=== PATIENT | female | born 1960 | race Caucasian/White ===

== ENCOUNTER → 2020-04-23 10:49 | Outpatient (BNV) | payer OTHER, SELFPAY | PROVIDERS: PCP Pediatrics; Visit Provider Internal Medicine | DX: C50.911 Malignant neoplasm of unspecified site of right female breast (principal) | CPT/HCPCS: 99213; 99214 ==

== ENCOUNTER → 2020-05-27 08:13 | Outpatient (BNVA) | payer OTHER, SELFPAY | PROVIDERS: PCP Family Medicine; Referring Provider Family Medicine; Visit Provider Surgery | DX: C50.911 Malignant neoplasm of unspecified site of right female breast (principal); Z79.899 Other long term (current) drug therapy | CPT/HCPCS: 99212 ==

== ENCOUNTER 2020-05-28 14:50 | Outpatient (REF) | payer OTHER, SELFPAY ==
--- NOTE | 2020-05-28 | MM_ITS ---
EXAMINATION: MM DIAGNOSTIC DIGITAL BREAST TOMOSYNTHESIS, BILATERAL CLINICAL INFORMATION: Right lumpectomy for breast cancer 2018. Due for yearly exam. COMPARISON: Mammography: 04/26/2019, 04/24/2018, 08/09/2017, 07/05/2017, 06/20/2017, 12/16/2016 TECHNIQUE: Digital breast tomosynthesis is performed in both the craniocaudal and mediolateral oblique views along with computer-aided detection (CAD). Synthesized 2D images are generated from the tomosynthesis. Additional magnification right CC and magnification right LM views are obtained. FINDINGS: There are scattered areas of fibroglandular density (ACR BI-RADS breast composition Category b). The right breast shows post therapy changes with minor scarring upper inner quadrant similar to prior study. Neither breast shows significant mass or interval architectural abnormality or abnormal calcifications. There are no significant changes. Results are provided to the patient at time of visit by the technologist. MM/MM tomosynthesis diagnostic BI IMPRESSION: 1. No significant changes from prior exam. 2. Post therapy changes right breast. ASSESSMENT: BI-RADS 2: Benign RECOMMENDATION: Annual bilateral mammography. This patient's information was entered into a reminder system with a target due date for their next mammogram.
== END 2020-05-28 14:51 | disposition home or self-care (01) ==
LOC: HO.MAMMO 14:50
PROVIDERS: PCP Family Medicine; Visit Provider Surgery
DX: C50.911 Malignant neoplasm of unspecified site of right female breast (principal)
CPT/HCPCS: 77062; 77066

== ENCOUNTER → 2020-08-20 08:14 | Outpatient (BNVA) | payer OTHER, SELFPAY | PROVIDERS: Visit Provider Physician Assistant | DX: Z13.89 Encounter for screening for other disorder (principal) | CPT/HCPCS: Q3014 ==

== ENCOUNTER 2020-08-22 11:50 | Outpatient (REF) | payer OTHER, SELFPAY ==
--- NOTE | ~2020-08-22 | CT_ITS ---
EXAMINATION: CT ABDOMEN WITH CONTRAST CLINICAL INFORMATION: Severe gastric ulcer COMPARISON: Abdominal ultrasound of July 06, [address] of the abdomen and pelvis of December 11, 2011 TECHNIQUE: Contiguous axial thin section helical images of the abdomen were performed following the administration of oral contrast and 85 mL of Omnipaque 350 intravenous contrast. The data set was reformatted in the coronal and sagittal planes and reviewed on an independent workstation. This CT examination was performed using dose optimization techniques as appropriate, variously including the following: *Automated exposure control *Adjustment of mA and/or kV according to patient size (this includes techniques or standardized protocols for targeted exams where dose is matched to indication/reason for exam; i.e. extremities or head) *Use of iterative reconstruction technique DLP: 350 mGy-cm FINDINGS: LUNG BASES: Lung bases appear unremarkable without evidence of acute parenchymal disease. No pleural effusion. No pericardial effusion. LIVER, GALLBLADDER, AND BILIARY TREE: Liver appears unremarkable without focal mass or intrahepatic bile duct dilatation. Patient status post cholecystectomy. PANCREAS: No pancreatic masses appreciated. Parenchymal contour is unremarkable without peripancreatic inflammatory change or fluid. SPLEEN: Unremarkable ADRENAL GLANDS AND KIDNEYS: Adrenal glands appear unremarkable. There are bilateral renal low-density lesions consistent with cysts. No suspicious solid masses seen. No hydronephrosis. Visualized portions of the ureters appear unremarkable. BOWEL LOOPS: No dilated loops of large or small bowel identified. No free air is seen. No significant free fluid. LYMPH NODES: There is hazy density seen within the mesentery with some prominent lymph nodes largest of which measures 1 cm in diameter. The lucho mesentery as a fat halo sign around the mesenteric vessels. These findings are consistent with mesenteric panniculitis. VASCULAR: The splenic vein, inferior mesenteric vein, and superior mesenteric vein appear to be patent. Portal vein is patent. No abdominal aortic aneurysm. There is some nonocclusive calcified plaque seen within the aortoiliac vessels. BONES: No destructive bony lesion appreciated. CT/CT abdomen w con IMPRESSION: No evidence of ileus or obstruction. No evidence of obstructive uropathy. Lucho mesentery with fat halos around the mesenteric vessels consistent with mesenteric panniculitis.
[2020-08-22 14:34] LABS: Blood Urea Nitrogen 17 mg/dL (9-16); Estimated Glomerular Filt Rate > 60
[2020-08-22] MEDS: Barium Sulfate Oral (Mocha) 450 ML ORAL.SUSP 900 ML PO (15:36)
== END 2020-08-22 11:51 | disposition home or self-care (01) ==
LOC: HO.CT 11:50
PROVIDERS: Visit Provider Emergency Medicine
DX: R10.9 Unspecified abdominal pain (principal); I10 Essential (primary) hypertension
CPT/HCPCS: 36415; 74160; 82565; 84520; Q9967

== ENCOUNTER 2020-09-10 14:26 | Emergency (ER) | payer OTHER, SELFPAY ==
[2020-09-10 15:21] VITALS: BP 200/90; PULSE 76; RESP 18; TEMP 36.8; O2SAT 95; BMI 31.3
--- NOTE | 2020-09-10 15:29 | PC.NURSE ---
Ignacio Charge nurse aware of clients current blood pressure and headache complaint.
== END 2020-09-10 22:05 | disposition left against medical advice (07) ==
PROVIDERS: Emergency Provider Emergency Medicine; PCP Pediatrics
DX: R10.9 Unspecified abdominal pain (principal)
CPT/HCPCS: 99282

== ENCOUNTER 2020-10-08 12:22 | Outpatient (REF) | payer OTHER, SELFPAY ==
[2020-10-08 14:12] LABS: MANUAL DIFF FLAG NO
[2020-10-08 14:21] LABS: Basophils Percent Auto 0.4 % (0-2); Eosinophils Absolute Auto 0.2 X10*3/uL (0.0-0.4); Eosinophils Percent Auto 2.9 % (0-4); Hematocrit 37.8 % (37-47); Hemoglobin 11.9 g/dl (12.0-16.0); Imm Gran Abs Auto 0.02 X10*3/uL (0.00-0.03); Imm Gran Pct Auto 0.3 % (0.0-0.4); Lymphocytes Absolute Auto 1.8 X10*3/uL (1.2-4.9); Lymphocytes Percent Auto 24.9 % (20-40); Mean Corpuscular HGB Conc 31.5 g/dl (31.0-35.0); Mean Corpuscular Hemoglobin 29.7 pg (27.0-33.0); Mean Corpuscular Volume 94.3 fL (80-98); Mean Platelet Volume 11.8 fL (9.4-12.3); Monocytes Absolute Auto 0.4 X10*3/uL (0.1-1.2); Monocytes Percent Auto 5.1 % (2-11); Neutrophils Absolute Auto 4.8 X10*3/uL (2.0-8.3); Neutrophils Percent Auto 66.4 % (45-73); Platelet Count 265 X10*3/uL (160-400); Red Blood Count 4.01 X10*6/uL (4.20-5.50); Red Cell Distribution Width 12.8 % (11.0-16.0); White Blood Count 7.3 X10*3/uL (4.8-10.8)
[2020-10-08 14:41] LABS: Alanine Aminotransferase 17 U/L (0-31); Albumin Level 4.1 g/dL (3.5-5.0); Alkaline Phosphatase 100 U/L (39-117); Anion Gap 14 (12-20); Aspartate Amino Transferase 17 U/L (5-31); Bilirubin Total 0.3 mg/dL (0.0-1.0); Blood Urea Nitrogen 16 mg/dL (9-16); C Reactive Protein 0.55 mg/dL (< or = 0.50); Calcium 9.8 mg/dL (8.4-10.2); Carbon Dioxide 28 mmol/L (22-29); Chloride 105 mmol/L (96-108); Estimated Glomerular Filt Rate > 60; Glucose Random 104 mg/dL (60-115); Potassium 4.4 mmol/L (3.3-5.1); Sodium 143 mmol/L (135-145); Total Protein 7.1 g/dL (6.5-8.0)
[2020-10-08 15:48] LABS: Erythrocyte Sedimentation Rate 38 MM/HR (0-20)
== END 2020-10-08 12:23 | disposition home or self-care (01) ==
LOC: HO.LAB 12:22
PROVIDERS: PCP Pediatrics; Visit Provider Physician Assistant
DX: R10.11 Right upper quadrant pain (principal); R74.01 Elevation of levels of liver transaminase levels; K52.9 Noninfective gastroenteritis and colitis, unspecified
CPT/HCPCS: 36415; 80053; 85025; 85652; 86140; 99212

== ENCOUNTER → 2020-10-10 09:36 | Outpatient (BNVA) | payer OTHER, SELFPAY | PROVIDERS: PCP Pediatrics; Visit Provider Internal Medicine Gastroenterology | CPT/HCPCS: Q3014 ==

== ENCOUNTER → 2020-11-11 09:55 | Outpatient (BNVA) | payer OTHER, SELFPAY | PROVIDERS: PCP Pediatrics; Visit Provider Surgery | DX: Z13.89 Encounter for screening for other disorder (principal) | CPT/HCPCS: 99202 ==

== ENCOUNTER 2021-01-02 15:50 | Outpatient (REF) | payer OTHER, SELFPAY ==
--- NOTE | ~2021-01-02 | US_ITS ---
EXAMINATION: US VENOUS ULTRASOUND WITH DOPPLER LOWER EXTREMITY, BILATERAL CLINICAL INFORMATION: Swelling COMPARISON: None TECHNIQUE: Ultrasound of the deep veins is performed from the hip to the calf with compression sonography and color and pulse Doppler assessment. Spectral analysis with color-flow imaging is performed. FINDINGS: RIGHT: There is normal venous compression and respiratory variation and augmented flow. The visualized common femoral vein, superficial femoral vein, profunda femoral vein, popliteal vein, and the trifurcation region shows no evidence of deep venous thrombosis. There is no significant popliteal fossa cyst. LEFT: There is normal venous compression and respiratory variation and augmented flow. The visualized common femoral vein, superficial femoral vein, profunda femoral vein, popliteal vein, and the trifurcation region shows no evidence of deep venous thrombosis. There is no significant popliteal fossa cyst. US/US venous duplex LE BI IMPRESSION: No DVT demonstrated in the bilateral lower extremity.
== END 2021-01-02 15:51 | disposition home or self-care (01) ==
LOC: HO.US 15:50
PROVIDERS: PCP Pediatrics; Visit Provider Nurse Practitioner Family
DX: R60.9 Edema, unspecified (principal)
CPT/HCPCS: 93970

== ENCOUNTER 2021-01-12 06:06 | Day surgery (SDC) | payer OTHER, SELFPAY ==
[2021-01-05 11:34] VITALS: BMI 33.2
[2021-01-12] VITALS (8 sets, daily range): BP systolic 125–166; BP diastolic 67–82; PULSE 55–80; RESP 16; TEMP 36.4–36.8; O2SAT 93–100
[2021-01-12] MEDS: Lactated Ringers 1,000 ML 100 ML IVCONT (06:47)
--- NOTE | 2021-01-12 07:19 | MHC.SHP ---
Pre-Procedural Eval Section A Date of Service: 01/12/21 The patient is an INPATIENT: No Changes since office visit: Yes Patient answered all questions; No Cold of Flu in the past 2 weeks, No New Medical Problems and No Changes in Medication The History & Physical has been completed within 30 days and I have reviewed it.: No Section B Chief Complaint: Mesenteric Panniculitis Relevant Family History (Specify if Yes): No Relevant Social History: None Present Medications: see Short Stay Collaborative assessment Medical History: Significant History (breast ca, IBS) History of Previous Operations: No relevant previous surgery Allergies: Allergies Allergy/AdvReac Type Severity Reaction Status Date / Time No Known Allergies Allergy Verified 01/12/21 06:25 Review of Systems Sugical H&P ROS: Negative: Constitution, Cardiovascular, Respiratory, Neurological, Psychiatric, Hem-Onc, Allergic/Immunologic, Genitourinary, Musculoskeletal, Integumentary, Endocrine and Eyes/Ears/Nose/Throat and Yes, Specify: Gastrointestinal (abdominal pain) Exam Surgical H&P Exam: Normal: HEENT, Normal: Heart, Normal: Lungs, Normal: Extremities, Normal: Abdomen, Normal: Skin and Normal: Neurological Plan Diagnosis/Plan: Unchanged I have reviewed the history and physical and performed a pertinent physical examination on my patient. No changes have occurred unless specified.
--- NOTE | 2021-01-12 07:19 | HO.ANESPROP2 ---
HPI - Anesthesia Eval Consult details Narrative: 60yo female patient for Laparoscopic excision of mesenteric lymph node PMFSH Active Problems Active Problems: All Active Problems (Updated 01/05/21 @ 11:39 by Komal Serrano) Invasive ductal carcinoma of right breast in female (Chronic) Abdominal pain (Acute) Nausea & vomiting (Acute) Mesenteric panniculitis (Acute) Chronic diarrhea (Acute) Past Medical History Medical History Asthma Cervical disc disease Chronic diarrhea COVID-19 vaccine series completed Fatty liver GERD (gastroesophageal reflux disease) HTN (hypertension) Hypercholesteremia Hypothyroid IBS (irritable bowel syndrome) Kidney stone Migraine Vertigo Family History Family History Father Prostate cancer Paternal Aunt Diabetes Stroke Father Heart attack Paternal Uncle Stroke Family history of problems with anesthesia: No Surgical History Surgical History H/O lumpectomy Hx of cholecystectomy History of Problems with Anesthesia: No Social History Social History Household Members: Spouse Unable to assess alcohol history related to: Unknown Alcohol intake: never Patient Tobacco Use Status: Never used Tobacco Are you DNR?: No Advance Directives: No Advance Directives Information Provided: No Advance Directives on File: No Meds Allergies Allergy/AdvReac Type Severity Reaction Status Date / Time No Known Allergies Allergy Verified 01/12/21 06:25 Active Medications: Current Medications Generic Name Dose Route Start Last Admin Trade Name Freq PRN Reason Stop Dose Admin Lactated Ringer's 1,000 mls @ 100 mls/hr 01/12/21 06:15 01/12/21 06:47 Lr IVCONT 100 mls/hr .Q10H LINDSEY Administration Home Medications Medication Instructions Recorded Confirmed Last Taken Type albuterol sulfate 90 mcg/actuation 1 puff INHALATION Q4H PRN 04/23/20 01/05/21 Unknown History aerosol inhaler allopurinol 300 mg tablet 1 tab PO DAILY 04/23/20 01/05/21 Unknown History atorvastatin 20 mg tablet 1 tab PO DAILY 04/23/20 01/05/21 Unknown History cholecalciferol (vitamin D3) 50 1 tab PO BID 04/23/20 01/05/21 Unknown History mcg (2,000 unit) tablet cyanocobalamin (vitamin B-12) 1 ml IM QMONTH 04/23/20 01/05/21 Unknown History 1,000 mcg/mL injection solution diclofenac sodium 1 % topical gel 2 g TOPICAL BID PRN 04/23/20 01/05/21 Unknown History dicyclomine 20 mg tablet 1 tab PO BID PRN 04/23/20 01/05/21 Unknown History enalapril maleate 20 mg tablet 1 tab PO BID 04/23/20 01/05/21 Unknown History letrozole 2.5 mg tablet 1 tab PO DAILY 04/23/20 01/05/21 Unknown History levothyroxine 75 mcg tablet 1 tab PO DAILY 04/23/20 01/05/21 01/12/21 05:30 History loratadine 10 mg tablet 1 tab PO DAILY 04/23/20 01/05/21 Unknown History meclizine 25 mg tablet 1 tab PO TID PRN 04/23/20 01/05/21 Unknown History pantoprazole 40 mg tablet,delayed 1 tab PO BID 04/23/20 01/05/21 Unknown History release sumatriptan succinate 25 mg tablet 1 tab PO DAILY 04/23/20 01/05/21 Unknown History venlafaxine 75 mg capsule,extended 1 cap PO DAILY 04/23/20 01/05/21 Unknown History release 24 hr amlodipine 5 mg tablet 1 tab PO DAILY 01/05/21 01/05/21 01/12/21 05:30 History metoprolol succinate 25 mg 1 tab PO DAILY 01/05/21 01/05/21 01/12/21 05:30 History tablet,extended release 24 hr Exam Exam Date and Time: January 12, 2021718 Height,Weight and Vital Signs: Height 5 ft 7 in Weight 96.162 kg Last Vital Signs Temp 98.3 F 01/12/21 06:26 Pulse 72 01/12/21 06:26 Resp 16 01/12/21 06:26 BP 157/82 H 01/12/21 06:26 Pulse Ox 98 01/12/21 06:26 Airway TM Dist: >3cm Neck ROM: Full (Some pain due to cervical disc problems) Heart: RRR Lungs: CTAB Assessment and Plan Assessment Anesthesia Assessment: Anesthesia Plan Discussed and Chart Reviewed Final Anesthetic Review Family History of Problems with Anesthesia: No History of Problems with Anesthesia: No NPO: Yes ASA Class: II Final Preanesthetic Review: No Changes in Pt Med Stat, Meds/Allgs Chart Reviewed, Consent Obtained/Reviewed and Anes Risks/Benef Reviewed Patient Risk: Low Procedure Risk: Intermediate Assessment/Block/Sedation in SS: Assess/Block/Sedation-SS Anesthetic Plan Anesthetic Plan: GA Disposition: Standard PACU
--- NOTE | 2021-01-12 08:20 | W.PM.OPN ---
Operative Note Operative Note Date of Service: 01/12/21 Narrative: Preoperative diagnosis: Mesenteric panniculitis Postoperative diagnosis: Same Procedure: Exploratory laparoscopy, biopsy of mesenteric panniculitis Surgeon: Porfirio Antunez MD Assistant Real Estate Manager: Angelita Blake PA-C Anesthesia: General endotracheal Indications for procedure: 60-year-old female with history of abdominal pain, nausea, vomiting found on CT to have an area of mesenteric panniculitis involving the small bowel mesentery with some moderately enlarged lymph nodes within the mesentery. This was felt to possibly be an autoimmune etiology, therefore biopsy was recommended by her sharepoint application architect Operative findings: Patient was found to have an area of panniculitis involving the proximal ileum mesentery just below the transverse mesentery. A segment of the mesentery was excised using LigaSure. Specimen: Mesenteric fat pad Estimated blood loss: 2 cc Complications: None Procedure details: Patient was brought to the OR and placed in a supine position. After administering general anesthesia patient's abdomen was prepped with ChloraPrep and draped in a sterile fashion. A surgical time-out was called the consent confirmed. Patient received preoperative antibiotics and Venodyne boots were in place. Local anesthesia consisting of Sensorcaine 0.25% with epinephrine was then infiltrated in periumbilical region. A 5 mm incision was then made with a scalpel. The Veress needle was then inserted while elevating abdominal cavity with towel clips. After a positive drop test the abdomen was insufflated to a pressure of 15 mm of mercury. A 5 mm trocar was then inserted under direct vision. A 30 degree scope was then used to examine the abdomen. A 2nd 5 mm trocar was placed in the right upper quadrant at the site of a previous trocar insertion site. A 3rd trocar was placed in the 3 o'clock position and 4th placed in the 6 o'clock position. The patient was placed in a Trendelenburg position. Omentum was then mobilized and placed in the left upper quadrant. Transverse mesentery is noted to be normal. The proximal small bowel mesentery was identified and noted to be inflamed with a whitish discoloration. A small segment of small bowel at the proximal jejunum was noted to have whitish streaks as well. The wall was not thickened however. No other mesenteric changes were identified. No obvious in lymphadenopathy could be identified.. Using the LigaSure the mesenteric fat at the area of panniculitis was incised and a segment measuring approximately 1 cm in diameter excised. The pest controller assistant was used for elevation of the specimen during mobilization and for operating the laparoscopic camera. The specimen was sent to pathology for further examination. Wounds were checked for hemostasis. No other abnormal findings could be identified. Pelvic organs appeared normal without peritoneal disease. A small piece of Surgicel was placed on the raw surface following the biopsy to assure hemostasis. The omentum was then brought down over the mesenteric defect and return to its normal position. CO2 was then evacuated and all trocars removed. No bleeding was noted from the trocar sites. All sites were closed using a subcuticular 4-0 Polysorb suture. Steri-Strips 2 x 2 gauze and Tegaderm were then applied. The patient tolerated the procedure well. Sponge, instrument, and needle counts reported as correct. The patient was transferred to PACU in stable condition.
[2021-01-12] MEDS: Ketorolac Tromethamine 15 MG/ML VIAL IVPUSH (09:05)
== END 2021-01-12 10:10 | disposition home or self-care (01) ==
PROVIDERS: PCP Pediatrics; Visit Provider Surgery
PROC: (CPT 49321; principal; 2021-01-12 07:30)
DX: K65.4 Sclerosing mesenteritis (principal); R59.0 Localized enlarged lymph nodes; K52.9 Noninfective gastroenteritis and colitis, unspecified; K21.9 Gastro-esophageal reflux disease without esophagitis; C50.911 Malignant neoplasm of unspecified site of right female breast; Z79.811 Long term (current) use of aromatase inhibitors; Z90.49 Acquired absence of other specified parts of digestive tract; I10 Essential (primary) hypertension; J45.909 Unspecified asthma, uncomplicated; Z79.899 Other long term (current) drug therapy; Z87.442 Personal history of urinary calculi
CPT/HCPCS: 49321; 88304; J1885; J2250; J2405; J3010

== ENCOUNTER → 2021-01-21 09:14 | Outpatient (BNVA) | payer OTHER, SELFPAY | PROVIDERS: PCP Pediatrics; Visit Provider Surgery | DX: Z48.02 Encounter for removal of sutures (principal); Z87.2 Personal history of diseases of the skin and subcutaneous tissue | CPT/HCPCS: 99211 ==

== ENCOUNTER → 2021-02-10 08:57 | Outpatient (BNVA) | payer OTHER, SELFPAY | PROVIDERS: PCP Pediatrics; Visit Provider Internal Medicine Gastroenterology | CPT/HCPCS: Q3014 ==

== ENCOUNTER → 2021-02-23 12:26 | Outpatient (BNVA) | payer OTHER, SELFPAY | PROVIDERS: PCP Pediatrics; Visit Provider Nurse Practitioner Family | DX: M17.0 Bilateral primary osteoarthritis of knee (principal); Z86.69 Personal history of other diseases of the nervous system and sense organs | CPT/HCPCS: 99212 ==

== ENCOUNTER 2021-03-10 07:27 | Outpatient (REF) | payer OTHER, SELFPAY | END 2021-03-10 07:28 | disposition home or self-care (01) | LOC: HO.HOSX 07:27 | PROVIDERS: Visit Provider Physician Assistant | DX: Z13.89 Encounter for screening for other disorder (principal) ==

== ENCOUNTER 2021-05-22 07:06 | Outpatient (REF) | payer OTHER, SELFPAY ==
--- NOTE | ~2021-05-22 | XR_ITS ---
EXAMINATION: XR knee LT 2V, XR knee RT 2V, XR knee standing BI CLINICAL INFORMATION: Reason for Exam M25.569 - Pain in unspecified knee COMPARISON: None available at the time of this dictation. TECHNIQUE: frontal, lateral, tunnel and patella sunrise views FINDINGS: BONES: No fracture or dislocation is present. JOINTS: Mild narrowing of joint spaces suggest degenerative osteoarthritis. SOFT TISSUE: Normal XR/XR knee standing BI IMPRESSION: Mild tricompartment degenerative osteoarthritis. No knee joint effusion. Articular surfaces remain smooth.
--- NOTE | ~2021-05-22 | XR_ITS ---
EXAMINATION: XR knee LT 2V, XR knee RT 2V, XR knee standing BI CLINICAL INFORMATION: Reason for Exam M25.569 - Pain in unspecified knee COMPARISON: None available at the time of this dictation. TECHNIQUE: frontal, lateral, tunnel and patella sunrise views FINDINGS: BONES: No fracture or dislocation is present. JOINTS: Mild narrowing of joint spaces suggest degenerative osteoarthritis. SOFT TISSUE: Normal XR/XR knee LT 2V IMPRESSION: Mild tricompartment degenerative osteoarthritis. No knee joint effusion. Articular surfaces remain smooth.
--- NOTE | ~2021-05-22 | XR_ITS ---
EXAMINATION: XR knee LT 2V, XR knee RT 2V, XR knee standing BI CLINICAL INFORMATION: Reason for Exam M25.569 - Pain in unspecified knee COMPARISON: None available at the time of this dictation. TECHNIQUE: frontal, lateral, tunnel and patella sunrise views FINDINGS: BONES: No fracture or dislocation is present. JOINTS: Mild narrowing of joint spaces suggest degenerative osteoarthritis. SOFT TISSUE: Normal XR/XR knee RT 2V IMPRESSION: Mild tricompartment degenerative osteoarthritis. No knee joint effusion. Articular surfaces remain smooth.
== END 2021-05-22 07:07 | disposition home or self-care (01) ==
LOC: HO.HOSX 07:06
PROVIDERS: Visit Provider Physician Assistant
DX: M17.0 Bilateral primary osteoarthritis of knee (principal)
CPT/HCPCS: 20610; 73560; 73565; 99202; J1040

== ENCOUNTER 2021-05-29 12:41 | Outpatient (REF) | payer OTHER, SELFPAY ==
--- NOTE | ~2021-05-29 | MM_ITS ---
EXAMINATION: MM SCREENING DIGITAL BREAST TOMOSYNTHESIS, BILATERAL CLINICAL INFORMATION: History right lumpectomy for breast cancer, 2018. Due for yearly. COMPARISON: Mammography: 05/28/2020, 04/26/2019, 04/24/2018, 08/09/2017, 07/05/2017, 06/20/2017, 12/16/2016; bilateral breast MRI 12/26/2018. TECHNIQUE: Digital breast tomosynthesis is performed in both the craniocaudal and mediolateral oblique views along with computer-aided detection (CAD). Synthesized 2D images are generated from the tomosynthesis. FINDINGS: There are scattered areas of fibroglandular density (ACR BI-RADS breast composition Category b). Parenchymal pattern is similar to prior studies. There are postsurgical changes right breast central 1:00 position with scarring and mild dystrophic calcification. Neither breast shows interval mass or architectural abnormality or abnormal calcifications. No significant changes. MM/MM tomosynthesis screening BI IMPRESSION: No mammographic evidence of malignancy. Post therapy changes right breast. ASSESSMENT: BI-RADS 2: Benign RECOMMENDATION: Routine annual mammography screening. This patient's information was entered into a reminder system with a target due date for their next mammogram.
== END 2021-05-29 12:42 | disposition home or self-care (01) ==
LOC: HO.MAMMO 12:41
PROVIDERS: PCP Pediatrics; Visit Provider Family Medicine
DX: Z12.31 Encounter for screening mammogram for malignant neoplasm of breast (principal); Z85.3 Personal history of malignant neoplasm of breast
CPT/HCPCS: 77063; 77067

== ENCOUNTER → 2021-06-02 10:25 | Outpatient (BNVA) | payer OTHER, SELFPAY | PROVIDERS: Referring Provider Pediatrics; Visit Provider Surgery | DX: C50.911 Malignant neoplasm of unspecified site of right female breast (principal) | CPT/HCPCS: 99212 ==

== ENCOUNTER → 2021-09-07 14:13 | Outpatient (BNVA) | payer OTHER, SELFPAY | PROVIDERS: Visit Provider Internal Medicine Gastroenterology | DX: R11.2 Nausea with vomiting, unspecified (principal); R10.9 Unspecified abdominal pain; C50.911 Malignant neoplasm of unspecified site of right female breast | CPT/HCPCS: 99212 ==

== ENCOUNTER 2021-09-29 15:10 | Emergency (ER) | payer OTHER, SELFPAY ==
--- NOTE | ~2021-09-29 | CT_ITS ---
EXAMINATION: CT CERVICAL SPINE WITHOUT CONTRAST CLINICAL INFORMATION: Fall, trauma, pain COMPARISON: CT had 09/29/2021. TECHNIQUE: Multidetector volumetric CT imaging of the cervical spine is performed without contrast in the axial plane. Additional 2D reformatted coronal and sagittal images are generated on the CT workstation and uploaded to PACS. This CT examination was performed using dose optimization techniques as appropriate, variously including the following: *Automated exposure control *Adjustment of mA and/or kV according to patient size (this includes techniques or standardized protocols for targeted exams where dose is matched to indication/reason for exam; i.e. extremities or head) *Use of iterative reconstruction technique DLP: 493 mGy-cm FINDINGS: There is no vertebral compression fracture, fracture line, spondylolisthesis, or prevertebral soft tissue swelling. The craniocervical junction appears normal. The odontoid appears intact. There is straightening of the cervical lordosis with borderline reversal. Mild leftward tilting cervical spine is present on coronal images. There are degenerative changes between anterior arch C1 and the dens. No perched facet. There are degenerative disc changes at C5-C6 and C6-C7 with disc narrowing and endplate sclerosis and vertebral spurring. There is no apical pneumothorax. CT/CT cervical spine wo con IMPRESSION: 1. No acute bony abnormality or prevertebral soft tissue swelling. 2. Straightening and mild reversal cervical lordosis likely related to muscle spasm. 3. Degenerative disc changes C5-C6 and C6-C7.
--- NOTE | ~2021-09-29 | CT_ITS ---
EXAMINATION: CT HEAD WITHOUT CONTRAST CLINICAL INFORMATION: Fall, trauma, pain COMPARISON: Noncontrast CT head 03/29/2014 TECHNIQUE: Contiguous axial imaging was performed from the skull base to vertex without intravenous administration of contrast. Additional 2-D coronal and sagittal reformatted images are generated on the CT workstation and uploaded to PACS. This CT examination was performed using dose optimization techniques as appropriate, variously including the following: *Automated exposure control *Adjustment of mA and/or kV according to patient size (this includes techniques or standardized protocols for targeted exams where dose is matched to indication/reason for exam; i.e. extremities or head) *Use of iterative reconstruction technique DLP: 661 mGy-cm FINDINGS: There is no intracranial hemorrhage, hematoma, or extra-axial fluid collection. The ventricles are normal in size. There is no hydrocephalus, edema, or mass effect. The masters-white matter differentiation appears well preserved . There is no visible acute territorial infarct or mass lesion. The calvarium appears intact. There is no pneumocephalus or orbital emphysema. There are no air-fluid levels in the visualized sinuses or middle ears or mastoids. Mucosal thickening is seen scattered in the ethmoid, sphenoid, and right maxillary sinus. CT/CT head/brain wo con IMPRESSION: No acute intracranial abnormality.
--- NOTE | ~2021-09-29 | XR_ITS ---
EXAMINATION: XR CHEST CLINICAL INFORMATION: Syncope, fevers. COMPARISON: None TECHNIQUE: Frontal view of the chest was obtained. FINDINGS: No significant abnormality is noted involving the heart, lungs, mediastinum, bony thorax or soft tissues. XR/XR chest 1V IMPRESSION: No acute cardiopulmonary process.
--- NOTE | 2021-09-29 15:16 | ED.SYNCOPE ---
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 Had negative COVID test at [facility] yesterday. She has not had sick contacts. Vaccinated for COVID and flu. MD complaint: loss of consciousness, felt faint and collapsed Onset (ago): minute(s) (just prior to arrival ) -: second(s) Prodromal symptoms: lightheaded and other (was having diarrhea in the bathroom) Witnessed: No Context: recent illness (not feeling well since tuesday having diarrhea in bathroom ) Injuries sustained associated with event: neck Current symptoms: headache and nausea Treatments prior to arrival: IV fluids Related Data Home Medications Medication Instructions Recorded Confirmed albuterol sulfate 90 mcg/actuation 1 puff INHALATION Q4H PRN 04/23/20 06/02/21 aerosol inhaler allopurinol 300 mg tablet 1 tab PO DAILY 04/23/20 06/02/21 atorvastatin 20 mg tablet 1 tab PO DAILY 04/23/20 06/02/21 diclofenac sodium 1 % topical gel 2 g TOPICAL BID PRN 04/23/20 06/02/21 dicyclomine 20 mg tablet 1 tab PO BID PRN 04/23/20 06/02/21 enalapril maleate 20 mg tablet 1 tab PO BID 04/23/20 06/02/21 levothyroxine 75 mcg tablet 1 tab PO DAILY 04/23/20 06/02/21 loratadine 10 mg tablet 1 tab PO DAILY 04/23/20 06/02/21 meclizine 25 mg tablet 1 tab PO TID PRN 04/23/20 06/02/21 sumatriptan succinate 25 mg tablet 1 tab PO DAILY 04/23/20 06/02/21 venlafaxine 75 mg capsule,extended 1 cap PO DAILY 04/23/20 06/02/21 release 24 hr amlodipine 5 mg tablet 1 tab PO DAILY 01/05/21 06/02/21 metoprolol succinate 25 mg 1 tab PO DAILY 01/05/21 06/02/21 tablet,extended release 24 hr cholecalciferol (vitamin D3) 50 0 mcg PO 09/07/21 mcg (2,000 unit) capsule cyanocobalamin (vitamin B-12) 0 mcg PO 09/07/21 1,000 mcg tablet hydrochlorothiazide 25 mg tablet 25 mg PO QAM 09/07/21 metoprolol succinate 100 mg 100 mg PO DAILY 09/07/21 tablet,extended release 24 hr Previous Rx's Medication Instructions Recorded ondansetron 4 mg disintegrating 4 mg PO BID #20 tab 10/08/20 tablet methylcellulose (laxative) 500 mg 1,000 mg PO DAILY #60 tab 11/19/20 tablet (Fiber Laxative (methylcellulose)) letrozole 2.5 mg tablet 1 tab PO DAILY #60 tab 04/28/21 famotidine 40 mg tablet 40 mg PO BEDTIME #90 tab 09/07/21 lansoprazole 30 mg capsule,delayed 30 mg PO DAILY #90 cap 09/07/21 release pentoxifylline 400 mg 400 mg PO TID #90 tab 09/07/21 tablet,extended release ondansetron 4 mg disintegrating 4 mg PO Q8H PRN #20 tab 09/29/21 tablet Allergies Allergy/AdvReac Type Severity Reaction Status Date / Time No Known Allergies Allergy Verified 09/07/21 14:31 Review of Systems Review of Systems: Constitutional : pos Fever, pos Chills, pos Fatigue, pos Malaise ENT/Mouth : No sore throat, No Rhinorrhea Eyes: No Eye Pain, No Swelling, No Redness Cardiovascular : No Chest Pain, No SOB, No Dyspnea on Exertion, No Orthopnea, No Edema, No Palpitations Respiratory : pos Cough, No Sputum, No Wheezing Gastrointestinal : pos Nausea, No Vomiting, pos Diarrhea, No Constipation, pos abdominal Pain, No Hematochezia, No Melena Genitourinary : No Dysuria, No Urinary Frequency, No Hematuria, Musculoskeletal : No joint pain, No Myalgias, No Joint Swelling Skin : No Skin Lesions, No rash Neuro : No Weakness, No Numbness, No Dizziness, pos Headache, pos syncope Psych : No Anxiety/Panic, No Depression Heme/Lymph: No Bruising, No Bleeding,No Lymphadenopathy Endocrine : No Polyuria, No Polydipsia All other systems reviewed and are negative PMFSH Past Medical History Attestation statement: The following information was validated with the patient. Medical History Asthma Cervical disc disease Chronic diarrhea COVID-19 vaccine series completed Fatty liver GERD (gastroesophageal reflux disease) HTN (hypertension) Hypercholesteremia Hypothyroid IBS (irritable bowel syndrome) Kidney stone Migraine Vertigo Surgical History H/O lumpectomy History of esophagogastroduodenoscopy (EGD) Hx of cholecystectomy Hx of colonoscopy Family History Family History Father Prostate cancer Paternal Aunt Diabetes Stroke Father Heart attack Paternal Uncle Stroke Social History Social History Household Members: Spouse Unable to assess alcohol history related to: Unknown Alcohol intake: never Patient Tobacco Use Status: Never used Tobacco Advance Directives: No Advance Directives Information Provided: Yes Current occupation: rt handed Physical Exam Vital Signs: Vital Signs: Last Vital Signs Temp 98.6 F 09/29/21 15:38 Pulse 60 09/29/21 18:00 Resp 12 09/29/21 18:00 BP 122/57 L 09/29/21 18:00 Pulse Ox 98 09/29/21 18:00 BMI result Body Mass Index 31.3 Appearance: Alert. Oriented X3. No acute distress. Eyes: Pupils equal, round and reactive to light. ENT: Pharynx normal. Neck: Normal inspection. Neck supple. Collar in place CVS: Normal heart rate and rhythm. Pulses normal. Respiratory: No respiratory distress. Breath sounds normal. Abdomen: Soft and mild epigastric ttp no rebound or guarding Skin: Skin warm and dry. Normal skin color. Normal skin turgor. Extremities: No lower extremity edema. Neuro: Oriented X 3. No motor deficit. No sensory deficit. 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 She was at her doctor's office having abdominal cramps and diarrhea when she had syncopal episode - no tachycardia hypoxia CP/SOB to suggest PE - will obtain labs, hydrate, IV supportive medications. FLU/COVID/RSV swabs. Dispo per results and findings. Suspect illness wih vasovagal syncope. CT head/neck for trauma after fall. Lab Data Result diagrams: 09/29/21 16:50 09/29/21 16:50 Labs: Lab Results 09/29/21 09/29/21 09/29/21 Range/Units 16:50 16:50 16:50 WBC 8.7 (4.8-10.8) X10*3/uL RBC 4.12 L (4.20-5.50) X10*6/uL Hgb 12.5 (12.0-16.0) g/dl Hct 39.2 (37.0-47.0) % MCV 95.1 (80.0-98.0) fL MCH 30.3 (27.0-33.0) pg MCHC 31.9 (31.0-35.0) g/dl RDW 12.5 (11.0-16.0) % Plt Count 188 (160-400) X10*3/uL MPV 11.9 (9.4-12.3) fL Immature Gran % (Auto) 0.2 (0.0-0.4) % Neut % (Auto) 77.5 H (45-73) % Lymph % (Auto) 15.5 L (20-40) % [place] % (Auto) 4.5 (2-11) % Eos % (Auto) 2.1 (0-4) % Baso % (Auto) 0.2 (0-2) % Lymph # (Auto) 1.4 (1.2-4.9) X10*3/uL [place] # (Auto) 0.4 (0.1-1.2) X10*3/uL Eos # (Auto) 0.2 (0.0-0.4) X10*3/uL Baso # (Auto) 0.0 (0.0-0.2) X10*3/uL Abs Immat Gran (auto) 0.02 (0.00-0.03) X10*3/uL Absolute Neuts (auto) 6.8 (2.0-8.3) x10*3/uL Absolute Nucleated RBC 0.000 (0.0-0.012) X10*3/uL Nucleated RBC % (auto) 0.0 (0.0-0.2) /100WBC PT 12.5 (9.9-13.0) SEC INR 1.1 (0.9-1.1) Sodium 142 (135-145) mmol/L Potassium 4.6 (3.3-5.1) mmol/L Chloride 105 (96-108) mmol/L Carbon Dioxide 30 H (22-29) mmol/L Anion Gap 12 (12-20) BUN 12 (9-16) mg/dL Creatinine 0.91 (0.5-1.4) mg/dL Estim Creat Clear Calc 73.1 Estimated GFR > 60 Random Glucose 116 H (60-115) mg/dL Calcium 9.3 (8.4-10.2) mg/dL Magnesium 2.0 (1.6-2.6) mg/dL Total Bilirubin 0.6 (0.0-1.0) mg/dL Direct Bilirubin 0.2 (0.0-0.5) mg/dL AST 24 D (5-31) U/L ALT 25 (0-31) U/L Alkaline Phosphatase 81 (39-117) U/L Troponin I High Sens (<3.5-17.0) ng/L Total Protein 6.8 (6.5-8.0) g/dL Albumin 3.9 (3.5-5.0) g/dL Lipase 42 (8-78) U/L Influenza Type A (PCR) (Negative) Influenza Type B (PCR) (Negative) RSV RNA Qual (PCR) (Negative) SARS-CoV-2 RNA (RT-PCR) (Negative) 09/29/21 09/29/21 Range/Units 16:50 16:50 WBC (4.8-10.8) X10*3/uL RBC (4.20-5.50) X10*6/uL Hgb (12.0-16.0) g/dl Hct (37.0-47.0) % MCV (80.0-98.0) fL MCH (27.0-33.0) pg MCHC (31.0-35.0) g/dl RDW (11.0-16.0) % Plt Count (160-400) X10*3/uL MPV (9.4-12.3) fL Immature Gran % (Auto) (0.0-0.4) % Neut % (Auto) (45-73) % Lymph % (Auto) (20-40) % [place] % (Auto) (2-11) % Eos % (Auto) (0-4) % Baso % (Auto) (0-2) % Lymph # (Auto) (1.2-4.9) X10*3/uL [place] # (Auto) (0.1-1.2) X10*3/uL Eos # (Auto) (0.0-0.4) X10*3/uL Baso # (Auto) (0.0-0.2) X10*3/uL Abs Immat Gran (auto) (0.00-0.03) X10*3/uL Absolute Neuts (auto) (2.0-8.3) x10*3/uL Absolute Nucleated RBC (0.0-0.012) X10*3/uL Nucleated RBC % (auto) (0.0-0.2) /100WBC PT (9.9-13.0) SEC INR (0.9-1.1) Sodium (135-145) mmol/L Potassium (3.3-5.1) mmol/L Chloride (96-108) mmol/L Carbon Dioxide (22-29) mmol/L Anion Gap (12-20) BUN (9-16) mg/dL Creatinine (0.5-1.4) mg/dL Estim Creat Clear Calc Estimated GFR Random Glucose (60-115) mg/dL Calcium (8.4-10.2) mg/dL Magnesium (1.6-2.6) mg/dL Total Bilirubin (0.0-1.0) mg/dL Direct Bilirubin (0.0-0.5) mg/dL AST (5-31) U/L ALT (0-31) U/L Alkaline Phosphatase (39-117) U/L Troponin I High Sens < 3.5 (<3.5-17.0) ng/L Total Protein (6.5-8.0) g/dL Albumin (3.5-5.0) g/dL Lipase (8-78) U/L Influenza Type A (PCR) POSITIVE A (Negative) Influenza Type B (PCR) NEGATIVE (Negative) RSV RNA Qual (PCR) NEGATIVE (Negative) SARS-CoV-2 RNA (RT-PCR) NEGATIVE (Negative) ECG Data Attestation: I personally reviewed and interpreted this ECG as follows: ECG interpretation date: 09/29/21 ECG interpretation time: 15:39 Interpretation: Rate: 57 Rhythm: sinus bradycardia Grant: normal Normal P waves. Normal SANGEETA. Normal QRS complex. ST T wave : no JAIMIE, nonspecific anterior leads qTC: normal prior studies: no priors The study has been interpreted contemporaneously by me. Discharge Plan Discharge Clinical Impression: Influenza A Syncope Qualifiers: Syncope type: unspecified Qualified Code(s): R55 - Syncope and collapse Patient Disposition: Home, Self-Care Instructions: Syncope (ED), Influenza (ED) Additional Instructions: return to ED for any worsening symptoms or concerns Prescriptions: New ondansetron 4 mg tablet,disintegrating 4 mg PO Q8H PRN (Reason: nausea and vomiting) Qty: 20 0RF No Action methylcellulose (laxative) [Fiber Laxative (methylcellulo)] 500 mg tablet 1,000 mg PO DAILY Qty: 60 4RF venlafaxine 75 mg capsule,extended release 24hr 1 cap PO DAILY 0RF atorvastatin 20 mg tablet 1 tab PO DAILY 0RF enalapril maleate 20 mg tablet 1 tab PO BID 0RF sumatriptan succinate 25 mg tablet 1 tab PO DAILY 0RF levothyroxine 75 mcg tablet 1 tab PO DAILY 0RF dicyclomine 20 mg tablet 1 tab PO BID PRN (Reason: Stomach Upset) 0RF meclizine 25 mg tablet 1 tab PO TID PRN (Reason: dizziness) 0RF allopurinol 300 mg tablet 1 tab PO DAILY 0RF albuterol sulfate 90 mcg/actuation HFA aerosol inhaler 1 puff inhalation Q4H PRN (Reason: Wheezing) 0RF loratadine 10 mg tablet 1 tab PO DAILY 0RF diclofenac sodium 1 % gel 2 g topical BID PRN (Reason: Pain) 0RF letrozole 2.5 mg tablet 1 tab PO DAILY Qty: 60 3RF amlodipine 5 mg tablet 1 tab PO DAILY 0RF metoprolol succinate 25 mg tablet extended release 24 hr 1 tab PO DAILY 0RF hydrochlorothiazide 25 mg tablet 25 mg PO QAM 0RF cyanocobalamin (vitamin B-12) 1,000 mcg tablet 0 mcg PO 0RF cholecalciferol (vitamin D3) 50 mcg (2,000 unit) capsule 0 mcg PO 0RF metoprolol succinate 100 mg tablet extended release 24 hr 100 mg PO DAILY 0RF pentoxifylline 400 mg tablet extended release 400 mg PO TID Qty: 90 1RF Rx Instructions: must administer with a meal/food lansoprazole 30 mg capsule,delayed release(DR/EC) 30 mg PO DAILY Qty: 90 1RF famotidine 40 mg tablet 40 mg PO BEDTIME Qty: 90 2RF ondansetron 4 mg tablet,disintegrating 4 mg PO BID Qty: 20 0RF Stand Alone Forms: Work/School Release Print Language: Tamazight
[2021-09-29 15:23] VITALS: BP 100/50; BP 145/62; PULSE 55; PULSE 59; RESP 18; TEMP 36.9; O2SAT 100; O2SAT 98; BMI 31.3
--- NOTE | 2021-09-29 15:23 | ECG_ITS ---
Test Reason : syncope Blood Pressure : / mmHG Vent. Rate : 057 BPM Atrial Rate : 057 BPM P-R Int : 144 ms QRS Dur : 086 ms QT Int : 476 ms P-R-T Axes : 029 068 080 degrees QTc Int : 463 ms Sinus bradycardia Otherwise normal ECG No previous ECGs available Referred By: Mercy Bernstein Electronically Signed By:MINDY MARTINEZ MD
[2021-09-29 15:24] VITALS: O2SAT 98
[2021-09-29 15:38] VITALS: BP 138/54; PULSE 59; RESP 16; TEMP 37; O2SAT 98
[2021-09-29] MEDS: 0.9 % Sodium Chloride 1,000 ML 999 ML IVCONT (16:53)
[2021-09-29] MEDS: Morphine Sulfate 4 MG/ML CARTRIDGE IVPUSH (16:54)
[2021-09-29] MEDS: ondansetron HCL 4 MG/2 ML VIAL IVPUSH (16:54)
[2021-09-29 16:57] LABS: MANUAL DIFF FLAG NO
[2021-09-29 16:59] LABS: Basophils Percent Auto 0.2 % (0-2); Eosinophils Absolute Auto 0.2 X10*3/uL (0.0-0.4); Eosinophils Percent Auto 2.1 % (0-4); Hematocrit 39.2 % (37.0-47.0); Hemoglobin 12.5 g/dl (12.0-16.0); Imm Gran Abs Auto 0.02 X10*3/uL (0.00-0.03); Imm Gran Pct Auto 0.2 % (0.0-0.4); Lymphocytes Absolute Auto 1.4 X10*3/uL (1.2-4.9); Lymphocytes Percent Auto 15.5 % (20-40); Mean Corpuscular HGB Conc 31.9 g/dl (31.0-35.0); Mean Corpuscular Hemoglobin 30.3 pg (27.0-33.0); Mean Corpuscular Volume 95.1 fL (80.0-98.0); Mean Platelet Volume 11.9 fL (9.4-12.3); Monocytes Absolute Auto 0.4 X10*3/uL (0.1-1.2); Monocytes Percent Auto 4.5 % (2-11); Neutrophils Absolute Auto 6.8 x10*3/uL (2.0-8.3); Neutrophils Percent Auto 77.5 % (45-73); Platelet Count 188 X10*3/uL (160-400); Red Blood Count 4.12 X10*6/uL (4.20-5.50); Red Cell Distribution Width 12.5 % (11.0-16.0); White Blood Count 8.7 X10*3/uL (4.8-10.8)
[2021-09-29 17:15] LABS: Alanine Aminotransferase 25 U/L (0-31); Albumin Level 3.9 g/dL (3.5-5.0); Alkaline Phosphatase 81 U/L (39-117); Anion Gap 12 (12-20); Aspartate Amino Transferase 24 U/L (5-31); Bilirubin Direct 0.2 mg/dL (0.0-0.5); Bilirubin Total 0.6 mg/dL (0.0-1.0); Blood Urea Nitrogen 12 mg/dL (9-16); Calcium 9.3 mg/dL (8.4-10.2); Carbon Dioxide 30 mmol/L (22-29); Chloride 105 mmol/L (96-108); Creatinine Clr Calc Pharmacy 73.1; Estimated Glomerular Filt Rate > 60; Glucose Random 116 mg/dL (60-115); Lipase 42 U/L (8-78); Potassium 4.6 mmol/L (3.3-5.1); Sodium 142 mmol/L (135-145); Total Protein 6.8 g/dL (6.5-8.0)
[2021-09-29 17:21] LABS: Troponin-I High Sensitivity < 3.5 ng/L (<3.5-17.0)
[2021-09-29 17:28] LABS: INTERNATIONAL NORM RATIO 1.1 (0.9-1.1); Prothrombin Time 12.5 SEC (9.9-13.0)
[2021-09-29 17:34] LABS: Influenza A PCR POSITIVE (Negative); Influenza B PCR NEGATIVE (Negative); Resp Syncy Virus RNA Qual PCR NEGATIVE (Negative); SARS COV2 PCR INHOUSE NEGATIVE (Negative)
[2021-09-29 18:00] VITALS: BP 122/57; PULSE 60; RESP 12; O2SAT 98
--- NOTE | 2021-09-29 18:13 | PC.NURSE ---
Pt comes in from urgent care via EMS s/p syncopal episode in the BR. Went to urgent care for abd pain x 3 days with N/V/D and weakness as well as fevers. Pt is A&Ox4, LCA, abd soft TTP BS+ x 4. IV established by EMS. Medicated as per [facility] orders. call altamirano within reach. Will contineu to monitor.
== END 2021-09-29 18:33 | disposition home or self-care (01) ==
PROVIDERS: Emergency Provider Emergency Medicine; PCP Pediatrics
DX: J10.1 Influenza due to other identified influenza virus with other respiratory manifestations (principal); R55 Syncope and collapse; M54.2 Cervicalgia; M79.10 Myalgia, unspecified site; R51.9 Headache, unspecified; Z20.822 Contact with and (suspected) exposure to COVID-19; Z79.899 Other long term (current) drug therapy
CPT/HCPCS: 0241U; 36415; 70450; 71045; 72125; 80048; 80076; 83690; 83735; 84484; 85025; 85610; 93005; 96361; 96374; 96375; 99284; 99285; J2270; J2405

== ENCOUNTER 2021-12-15 09:51 | Outpatient (REF) | payer OTHER, SELFPAY ==
--- NOTE | ~2021-12-15 | MM_ITS ---
EXAMINATION: BONE DENSITOMETRY CLINICAL INDICATION: Menopausal. COMPARISON: Previous BD dated 10/04/2017 and baseline BD dated 10/30/2013. TECHNIQUE: Using a [employer] DXA System (software version: 13.1) manufactured by [employer], dual-energy x-ray absorptiometry was performed of the lumbar spine and left hip. The images are of good technical quality. Summary results are attached. FINDINGS: AP SPINE L1-L4: Current: BMD 1.194 g/cm2, Z-score 0.6, T-score 0.1, normal, 1.1% decrease from previous, 4.6% decrease from baseline (<5% change is not significant). Prior: BMD 1.207 g/cm2. Baseline: BMD 1.251 g/cm2. LEFT FEMUR, NECK: Current: BMD 0.788 g/cm2, Z-score -1.1, T-score -1.8, osteopenia. Prior: BMD 0.849 g/cm2. Baseline: BMD 0.869 g/cm2. LEFT FEMUR, TOTAL: Current: BMD 0.803 g/cm2, Z-score -1.2, T-score -1.6, osteopenia, 8.2% decrease from previous, 11.3% decrease from baseline (<5% change is not significant). Prior: BMD 0.875 g/cm2. Baseline: BMD 0.905 g/cm2. IDENTIFIED RISK FACTORS: Height loss, menopause. HISTORY OF FRACTURE: None listed. MEDICATIONS: None listed. MM/XR DEXA axial skeleton IMPRESSION: 1. DIAGNOSIS: Osteopenia based on the lowest T-score value of -1.8 in the femoral neck applying World Health Organization criteria. 2. 10-YEAR FRACTURE RISK PREDICTION, FRAX: Major osteoporotic fracture (clinical spine, forearm, hip or shoulder) 4.9%. Hip fracture 0.6%. 3. Treatment Recommendations: NOF guidelines recommend consideration for treatment in postmenopausal women and men age 50 and older presenting with the following: -A hip or vertebral (clinical or morphometric) fracture. -T-score less than or equal to -2.5 at the femoral neck or spine after appropriate evaluation to exclude secondary causes. -Low bone mass at the hip or spine and a 10-year fracture probability by FRAX of greater than or equal to 3% for hip fracture or greater than or equal to 20% for major osteoporotic fracture based on the [place] adapted WHO algorithm. 4. Other Recommendations: All treatment decisions require clinical judgment and consideration of individual patient factors, including patient preferences, comorbidities, previous drug use, risk factors not captured in the FRAX model (e.g. frailty, falls, vitamin D deficiency, increased bone turnover, interval significant decline in bone density) and possible under or overestimation of fracture risk by FRAX. Additional medical evaluation for secondary cause of low bone mineral density may be appropriate. FUTURE SCAN RECOMMENDATION: People with diagnosed cases of osteoporosis or at high risk for fracture should have regular bone mineral density tests. For patients eligible for Medicare, routine testing is allowed once every 2 years. The testing frequency can be increased to one year for patients who have rapidly progressing disease, those who are receiving or discontinuing medical therapy to restore bone mass, or have additional risk factors.
== END 2021-12-15 09:52 | disposition home or self-care (01) ==
LOC: HO.MAMMO 09:51
PROVIDERS: Visit Provider Advanced Practice Midwife
DX: Z13.820 Encounter for screening for osteoporosis (principal); Z78.0 Asymptomatic menopausal state
CPT/HCPCS: 77080

== ENCOUNTER → 2022-02-23 08:20 | Outpatient (BNVA) | payer OTHER, SELFPAY | PROVIDERS: PCP Pediatrics; Visit Provider Student in an Organized Health Care Education/Training Program | DX: M17.0 Bilateral primary osteoarthritis of knee (principal) | CPT/HCPCS: 20610; 99212 ==

== ENCOUNTER → 2022-06-08 09:24 | Outpatient (BNVA) | payer OTHER, SELFPAY | PROVIDERS: PCP Pediatrics; Referring Provider Pediatrics; Visit Provider Surgery | DX: C50.911 Malignant neoplasm of unspecified site of right female breast (principal); Z79.811 Long term (current) use of aromatase inhibitors; Z17.0 Estrogen receptor positive status [ER+] | CPT/HCPCS: 99212 ==

== ENCOUNTER 2022-06-22 13:31 | Outpatient (REF) | payer OTHER, SELFPAY ==
--- NOTE | ~2022-06-22 | MM_ITS ---
EXAMINATION: MM SCREENING DIGITAL BREAST TOMOSYNTHESIS, BILATERAL CLINICAL INFORMATION: Screening. Asymptomatic. Right ID CAD status post lumpectomy 2018. Due for yearly. COMPARISON: Mammography: 05/29/2021, 05/28/2020, 04/26/2019, 04/24/2018 TECHNIQUE: Digital breast tomosynthesis is performed in both the craniocaudal and mediolateral oblique views along with computer-aided detection (CAD). Synthesized 2D images are generated from the tomosynthesis. FINDINGS: There are scattered areas of fibroglandular density (ACR BI-RADS breast composition Category b). There are post therapy changes right breast with minor scarring and interval benign dystrophic calcification within the center of the scar. Digital breast shows interval mass or significant mass or interval architectural abnormality or developing density or abnormal calcifications. The axilla are unremarkable. There are no significant changes. MM/MM tomosynthesis screening BI IMPRESSION: -No mammographic evidence of malignancy. -Post therapy changes right breast. ASSESSMENT: BI-RADS 2: Benign RECOMMENDATION: Routine annual mammography screening. This patient's information was entered into a reminder system with a target due date for their next mammogram.
== END 2022-06-22 13:32 | disposition home or self-care (01) ==
LOC: HO.MAMMO 13:31
PROVIDERS: PCP Pediatrics; Visit Provider Pediatrics
DX: Z12.31 Encounter for screening mammogram for malignant neoplasm of breast (principal)
CPT/HCPCS: 77063; 77067

== ENCOUNTER 2022-12-28 16:00 | Outpatient (REF) | payer OTHER, SELFPAY ==
--- NOTE | ~2022-12-28 | XR_ITS ---
EXAMINATION: XR CHEST CLINICAL INFORMATION: Cough. Nasal congestion. COMPARISON: 09/29/2021 TECHNIQUE: 2 views of the chest were obtained. FINDINGS: The lungs are well expanded. There is no focal consolidation, edema, or effusion. No pneumothorax. The cardiomediastinal silhouette is within normal limits. No acute osseous abnormality. Mild degenerative changes in the spine. XR/XR chest 2V IMPRESSION: Clear lungs.
[2022-12-28 19:47] LABS: Influenza A PCR NEGATIVE (Negative); Influenza B PCR NEGATIVE (Negative); Resp Syncy Virus RNA Qual PCR NEGATIVE (Negative); SARS COV2 PCR INHOUSE NEGATIVE (Negative)
== END 2022-12-28 16:01 | disposition home or self-care (01) ==
LOC: HO.HHCX 16:00
PROVIDERS: Visit Provider Registered Nurse
DX: R05.9 Cough, unspecified (principal); R09.89 Other specified symptoms and signs involving the circulatory and respiratory systems; Z20.822 Contact with and (suspected) exposure to COVID-19
CPT/HCPCS: 0241U; 71046; 87070; 87147

== ENCOUNTER 2023-06-14 10:37 | Outpatient (AMB) | payer OTHER, SELFPAY ==
--- NOTE | 2023-06-14 10:39 | MHC.OFFVIS ---
Intake Vital Signs 06/14/23 10:47 Height 5 ft 7 in Weight 198 lb BMI 31.0 BP 127/65 Blood Pressure Location Lt brachial Position Sitting Pulse 61 Intake Visit Reasons: 1 year breat exam follow up Intake Note: Patient is seen in office for yearly breast exam. 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 [employer] Present Accompanied by: Spouse Allergies No Known Allergies Allergy (Verified 06/14/23 10:40) Medication List - Last Reconciled 06/14/23 by Profirio Antunez MD albuterol sulfate 90 mcg/actuation 1 puff inhalation Q4H PRN amlodipine 5 mg PO DAILY atorvastatin 1 tab PO DAILY calcium carbonate 600 mg PO BID cholecalciferol (vitamin D3) 50 mcg PO DAILY cyanocobalamin (vitamin B-12) 1,000 mcg PO DAILY dicyclomine 1 tab PO BID PRN enalapril maleate 1 tab PO BID famotidine 40 mg PO BEDTIME hydrochlorothiazide 25 mg PO QAM lansoprazole 30 mg PO DAILY levothyroxine 1 tab PO DAILY loratadine 1 tab PO DAILY meclizine 1 tab PO TID PRN metoprolol succinate ER 100 mg PO DAILY ondansetron 4 mg PO Q8H PRN sumatriptan succinate 1 tab PO DAILY venlafaxine ER 1 cap PO DAILY HPI HPI Comments History of Present Illness Details 62-year-old female, former patient of Dr. Kraus, with a previous history of right breast carcinoma diagnosed in June 2017. She underwent a right breast lumpectomy with needle localization and right axillary sentinel node biopsy on 07/20/2017. Pathology revealed a 0.7 cm, grade 2, infiltrating ductal carcinoma with clear margins and 4 benign right axillary sentinel nodes. ER/ME receptors positive, HER2 Cortez negative. She underwent radiation therapy from 08/31/2017 to 09/21/2017. She is on letrozole since October 2017 and reports hot flashes and night sweats. Does have some numbness in the entire right breast including the area of the incision in the upper inner quadrant. She denies any new palpable mass on either side. Her most recent mammogram dated 05/29/2021 revealed no mammographic evidence of malignancy and post therapy changes of the right breast (BI-RADS 2: Benign). Her most recent mammogram dated 06/22/2022 revealed no mammographic evidence of malignancy (BI-RADS 2). She is scheduled for a follow-up mammogram on 06/23/2023. She continues to report pain in the right breast involving the entire breast. She denies any symptoms in the left breast. [facility] Medical History COVID-19 vaccine series completed Vertigo Chronic diarrhea Hypothyroid Fatty liver Kidney stone Asthma Cervical disc disease IBS (irritable bowel syndrome) GERD (gastroesophageal reflux disease) Migraine Hypercholesteremia HTN (hypertension) Surgical History History of esophagogastroduodenoscopy (EGD) Hx of colonoscopy H/O lumpectomy Hx of cholecystectomy Family History Father Prostate cancer Paternal Aunt Diabetes Stroke Father Heart attack Paternal Uncle Stroke Social History Household Members: Spouse Housing: Apartment Alcohol intake: current Alcohol intake frequency: does not drink Patient Tobacco Use Status: Never used Tobacco Current occupational status: disabled Current occupation: rt handed Review of Systems Const All systems reviewed & are unremarkable except as noted in HPI and below Card Denies chest pain, Denies rapid heart rate and Denies irregular heart rhythm Resp Reports no additional complaints GI Reports as per HPI Denies nipple discharge Skin/Breast Reports system reviewed and no additional complaints, except as documented, Reports breast pain, Denies breast mass, Denies change in pigmentation and Denies nipple discharge Omar/Lymph Denies lymphadenopathy Physical Exam Const General: cooperative, comfortable, no acute distress, alert and awake HEENT Head: Yes normocephalic and Yes atraumatic Ears: hearing grossly normal bilaterally Chest Other: Right breast: Tender throughout the right breast, well-healed incision in the upper inner quadrant with no palpable mass, nipple discharge, or enlarged lymph node. Left breast: No skin change, no nipple discharge, no enlarged lymph nodes, no palpable mass. No left breast tenderness. Chest/axillae images: 1. Right breast incision in the upper inner quadrant 2. Right axillary incision Resp Effort & Inspection: normal respiratory effort, no stridor and not tachypneic Auscultation: no wheezes GI Inspection: Yes normal to inspection Palpation (GI): Soft to palpation and nontender Skin General skin exam: no rashes or lesions noted Extrem General: Yes normal to inspection and Yes no clubbing, cyanosis or edema Assessment & Plan Assessment & Plan (1) Invasive ductal carcinoma of right breast in female: Code(s): C50.911 - Malignant neoplasm of unspecified site of right female breast Plan 62-year-old female patient with a prior history of right breast infiltrating ductal carcinoma status post right breast lumpectomy with needle localization, sentinel node biopsy and 07/20/2017. She subsequently underwent radiation therapy is currently on letrozole which she is tolerating, only complaining of hot flashes. She does have chronic right breast pain which has not changed significantly since her last visit. Examination today reveals no evidence of recurrent disease or new suspicious findings. She is scheduled for a follow-up mammogram on 06/23/2023 and will return in 1 year for annual breast examination. She is welcome to call sooner for any new concerns. Coding Level of Care Code Est Pt Level 3 (53306) Diagnoses Invasive ductal carcinoma of right breast in female C50.911
[2023-06-14 10:47] VITALS: BP 127/65; PULSE 61; BMI 31.0
== END 2023-06-14 11:00 | disposition home or self-care (01) ==
PROVIDERS: PCP Pediatrics; Visit Provider Surgery
DX: C50.911 Malignant neoplasm of unspecified site of right female breast (principal)
CPT/HCPCS: 99213

== ENCOUNTER → 2023-06-14 10:37 | Outpatient (BNVA) | payer OTHER, SELFPAY | PROVIDERS: Visit Provider Surgery | DX: C50.911 Malignant neoplasm of unspecified site of right female breast (principal); Z79.811 Long term (current) use of aromatase inhibitors; Z17.0 Estrogen receptor positive status [ER+]; Z92.3 Personal history of irradiation | CPT/HCPCS: 99212 ==

== ENCOUNTER 2023-06-23 13:58 | Outpatient (REF) | payer OTHER, SELFPAY ==
--- NOTE | ~2023-06-23 | MM_ITS ---
EXAMINATION: MM SCREENING DIGITAL BREAST TOMOSYNTHESIS, BILATERAL CLINICAL INFORMATION: Screening. Asymptomatic. The patient has a history of prior right breast cancer treated in 2018. COMPARISON: Mammography: This study is compared with prior exams dating back to 2018. TECHNIQUE: Digital breast tomosynthesis is performed in both the craniocaudal and mediolateral oblique views along with computer-aided detection (CAD). Synthesized 2D images are generated from the tomosynthesis. FINDINGS: There are scattered areas of fibroglandular density (ACR BI-RADS breast composition Category b). There are no significant masses, abnormal calcifications, or other abnormalities. There are postsurgical changes in the upper inner quadrant of the right breast with benign dystrophic calcification in the surgical bed of the previous breast cancer. MM/MM tomosynthesis screening BI IMPRESSION: No mammographic evidence of malignancy. ASSESSMENT: BI-RADS BI-RADS 2 - Benign Findings RECOMMENDATION: Routine annual mammography screening. 1 year F/U This examination should not preclude the clinical evaluation of a suspicious palpable abnormality. This patient's information was entered into a reminder system with a target due date for their next mammogram.
== END 2023-06-23 13:59 | disposition home or self-care (01) ==
LOC: HO.MAMMO 13:58
PROVIDERS: PCP Pediatrics; Visit Provider Pediatrics
DX: Z12.31 Encounter for screening mammogram for malignant neoplasm of breast (principal)
CPT/HCPCS: 77063; 77067

== ENCOUNTER → 2023-06-23 14:15 | Outpatient (BNV) | payer OTHER, SELFPAY | PROVIDERS: PCP Pediatrics; Visit Provider Radiology Diagnostic Radiology | DX: Z12.31 Encounter for screening mammogram for malignant neoplasm of breast (principal) | CPT/HCPCS: 77063; 77067 ==

== ENCOUNTER 2023-09-14 11:42 | Outpatient (REF) | payer OTHER, SELFPAY ==
[2023-09-14 14:15] LABS: MANUAL DIFF FLAG NO
[2023-09-14 14:18] LABS: Basophils Percent Auto 0.6 % (0-2); Eosinophils Absolute Auto 0.2 X10*3/uL (0.0-0.4); Eosinophils Percent Auto 2.9 % (0-4); Hematocrit 40.8 % (37.0-47.0); Hemoglobin 13.1 g/dl (12.0-16.0); Imm Gran Abs Auto 0.03 X10*3/uL (0.00-0.03); Imm Gran Pct Auto 0.4 % (0.0-0.4); Lymphocytes Percent Auto 27.5 % (20-40); Mean Corpuscular HGB Conc 32.1 g/dl (31.0-35.0); Mean Corpuscular Hemoglobin 29.7 pg (27.0-33.0); Mean Corpuscular Volume 92.5 fL (80.0-98.0); Mean Platelet Volume 12.7 fL (9.4-12.3); Monocytes Absolute Auto 0.4 X10*3/uL (0.1-1.2); Monocytes Percent Auto 5.5 % (2-11); Neutrophils Absolute Auto 4.5 x10*3/uL (2.0-8.3); Neutrophils Percent Auto 63.1 % (45-73); Platelet Count 262 X10*3/uL (160-400); Red Blood Count 4.41 X10*6/uL (4.20-5.50); Red Cell Distribution Width 13.2 % (11.0-16.0); White Blood Count 7.1 X10*3/uL (4.8-10.8)
[2023-09-14 14:54] LABS: Alanine Aminotransferase 12 U/L (0-31); Albumin Level 4.3 g/dL (3.5-5.0); Alkaline Phosphatase 79 U/L (39-117); Anion Gap 10 (12-20); Aspartate Amino Transferase 18 U/L (5-31); Bilirubin Direct 0.2 mg/dL (0.0-0.5); Bilirubin Total 0.5 mg/dL (0.0-1.0); Blood Urea Nitrogen 21 mg/dL (9-16); Carbon Dioxide 31 mmol/L (22-29); Chloride 104 mmol/L (96-108); Cholesterol 161 mg/dL (<200); Estimated Glomerular Filt Rate 51; Glucose Random 107 mg/dL (60-115); HDL Cholesterol 55 mg/dL (>40); LDL Cholesterol Calculated 91 mg/dL (<100); Potassium 4.4 mmol/L (3.3-5.1); Sodium 141 mmol/L (135-145); Total Protein 7.7 g/dL (6.5-8.0); Triglycerides 76 mg/dL (<150)
[2023-09-14 14:59] LABS: Estimated Average Glucose 120 mg/dL; Hemoglobin A1c % 5.8 % (<6.0)
[2023-09-14 15:12] LABS: TSH reflex Free T4 2.86 uIU/mL (0.32-4.0); Vitamin D 25-OH Total 31.3 ng/mL (>30)
== END 2023-09-14 11:43 | disposition home or self-care (01) ==
LOC: HO.CHCLDS 11:42
PROVIDERS: Visit Provider Pediatrics
DX: K21.9 Gastro-esophageal reflux disease without esophagitis (principal); R13.12 Dysphagia, oropharyngeal phase
CPT/HCPCS: 36415; 80053; 80061; 82248; 82306; 83036; 84443; 85025

== ENCOUNTER 2023-10-21 08:58 | Outpatient (AMB) | payer OTHER, SELFPAY ==
--- NOTE | 2023-10-21 09:00 | A.OFFVIS_ITS ---
Vital Signs 10/21/23 09:03 Height 5 ft 7 in Weight 196 lb 3.382 oz BMI 30.7 BP 167/81 H Blood Pressure Location Rt brachial Position Sitting Pulse 72 Intake Visit Reasons: Gastroesophageal reflux disease (GERD) Intake Note: Bree presents in the office as a follow up for GERD. CC: is here in the office due to her acid reflux. Is on pantoprazole and states that it has gotten a little better. Farm Mechanic Apprentice Required: Yes Farm Mechanic Apprentice Name: Aicha Chairez331 Allergies No Known Allergies Allergy (Verified 10/21/23 09:03) HPI HPI Gastroesophageal reflux disease (GERD): Details: 63 yr old f with hx of right breast invasive ductal carcinoma diagnosed in June 2017 s/p lumpectomy (ER/MO positive, HER-2 negative--on letrozole 2.5 mg) being seen for f/u hourly sign language interpreter used Had CT scan 08/2020 for abdominal pain and diarrhea--concern for mesenteric panniculitis I personally reviewed this and previous Ct scans 2011 which had similar appearance she was referred for mesnteric bx with mehdi appearance of small bowel mesentry inflammation bx with Mature adipose tissue with focal fat necrosis and patchy minimal acute and chronic inflammation; INTERIM: She still has elliot umbilical and epigastric pain, it is worse with food, better without it no blood in stool she has chills, no fevers she has nausea with attacks she has attacks of diarrhea at times she still takes ppi for heartburn which helps trial of trental previously did not seem to help her she has good sleep at night , manages 8 hrs she has noted trouble swallowing solids, 1 year EXAM: GENERAL: The patient is well developed and nontoxic. VITAL SIGNS:see workflow HEENT: Nonicteric sclerae, PERRLA, EOMI. Oropharynx clear. Moist mucous membranes. Conjunctivae appear well perfused. No thyroid mass. CHEST: Chest wall is nontender. HEART: Regular rate and rhythm without murmurs. LUNGS: Clear to auscultation bilaterally. ABDOMEN: Soft, positive bowel sounds, tender mid abdomen and epigastrium, no organomegaly.no flank tenderness SKIN: No rash, no excessive bruising, petechiae, or purpura. NEUROLOGIC: Cranial nerves II-XII intact without motor/sensory deficit. A/P: 1/ Persistent epigastric pain, CT with mesenteric inflammation in the past 2/ dysphagia now as well 3/ both above maybe related, ?CTD, vasculitis, paraneoplastic syndrome PLAN: 1/ cont PPI for the meantime 2/ urgent EGD and colonoscopy with bx and flow cytometry --balloon dilation 3/ might need repeat CT PFSH Medical History COVID-19 vaccine series completed Vertigo Chronic diarrhea Hypothyroid Fatty liver Kidney stone Asthma Cervical disc disease IBS (irritable bowel syndrome) GERD (gastroesophageal reflux disease) Migraine Hypercholesteremia HTN (hypertension) Surgical History History of esophagogastroduodenoscopy (EGD) Hx of colonoscopy H/O lumpectomy Hx of cholecystectomy Family History Father Prostate cancer Paternal Aunt Diabetes Stroke Father Heart attack Paternal Uncle Stroke Social History Household Members: Spouse Housing: Apartment Alcohol intake: current Alcohol intake frequency: does not drink Patient Tobacco Use Status: Never used Tobacco Current occupational status: disabled Current occupation: rt handed Physical Exam Vital Signs: BMI result Body Mass Index 30.7 Assessment & Plan Assessment & Plan (1) Abdominal pain: Code(s): R10.9 - Unspecified abdominal pain Category: Medical Plan: see above (2) Mesenteric panniculitis: Code(s): K65.4 - Sclerosing mesenteritis Category: Medical Plan: se above Medications: New sodium,potassium,mag sulfates 17.5-3.13-1.6 gram DILUTE; drink 1/2 at 6-8 pm and half at 11 PM- 1AM 354 mL 0RF Coding Level of Care Code Est Pt Level 4 (73590) Diagnoses Abdominal pain R10.9 Mesenteric panniculitis K65.4
[2023-10-21 09:03] VITALS: BP 167/81; PULSE 72; BMI 30.7
== END 2023-10-21 09:36 | disposition home or self-care (01) ==
PROVIDERS: PCP Pediatrics; Visit Provider Internal Medicine Gastroenterology
DX: R10.9 Unspecified abdominal pain (principal); K65.4 Sclerosing mesenteritis
CPT/HCPCS: 99214

== ENCOUNTER → 2023-10-21 08:58 | Outpatient (BNVA) | payer OTHER, SELFPAY | PROVIDERS: PCP Pediatrics; Visit Provider Internal Medicine Gastroenterology | DX: R10.9 Unspecified abdominal pain (principal); K65.4 Sclerosing mesenteritis; K21.9 Gastro-esophageal reflux disease without esophagitis; Z79.899 Other long term (current) drug therapy | CPT/HCPCS: 99212 ==

== ENCOUNTER 2023-11-11 08:54 | Outpatient (REF) | payer OTHER, SELFPAY ==
--- NOTE | ~2023-11-11 | FL_ITS ---
EXAMINATION: XR FLUOROSCOPY UPPER GI WITH AIR CLINICAL INFORMATION: Dysphagia with solids COMPARISON: None TECHNIQUE: Fluoroscopic air contrast upper GI examination was performed utilizing standard techniques with thin and thick barium and effervescent granules. Numerous spot images were obtained. FINDINGS: Lateral cine images of the oropharynx and hypopharynx demonstrate normal swallow mechanism with normal epiglottic inversion and soft palate elevation. No tracheal penetration, glottic or subglottic aspiration identified. No nasopharyngeal reflux present. Hypopharyngeal structures appear normal without evidence of mass or diverticulum. There is moderate to severe cricopharyngeal achalasia present. Dual and single contrast images of the esophagus demonstrate normal caliber, contour, and mucosal pattern. No evidence of stricture, mass, or ulcerations identified. Esophageal peristalsis was normal. A small type I hiatal hernia is present. No significant gastroesophageal reflux was seen during the course of the examination and on reflux views. Dual contrast and single contrast images of the stomach demonstrated a normal contour. The gastric rugal folds have a mildly thickened appearance. Gastric mucosal pattern is otherwise normal without evidence of mass, large ulceration, or other abnormality. Contrast freely passed into the gastric antrum and duodenal bulb without delay. Single and air-contrast images of the duodenal bulb demonstrate no abnormality. The duodenal sweep has a normal appearance, course, and mucosal fold appearance. No malrotation. The imaged proximal jejunum has a normal fold pattern and caliber. Incidentally noted moderate degenerative disc disease present C5-C6 and C6-C7 with a 2 mm degenerative anterolisthesis of C4 on C5. FLUOROSCOPY TIME: 3 minutes 39 seconds Number of Spot Images: 7 Number of Cine: 14 DOSE AREA PRODUCT: 2276 uGy-m2 (microgray-meter squared) FL/FL barium swallow with air IMPRESSION: 1. Moderate severe cricopharyngeal achalasia. Recommend GI consultation for endoscopic evaluation. 2. Small type I hiatal hernia 3. Mildly thickened gastric rugal folds that suggests gastritis. This procedure was performed by Rosales Perales PA-C, and supervised by Dr. Reyes
== END 2023-11-11 08:55 | disposition home or self-care (01) ==
LOC: HO.XRAY 08:54
PROVIDERS: PCP Pediatrics; Visit Provider Pediatrics
DX: R13.12 Dysphagia, oropharyngeal phase (principal)
CPT/HCPCS: 74221

== ENCOUNTER → 2023-11-11 08:56 | Outpatient (BNV) | payer OTHER, SELFPAY | PROVIDERS: PCP Pediatrics; Visit Provider Physician Assistant Surgical | DX: R13.10 Dysphagia, unspecified (principal) | CPT/HCPCS: 74246 ==

== ENCOUNTER 2023-12-05 19:13 | Outpatient (REF) | payer OTHER, SELFPAY ==
[2023-12-09 03:02] LABS: HPV mRNA E6/E7 Not Detected (Not Detected)
== END 2023-12-05 19:14 | disposition home or self-care (01) ==
LOC: HO.HHCLNP 19:13
PROVIDERS: Visit Provider Advanced Practice Midwife
DX: Z12.4 Encounter for screening for malignant neoplasm of cervix (principal)
CPT/HCPCS: 36415; 87624; 88175

== ENCOUNTER 2024-03-07 10:11 | Day surgery (SDC) | payer OTHER, SELFPAY ==
--- NOTE | 2024-03-06 12:09 | P.CONAN_ITS ---
Documented by User: Oriana Guerra NP 03/06/24 12:09 HPI - Anesthesia Eval Consult details Narrative: 63yo F for Upper Endoscopy and Colonoscopy PMFSH Active Problems Active Problems: All Active Problems Osteoarthritis of knees, bilateral (Acute) History of carpal tunnel syndrome (Acute) Bilateral primary osteoarthritis of knee (Acute) Invasive ductal carcinoma of right breast in female (Chronic) Abdominal pain (Acute) Nausea & vomiting (Acute) Mesenteric panniculitis (Acute) Chronic diarrhea (Acute) Past Medical History Medical History COVID-19 vaccine series completed Vertigo Chronic diarrhea Hypothyroid Fatty liver Kidney stone Asthma Cervical disc disease IBS (irritable bowel syndrome) GERD (gastroesophageal reflux disease) Migraine Hypercholesteremia HTN (hypertension) Family History Family History Father Prostate cancer Paternal Aunt Diabetes Stroke Father Heart attack Paternal Uncle Stroke Family history of problems with anesthesia: No Surgical History Surgical History History of esophagogastroduodenoscopy (EGD) Hx of colonoscopy H/O lumpectomy Hx of cholecystectomy History of Problems with Anesthesia: No Social History Social History Household Members: Spouse Housing: Apartment Are you a primary post acute care nurse practitioner to a significant other at home: No Do you presently have visiting nurse or other home services: No Alcohol intake: current Alcohol intake frequency: does not drink Patient Tobacco Use Status: Never used Tobacco Use of substances other than those prescribed or required for medical reasons: No Have you been hit, kicked, punched, or otherwise hurt by someone within the past year? If so, by whom?: No Are you DNR?: No Advance Directives: No Advance Directives Information Provided: Yes Recently lost weight without trying: No Nutrition Risks: No Nutritional Risk Current occupational status: disabled Current occupation: rt handed Meds Allergies Allergy/AdvReac Type Severity Reaction Status Date / Time No Known Allergies Allergy Verified 11/08/23 10:22 Home Medications ?Medication ?Instructions ?Recorded ?Confirmed ?Last Taken ?Type albuterol sulfate 90 mcg/actuation 1 puff inhalation Q4H PRN Wheezing 04/23/20 11/08/23 Unknown History aerosol inhaler atorvastatin 20 mg tablet 1 tab PO DAILY 04/23/20 11/08/23 Unknown History dicyclomine 20 mg tablet 1 tab PO BID PRN Stomach Upset 04/23/20 11/08/23 Unknown History enalapril maleate 20 mg tablet 1 tab PO BID 04/23/20 11/08/23 03/07/24 08:00 History loratadine 10 mg tablet 1 tab PO DAILY 04/23/20 11/08/23 Unknown History meclizine 25 mg tablet 1 tab PO TID PRN dizziness 04/23/20 11/08/23 Unknown History sumatriptan succinate 25 mg tablet 1 tab PO DAILY migraine 04/23/20 11/08/23 Unknown History venlafaxine 75 mg capsule,extended 1 cap PO DAILY 04/23/20 11/08/23 Unknown History release 24 hr cholecalciferol (vitamin D3) 50 50 mcg PO DAILY 09/07/21 11/08/23 Unknown History mcg (2,000 unit) capsule cyanocobalamin (vitamin B-12) 1,000 mcg PO DAILY 09/07/21 11/08/23 Unknown History 1,000 mcg tablet hydrochlorothiazide 25 mg tablet 25 mg PO QAM 09/07/21 11/08/23 Unknown History metoprolol succinate 100 mg 100 mg PO DAILY 09/07/21 11/08/23 03/07/24 08:00 History tablet,extended release 24 hr amlodipine 5 mg tablet 5 mg PO DAILY 02/23/22 11/08/23 Unknown History calcium carbonate 600 mg PO BID 02/23/22 11/08/23 Unknown History gabapentin 100 mg capsule 100 mg PO DAILY 10/21/23 11/08/23 Unknown History levothyroxine 100 mcg tablet 100 mcg PO DAILY 10/21/23 11/08/23 Unknown History meloxicam 7.5 mg tablet 7.5 mg PO BID 10/21/23 11/08/23 02/29/24 History pantoprazole 40 mg tablet,delayed 40 mg PO DAILY 10/21/23 11/08/23 Unknown History release triamcinolone acetonide 0.1 % 1 appl topical BID-TID 10/21/23 11/08/23 Unknown History topical cream Assessment and Plan Assessment Anesthesia Assessment: Chart Reviewed Final Anesthetic Review Family History of Problems with Anesthesia: No History of Problems with Anesthesia: No Documented by User: Fanny Bridges MD 03/07/24 12:11 PMFSH Past Medical History Medical History COVID-19 vaccine series completed Vertigo Chronic diarrhea Hypothyroid Fatty liver Kidney stone Asthma Cervical disc disease IBS (irritable bowel syndrome) GERD (gastroesophageal reflux disease) Migraine Hypercholesteremia HTN (hypertension) Family History Family History Father Prostate cancer Paternal Aunt Diabetes Stroke Father Heart attack Paternal Uncle Stroke Surgical History Surgical History History of esophagogastroduodenoscopy (EGD) Hx of colonoscopy H/O lumpectomy Hx of cholecystectomy Social History Social History Household Members: Spouse Housing: Apartment Are you a primary post acute care nurse practitioner to a significant other at home: No Do you presently have visiting nurse or other home services: No Alcohol intake: current Alcohol intake frequency: does not drink Patient Tobacco Use Status: Never used Tobacco Use of substances other than those prescribed or required for medical reasons: No Have you been hit, kicked, punched, or otherwise hurt by someone within the past year? If so, by whom?: No Are you DNR?: No Advance Directives: No Advance Directives Information Provided: Yes Recently lost weight without trying: No Nutrition Risks: No Nutritional Risk Current occupational status: disabled Current occupation: rt handed Meds Allergies Allergy/AdvReac Type Severity Reaction Status Date / Time No Known Allergies Allergy Verified 11/08/23 10:22 Home Medications ?Medication ?Instructions ?Recorded ?Confirmed ?Last Taken ?Type albuterol sulfate 90 mcg/actuation 1 puff inhalation Q4H PRN Wheezing 04/23/20 11/08/23 Unknown History aerosol inhaler atorvastatin 20 mg tablet 1 tab PO DAILY 04/23/20 11/08/23 Unknown History dicyclomine 20 mg tablet 1 tab PO BID PRN Stomach Upset 04/23/20 11/08/23 Unknown History enalapril maleate 20 mg tablet 1 tab PO BID 04/23/20 11/08/23 03/07/24 08:00 History loratadine 10 mg tablet 1 tab PO DAILY 04/23/20 11/08/23 Unknown History meclizine 25 mg tablet 1 tab PO TID PRN dizziness 04/23/20 11/08/23 Unknown History sumatriptan succinate 25 mg tablet 1 tab PO DAILY migraine 04/23/20 11/08/23 Unknown History venlafaxine 75 mg capsule,extended 1 cap PO DAILY 04/23/20 11/08/23 Unknown History release 24 hr cholecalciferol (vitamin D3) 50 50 mcg PO DAILY 09/07/21 11/08/23 Unknown History mcg (2,000 unit) capsule cyanocobalamin (vitamin B-12) 1,000 mcg PO DAILY 09/07/21 11/08/23 Unknown History 1,000 mcg tablet hydrochlorothiazide 25 mg tablet 25 mg PO QAM 09/07/21 11/08/23 Unknown History metoprolol succinate 100 mg 100 mg PO DAILY 09/07/21 11/08/23 03/07/24 08:00 History tablet,extended release 24 hr amlodipine 5 mg tablet 5 mg PO DAILY 02/23/22 11/08/23 Unknown History calcium carbonate 600 mg PO BID 02/23/22 11/08/23 Unknown History gabapentin 100 mg capsule 100 mg PO DAILY 10/21/23 11/08/23 Unknown History levothyroxine 100 mcg tablet 100 mcg PO DAILY 10/21/23 11/08/23 Unknown History meloxicam 7.5 mg tablet 7.5 mg PO BID 10/21/23 11/08/23 02/29/24 History pantoprazole 40 mg tablet,delayed 40 mg PO DAILY 10/21/23 11/08/23 Unknown History release triamcinolone acetonide 0.1 % 1 appl topical BID-TID 10/21/23 11/08/23 Unknown History topical cream Exam Airway Mallampati Class: II TM Dist: >3cm Neck ROM: Full Loose/Missing/Broken Teeth: No Heart: RRR Lungs: CTA Assessment and Plan Assessment Anesthesia Assessment: Anesthesia Plan Discussed Final Anesthetic Review NPO: Yes ASA Class: II Final Preanesthetic Review: Meds/Allgs Chart Reviewed, Consent Obtained/Reviewed and Anes Risks/Benef Reviewed Patient Risk: Low Procedure Risk: Intermediate Anesthetic Plan Anesthetic Plan: MAC: Disposition: Standard PACU
[2024-03-07 11:17] VITALS: BP 146/78; PULSE 58; RESP 18; TEMP 36.6; O2SAT 98; BMI 29.3
--- NOTE | 2024-03-07 11:30 | P.HPSUR_ITS ---
Pre-Procedural Eval Section A - 24 Hr Update-Section A only Date of Service: 03/07/24 Section B - Complete if H&P > 30 days Chief Complaint: Sclerosing mesenteritis,Unspecified abdominal pain Relevant Family History (Specify if Yes): No Relevant Social History: None Present Medications: see Short Stay Collaborative assessment Medical History: Significant History ( Vertigo Chronic diarrhea Hypothyroid F atty liver Kidney stone Asthma Cervical disc disease IBS (irritable bowel syndrome) GERD (gastroesophageal reflux disease) Migraine Hypercholesteremia HTN (hypertension)) History of Previous Operations: Relevant previous surgery/procedure and date(s) (History of esophagogastroduodenoscopy (EGD) Hx of colonoscopy H/O lumpectomy Hx of cholecystectomy) Allergies: Allergies Allergy/AdvReac Type Severity Reaction Status Date / Time No Known Allergies Allergy Verified 11/08/23 10:22 Review of Systems Sugical H&P ROS: Negative: Constitution, Cardiovascular, Respiratory, Neurological, Psychiatric, Hem-Onc, Allergic/Immunologic, Gastrointestinal, Genitourinary, Musculoskeletal, Integumentary, Endocrine and Eyes/Ears/Nose/Throat Exam Surgical H&P Exam: Normal: HEENT, Normal: Heart, Normal: Lungs, Normal: Extremities, Normal: Abdomen, Normal: Skin and Normal: Neurological Plan Diagnosis/Plan: Unchanged I have reviewed the history and physical and performed a pertinent physical examination on my patient. No changes have occurred unless specified. Time Spent With Patient Time: Total time managing care of this patient today ____ minutes.
[2024-03-07] MEDS: Lactated Ringers 1,000 ML 100 ML IVCONT (11:33)
--- NOTE | 2024-03-07 13:03 | P.OPN-COLO_ITS ---
Colonoscopy Operative Note Operative Note Date of Service: 03/07/24 Narrative: Operative Information Procedure Description: EGD, Colonoscopy Indication: Abdominal pain Anesthesia: MAC FLEXIBLE TRANSORAL UPPER GASTROINTESTINAL ENDOSCOPY AND COLONOSCOPY PROCEDURE NOTE UPPER ENDOSCOPY Consent: Indications for the procedure and potential complications of bleeding, perforation, reaction to medications and missed diagnosis were discussed with the patient and informed consent was obtained. Instrument: Olympus GIF H 190 J mid size upper endoscope Monitoring: Vital signs and clinical assessment, continuous EKG monitoring, Pulse oximetry, Carbon Dioxide monitoring and blood pressure monitoring were done throughout the procedure. Procedure: The patient was placed in the left lateral decubitis position and pre-procedure medications were administered and a bite block was placed. The endoscope was inserted into the mouth and advanced under direct vision to the third part of duodenum. A careful inspection was made as the upper endoscope was withdrawn including a retroflexed examination of the proximal stomach; Findings and interventions are described below. Findings: Larynx:normal Esophagus: GE junction at 40 cm, diaphragm hiatus at 40 cm, normal mucosa- bx taken from distal and proximal esophagus, balloon dilation done to 18 mm at UES and 20 mm at LES, no tears seen Stomach: Mild erythema . Biopsies were obtained. Grade 2 flap valve on retroflexed examination of the cardia. Duodenum: Normal bulb and descending duodenum, bx taken Intervention: Biopsies as noted above, ballon dilation COLONOSCOPY Instrument: Olympus variable stiffness pediatric scope 190L Colonoscopy Monitoring: Vital signs and clinical assessment, continuous EKG monitoring, Pulse oximetry, Carbon Dioxide monitoring and blood pressure monitoring were done throughout the procedure. Colon withdrawal time was 8 minutes. Procedure: The patient was placed in the left lateral decubitis position and pre-procedure medications were administered. After a digital rectal examination of the ano-rectum, the video colonoscope was inserted into the rectum and advanced through the colon to the cecum/TI. The colonoscope was slowly withdrawn in a retrograde panoramic fashion and the colon mucosa was carefully examined including a retroflexed view of the rectum. Findings and interventions are described below. Procedure Difficulty:moderate Findings: Terminal Ileum-normal, bx taken random colon bx taken Cecum:normal Ascending Colon: normal Transverse Colon -normal Descending Colon:normal Sigmoid Colon: normal Rectum: Retroflexion with small internal hemorrhoids, grade I Anorectum - normal Colon preparation: [place] Bowel Preparation Scale Right colon; 3 Transverse colon: 3 Left colon; 3 (0 = Unprepared colon segment with mucosa not seen due to solid stool that cannot be cleared. 1 = Portion of mucosa of the colon segment seen, but other areas of the colon segment not well seen due to staining, residual stool and/or opaque liquid. 2 = Minor amount of residual staining, small fragments of stool and/or opaque liquid, but mucosa of colon segment seen well. 3 = Entire mucosa of colon segment seen well with no residual staining, small fragments of stool or opaque liquid) Impression and Post Procedure Diagnosis: Endoscopy Findings: mild gastritis Colonoscopy Findings: internal hemorrhoids Plan: Await Pathology results Repeat Colonoscopy in 10 years or earlier if clinically indicated High fiber diet leaflet avoid straining at stool, epsom salts and sitz bath, anusol supps or cream Above findings were reviewed with the patient and relevant handouts were provided if indicated.
[2024-03-07 13:10] VITALS: BP 90/50; PULSE 62; RESP 16; TEMP 36.1; O2SAT 96
[2024-03-07 13:25] VITALS: BP 110/62; PULSE 69; RESP 16; O2SAT 97
[2024-03-07 13:40] VITALS: BP 107/61; PULSE 68; RESP 16; O2SAT 97
[2024-03-07 13:56] VITALS: BP 125/73; PULSE 61; RESP 16; TEMP 36.1; O2SAT 97
== END 2024-03-07 14:14 | disposition home or self-care (01) ==
PROVIDERS: PCP Pediatrics; Visit Provider Internal Medicine Gastroenterology
PROC: (CPT 45380; principal; 2024-03-07 12:30)
DX: R10.9 Unspecified abdominal pain (principal); K65.4 Sclerosing mesenteritis; K64.0 First degree hemorrhoids; K52.9 Noninfective gastroenteritis and colitis, unspecified; R13.10 Dysphagia, unspecified; K29.50 Unspecified chronic gastritis without bleeding; K21.9 Gastro-esophageal reflux disease without esophagitis; K44.9 Diaphragmatic hernia without obstruction or gangrene; K76.0 Fatty (change of) liver, not elsewhere classified; J45.909 Unspecified asthma, uncomplicated; I10 Essential (primary) hypertension; E78.00 Pure hypercholesterolemia, unspecified; E03.9 Hypothyroidism, unspecified; Z79.899 Other long term (current) drug therapy; Z85.3 Personal history of malignant neoplasm of breast; Z98.890 Other specified postprocedural states; Z90.49 Acquired absence of other specified parts of digestive tract
CPT/HCPCS: 45380; 43249; 43239; 36415; 88184; 88185; 88300; 88305; 88313; 88341; 88342; C1726; J1596; J2704

== ENCOUNTER → 2024-03-07 10:11 | Outpatient (BNV) | payer OTHER, SELFPAY | PROVIDERS: PCP Pediatrics; Visit Provider Internal Medicine Gastroenterology | DX: K29.70 Gastritis, unspecified, without bleeding (principal); K65.4 Sclerosing mesenteritis; R10.9 Unspecified abdominal pain; K64.0 First degree hemorrhoids | CPT/HCPCS: 43239; 43249; 45380 ==

== ENCOUNTER 2024-04-13 10:40 | Outpatient (AMB) | payer OTHER, SELFPAY ==
--- NOTE | 2024-04-13 10:47 | MHC.OFFVIS ---
Vital Signs 04/13/24 10:56 Height 5 ft 7 in Weight 187 lb 6.287 oz BMI 29.3 BP 151/69 H Blood Pressure Location Lt brachial Position Sitting Pulse 66 Intake Visit Reasons: f/u double Intake Note: Bree presents in the office as a follow up double. CC: She states that she is not having any concerns and just here for the results. 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 Had CT scan 08/2020 for abdominal pain and diarrhea--concern for mesenteric panniculitis I personally reviewed this and previous Ct scans 2011 which had similar appearance she was referred for mesnteric bx with mehdi appearance of small bowel mesentry inflammation bx with Mature adipose tissue with focal fat necrosis and patchy minimal acute and chronic inflammation; Ba swallow: 11/03- cricopharyngeal achalasia gastritis nml looking jejunum egd/colo: 03/07/24 balloon dilation esophagus colonoscopy- internal hemorrhoids path- neg for colon, ileum upper: mild gastric inflammation INTERIM: she has ongoing elliot umbilical and epigastric pain, she still has dysphagia feels the dilation only helped a little she has ongoing attacks of diarrhea maybe 5 d out of 7 EXAM: GENERAL: The patient is well developed and nontoxic. VITAL SIGNS:see workflow HEENT: Nonicteric sclerae, PERRLA, EOMI. Oropharynx clear. Moist mucous membranes. Conjunctivae appear well perfused. No thyroid mass. CHEST: Chest wall is nontender. HEART: Regular rate and rhythm without murmurs. LUNGS: Clear to auscultation bilaterally. ABDOMEN: Soft, positive bowel sounds, tender mid abdomen and epigastrium, no organomegaly.no flank tenderness SKIN: No rash, no excessive bruising, petechiae, or purpura. NEUROLOGIC: Cranial nerves II-XII intact without motor/sensory deficit. A/P: 1/ Persistent epigastric pain, CT with mesenteric inflammation in the past 2/ dysphagia now as well--persistent 3/ both above maybe related, ?CTD, vasculitis, paraneoplastic syndrome PLAN: 1/ change PPI 2/rept EGD with savary dialtion 3/CTe -if ongoing mesenteric inflammation then commence pred, or imuran vs tamoxifen PFSH Medical History COVID-19 vaccine series completed Vertigo Chronic diarrhea Hypothyroid Fatty liver Kidney stone Asthma Cervical disc disease IBS (irritable bowel syndrome) GERD (gastroesophageal reflux disease) Migraine Hypercholesteremia HTN (hypertension) Surgical History History of esophagogastroduodenoscopy (EGD) Hx of colonoscopy H/O lumpectomy Hx of cholecystectomy Family History Father Prostate cancer Paternal Aunt Diabetes Stroke Father Heart attack Paternal Uncle Stroke Social History Household Members: Spouse Housing: Apartment Are you a primary critical care educator to a significant other at home: No Do you presently have visiting nurse or other home services: No Alcohol intake: current Alcohol intake frequency: does not drink Patient Tobacco Use Status: Never used Tobacco Current occupational status: disabled Current occupation: rt handed Physical Exam Vital Signs: Last Vital Signs Pulse 66 04/13/24 10:56 BP 151/69 H 04/13/24 10:56 BMI result Body Mass Index 29.3 Assessment & Plan Assessment & Plan (1) Mesenteric panniculitis: Code(s): K65.4 - Sclerosing mesenteritis Category: Medical Plan: see above Orders: Orders CT enterography Today R10.33 - Periumbilical pain Medications: New esomeprazole magnesium 40 mg PO DAILY 90 caps 1RF Discontinued sodium,potassium,mag sulfates 17.5-3.13-1.6 gram (Suprep Bowel Prep Kit) Discontinued Reason: Patient Completed Course DILUTE; drink 1/2 at 6-8 pm and half at 11 PM- 1AM 354 mL 0RF Coding Level of Care Code Est Pt Level 4 (04217) Diagnoses Mesenteric panniculitis K65.4
[2024-04-13 10:56] VITALS: BP 151/69; PULSE 66; BMI 29.3
== END 2024-04-13 11:39 | disposition home or self-care (01) ==
LOC: HO.HGI 10:40
PROVIDERS: PCP Pediatrics; Visit Provider Internal Medicine Gastroenterology
DX: K65.4 Sclerosing mesenteritis (principal)
CPT/HCPCS: 99214

== ENCOUNTER → 2024-04-13 10:40 | Outpatient (BNVA) | payer OTHER, SELFPAY | PROVIDERS: PCP Pediatrics; Visit Provider Internal Medicine Gastroenterology | DX: K65.4 Sclerosing mesenteritis (principal) | CPT/HCPCS: 99212 ==

== ENCOUNTER 2024-06-19 09:53 | Outpatient (AMB) | payer OTHER, SELFPAY ==
--- NOTE | 2024-06-19 09:58 | MHC.OFFVIS ---
Vital Signs 06/19/24 10:08 Height 5 ft 7 in Weight 196 lb 4 oz BMI 30.7 BP 124/68 Blood Pressure Location Lt brachial Position Sitting Pulse 59 Intake Visit Reasons: 1 year breat exam follow up Intake Note: Patient is seen in office for yearly breast exam. Pt c/o: denies any concerns regarding the breast mm sched: 07/05/24 Photoengraving Supervisor Required: Yes Photoengraving Supervisor Language: Air Carrier Maintenance Inspector Services: Photoengraving Supervisor Present Photoengraving Supervisor Name: Rosario HUYNH Information Interpreted: non-clinical & clinical Drawer In Hand: Drawer In Hand Present Accompanied by: Spouse Allergies No Known Allergies Allergy (Verified 06/19/24 09:58) Medication List - Last Reconciled 06/19/24 by Porfirio Antunez MD albuterol sulfate 90 mcg/actuation 1 puff inhalation Q4H PRN amlodipine 5 mg PO DAILY atorvastatin 1 tab PO DAILY cholecalciferol (vitamin D3) 50 mcg PO DAILY cyanocobalamin (vitamin B-12) 1,000 mcg PO DAILY dicyclomine 1 tab PO BID PRN enalapril maleate 1 tab PO BID esomeprazole magnesium 40 mg PO DAILY famotidine 40 mg PO BEDTIME gabapentin 100 mg PO DAILY hydrochlorothiazide 25 mg PO QAM levothyroxine 100 mcg PO DAILY loratadine 1 tab PO DAILY meclizine 1 tab PO TID PRN meloxicam 7.5 mg PO BID metoprolol succinate ER 100 mg PO DAILY sumatriptan succinate 1 tab PO DAILY triamcinolone acetonide 0.1% 1 appl topical BID-TID venlafaxine ER 1 cap PO DAILY HPI Comments Details: 63-year-old female, former patient of Dr. Kraus, with a previous history of right breast carcinoma diagnosed in June 2017. She underwent a right breast lumpectomy with needle localization and right axillary sentinel node biopsy on 07/20/2017. Pathology revealed a 0.7 cm, grade 2, infiltrating ductal carcinoma with clear margins and 4 benign right axillary sentinel nodes. ER/WI receptors positive, HER2 [place] negative. She underwent radiation therapy from 08/31/2017 to 09/21/2017. She was letrozole since October 2017 which she has now completed. She does report some pain in the right breast especially in the lower quadrants but denies any palpable mass, skin change or nipple discharge. Her most recent mammogram of 06/23/2023 revealed no mammographic evidence of malignancy (BI-RADS 2). She is scheduled for her annual mammogram at the [facility] on 07/05/2024. [facility] Medical History COVID-19 vaccine series completed Vertigo Chronic diarrhea Hypothyroid Fatty liver Kidney stone Asthma Cervical disc disease IBS (irritable bowel syndrome) GERD (gastroesophageal reflux disease) Migraine Hypercholesteremia HTN (hypertension) Surgical History History of esophagogastroduodenoscopy (EGD) Hx of colonoscopy H/O lumpectomy Hx of cholecystectomy Family History Father Prostate cancer Paternal Aunt Diabetes Stroke Father Heart attack Paternal Uncle Stroke Social History Household Members: Spouse Housing: Apartment Are you a primary patient centered care specialist to a significant other at home: No Do you presently have visiting nurse or other home services: No Alcohol intake: current Alcohol intake frequency: does not drink Patient Tobacco Use Status: Never used Tobacco Current occupational status: disabled Current occupation: rt handed Review of Systems Const All systems reviewed & are unremarkable except as noted in HPI and below Card Denies chest pain, Denies rapid heart rate and Denies irregular heart rhythm Resp Reports no additional complaints GI Reports as per HPI Denies nipple discharge Skin/Breast Reports system reviewed and no additional complaints, except as documented, Reports breast pain, Denies breast mass, Denies change in pigmentation and Denies nipple discharge Omar/Lymph Denies lymphadenopathy Physical Exam Vital Signs: Last Vital Signs Pulse 59 06/19/24 10:08 BP 124/68 06/19/24 10:08 BMI result Body Mass Index 30.7 Const General: cooperative, comfortable, no acute distress, alert and awake HEENT Head: Yes normocephalic and Yes atraumatic Ears: hearing grossly normal bilaterally Chest Other: Right breast: Tender throughout the right breast, well-healed incision in the upper inner quadrant with no palpable mass, nipple discharge, or enlarged lymph node. Left breast: No skin change, no nipple discharge, no enlarged lymph nodes, no palpable mass. No left breast tenderness. Resp Effort & Inspection: normal respiratory effort, no stridor and not tachypneic Auscultation: no wheezes GI Inspection: Yes normal to inspection Palpation (GI): Soft to palpation and nontender Skin General skin exam: no rashes or lesions noted Neuro Other: Mobility Assessment: 1. 3 meter assessment time (seconds) 5 2. Gait observations: Normal balance and gait Extrem General: Yes normal to inspection and Yes no clubbing, cyanosis or edema Assessment & Plan Assessment & Plan (1) Invasive ductal carcinoma of right breast in female: Code(s): C50.911 - Malignant neoplasm of unspecified site of right female breast Category: Medical Plan 63-year-old female patient with a prior history of right breast infiltrating ductal carcinoma status post right breast lumpectomy with needle localization, sentinel node biopsy and 07/20/2017. She subsequently underwent radiation therapy is currently on letrozole which she is tolerating, only complaining of hot flashes. She does have chronic right breast pain which has not changed significantly since her last visit. Examination today reveals no evidence of recurrent disease or new suspicious findings. Mammogram of 06/23/2023 revealed no mammographic evidence of malignancy (BI-RADS 2). She is now scheduled for a follow-up mammogram on 07/05/2023. She will return in 1 year for annual breast examination. She is welcome to call sooner for any new concerns. Coding Level of Care Code Est Pt Level 3 (58786) Complex EM visit Add On G2211 Diagnoses Invasive ductal carcinoma of right breast in female C50.911
[2024-06-19 10:08] VITALS: BP 124/68; PULSE 59; BMI 30.7
== END 2024-06-19 10:22 | disposition home or self-care (01) ==
PROVIDERS: PCP Pediatrics; Visit Provider Surgery
DX: C50.911 Malignant neoplasm of unspecified site of right female breast (principal)
CPT/HCPCS: 99213; G2211

== ENCOUNTER → 2024-06-19 09:53 | Outpatient (BNVA) | payer OTHER, SELFPAY | PROVIDERS: PCP Pediatrics; Visit Provider Surgery | DX: C50.911 Malignant neoplasm of unspecified site of right female breast (principal) | CPT/HCPCS: 99212 ==

== ENCOUNTER 2024-07-05 13:51 | Outpatient (REF) | payer OTHER, SELFPAY | END 2024-07-05 13:52 | disposition home or self-care (01) | LOC: HO.MAMMO 13:51 | PROVIDERS: PCP Pediatrics; Visit Provider Pediatrics | DX: Z12.31 Encounter for screening mammogram for malignant neoplasm of breast (principal) | CPT/HCPCS: 77063; 77067 ==

== ENCOUNTER → 2024-07-05 14:00 | Outpatient (BNV) | payer OTHER, SELFPAY | PROVIDERS: PCP Pediatrics; Visit Provider Internal Medicine | DX: Z12.31 Encounter for screening mammogram for malignant neoplasm of breast (principal) | CPT/HCPCS: 77063; 77067 ==

== ENCOUNTER 2024-09-03 10:58 | Outpatient (AMB) | payer OTHER, SELFPAY ==
[2024-09-03 11:19] VITALS: BP 132/72; BMI 30.4
--- NOTE | 2024-09-03 11:19 | A.OFFVIS_ITS ---
Vital Signs 09/03/24 11:19 Height 5 ft 7 in Weight 194 lb 0.108 oz BMI 30.4 BP 132/72 Blood Pressure Location Lt brachial Position Sitting Intake Visit Reasons: 12 week follow up Intake Note: Bree presents in the office as a 12 week follow up. CC: She is here today as a follow up - states that she is having burning in her throat. It has started last night. Kitchen And Counter Worker Required: Yes Kitchen And Counter Worker Name: [id number] Farzana Allergies No Known Allergies Allergy (Verified 09/03/24 11:23) HPI HPI 12 week follow up: Details: [age]yr old f with hx of right breast invasive ductal carcinoma diagnosed in June 2017 s/p lumpectomy (ER/[place] positive, HER-2 negative--on letrozole 2.5 mg) being seen for f/u RECAP: Had CT scan 08/2020 for abdominal pain and diarrhea--concern for mesenteric panniculitis I personally reviewed this and previous Ct scans 2011 which had similar appearance she was referred for mesnteric bx with mehdi appearance of small bowel mesentry inflammation bx with Mature adipose tissue with focal fat necrosis and patchy minimal acute and chronic inflammation; Ba swallow: 11/03- cricopharyngeal achalasia gastritis nml looking jejunum egd/colo: 03/07/24 balloon dilation esophagus colonoscopy- internal hemorrhoids path- neg for colon, ileum upper: mild gastric inflammation INTERIM: she has ongoing elliot umbilical and epigastric pain, not helped by PPI PPI has helped reflux and swallowing she denies fever no n/v no constipation or diarrhea EXAM: GENERAL: The patient is well developed and nontoxic. VITAL SIGNS:see workflow HEENT: Nonicteric sclerae, PERRLA, EOMI. Oropharynx clear. Moist mucous membranes. Conjunctivae appear well perfused. No thyroid mass. CHEST: Chest wall is nontender. HEART: Regular rate and rhythm without murmurs. LUNGS: Clear to auscultation bilaterally. ABDOMEN: Soft, positive bowel sounds, tender mid abdomen and epigastrium, no organomegaly.no flank tenderness SKIN: No rash, no excessive bruising, petechiae, or purpura. NEUROLOGIC: Cranial nerves II-XII intact without motor/sensory deficit. A/P: 1/ Persistent epigastric pain, CT with mesenteric inflammation in the past 2/ dysphagia now as well--persistent 3/ both above maybe related, ?CTD, vasculitis, paraneoplastic syndrome PLAN: 1/ cont with PPI 2/rept EGD with savary dialtion prn 3/CTe -if ongoing mesenteric inflammation then commence pred, or imuran vs tamoxifen --this is pending, will be done in September, may need omental bx PFSH Medical History COVID-19 vaccine series completed Vertigo Chronic diarrhea Hypothyroid Fatty liver Kidney stone Asthma Cervical disc disease IBS (irritable bowel syndrome) GERD (gastroesophageal reflux disease) Migraine Hypercholesteremia HTN (hypertension) Surgical History History of esophagogastroduodenoscopy (EGD) Hx of colonoscopy H/O lumpectomy Hx of cholecystectomy Family History Father Prostate cancer Paternal Aunt Diabetes Stroke Father Heart attack Paternal Uncle Stroke Social History Household Members: Spouse Housing: Apartment Are you a primary healthcare corporate account director to a significant other at home: No Do you presently have visiting nurse or other home services: No Alcohol intake: current Alcohol intake frequency: does not drink Patient Tobacco Use Status: Never used Tobacco Current occupational status: disabled Current occupation: rt handed Physical Exam Vital Signs: Last Vital Signs BP 132/72 09/03/24 11:19 BMI result Body Mass Index 30.4 Assessment & Plan Assessment & Plan (1) Mesenteric panniculitis: Code(s): K65.4 - Sclerosing mesenteritis Category: Medical Plan: as above Plan see above Medications: Refilled esomeprazole magnesium 40 mg PO DAILY 90 caps 2RF Coding Level of Care Code Est Pt Level 3 (43586) Diagnoses Mesenteric panniculitis K65.4
== END 2024-09-03 11:53 | disposition home or self-care (01) ==
LOC: HO.HGI 10:59
PROVIDERS: PCP Pediatrics; Visit Provider Internal Medicine Gastroenterology
DX: K65.4 Sclerosing mesenteritis (principal)
CPT/HCPCS: 99213

== ENCOUNTER → 2024-09-03 10:58 | Outpatient (BNVA) | payer OTHER, SELFPAY | PROVIDERS: PCP Pediatrics; Visit Provider Internal Medicine Gastroenterology | DX: K65.4 Sclerosing mesenteritis (principal) | CPT/HCPCS: 99212 ==

== ENCOUNTER 2024-09-07 09:37 | Outpatient (REF) | payer OTHER, SELFPAY ==
[2024-09-07 14:15] LABS: MANUAL DIFF FLAG NO
[2024-09-07 14:44] LABS: Basophils Percent Auto 0.6 % (0-2); Eosinophils Absolute Auto 0.2 X10*3/uL (0.0-0.4); Eosinophils Percent Auto 3.3 % (0-4); Hematocrit 39.7 % (37.0-47.0); Hemoglobin 12.7 g/dl (12.0-16.0); Imm Gran Abs Auto 0.03 X10*3/uL (0.00-0.03); Imm Gran Pct Auto 0.5 % (0.0-0.4); Lymphocytes Absolute Auto 1.9 X10*3/uL (1.2-4.9); Lymphocytes Percent Auto 29.4 % (20-40); Mean Corpuscular Hemoglobin 29.5 pg (27.0-33.0); Mean Corpuscular Volume 92.3 fL (80.0-98.0); Monocytes Absolute Auto 0.4 X10*3/uL (0.1-1.2); Monocytes Percent Auto 5.7 % (2-11); Neutrophils Absolute Auto 3.8 x10*3/uL (2.0-8.3); Neutrophils Percent Auto 60.5 % (45-73); Platelet Count 224 X10*3/uL (160-400); Red Cell Distribution Width 13.2 % (11.0-16.0); White Blood Count 6.3 X10*3/uL (4.8-10.8)
[2024-09-07 14:54] LABS: Alanine Aminotransferase 12 U/L (0-31); Alkaline Phosphatase 72 U/L (39-117); Anion Gap 8 (12-20); Aspartate Amino Transferase 27 U/L (5-31); Bilirubin Direct 0.2 mg/dL (0.0-0.5); Bilirubin Total 0.5 mg/dL (0.0-1.0); Blood Urea Nitrogen 17 mg/dL (9-16); Calcium 9.3 mg/dL (8.4-10.2); Carbon Dioxide 28 mmol/L (22-29); Chloride 111 mmol/L (96-108); Cholesterol 149 mg/dL (<200); Estimated Glomerular Filt Rate > 60; Glucose Fasting 99 mg/dL (60-99); HDL Cholesterol 43 mg/dL (>40); LDL Cholesterol Calculated 88 mg/dL (<100); Potassium 5.2 mmol/L (3.3-5.1); Sodium 142 mmol/L (135-145); Total Protein 7.3 g/dL (6.5-8.0); Triglycerides 94 mg/dL (<150)
[2024-09-07 14:58] LABS: Creatinine Urine 172.65 mg/dL; Microalbum/Creatinine Ratio Ur 5.7 ug/mg cr (<30)
[2024-09-07 15:11] LABS: TSH reflex Free T4 5.83 uIU/mL (0.32-4.0); Vitamin D 25-OH Total 24.5 ng/mL (>30)
[2024-09-07 15:19] LABS: Folate 12.1 ng/mL (> or = 4.0); Vitamin B12 319 pg/mL (200-900)
[2024-09-07 16:09] LABS: Free T4 (Free Thyroxine) 0.89 ng/dL (0.71-1.85)
== END 2024-09-07 09:38 | disposition home or self-care (01) ==
LOC: HO.CHCLDS 09:37
PROVIDERS: Visit Provider Pediatrics
DX: E78.00 Pure hypercholesterolemia, unspecified (principal); E55.9 Vitamin D deficiency, unspecified; Z71.82 Exercise counseling; Z71.3 Dietary counseling and surveillance; I10 Essential (primary) hypertension
CPT/HCPCS: 36415; 80048; 80061; 80076; 82043; 82306; 82570; 82607; 82746; 84439; 84443; 85025

== ENCOUNTER 2024-09-11 08:12 | Outpatient (REF) | payer OTHER, SELFPAY ==
--- NOTE | ~2024-09-11 | CT_ITS ---
CLINICAL HISTORY: R10.33 - Periumbilical pain CT abdomen and pelvis with contrast Comparison: CT/NC - CT ABDOMEN W CON - 08/22/20 14:51 EST Findings: The lung bases are clear. Gallbladder is surgically absent. Solid organs are within normal limits. No bowel obstruction, pneumoperitoneum, or pneumatosis. There is stable mesenteric ground-glass density and mesenteric lymph node prominence. Pelvic contents unremarkable. Normal appendix. No acute fracture. IMPRESSION: 1. No acute process. 2. Stable mesenteric opacities and lymph node prominence, Suggestive of chronic mesenteritis. This document has been electronically signed by: Mandy Dillon MD on 09/11/2024 15:51:30
--- OUTSIDE RECORDS SUMMARY | 2024-09-11 08:27 | XMS_ITS | Encounter Summary ---
Author Organization [employer] Address [address] [address] Care Team Providers Care Sterilizer Machine Operator Name Role Phone Gia Tenorio MD Primary Care Provider [phone] Encounter Details Date Type Department Care Team (Late st Contact Info) Description 04/21/2023 Abstract [facility] [address] [place] [address] Ana Mahoney Social History Tobacco Use Types Packs/Day Years Used Date Smoking Tobacco: Never Passive Smoke Exposure: Never Smokeless Tobacco: Never Comments Unknown Sex and Gender Information Value Date Recorded Sex Assigned at Female 04/12/2022 10:19 AM EDT Legal Sex Female 10:19 AM EDT Gender Identity Female 04/12/2022 10:19 AM EDT Sexual Orientation Straight 04/12/2022 10 :19 AM EDT documented as of this encounter Plan of Treatment Not on file documented as of this encounter Visit Diagnoses Not on filedocumented in this encounter Care Teams Sterilizer Machine Operator Relationship Specialty Start Date End Date Gia Tenorio MD [address] [place] [address] PCP - General Family Medicine 06/13/18 documented as of this encounter
--- OUTSIDE RECORDS SUMMARY | 2024-09-11 08:27 | XMS_ITS | Encounter Summary ---
Author Organization [employer] Address [address] [place] [address] Care Team Providers Care Osteopathic Resident Name Role Phone Gia Tenorio MD Primary Care Provider [phone] Reason for Visit * Reason Comments Med Refill Encounter Details Date Type Department Care Team ([facility] Contact Info) Description 04/18/2023 Refill [facility] [address] [place] [address] Luigi Solomon MD [address] [place] [address] Acute left-sided low back pain with left-sided sciatica; Neck muscle spasm Social History Tobacco Use Types Packs/Day Years [...] documented as of this encounter Visit Diagnoses Diagnosis Acute left-sided low back pain with left-sided sciatica Neck muscle spasm documented in this encounter Care Teams Osteopathic Resident Relationship Specialty Start Date End Date Gia Tenorio MD [address] [place] [address] PCP - General Family Medicine 06/13/18 documented as of this encounter
--- OUTSIDE RECORDS SUMMARY | 2024-09-11 08:27 | XMS_ITS | Encounter Summary ---
Author Organization [employer] Address [address] [address] Care Team Providers Care Certified Nursing Assistant Name Role Phone Gia Tenorio MD Primary Care Provider [phone] Reason for Visit * Reason Comments Med Refill Encounter Details Date Type Department Care Team ([facility] st Contact Info) Description 04/18/2023 Refill [facility] [address] [place] [address] Mercy Jeffries MD [address] [place], [place] [id number] Acute left-sided low back pain with left-sided [...] spasm documented in this encounter Care Teams Certified Nursing Assistant Relationship Specialty Start Date End Date Gia Tenorio MD [address] [place] [address] PCP - General Family Medicine 06/13/18 documented as of this encounter
--- OUTSIDE RECORDS SUMMARY | 2024-09-11 08:28 | XMS_ITS | Encounter Summary ---
Author Organization [employer] Address [address] [address] Care Team Providers Care District Operations Manager Name Role Phone Gia Tenorio MD Primary Care Provider [phone] Reason for Visit * Reason Comments Med Refill Encounter Details Date Type Department Care Team ([facility] st Contact Info) Description 02/24/2023 Refill [facility] PED[facility] [address] [place] [address] Gia Tenorio MD [address] [place] [address] Benign essential hypertension; Mild persistent asthma without complication Social History Tobacco Use Types Packs/Day Years [...] as of this encounter Visit Diagnoses Diagnosis Benign essential hypertension Essential hypertension, benign Mild persistent asthma without complication documented in this encounter Care Teams District Operations Manager Relationship Specialty Start Date End Date Gia Tenorio MD [address] [place] [address] PCP - General Family Medicine 06/13/18 documented as of this encounter
--- OUTSIDE RECORDS SUMMARY | 2024-09-11 08:28 | XMS_ITS | Encounter Summary ---
Author Organization [employer] Address [address] [place] [address] Care Team Providers Care Ferry Terminal Supervisor Name Role Phone Gia Tenorio MD Primary Care Provider [phone] Reason for Visit * Reason Comments Med Refill Encounter Details Date Type Department Care Team ([facility] st Contact Info) Description 09/04/2024 Refill [facility] PED[facility] [address] [place] [address] JacobsonLuigi Snyder MD [address] [place] [address] Social History Tobacco Use Types Packs/Day Years Used Date Smoking Tobacco: Never Passive Smoke Exposure: Never Smokeless Tobacco: Never Alcohol Use Standard Drinks/Week Comments Never 0 (1 standard drink = 0.6 oz pur e alcohol) Comments No Sex and Gender Information Value Date Recorded Sex Assigned at Female 04/12/2022 10:19 AM EDT Legal Sex Female 10:19 AM EDT Gender Identity Female 04/12/2022 10:19 AM EDT Sexual Orientation Straight 04/12/2022 10 :19 AM EDT documented as of this encounter Plan of Treatment Not on file documented as of this encounter Visit Diagnoses Not on filedocumented in this encounter Care Teams Ferry Terminal Supervisor Relationship Specialty Start Date End Date Gia Tenorio MD [address] [place] [address] PCP - General Family Medicine 06/13/18 documented as of this encounter
--- OUTSIDE RECORDS SUMMARY | 2024-09-11 08:28 | XMS_ITS | Encounter Summary ---
Author Organization [employer] Address [address] [place] [address] Care Team Providers Care Medical Underwriter Name Role Phone Gia Tenorio MD Primary Care Provider [phone] Encounter Details Date Type Department Care Team (Latest Contact Info) Description 01/22/2019 Abstract [facility] CONVERSION[facility] Dental, Provider, DDS Social History Tobacco Use Types Packs/Day Years Used Date Smoking Tobacco: Never Assessed Comments Unknown Sex and Gender Information Value [...] on filedocumented in this encounter Care Teams Medical Underwriter Relationship Specialty Start Date End Date Gia Tenorio MD [address] [place] [address] PCP - General Family Medicine 06/13/18 documented as of this encounter
--- OUTSIDE RECORDS SUMMARY | 2024-09-11 08:28 | XMS_ITS | Encounter Summary ---
Author Organization [employer] Address [address] [place] [address] [place] [address] Care Team Providers Care Ice Cream Server Name Role Phone Gia Tenorio MD Primary Care Provider [phone] Encounter Details Date Type Department Care Team ([facility] st Contact Info) Description 09/07/2024 Orders Only [facility] [address] [place], [place] [phone] Gia Tenorio MD [address] [place] [address] Social History Tobacco Use Types Packs/Day Years [...] AM EDT documented as of this encounter Progress Notes * Kiera Mcclelland RN - 09/07/2024 4:10 PM EDT TC to patient to review lab results. No answer. Detailed message left on voicemail. documented in this encounter Plan of Treatment Not on file documented as of this encounter Procedures Procedure Name Priority Date/Time Associated Diagnosis Comments T4, FREE Routine 09/07/2024 9:39 AM EDT documented in this encounter Results * T4, Free (09/07/2024 9:39 AM EDT) Free T4 (Free Thyroxine) 0.89 0.71 - 1.85 ng/dL [facility] 09/07/2024 9:39 AM EDT 09/07/2024 2:08 PM EDT us Gia Tenorio MD LAB BLOOD ORDERABLES Final Re sult [facility] [address] [place] [address] [phone] documented in this encounter Visit Diagnoses Not on filedocumented in this encounter Care Teams Ice Cream Server Relationship Specialty Start Date End Date Gia Tenorio MD [address] [place] [id number] PCP - General Family Medicine 06/13/18 documented as of this encounter
--- OUTSIDE RECORDS SUMMARY | 2024-09-11 08:28 | XMS_ITS | Encounter Summary ---
Author Organization [employer] Address [address] [place] [address] Care Team Providers Care Art Educator Name Role Phone Gia Tenorio MD Primary Care Provider [phone] Encounter Details Date Type Department Care Team (Late st Contact Info) Description 11/15/2023 Orders Only [facility] [address] [place] [address] Anat Van MD [address] [place] [address] Social History Tobacco Use Types Packs/Day Years [...] on filedocumented in this encounter Care Teams Art Educator Relationship Specialty Start Date End Date Gia Tenorio MD [address] [place] [address] PCP - General Family Medicine 06/13/18 documented as of this encounter
--- OUTSIDE RECORDS SUMMARY | 2024-09-11 08:28 | XMS_ITS | Encounter Summary ---
Author Organization [employer] Address [address] [place] [address] Care Team Providers Care Echo Tech Name Role Phone Gia Tenorio MD Primary Care Provider [phone] Reason for Visit * Reason Comments Med Refill Encounter Details Date Type Department Care Team ([facility] Contact Info) Description 09/10/2024 Refill [facility] & PEDS [address] [place] [address] Gia Tenorio MD [address] [place] [address] Benign essential hypertension; Mild persistent asthma without [...] complication documented in this encounter Care Teams Echo Tech Relationship Specialty Start Date End Date Gia Tenorio MD [address] [place] [address] PCP - General Family Medicine 06/13/18 documented as of this encounter
--- OUTSIDE RECORDS SUMMARY | 2024-09-11 08:28 | XMS_ITS | Encounter Summary ---
Author Organization [employer] Address [address] [place] [address] Care Team Providers Care Corporate Secretary Name Role Phone Gia Tenorio MD Primary Care Provider [phone] Encounter Details Date Type Department Care Team (Latest Contact Info) Description 07/24/2018 Abstract [facility] Dental, Provider, DDS Social History Tobacco [...] on filedocumented in this encounter Care Teams Corporate Secretary Relationship Specialty Start Date End Date Gia Tenorio MD [address] [place] [address] PCP - General Family Medicine 06/13/18 documented as of this encounter
--- OUTSIDE RECORDS SUMMARY | 2024-09-11 08:28 | XMS_ITS | Encounter Summary ---
Author Organization [employer] Address [address] [address] Care Team Providers Care College Hire Name Role Phone Gia Tenorio MD Primary Care Provider [phone] Reason for Visit * Reason Comments Med Refill Encounter Details Date Type Department Care Team ([facility] st Contact Info) Description 02/24/2023 Refill [facility] [address] [place] [address] Mercy Jeffries MD [address] [place], [place] [phone] Acute left-sided low back pain with left-sided [...] spasm documented in this encounter Care Teams College Hire Relationship Specialty Start Date End Date Gia Tenorio MD [address] [place] [address] PCP - General Family Medicine 06/13/18 documented as of this encounter
--- OUTSIDE RECORDS SUMMARY | 2024-09-11 08:28 | XMS_ITS | Encounter Summary ---
Author Organization [employer] Address [address] [place] [address] Care Team Providers Care Pad Extraction Tender Name Role Phone Gia Tenorio MD Primary Care Provider [phone] Reason for Visit * Reason Comments Med Refill Encounter Details Date Type Department Care Team ([facility] st Contact Info) Description 02/24/2023 Refill [facility]ED[facility] [address] [place] [address] Liz Contreras MD [address] [place] [address] Social History Tobacco Use Types Packs/Day Years [...] on filedocumented in this encounter Care Teams Pad Extraction Tender Relationship Specialty Start Date End Date Gia Tenorio MD [address] [place] [address] PCP - General Family Medicine 06/13/18 documented as of this encounter
--- OUTSIDE RECORDS SUMMARY | 2024-09-11 08:28 | XMS_ITS | Encounter Summary ---
Author Organization [employer] Address [address] [place] [address] Care Team Providers Care Video Clerk Name Role Phone Gia Tenorio MD Primary Care Provider [phone] Reason for Visit * Reason Onset Date Comments Med Refill 09/10/2024 Encounter Details Date Type Department Care Team ([facility] st Contact Info) Description 09/10/2024 Refill [facility] PEDS [address] [place] [address] Gia Tenorio MD [address] [place] [address] Social History Tobacco Use Types Packs/Day Years [...] on filedocumented in this encounter Care Teams Video Clerk Relationship Specialty Start Date End Date Gia Tenorio MD [address] [place] [address] PCP - General Family Medicine 06/13/18 documented as of this encounter
--- OUTSIDE RECORDS SUMMARY | 2024-09-11 08:28 | XMS_ITS | Clinical Summary ---
Author Organization [employer] Address [address] [place] [address] 7 [place] [address] Care Team Providers Care Laboratory Courier Name Role Phone Gia Tenorio MD Primary Care Provider [phone] Allergies No known active allergies Medications * This document contains information received from the source organization and may not represent a complete record from that organization. lansoprazole (Prevacid) [address] capsule Take 1 capsule by mouth 1 (one) time each day. 022 Active loratadine (Claritin) 10 MG tablet Take 10 mg by mouth 1 (one) time each day. Active ondansetron (Zofran) 4 MG tablet TAKE ONE TABLET BY MOUTH EVERY 8 HOURS NEEDED FOR NAUSEA AND VOMITING. 022 Active pentoxifylline (Trental) 400 MG ER tablet TAKE ONE TABLET THREE TIMES DAILY WITH FOOD OR WITH MEALS 022 Active pramoxine-calam ine (Calahist) 1-8 % lotion apply topically as needed for mosquito bites 021 Active allopurinol (Zyloprim) 300 MG tablet TAKE ONE TABLET BY MOUTH EVERY DAY 30 tablet 023 Active levothyroxine (Synthroid, Levoxyl) 100 MCG tablet TAKE ONE TABLET DAILY 90 tablet 024 Active pantoprazole (ProtoNix) 40 MG EC tablet TAKE ONE TABLET DAILY 90 tablet 024 Active calcium carbonate 1500 (600 Ca) MG tablet TAKE ONE TABLET BY MOUTH TWICE DAILY 180 tablet 1 06/03/2 024 Active famotidine (Pepcid) 40 MG tablet Take 1 tab orally qhs 30 tablet 5 024 Active cholecalciferol VITAMIN D (Vitamin D-3) 50 MCG (2000 UT) capsule TAKE ONE CAPSULE BY MOUTH TWICE DAILY 60 capsule 024 Active cyanocobalamin (Vitamin B-12) 1000 MCG tablet TAKE THREE TABLETS EVERY DAY 270 tablet 3 024 Active enalapril (Vasotec) 20 MG tablet TAKE ONE TABLET BY MOUTH TWICE DAILY 60 tablet 5 024 Active albuterol (Ventolin HFA) 108 (90 Base) MCG/ACT inhalerIndicati ons:Benign essential hypertension,Mi ld persistent asthma without complication INHALE ONE PUFF BY MOUTH EVERY FOUR HOURS NEEDED 18 g 2 024 Active dicyclomine (Bentyl) 20 MG tablet TAKE ONE TABLET TWICE DAILY NEEDED 90 tablet 3 024 Active venlafaxine XR (Effexor XR) 75 MG 24 hr capsuleIndicati ons:Major depressive disorder in remission, unspecified whether recurrent (CMS/HCC) TAKE ONE CAPSULE DAILY WITH FOOD 30 capsule 5 024 Active albuterol (2.5 MG/3ML) 0.083% nebulizer solutionIndicat ions:Mild persistent asthma without complication Take 3 mL (2.5 mg) by nebulization every 4 (four) hours if needed for wheezing or shortness of breath. 75 mL 3 024 2024 Active gabapentin (Neurontin) 100 MG capsuleIndicati ons:Osteopenia of multiple sites,Vitamin D deficiency,Neur algia TAKE ONE CAPSULE TWICE DAILY 60 capsule 025 Active meloxicam (Mobic) 7.5 MG tabletIndicatio ns:Acute left-sided low back pain with left-sided sciatica,Neck muscle spasm TAKE TWO TABLETS BY MOUTH EVERY MORNING 60 tablet 025 Active Hydrocortisone, Perianal, (Proctocort) 1 % cream Apply bid small amount to affected area of rectum 28.4 g 025 Active amLODIPine (Norvasc) 5 MG tabletIndicatio ns:Benign essential hypertension,Mi ld persistent asthma without complication TAKE ONE TABLET BY MOUTH EVERY DAY 30 tablet 5 025 Active metoprolol succinate XL (Toprol-XL) 100 MG 24 hr tablet TAKE ONE TABLET BY MOUTH ONCE DAILY 30 tablet 5 Active atorvastatin (Lipitor) 20 MG tabletIndicatio ns:Benign essential hypertension,Mi ld persistent asthma without complication TAKE ONE TABLET BY MOUTH EVERY DAY 30 tablet 5 Active SUMAtriptan (Imitrex) 25 MG tablet TAKE 1 TABLET BY MOUTH AT ONSET OF MIGRAINE. MAY REPEAT ONCE AFTER 2 HOURS IF NEEDED DO NOT EXCEED EIGHT TABLETS PER 24 HOURS 10 tablet Active triamcinolone (Kenalog) 0.1 % cream APPLY A THIN LAYER TO THE AFFECTED AREA(s) TWICE DAILY 80 g 11 Active ergocalciferol (Vitamin D2) 1.25 MG (72801 UT) capsule Take 1 capsule (1.25 mg) by mouth 1 (one) time per week for 12 doses. 12 capsule 025 2024 Active meclizine (Antivert) 25 MG tabletIndicatio ns:Benign essential hypertension,Mi ld persistent asthma without complication TAKE ONE TABLET BY MOUTH THREE TIMES DAILY NEEDED FOR dizziness 20 tablet 3 Active letrozole (Femara) 2.5 MG chemo tablet Take 2.5 mg by mouth 1 (one) time each day. 022 2024 Discontinued(T herapy completed) LORazepam (Ativan) 0.5 MG tablet take 1 tablet by oral route every day as needed as needed for panic attack 021 2024 Discontinued(T herapy completed) cyclobenzaprine (Flexeril) 10 MG tabletIndicatio ns:Acute left-sided low back pain with left-sided sciatica,Neck muscle spasm Take 1 tablet (10 mg) by mouth 3 times daily for 10 days. 30 tablet 023 2024 Discontinued(T herapy completed) meclizine (Antivert) 25 MG tabletIndicatio ns:Benign essential hypertension,Mi ld persistent asthma without complication TAKE ONE TABLET BY MOUTH THREE TIMES DAILY NEEDED FOR DIZZINESS 20 tablet 3 023 2024 Discontinued atorvastatin (Lipitor) 20 MG tabletIndicatio ns:Benign essential hypertension,Mi ld persistent asthma without complication TAKE ONE TABLET DAILY 30 tablet 5 024 2024 Discontinued(R eorder (will not trigger notification to Pharmacy)) metoprolol succinate XL (Toprol-XL) 100 MG 24 hr tablet TAKE ONE TABLET BY MOUTH ONCE DAILY 30 tablet 5 024 2024 Discontinued(R eorder (will not trigger notification to Pharmacy)) amLODIPine (Norvasc) 5 MG tabletIndicatio ns:Benign essential hypertension,Mi ld persistent asthma without complication TAKE ONE TABLET DAILY 30 tablet 5 024 2024 Discontinued(R eorder (will not trigger notification to Pharmacy)) triamcinolone (Kenalog) 0.1 % cream APPLY A THIN LAYER TO THE AFFECTED AREA(s) TWICE DAILY 80 g 11 024 2024 Discontinued(R eorder (will not trigger notification to Pharmacy)) hydroCHLOROthia zide (HYDRODiuril) 25 MG tablet TAKE ONE TABLET EVERY MORNING 90 tablet 1 024 2024 Discontinued(T herapy completed) SUMAtriptan (Imitrex) 25 MG tablet TAKE 1 TABLET BY MOUTH AT ONSET OF MIGRAINE. MAY REPEAT ONCE AFTER 2 HOURS IF NEEDED, DO NOT EXCEED EIGHT TABLETS PER 24 HOURS 10 tablet 2024 Discontinued Active Problems Problem Noted Date Diagnosed Date Chronic diarrhea 08/26/2024 Mesenteric panniculitis 08/26/2024 Achalasia of esophagus 12/01/2023 Osteopenia 06/03/2022 Panniculitis 08/28/2020 Benign essential hypertension 09/01/2017 Infiltrating ductal carcinoma of right female br east 07/13/2017 Breast lump 01/12/2017 Anxiety disorder 09/14/2016 Vitamin D deficiency 05/27/2016 Gastroesophageal reflux disease 04/21/2015 Mild persistent asthma 04/21/2015 Cervical disc disorder 10/18/2013 Disorder of neck 04/04/2013 Asthma 01/19/2013 Assessment & Plan (12/29/2022 10:46 AM EDT): ?? Pt with diagnosis of mild persistent asthma, has not yet used albuterol inhaler during course of illness ?? Improved noted s/p in office neb. Pt prefers albuterol machine to pump. ?? Albuterol neb solution sent to the office High blood pressure 01/19/2013 Dizziness and giddiness 09/07/2011 Palpitations 09/07/2011 Pure hypercholesterolemia 09/07/2011 Encounters * This document contains information received from the source organization and may not represent a complete record from that organization. Date Type Department Care Team Description 09/10/2024 Refill [facility] [address] [place] [address] Gia Tenorio MD 09/10/2024 Refill [facility] [address] [place] [address] Gia Tenorio MD Benign essential hypertension; Mild persistent asthma without complication 09/09/2024 Orders Only [facility] [address] [place] [address] Gia Tenorio MD 09/07/2024 Orders Only [facility] [address] [place] [address] Gia Tenorio MD 09/04/2024 Refill [facility] [address] [place] [address] Luigi Solomon MD 09/04/2024 Refill [facility] [address] [place] [address] Gia Tenorio MD Benign essential hypertension; Mild persistent asthma without complication 08/23/2024 3:15 PM EDT Office Visit [facility] [address] [place] [address] Gia Tenorio MD Benign essential hypertension (Primary Dx); Dietary counseling; Exercise counseling; Pure hypercholesterolemia; Vitamin D deficiency; Infiltrating ductal carcinoma of right female breast (CMS/HCC); Mesenteric panniculitis (CMS/HCC) 08/23/2024 Travel 08/16/2024 Travel 07/11/2024 Travel 07/05/2024 Orders Only [facility] [address] [place] [address] Gia Tenorio MD 06/22/2024 Refill [facility] [address] [place] [address] Gia Tenorio MD Osteopenia of multiple sites; Vitamin D deficiency; Neuralgia; Acute left-sided low back pain with left-sided sciatica; Neck muscle spasm from Last 3 Months Immunizations Name Administration Dates Next Due Influenza injectable quadriv alent IIV4 with preservative 05/24/2017,03/15/2016,04/21/2015 Influenza injectable quadriv alent preservative free 03/17/2022,03/25/2021,03/06/2020,2018 Influenza, IIV3, injectable 03/28/2014 Influenza, Split (incl. mariely fied surface antigen) 04/04/2013,03/06/2012 Moderna Covid-19 Vaccine 12+ 10/30/2020,10/03/19 21 Pneumococcal Conjugate PCV 20 09/14/2023 Tdap 05/27/2016 Zoster, Recombinant 10/29/2022,08/20/2022 Family History Medical History Relation Name Comments Hypertension Father Maverick Bryanna??lez Diabetes Father's Sister 1 Patsy Bryanna??lez Diabetes Father's Sister 2 Cora Bryanna??lez Hypertension Father's Sister 2 Cora Bryanna??lez Diabetes Father's Sister 3 Shefali Bryanna??lez Hypertension Father's Sister 3 Shefali Bryanna??lez Arthritis Mother Marlyn Bryanna??lez Hypertension Mother Marlyn Bryanna??lez Relation Name Status Comments Father Maverick Bryanna??lez Father's Sister 1 Patsy Bryanna??lez Father's Sister 2 Cora Bryanna??lez Father's Sister 3 Shefali Bryanna??lez Mother Marlyn Bryanna??lez Social History Tobacco Use Types Packs/Day Years Used Date Smoking Tobacco: Never Passive Smoke Exposure: Never Smokeless Tobacco: Never Tobacco Cessation:Counseling Given: Not Answered Alcohol Use Standard Drinks/Week Comments Never 0 (1 standard drink = 0.6 oz pur e alcohol) Comments No Sex and Gender Information Value Date Recorded Sex Assigned at Female 04/12/2022 10:19 AM EDT Legal Sex Female 10:19 AM EDT Gender Identity Female 04/12/2022 10:19 AM EDT Sexual Orientation Straight 04/12/2022 10 :19 AM EDT Last Filed Vital Signs Vital Sign Reading Time Taken Comments Blood Pressure 125/73 08/23/2024 3:11 PM EDT Pulse 88 08/23/2024 3:11 PM EDT Temperature 36.2 ??C (97.2 ??F) 08/23/2024 3:11 PM ED T Respiratory Rate 20 08/23/2024 3:11 PM EDT Oxygen Saturation 97% 12/01/2023 10:04 AM EDT Inhaled Oxygen Concentration - - Weight 88.1 kg (194 lb 3.2 oz) 08/23/2024 3:11 P M EDT Height 170.2 cm (5' 7 ) 08/23/2024 3:11 PM EDT Body Mass Index 30.42 08/23/2024 3:11 PM EDT Plan of Treatment Health Maintenance Due Date Last Done Comments CT Colonography 1960 Depression Screening 1960 FIT DNA/Cologuard 1960 FIT 1960 FOBT 1960 SDOH Screening 1960 Sigmoidoscopy 1960 Alcohol/Substance Use Screening 1970 RSV Patients and Patients Aged 60 years or older (1 - Risk 60-74 years 1-dose series) 2018 COVID-19 Vaccine ( season) 2024 10/30/2020, 10/02/2020 Influenza Vaccine (#1) 2024 , 03/25/2021, 03/06/2020, Additional history exists Diabetes: Hemoglobin A1C 09/13/2024 024, 07/01/2022, 03/17/2022 Tobacco Screening 12/04/2024 12/05/2023 Mammogram 07/05/2025 07/05/2024, 06/13, 06/22/2022, Additional history exists DTaP/Tdap/Td Vaccines (2 - Td or Tdap) 05/27/2026 05/27/2016 HPV/Cotest 12/04/2028 12/05/2023, 10/07/2020 Pap Smear 12/04/2028 12/05/2023, 10/07/2020 Lipid Panel 09/07/2029 09/07/2024, 04/0 08/2023, 03/17/2022 Colonoscopy 03/07/2034 03/07/2024 Colorectal Cancer Screening 03/07/2034 Hepatitis C Screening Completed 08/20/2020 Zoster Vaccines Completed 10/29/2022, 08/20/2022 Pneumococcal Vaccine: 50+ Years Completed 09/14/2023 HIB Vaccines Aged Out No longer eligi ble based on patient's age to complete this topic HPV Vaccines Aged Out No longer eligi ble based on patient's age to complete this topic Hepatitis A Vaccines Aged Out No long er eligible based on patient's age to complete this topic Hepatitis B Vaccines Aged Out No long er eligible based on patient's age to complete this topic IPV Vaccines Aged Out No longer eligi ble based on patient's age to complete this topic Meningococcal Vaccine Aged Out No new ondina eligible based on patient's age to complete this topic RSV under 20 months Aged Out No longe r eligible based on patient's age to complete this topic Rotavirus Vaccines Aged Out No longer eligible based on patient's age to complete this topic Procedures Procedure Name Priority Date/Time Associated Diagnosis Comments ALBUMIN, RANDOM URINE W/CREATININE Routine 09/07/2024 9:45 AM EDT Dietary counseling Exercise counseling Benign essential hypertension Pure hypercholesterolemia T4, FREE Routine 09/07/2024 9:39 AM EDT VITAMIN D,25-OH,TOTAL,IA Routine 09/07/2024 9:39 AM EDT Vitamin D deficiency LIPID PANEL, STANDARD Routine 09/07/2024 9:39 AM EDT Dietary counseling Exercise counseling Benign essential hypertension Pure hypercholesterolemia TSH W/REFLEX TO FT4 Routine 09/07/2024 9 :39 AM EDT Dietary counseling Exercise counseling Benign essential hypertension Pure hypercholesterolemia HEPATIC FUNCTION PANEL Routine 09/07/2024 9:39 AM EDT Dietary counseling Exercise counseling Benign essential hypertension Pure hypercholesterolemia VITAMIN B12/FOLATE, SERUM PANEL Routine 09/07/2024 9:39 AM EDT Dietary counseling Exercise counseling Benign essential hypertension Pure hypercholesterolemia BASIC METABOLIC PANEL, FASTING Routine 09/07/2024 9:39 AM EDT Dietary counseling Exercise counseling Benign essential hypertension Pure hypercholesterolemia CBC WITH AUTO DIFFERENTIAL Routine 09/07/2024 9:39 AM EDT Dietary counseling Exercise counseling Benign essential hypertension Pure hypercholesterolemia BI MAMMOGRAM SCREENING TOMOSYNTHESIS BILATERAL Routine 07/05/2024 1:55 PM EST HM COLONOSCOPY Routine 03/07/2024 THINPREP IMAGING PAP AND HPV MRNA E6/E7 WITH REFLEX TO HPV 16,18/45 Routine 12/05/2023 10:30 AM EDT HEMOGLOBIN A1C Routine 09/14/2023 11:44 AM EDT Gastroesophageal reflux disease without esophagitis ZZZ HISTORICAL HEPATITIS C AB W/REFL TO HCV RNA, QN, PCR Routine 08/20/2020 5:01 PM EST from Last 3 Months or Most Recently Relevant to Health Maintenance Results * Albumin, Random Urine W/Creatinine (09/07/2024 9:45 AM EDT) Creatinine, Urine 172.65 mg/dL [facility] Microalbumin Urine 10.0 mg/L [facility] Microalbum Creatinine Ratio Ur 5.7 <30 ug/mg cr [facility] Comment:Albumin/Creatinine R atio Reference Ranges: Normal: < 30 ug/mg creatinine Microalbuminuria: 30 - 300 ug/mg creatinineClinical Albuminuria: > 300 ug/mg creatinine Urine (Urine, Random) 09/07/2024 9:45 AM EDT 09/07/2024 2:05 PM EDT us Gia Tenorio MD LAB URINE ORDERABLES Final Re sult [facility] [address] [place] [phone] * (ABNORMAL) Basic Metabolic Panel, Fasting (09/07/2024 9:39 AM EDT) Sodium 142 135 - 145 mmol/L [facility] Potassium 5.2(H) 3.3 - 5.1 mmol/L [facility] Chloride 111(H) 96 - 108 mmol/L [facility] Carbon Dioxide 28 22 - 29 mmol/L [facility] Anion Gap 8(L) 12 - 20 [facility] Urea Nitrogen (BUN) 17(H) 9 - 16 mg/dL [facility] Creatinine, Serum 0.87 0.5 - 1.4 mg/dL [facility] Estimated Glomerular Filt Rate >60 [facility] Comment:Chronic Kidney Disea se: Estimated GFR < 60 mL/min/[id number] Kidney Disease: Estimated GFR < 15 mL/min/1.73m2 Glucose Fasting 99 60 - 99 mg/dL [facility] Calcium 9.3 8.4 - 10.2 mg/dL [facility] Blood Venous blood specimen / Unknown 09/07/2024 9:39 AM EDT 09/07/2024 2:08 PM EDT us Gia Tenorio MD LAB BLOOD ORDERABLES Final Re sult [facility] [address] [place] [phone] * (ABNORMAL) Vitamin D, 25-Hydroxy, Total, Immunoassay (09/07/2024 9:39 AM EDT) Vitamin D 25-OH Total 24.5(L) >30 ng/mL [facility] Comment: Health Based Reference Values*< 20 ??ng/mL ??Ecybrhicc25-69 ng/mL ??Insufficient> 30 ??ng/mL ??Sufficient*Rhett MARRERO. N Engl J Med. 2007;357:266-280There is no well-established upper level of normal vitamin Dlevels. Some laboratories use 50 ng/mL as an upper limit ofnormal. However, toxicity is patient-dependent and may occurat any level. Careful correlation with the patient'spresentation is necessary and, if there is concern forvitamin D toxicity, treatment should be consideredirrespective of the serum level.Care must be taken in interpreting Vitamin D results fromdifferent laboratories and methodologies. ??Published datademonstrated that results from patients undergoinghemodialysis may show a negative bias when tested withvarious automated 25-OH vitamin D assays when compared toLC- MS/MS.When testing samples from patients whose predominant form ofVitamin D is Vitamin D2, such as patients receiving VitaminD2 supplementation, results that are subtherapeutic shouldbe confirmed with another method such as LC-MS/MS. Blood Venous blood specimen / Unknown 09/07/2024 9:39 AM EDT 09/07/2024 2:08 PM EDT Gia Tenorio MD LAB BLOOD ORDERABLES Final Re sult [facility] [address] [place] [phone] * Vitamin B12/Folate, Serum Panel (09/07/2024 9:39 AM EDT) Vitamin B12 319 200 - 900 pg/mL [facility] Comment:NORMAL 200-900 PG/ML INDETERMINATE 160-199 PG/ML DEFICIENT < 160 PG/ML Folate 12.1 > or = 4.0 ng/mL [facility] Comment:Reference Values:> o r = 4.0 ng/mL< 4.0 ng/mL suggests folate deficiency Methotrexate, aminopterin and folinic acid(leucovorin) are chemotherapeutic agents whose molecularstructures are similar to folate; therefore, the Architectfolate assay cannot be used for patients using these drugs. Blood Venous blood specimen / Unknown 09/07/2024 9:39 AM EDT 09/07/2024 2:08 PM EDT Gia Tenorio MD LAB BLOOD ORDERABLES Final Re sult Performing Organization Address City/[facility]/ZIP Co de Phone Number [facility] [address] [place] [phone] [phone] * (ABNORMAL) TSH W/Reflex to FT4 (09/07/2024 9:39 AM EDT) TSH reflex Free T4 5.83(H) 0.32 - 4.0 uIU/mL [facility] Blood Venous blood specimen / Unknown 09/07/2024 9:39 AM EDT 09/07/2024 2:08 PM EDT iGa Tenorio MD LAB BLOOD ORDERABLES Final Re sult Performing Organization Address [facility] Co de Phone Number [facility] [address] [place] [phone] * (ABNORMAL) CBC auto differential (09/07/2024 9:39 AM EDT) Pathologist [facility] White Blood Count 6.3 4.8 - 10.8 X10*3/uL [facility] Red Blood Count 4.30 4.20 - 5.50 X10*6/uL [facility] Hemoglobin 12.7 12.0 - 16.0 g/dl [facility] Hematocrit 39.7 37.0 - 47.0 % [facility] Mean Corpuscular Volume 92.3 80.0 - 98.0 fL [facility] Mean Corpuscular Hemoglobin 29.5 27.0 - 33.0 pg [facility] Mean Corpuscular HGB Conc 32.0 31.0 - 35.0 g/dl [facility] Red Cell Distribution Width 13.2 11.0 - 16.0 % [facility] Platelet Count 224 160 - 400 X10*3/uL [facility] Mean Platelet Volume 12.0 9.4 - 12.3 fL [facility] Neutrophils Percent Auto 60.5 45 - 73 % [facility] Imm Gran Pct Auto 0.5(H) 0.0 - 0.4 % [facility] Lymphocytes Percent Auto 29.4 20 - 40 % [facility] Monocytes Percent Auto 5.7 2 - 11 % [facility] Eosinophils Percent Auto 3.3 0 - 4 % [facility] Basophils Percent Auto 0.6 0 - 2 % [facility] NRBC Pct Auto 0.0 0.0 - 0.2 /100WBC [facility] Neutrophils Absolute Auto 3.8 2.0 - 8.3 x10*3/uL [facility] Imm Gran Abs Auto 0.03 0.00 - 0.03 X10*3/uL [facility] Lymphocytes Absolute Auto 1.9 1.2 - 4.9 X10*3/uL [facility] Monocytes Absolute Auto 0.4 0.1 - 1.2 X10*3/uL [facility] Eosinophils Absolute Auto 0.2 0.0 - 0.4 X10*3/uL [facility] Basophils Absolute Auto 0.0 0.0 - 0.2 X10*3/uL [facility] NRBC Abs Auto 0.000 0.0 - 0.012 X10*3/uL [facility] Blood Venous blood specimen / Unknown 09/07/2024 9:39 AM EDT 09/07/2024 2:08 PM EDT Gia Tenorio MD LAB BLOOD ORDERABLES Final Re sult [facility] [address] [place] [phone] * T4, Free (09/07/2024 9:39 AM EDT) Free T4 (Free Thyroxine) 0.89 0.71 - 1.85 ng/dL [facility] 09/07/2024 9:39 AM EDT 09/07/2024 2:08 PM EDT Gia Tenorio MD LAB BLOOD ORDERABLES Final Re sult Performing Organization Address [facility]/ZIP Co de Phone Number [facility] [address] [place] [phone] * Hepatic Function Panel (09/07/2024 9:39 AM EDT) Bilirubin, Total 0.5 0.0 - 1.0 mg/dL [facility] Bilirubin, Direct 0.2 0.0 - 0.5 mg/dL [facility] Aspartate Amino Transferase 27 5 - 31 U/L [facility] Alanine Aminotransferase 12 0 - 31 U/L [facility] Total Protein 7.3 6.5 - 8.0 g/dL [facility] Albumin Level 4.0 3.5 - 5.0 g/dL [facility] Alkaline Phosphatase 72 39 - 117 U/L [facility] Blood Venous blood specimen / Unknown 09/07/2024 9:39 AM EDT 09/07/2024 2:08 PM EDT Gia Tenorio MD LAB BLOOD ORDERABLES Final Re sult Performing Organization Address [facility] Co de Phone Number [facility] [address] [place] [phone] * Lipid Panel, Standard (09/07/2024 9:39 AM EDT) Triglycerides 94 <150 mg/dL [facility] Comment:Desirable Triglyceri de: less than 150 mg/dLBorderline High Triglyceride 150-199 mg/dLHigh Triglyceride: 200-499 mg/dLVery High Triglyceride: greater than or equal to 5OO mg/dL Cholesterol 149 <200 mg/dL [facility] Comment:Desirable Cholestero l: less than 200 mg/dLBorderline High Cholesterol: 200-239 mg/dLHigh Cholesterol: greater than 239 mg/dL LDL Cholesterol Calculated 88 <100 mg/dL [facility] Comment:Desirable LDL: less than 100 mg/dLNear Optimal/Above Optimal LDL: 110- 129 mg/dLBorderline High LDL: 130-159 mg/dLHigh LDL: 160-189 mg/dLVery High LDL: greater than or equal to 190 mg/dL HDL Cholesterol 43 >40 mg/dL [facility] Comment:Desirable HDL: great er than 40 mg/dL Note: This HDL assay may give artificially low results in patients with liver disease. Blood Venous blood specimen / Unknown 09/07/2024 9:39 AM EDT 09/07/2024 2:08 PM EDT us Gia Tenorio MD LAB BLOOD ORDERABLES Final Re sult [facility] [address] [place] [phone] [phone] * BI Mammogram Screening Tomosynthesis Bilateral (07/05/2024 1:55 PM EST) Anatomical Region Laterality Modality Breast Bilateral Mammography 07/05/2024 1:55 PM EST Narrative 07/16/2024 10:03 AM EST ? [facility] ? [address] ?[place] [address] ? Mammography Report ? Signed ? Patient: Bree Chairez ?MR#: [id number] ? : 1960 ?Acct:[id number] ? Age/Sex: 63 / F ?ADM Date: 01/23/25 ? Loc: HO.MAMMO ? Attending Dr: Gia Tenorio MD ? Ordering Physician: Gia Tenorio MD ?Results: 1Ne ?? gative ? Date of Service: 07/05/24 ?Follow Up: 1 Year From Orig ?? inal Mammogram ? Procedure(s): MM tomosynthesis screening BI ?? Accession Number(s): [id number] ? cc: Gia Tenorio MD ? EXAMINATION: ?? MM SCREENING DIGITAL BREAST TOMOSYNTHESIS, BILATERAL ? CLINICAL INFORMATION: ? Screening. Asymptomatic. ? COMPARISON: ?? Mammography: Comparison is made with available priors ? TECHNIQUE: ?? Digital breast mammography with tomosynthesis is performed in both the ?? craniocaudal and mediolateral oblique views along with computer-aided ?? detection (CAD). ? FINDINGS: ?? There are scattered areas of fibroglandular density (ACR BI-RADS breast ?? composition Category b). ?? Right post surgical changes are stable. ?? There are no significant masses, abnormal calcifications, or other ?? abnormalities. ? MM/MM tomosynthesis screening BI ?? IMPRESSION: ?? No mammographic evidence of malignancy. ? ASSESSMENT: ? BI-RADS BI-RADS 1 - Negative ? RECOMMENDATION: ?? Routine annual mammography screening. ? 1 year F/U ? This examination should not preclude the clinical evaluation of a ?? suspicious palpable abnormality. ? This patient's information was entered into a reminder system with a ?? target due date for their next mammogram. ? Electronically signed by: ??Pat Bonilla DO ??07/16/2024 10:00 AM EST ?? RP ? Dictated By: ?Pat Bonilla DO ? Signed By: ?<Electronically signed by Pat Bonilla, DO in OV> ? 07/16/24 1000 ? DD/ 1355 ? TD/TT: 07/05/24 1410 ? Cosmetology Professor: ? Procedure Note Leticia, [facility] - [facility] [address] [place], [place] [address] Mammography Report Signed Patient: Heidi Chairez#: [id number] : 9Acct:[id number] Age/Sex: 63 / FADM Date: 07/05/24 Loc: HO.MAMMO Attending Dr: Gia Tenorio MD Ordering Physician: Gia Tenorio MDResults: 1Ne gative Date of Service: 07/05/24Follow Up: 1 Year From Orig inal Mammogram Procedure(s): MM tomosynthesis screening BI Accession Number(s): [id number] cc: Gia Tenorio MD EXAMINATION: MM SCREENING DIGITAL BREAST TOMOSYNTHESIS, BILATERAL CLINICAL INFORMATION: Screening. Asymptomatic. COMPARISON: Mammography: Comparison is made with available priors TECHNIQUE: Digital breast mammography with tomosynthesis is performed in both the craniocaudal and mediolateral oblique views along with computer-aided detection (CAD). FINDINGS: There are scattered areas of fibroglandular density (ACR BI-RADS breast composition Category b). Right post surgical changes are stable. There are no significant masses, abnormal calcifications, or other abnormalities. MM/MM tomosynthesis screening BI IMPRESSION: No mammographic evidence of malignancy. ASSESSMENT: BI-RADS BI-RADS 1 - Negative RECOMMENDATION: Routine annual mammography screening. 1 year F/U This examination should not preclude the clinical evaluation of a suspicious palpable abnormality. This patient's information was entered into a reminder system with a target due date for their next mammogram. Electronically signed by: Pat Bonilla DO 07/16/2024 10:00 AM EST Dictated By: Pat Bonilla DO Signed By: <Electronically signed by Pat Bonilla DO in OV> 07/16/24 1000 DD/ 1355 TD/TT: 07/05/24 1410 Cosmetology Professor: us Gia Tenorio MD IMG BI PROCEDURES Final Resul t * Hm Colonoscopy (03/07/2024) Colonoscopy Normal Normal us Gia Tenorio MD HEALTH MAINTENANCE Final Resu lt * ThinPrep Imaging Pap and HPV mRNA E6/E7 with Reflex to HPV 16,18/45 (12/05/2023 10:30 AM EDT) HPV 16 RNA [facility] HPV 18/45 RNA [facility] HPV nRNA E6/E7 Not Detected Not Detected [facility] Comment:Methodology: Transcr iption-Mediated AmplificationThis assay detects E6/E7 viral messenger RNA (mRNA) from 14high-risk HPV types (16,18,31,33,35,39,45,51,52,56,58,59,66,68).Cervical sources are required for HPV testing.If a vaginal source from a patient who has had atotal hysterectomy with removal of cervix wassubmitted, please contact the testing laboratoryfor alternative testing options.For additional information, please refer tohttp://education.ItsPlatonic/faq/UDR100x8(This link if provided for information/educational purposes only.)THIS TEST WAS PERFORMED AT:[facility] [address] [id number] SOLO MD SOURCE: SEE NOTE [facility] Comment:Cervix Report Status: [facility] Clinical Information: SEE NOTE [facility] Comment:R LMP: SEE NOTE [facility] Comment:NONE GIVEN Prev. PAP: SEE NOTE [facility] Comment:2020 Prev. BX: SEE NOTE [facility] Comment:NONE GIVEN Statement Of Adequacy: SEE NOTE [facility] Comment:SATISFA[employer]ORY FOR ALINE LUATION General Categorization: [facility] Interpretation/Result: SEE NOTE [facility] Comment:Cytology Results: Ne gative for intraepitheliallesion or malignancy.Atrophic pattern; predominantly parabasal cells Cytology Comment SEE NOTE [facility] Comment:This Pap test has be en evaluated with computerassisted technology. Roofing Plant Supervisor: SEE NOTE [facility] Comment:RPR, CT (ASCP) CT sc reening location: [address] [address] Review Roofing Plant Supervisor: [facility] Pathologist [facility] PAP Infection [facility] See Note SEE NOTE [facility] Comment:EXPLANATORY NOTE:The Pap is a screening test for cervical cancer. It isnot a diagnostic test and is subject to false negativeand false positive results. It is most reliable when asatisfactory sample, regularly obtained, is submittedwith relevant clinical findings and history, and whenthe Pap result is evaluated along with historic andcurrent clinical information. 12/05/2023 10:3 0 AM EDT 12/06/2023 9:23 AM EDT Narrative [facility] - 12/09/2023 8:39 AM EDT [id number] us Megha Wright CNM LAB PATHOLOGY ORDERABLES Final Result Performing Organization Address City/[facility]/ZIP Co de Phone Number [facility] [address] [place] [phone] * Hemoglobin A1c (09/14/2023 11:44 AM EDT) Hemoglobin A1c 5.8 <6.0 % [facility] Comment:Hemoglobin A1C Refer ence Range Adults: 4.8 - 6.0 % Non diabetic: < 6.0 % Goal: < 7.0 %Additional Action Suggested: > 8.0 %Note: Hemoglobin A1c results are invalid for patients with abnormal amounts of HbF. Blood transfusions may impact the HbA1c concentration in the patient sample. Estimated Average Glucose 120 mg/dL [facility] Comment:eAG = Estimated ave rage glucose which is %A1C expressed asaverage glucose, using the formula of the U9W-GujchkfKryemuh Glucose study (ADAG), Diabetes Care, Vol.31,#8,Jan. 2007 Blood Venous blood specimen / Unknown 09/14/2023 11:44 AM EDT 09/14/2023 2:10 PM EDT us Gia Tenorio MD LAB BLOOD ORDERABLES Final Re sult [facility] [address] [place] [address] [phone] * HEPATITIS C AB W/REFL TO HCV RNA, QN, PCR (08/20/2020 5:01 PM EST) HEPATITIS C ANTIBODY NON-REACT KARON NON-REACT KARON [facility] INDEX 0.04 <1.00 [facility] Comment: ?? HCV antibody was non-reactive. There is no laboratory ?? evidence of HCV infection. ?? In most cases, no further action is required. However, if recent HCV exposure is suspected, a test for HCV RNA (test code 16180) is suggested. ?? For additional information please refer to http://education.ItsPlatonic/faq/FRW73q0 (This link is being provided for informational/ educational purposes only.) ?? 08/20/2020 5:01 PM EST Jenna GERMANP HISTORICAL/NON ORDERABLE LABS Final Result [facility] [address] from Last 3 Months or Most Recently Relevant to Health Maintenance Insurance CARE Care Teams Laboratory Courier Relationship Specialty Start Date End Date Gia Tenorio MD [address] [place] [phone] PCP - General Family Medicine 06/13/18
--- OUTSIDE RECORDS SUMMARY | 2024-09-11 08:28 | XMS_ITS | Encounter Summary ---
Author Organization [employer] Address [address] [place] [address] Care Team Providers Care Freight Clerk Name Role Phone Gia Tenorio MD Primary Care Provider [phone] Encounter Details Date Type Department Care Team ([facility] st Contact Info) Description 09/09/2024 Orders Only [facility] [address] [place] [address] Gia Tenorio MD [address] [place] [address] Social History Tobacco Use Types Packs/Day Years [...] on filedocumented in this encounter Care Teams Freight Clerk Relationship Specialty Start Date End Date Gia Tenorio MD [address] [place] [address] PCP - General Family Medicine 06/13/18 documented as of this encounter
--- OUTSIDE RECORDS SUMMARY | 2024-09-11 08:28 | XMS_ITS | Encounter Summary ---
Author Organization [employer] Address [address] [place] [address] Care Team Providers Care Homemaker Companion Name Role Phone Gia Tenorio MD Primary Care Provider [phone] Reason for Visit * Reason Comments Med Refill Encounter Details Date Type Department Care Team ([facility] st Contact Info) Description 10/22/2022 Refill [facility] [address] [place], [place] [phone] Donna Amin MD [address] [place] [address] Neck muscle spasm Social History Tobacco Use [...] as of this encounter Visit Diagnoses Diagnosis Neck muscle spasm documented in this encounter Care Teams Homemaker Companion Relationship Specialty Start Date End Date Gia Tenorio MD [address] [place] [address] PCP - General Family Medicine 06/13/18 documented as of this encounter
[2024-09-11] MEDS: iohexoL 350 MG/ML 100 ML INFUS..BTL IV (10:17)
[2024-09-11] MEDS: Sorbitol/Mannit/Xanth Imaging 500 ML LIQUID 1500 ML PO (10:18)
== END 2024-09-11 08:13 | disposition home or self-care (01) ==
LOC: HO.CT 08:12
PROVIDERS: PCP Pediatrics; Visit Provider Internal Medicine Gastroenterology
DX: R10.33 Periumbilical pain (principal)
CPT/HCPCS: 74177; Q9967

== ENCOUNTER → 2024-09-11 08:13 | Outpatient (BNV) | payer OTHER, SELFPAY | PROVIDERS: PCP Pediatrics; Visit Provider Radiology Diagnostic Radiology | DX: R10.33 Periumbilical pain (principal) | CPT/HCPCS: 74177 ==

== ENCOUNTER 2024-12-31 11:26 | Outpatient (AMB) | payer OTHER, SELFPAY ==
[2024-12-31 11:28] VITALS: BP 177/82; PULSE 60; BMI 30.4
--- NOTE | 2024-12-31 11:28 | MHC.OFFVIS ---
Vital Signs 12/31/24 11:28 Height 5 ft 7 in Weight 194 lb 0.108 oz BMI 30.4 BP 177/82 H Blood Pressure Location Lt brachial Position Sitting Pulse 60 Intake Visit Reasons: 4 to 5 months f/u Intake Note: Bree presents in the office as a 5 month follow up. CC: She states that the only concerns she has today is her diarrhea that she has had for 1 week. Data Control Clerk Supervisor Required: Yes Data Control Clerk Supervisor Name: Allergies No Known Allergies Allergy (Verified 12/31/24 11:31) HPI HPI 4 to 5 months f/u: Details: 64yr old f with hx of right breast invasive ductal carcinoma diagnosed in June 2017 s/p lumpectomy (ER/UT positive, HER-2 negative--on letrozole 2.5 mg) being seen for f/u RECAP: Had CT scan 08/2020 for abdominal pain and diarrhea--concern for mesenteric panniculitis I personally reviewed this and previous Ct scans 2011 which had similar appearance she was referred for mesnteric bx with gross appearance of small bowel mesentry inflammation bx with Mature adipose tissue with focal fat necrosis and patchy minimal acute and chronic inflammation; Ba swallow: 11/03- cricopharyngeal achalasia gastritis nml looking jejunum egd/colo: 03/07/24 balloon dilation esophagus colonoscopy- internal hemorrhoids path- neg for colon, ileum upper: mild gastric inflammation CTe: 10/05-- chronic mesenteric opacities INTERIM: she has no abdominal pain, except when she has constipation she has had diarrhea for 1 week, maybe better last few days skin irritation and burning no sick contacts reflux is controlled still taking ppi she has been having fecal incontinence for 6-7 months, not aware of stool coming out she has chronic back pain has urine freq but philosophy instructor control urine EXAM: GENERAL: The patient is well developed and nontoxic. VITAL SIGNS:see workflow HEENT: Nonicteric sclerae, PERRLA, EOMI. Oropharynx clear. Moist mucous membranes. Conjunctivae appear well perfused. No thyroid mass. CHEST: Chest wall is nontender. HEART: Regular rate and rhythm without murmurs. LUNGS: Clear to auscultation bilaterally. ABDOMEN: Soft, positive bowel sounds, tender mid abdomen and epigastrium, no organomegaly.no flank tenderness SKIN: No rash, no excessive bruising, petechiae, or purpura. NEUROLOGIC: Cranial nerves II-XII intact without motor/sensory deficit. rectal exam- no mass, reduced tone and expulsion, nml sensation A/P: 1/ Persistent epigastric pain, CT with mesenteric inflammation in the past 2/ dysphagia now as well--persistent , was better with PPI 3/ both above maybe related, ?CTD, vasculitis, paraneoplastic syndrome PLAN: 1/ cont with PPI--try split dosing 2/rept EGD with savary dialtion prn 3/ I might try her on imuran get TMPT testing first vs tamoxifen 4/ refer urology for stim trial, she has poor tone and unable to adequately expel finger ? due ot prior chemo and nerve damage 5/ metamucil bid meantime if sx worse despite this then GES PFSH Medical History COVID-19 vaccine series completed Vertigo Chronic diarrhea Hypothyroid Fatty liver Kidney stone Asthma Cervical disc disease IBS (irritable bowel syndrome) GERD (gastroesophageal reflux disease) Migraine Hypercholesteremia HTN (hypertension) Surgical History History of esophagogastroduodenoscopy (EGD) Hx of colonoscopy H/O lumpectomy Hx of cholecystectomy Family History Father Prostate cancer Paternal Aunt Diabetes Stroke Father Heart attack Paternal Uncle Stroke Social History Household Members: Spouse Housing: Apartment Are you a primary health careers instructor to a significant other at home: No Do you presently have visiting nurse or other home services: No Alcohol intake: current Alcohol intake frequency: does not drink Patient Tobacco Use Status: Never used Tobacco Current occupational status: disabled Current occupation: rt handed Physical Exam Vital Signs: Last Vital Signs Pulse 60 12/31/24 11:28 BP 177/82 H 12/31/24 11:28 BMI result Body Mass Index 30.4 Assessment & Plan Assessment & Plan (1) Mesenteric panniculitis: Code(s): K65.4 - Sclerosing mesenteritis Category: Medical Plan: as above Orders: Orders Thiopurine Methyltransferase Today K65.4 - Sclerosing mesenteritis Erythrocyte Sedimentation Rate Today K65.4 - Sclerosing mesenteritis C Reactive Protein Today K65.4 - Sclerosing mesenteritis Referrals Urology Referral R15.9 - Full incontinence of feces Medications: New esomeprazole magnesium 20 mg PO BID 90 caps 2RF Discontinued esomeprazole magnesium Discontinued Reason: Doctor's Order 40 mg PO DAILY 90 caps 2RF Coding Level of Care Code Est Pt Level 4 (83690) Diagnoses Mesenteric panniculitis K65.4
--- OUTSIDE RECORDS SUMMARY | 2024-12-31 12:32 | XMS_ITS | Encounter Summary ---
Author Organization [employer] Address [address] [place] [address] Care Team Providers Care Audit Intern Name Role Phone Gia Tenorio MD Primary Care Provider [phone] Reason for Visit * Reason Comments Med Refill Encounter Details Date Type Department Care Team ([facility] st Contact Info) Description 04/18/2023 Refill [facility] P[facility] [address] [place], [place] [phone] Luigi Solomon MD [address] [place] [address] Acute left-sided low back pain with left-sided [...] spasm documented in this encounter Care Teams Audit Intern Relationship Specialty Start Date End Date Gia Tenorio MD [address] [place] [address] PCP - General Family Medicine 06/13/18 documented as of this encounter
== END 2024-12-31 12:25 | disposition home or self-care (01) ==
LOC: HO.HGI 11:26
PROVIDERS: PCP Pediatrics; Visit Provider Internal Medicine Gastroenterology
DX: K65.4 Sclerosing mesenteritis (principal)
CPT/HCPCS: 99214

== ENCOUNTER → 2024-12-31 11:26 | Outpatient (BNVA) | payer OTHER, SELFPAY | PROVIDERS: PCP Pediatrics; Visit Provider Internal Medicine Gastroenterology | DX: K65.4 Sclerosing mesenteritis (principal) | CPT/HCPCS: 99212 ==

== ENCOUNTER 2025-02-05 12:54 | Outpatient (REF) | payer OTHER, SELFPAY ==
--- NOTE | ~2025-02-05 | XR_ITS ---
EXAMINATION: XR CHEST 2 VIEWS HISTORY: fever, pleuritic pain COMPARISON: Comparison is made with the prior examination dated 12/28/2022. FINDINGS: PA and lateral views of the chest are submitted. There is airspace opacity in the right lower lobe, consistent with pneumonia. The left lung is clear. There is no pleural effusion, pneumothorax, or pulmonary vascular congestion. The heart is normal in size. There is degenerative disc disease of the spine. XR/XR chest 2V IMPRESSION: Right lower lobe pneumonia. Follow-up is recommended to document resolution. Electronically signed by: Cali Silva MD 02/05/2025 01:20 PM EDT
--- OUTSIDE RECORDS SUMMARY | 2025-02-05 11:30 | XMS_ITS | Encounter Summary ---
Author Organization [employer] Address [address] [facility] 7t [place] [address] Care Team Providers Care Crane Follower Name Role Phone Gia Tenorio MD Primary Care Provider [phone] Reason for Visit * Reason Comments sick on site Encounter Details Date Type Department Care Team ([facility] st Contact Info) Description 02/05/2025 11:30 AM EDT Office Visit [facility] MEDICINE [address] [place] [address] Shanelle Mejia, ANP [address] [place] [address] Pleuritic pain (Primary Dx) Social History Tobacco [...] 11:30 AM EDT Subjective Patient ID: Bree Cahirez is a 64 y.o. female who presents for sick on site. HPI PMH incl h/o right breast invasive ductal carcinoma diagnosed in June 2017 s/p lumpectomy (ER/[place] positive, HER-2 negative--on letrozole 2.5 mg), HTN, [...] Influenza A OSOM (02/05/2025 12:33 PM EDT) [facility] Rapid Influenza A Ag Negative Negative, Indeterminate QC Media Lot # [id number] Lot# Expiration Date ,312,027 Swab Nasopharyngeal structure / Unknown 02/05/2025 12:33 PM EDT us Shanelle Mejia ANP POINT OF CARE TEST ENTER/EDIT OR DERABLES Final Result * POCT Rapid Influenza B OSOM (02/05/2025 12:32 PM EDT) [facility] Rapid Influenza B Ag Negative Negative, Indeterminate QC Media Lot # [id number] Lot# Expiration Date ,312,027 Swab 02/05/2025 12:3 2 PM EDT us Shanelle Mejia ANP POINT OF CARE TEST ENTER/EDIT OR DERABLES Final Result * POCT Rapid Covid-19 BinaxNOW (02/05/2025 12:28 PM EDT) [facility] Rapid COVID Ag Negative QC Media Lot # [id number] Lot# Expiration Date [id number] Swab 02/05/2025 12:2 8 PM EDT us Shanelle Mejia ANP POINT OF CARE TEST ENTER/EDIT OR DERABLES Final Result * XR Chest 2 Views (02/05/2025 12:20 PM EDT) Anatomical Region Laterality Modality Chest Radiographic Melissa ging 02/05/2025 12:2 0 PM EDT Narrative 02/05/2025 1:23 PM EDT [address] [address] XRay Report Signed Patient: Bree Chairez MR#: [id number] : 1960 Acct:[id number] Age/Sex: 64 / F ADM Date: 02/05/25 Loc: [facility] Attending Dr: Shanelle Mejia NP Ordering Physician: SHANELLE MEJIA NP Date of Service: 02/05/25 Procedure(s): XR chest 2V Accession Number(s): [id number] cc: SHANELLE MEJIA NP EXAMINATION: XR CHEST [...] 02/05/25 1320 DD/ 1220 TD/TT: 02/05/25 1230 Nanotechnology Engineering Technologist: Procedure Note Donotuseinterpreter, Image - 02/05/[address] [address] XRay Report Signed Patient: Bree ChairezMR#: [id number] : 1960cct:[id number] Age/Sex: 64 / FADM Date: 02/05/25 Loc: [facility] Attending Dr: Shanelle Mejia NP Ordering Physician: SHANELLE MEJIA NP Date of Service: 02/05/25 Procedure(s): XR chest 2V Accession Number(s): [id number] cc: SHANELLE MEJIA NP EXAMINATION: XR CHEST [...] 02/05/25 1320 DD/ 1220 TD/TT: 02/05/25 1230 Nanotechnology Engineering Technologist: Shanelle Mejia ANP IMG XR PROCEDURES Final Result documented in this encounter Visit Diagnoses Diagnosis Pleuritic pain- Primary Painful respiration documented in this encounter Care Teams Crane Follower Relationship Specialty Start Date End Date Gia Tenorio MD [address] [place] [address] PCP - General Family Medicine 06/13/18 documented as of this encounter
--- OUTSIDE RECORDS SUMMARY | 2025-02-05 13:37 | XMS_ITS | Encounter Summary ---
Author Organization [employer] Address [address] [place] [address] Care Team Providers Care Correctional Sergeant Name Role Phone Gia Tenorio MD Primary Care Provider [phone] Reason for Visit * Reason Comments Med Refill Encounter Details Date Type Department Care Team ([facility] st Contact Info) Description 04/18/2023 Refill [facility] [address] [place], [place] [phone] Luigi Solomon MD [address] [place] [address] Acute left-sided low back pain with left-sided [...] spasm documented in this encounter Care Teams Correctional Sergeant Relationship Specialty Start Date End Date Gia Tenorio MD [address] [place] [address] PCP - General Family Medicine 06/13/18 documented as of this encounter
--- OUTSIDE RECORDS SUMMARY | 2025-02-05 13:38 | XMS_ITS | Encounter Summary ---
Author Organization [employer] Address [address] [place] [address] Care Team Providers Care Flanging Machine Operator Name Role Phone Gia Tenorio MD Primary Care Provider [phone] Encounter Details Date Type Department Care Team (Late st Contact Info) Description 11/15/2023 Orders Only [facility] [address] [place] [address] Anat Van MD [address] [place] [address] Social History Tobacco Use Types Packs/Day Years [...] on filedocumented in this encounter Care Teams Flanging Machine Operator Relationship Specialty Start Date End Date Gia Tenorio MD [address] [place] [address] PCP - General Family Medicine 06/13/18 documented as of this encounter
--- OUTSIDE RECORDS SUMMARY | 2025-02-05 13:38 | XMS_ITS | Encounter Summary ---
Author Organization [employer] Address [address] [place] [address] Care Team Providers Care Push Bench Operator Helper Name Role Phone Gia Tenorio MD Primary Care Provider [phone] Reason for Visit * Reason Comments Med Refill Encounter Details Date Type Department Care Team (Late st Contact Info) Description 02/24/2023 Refill [facility] [address] [place] [address] Mercy Jeffries MD [address] [place], [place] [phone] Acute left-sided low back pain with left-sided [...] spasm documented in this encounter Care Teams Push Bench Operator Helper Relationship Specialty Start Date End Date Gia Tenorio MD [address] [place] [address] PCP - General Family Medicine 06/13/18 documented as of this encounter
--- OUTSIDE RECORDS SUMMARY | 2025-02-05 13:38 | XMS_ITS | Encounter Summary ---
Author Organization [employer] Address [address] [place] [address] Care Team Providers Care Extruder Operator Name Role Phone Gia Tenorio MD Primary Care Provider [phone] Reason for Visit * Reason Comments Med Refill Encounter Details Date Type Department Care Team ([facility] st Contact Info) Description 02/24/2023 Refill [facility] [address] [place] [address] Gia Tenorio MD [address] [place] [address] Benign essential hypertension; Mild persistent asthma without [...] complication documented in this encounter Care Teams Extruder Operator Relationship Specialty Start Date End Date Gia Tenorio MD [address] [place] [address] PCP - General Family Medicine 06/13/18 documented as of this encounter
--- OUTSIDE RECORDS SUMMARY | 2025-02-05 13:38 | XMS_ITS | Encounter Summary ---
Author Organization [employer] Address [address] [place] [address] Care Team Providers Care Mounter Hand Name Role Phone Gia Tenorio MD Primary Care Provider [phone] Reason for Visit * Reason Comments Med Refill Encounter Details Date Type Department Care Team (Late st Contact Info) Description 04/18/2023 Refill [facility] [address] [place] [address] Mercy Jeffries MD [address] [place], [place] [phone] Acute left-sided low back pain with left-sided [...] spasm documented in this encounter Care Teams Mounter Hand Relationship Specialty Start Date End Date Gia Tenorio MD [address] [place] [address] PCP - General Family Medicine 06/13/18 documented as of this encounter
--- OUTSIDE RECORDS SUMMARY | 2025-02-05 13:38 | XMS_ITS | Encounter Summary ---
Author Organization [employer] Address [address] [place] [address] [place] [address] Care Team Providers Care Factory Assembler Name Role Phone Gia Tenorio MD Primary Care Provider [phone] Encounter Details Date Type Department Care Team (Late st Contact Info) Description 04/21/2023 Abstract [facility] [address] [place] [address] Ana Mahoney Social History Tobacco Use Types [...] on filedocumented in this encounter Care Teams Factory Assembler Relationship Specialty Start Date End Date Gia Tenorio MD [address] [place] [address] PCP - General Family Medicine 06/13/18 documented as of this encounter
--- OUTSIDE RECORDS SUMMARY | 2025-02-05 13:38 | XMS_ITS | Encounter Summary ---
Author Organization [employer] Address [address] [place] [address] Care Team Providers Care Glass Edger Name Role Phone Gia Tenorio MD Primary Care Provider [phone] Reason for Visit * Reason Comments Med Refill Encounter Details Date Type Department Care Team ([facility] st Contact Info) Description 10/22/2022 Refill [facility] [address] [place], [place] [phone] Donna Amin MD [address] [place], [place] [phone] Neck muscle spasm Social History Tobacco Use [...] spasm documented in this encounter Care Teams Glass Edger Relationship Specialty Start Date End Date Gia Tenorio MD [address] [place] [address] PCP - General Family Medicine 06/13/18 documented as of this encounter
--- OUTSIDE RECORDS SUMMARY | 2025-02-05 13:38 | XMS_ITS | Encounter Summary ---
Author Organization [employer] Address [address] [place] [address] 7 [place] [address] Care Team Providers Care Supervisor Drying And Winding Name Role Phone Gia Tenorio MD Primary Care Provider [phone] Encounter Details Date Type Department Care Team (Latest Contact Info) Description 01/22/2019 Abstract [facility], Provider, DDS Social History Tobacco [...] on filedocumented in this encounter Care Teams Supervisor Drying And Winding Relationship Specialty Start Date End Date Gia Tenorio MD [address] [place] [address] PCP - General Family Medicine 06/13/18 documented as of this encounter
--- OUTSIDE RECORDS SUMMARY | 2025-02-05 13:38 | XMS_ITS | Encounter Summary ---
Author Organization [employer] Address [address] [facility] 7t [place] [address] Care Team Providers Care Prosthetist Name Role Phone Gia Tenorio MD Primary Care Provider [phone] Encounter Details Date Type Department Care Team (Latest Contact Info) Description 02/05/2025 Travel Social History Tobacco Use Types Packs/Day Years [...] AM EDT documented as of this encounter Functional Status * Over the [...] Santana [place] documented as of this encounter Plan of Treatment Not on file documented as of this encounter Visit Diagnoses Not on filedocumented in this encounter Care Teams Prosthetist Relationship Specialty Start Date End Date Gia Tenorio MD [address] [place], [place] [address] [address] PCP - General Family Medicine 06/13/18 documented as of this encounter
--- OUTSIDE RECORDS SUMMARY | 2025-02-05 13:38 | XMS_ITS | Encounter Summary ---
Author Organization [employer] Address [address] [place] [address] [address] [place] [address] Care Team Providers Care Barrel Drainer Name Role Phone Gia Tenorio MD Primary Care Provider [phone] Encounter Details Date Type Department Care Team (Latest Contact Info) Description 07/24/2018 Abstract [facility] Dental, Provider, DDS Social [...] on filedocumented in this encounter Care Teams Barrel Drainer Relationship Specialty Start Date End Date Gia Tenorio MD [address] [place] [address] PCP - General Family Medicine 06/13/18 documented as of this encounter
--- OUTSIDE RECORDS SUMMARY | 2025-02-05 13:38 | XMS_ITS | Clinical Summary ---
Author Organization [facility] [employer] Address [address] [place] [address] 7 [place] [address] Care Team Providers Care Beveling Machine Operator Name Role Phone Gia Tenorio MD Primary Care Provider [phone] Allergies No known active allergies Medications * This document contains information received from the source organization and may not represent a complete record from that organization. lansoprazole (Prevacid) [address] capsule Take 1 capsule by mouth 1 (one) time each day. 04/19/20 22 Active loratadine (Claritin) 10 MG tablet Take 10 mg by mouth 1 (one) time each day. 08/26/19 22 Active ondansetron (Zofran) 4 MG tablet TAKE ONE TABLET BY MOUTH EVERY 8 HOURS NEEDED FOR NAUSEA AND VOMITING. 08/26/19 22 Active pentoxifylline (Trental) 400 MG ER tablet TAKE ONE TABLET THREE TIMES DAILY WITH FOOD OR WITH MEALS 12/02/19 22 Active pramoxine-calami ne (Calahist) 1-8 % lotion apply topically as needed for mosquito bites 01/03/20 21 Active allopurinol (Zyloprim) 300 MG tablet TAKE ONE TABLET BY MOUTH EVERY DAY 30 tablet 11 04/19/20 23 Active pantoprazole (ProtoNix) 40 MG EC tablet TAKE ONE TABLET DAILY 90 tablet 11/10/19 24 Active calcium carbonate 1500 (600 Ca) MG tablet TAKE ONE TABLET BY MOUTH TWICE DAILY 180 tablet 11/14/19 24 Active cholecalciferol VITAMIN D (Vitamin D-3) 50 MCG (2000 UT) capsule TAKE ONE CAPSULE BY MOUTH TWICE DAILY 60 capsule 01/23/20 24 Active enalapril (Vasotec) 20 MG tablet TAKE ONE TABLET BY MOUTH TWICE DAILY 60 tablet 02/14/20 24 Active venlafaxine XR (Effexor XR) 75 MG 24 hr capsuleIndicatio ns:Major depressive disorder in remission, unspecified whether recurrent (CMS/HCC) TAKE ONE CAPSULE DAILY WITH FOOD 30 capsule 04/16/20 24 Active gabapentin (Neurontin) 100 MG capsuleIndicatio ns:Osteopenia of multiple sites,Vitamin D deficiency,Neura lgia TAKE ONE CAPSULE TWICE DAILY 60 capsule 06/26/19 25 Active meloxicam (Mobic) 7.5 MG tabletIndication s:Acute left-sided low back pain with left-sided sciatica,Neck muscle spasm TAKE TWO TABLETS BY MOUTH EVERY MORNING 60 tablet 06/26/19 25 Active Hydrocortisone, Perianal, (Proctocort) 1 % cream Apply bid small amount to affected area of rectum 28.4 g 08/24/19 25 Active amLODIPine (Norvasc) 5 MG tabletIndication s:Benign essential hypertension,Mil d persistent asthma without complication TAKE ONE TABLET BY MOUTH EVERY DAY 30 tablet 09/06/19 25 Active metoprolol succinate XL (Toprol-XL) 100 MG 24 hr tablet TAKE ONE TABLET BY MOUTH ONCE DAILY 30 tablet 09/06/19 25 Active atorvastatin (Lipitor) 20 MG tabletIndication s:Benign essential hypertension,Mil d persistent asthma without complication TAKE ONE TABLET BY MOUTH EVERY DAY 30 tablet 09/06/19 25 Active triamcinolone (Kenalog) 0.1 % cream APPLY A THIN LAYER TO THE AFFECTED AREA(s) TWICE DAILY 80 g 09/06/19 25 Active meclizine (Antivert) 25 MG tabletIndication s:Benign essential hypertension,Mil d persistent asthma without complication TAKE ONE TABLET BY MOUTH THREE TIMES DAILY NEEDED FOR dizziness 20 tablet 09/11/19 25 Active famotidine (Pepcid) 40 MG tablet Take 1 tab orally qhs 30 tablet 5 09/12/19 25 Active cyanocobalamin (Vitamin B-12) 1000 MCG tablet Take 1 tab orally daily 90 tablet 2 09/12/19 25 Active levothyroxine (Synthroid, Levoxyl) 100 MCG tablet TAKE ONE TABLET DAILY 90 tablet 1 09/18/19 25 Active albuterol 108 (90 Base) MCG/ACT inhalerIndicatio ns:Benign essential hypertension,Mil d persistent asthma without complication INHALE ONE PUFF BY MOUTH EVERY FOUR HOURS NEEDED 8.5 g 2 10/20/19 25 Active albuterol (2.5 MG/3ML) 0.083% nebulizer solutionIndicati ons:Mild persistent asthma without complication USE ONE AMPULE USING A NEBULIZER EVERY 4 HOURS NEEDED FOR WHEEZING OR SHORTNESS OF BREATH 75 mL 3 12/01/19 25 Active dicyclomine (Bentyl) 20 MG tablet TAKE ONE TABLET TWICE DAILY NEEDED 180 tablet 01/10/20 25 Active SUMAtriptan (Imitrex) 25 MG tablet TAKE 1 TABLET BY MOUTH AT ONSET OF MIGRAINE. MAY REPEAT ONCE AFTER 2 HOURS IF NEEDED. NO MORE THAN EIGHT TABLETS PER 24 HOURS 10 tablet 01/23/20 25 Active doxycycline (Vibra-Tabs) 100 MG tabletIndication s:Pleuritic pain Take 1 tablet (100 mg) by mouth 2 times daily for 7 days. Take with a full glass of water and do not lie down for at least 30 minutes after. 14 tablet 02/06/20 25 025 Active dicyclomine (Bentyl) 20 MG tablet TAKE ONE TABLET TWICE DAILY NEEDED 90 tablet 3 02/27/20 24 025 Discontinued SUMAtriptan (Imitrex) 25 MG tablet TAKE 1 TABLET BY MOUTH AT ONSET OF MIGRAINE. MAY REPEAT ONCE AFTER 2 HOURS IF NEEDED. NO MORE THAN EIGHT TABLETS PER 24 HOURS 10 tablet 12/01/19 25 025 Discontinued Active Problems Problem Noted Date Diagnosed [...] Assessment & Plan (12/29/2022 10:46 AM EDT): Pt with diagnosis of mild persistent asthma, has not yet used albuterol inhaler during course of illness Improved noted s/p in office neb. Pt prefers albuterol machine to pump. Albuterol neb solution sent to the office High blood pressure 01/19/2013 Dizziness and giddiness 09/07/2011 Palpitations 09/07/2011 Pure hypercholesterolemia 09/07/2011 Encounters * This document contains information received from the source organization and may not represent a complete record from that organization. Date Type Department Care Team Description 02/05/2025 11:30 AM EDT Office Visit [facility] [address] [place] [address] Shanelle Mejia ANP Pleuritic pain (Primary Dx) 02/05/2025 Travel 01/21/2025 Refill [facility] [address] [place] [address] Gia Tenorio MD 01/09/2025 Refill [facility] [address] [place] [address] Gia Tenorio MD 11/30/2024 Refill [facility] [address] [place] [address] Luigi Solomon MD Mild persistent asthma without complication 11/30/2024 Refill [facility] [address] [place] [address] iGa Tenorio MD Mild persistent asthma without complication from Last 3 Months Immunizations Immunization Administration Dates Next Due Influenza injectable quadriv alent IIV4 with preservative 05/24/2017,03/15/2016,04/21/2015 Influenza injectable quadriv alent preservative free 03/17/2022,03/25/2021,03/06/2020,2018 Influenza, IIV3, injectable 03/28/2014 Influenza, Split (incl. mariely fied surface antigen) 04/04/2013,03/06/2012 Moderna Covid-19 Vaccine 12+ 10/30/2020,10/03/19 21 Pneumococcal Conjugate PCV 20 09/14/2023 Tdap 05/27/2016 Zoster, Recombinant 10/29/2022,08/20/2022 Family History Medical History Relation Name Comments Hypertension Father Maverick Bryanna lez Diabetes Father's Sister 1 Patsy Bryanna lez Diabetes Father's Sister 2 Cora Bryanna lez Hypertension Father's Sister 2 Cora Bryanna lez Diabetes Father's Sister 3 Shefali Bryanna lez Hypertension Father's Sister 3 Shefalikrishna celayaz Arthritis Mother Nancy quinteros Hypertension Mother Nancy quinteros Relation Name Status Comments Father Maverick Bryanna lez Father's Sister 1 Patsy Bryanna lez Father's Sister 2 Cora Bryanna lez Father's Sister 3 Shefali Bryanna lez Mother Nancy quinteros Social History Tobacco Use Types Packs/Day Years [...] 19 02/05/2025 11:52 AM EDT Oxygen Saturation 97% 12/01/2023 10:04 AM EDT Inhaled Oxygen Concentration - - Weight 89.4 kg (197 lb) 02/05/2025 11:52 AM EDT Height 170.2 cm (5' 7 ) 08/23/2024 3:11 PM EDT Body Mass Index 30.85 08/23/2024 3:11 PM EDT Plan of Treatment Health Maintenance Due Date Last Done Comments CT Colonography 1960 FIT DNA/Cologuard 1960 FIT 1960 FOBT 1960 SDOH Screening 1960 Sigmoidoscopy 1960 RSV Patients and Patients Aged 60 years or older (1 - Risk 60-74 years 1-dose series) 2018 COVID-19 Vaccine ( season) 2024 10/30/2020, 10/02/2020 Influenza Vaccine (#1) 2025 , 03/25/2021, 03/06/2020, Additional history exists Mammogram 07/05/2025 07/05/2024, 06/13, 06/22/2022, Additional history exists Alcohol/Substance Use Screening 02/05/2026 02/05/2025 Depression Screening 02/05/2026 02/05/2025, 02/06/20 25 Tobacco Screening 02/05/2026 02/05/2025 DTaP/Tdap/Td Vaccines (2 - Td or Tdap) [...] patient's age to complete this topic Meningococcal B Vaccine Aged Out No l onger eligible based on patient's age to complete [...] Diagnosis Comments POCT INFLUENZA A Routine 02/05/2025 12:33 PM EDT Pleuritic pain POCT INFLUENZA B Routine 02/05/2025 12:32 PM EDT Pleuritic pain POCT RAPID COVID ANTIGEN Routine 02/05/2025 12:28 PM EDT Pleuritic pain XR CHEST 2 VIEWS Routine 02/05/2025 12:20 PM EDT Pleuritic pain LIPID PANEL, STANDARD Routine 09/07/2024 9:39 AM EDT Dietary counseling Exercise counseling Benign essential hypertension Pure hypercholesterolemia BI MAMMOGRAM SCREENING TOMOSYNTHESIS BILATERAL Routine 07/05/2024 1:55 PM EST HM COLONOSCOPY Routine 03/07/2024 THINPREP IMAGING PAP AND HPV MRNA E6/E7 WITH REFLEX TO HPV 16,18/45 Routine 12/05/2023 10:30 AM EDT ZZZ HISTORICAL HEPATITIS C AB W/REFL TO HCV RNA, QN, PCR Routine 08/20/2020 5:01 PM EST from Last 3 Months or Most Recently Relevant to Health Maintenance Results * POCT Rapid Influenza A OSOM (02/05/2025 12:33 PM EDT) [facility] Rapid Influenza A Ag Negative Negative, Indeterminate QC Media Lot # [id number] Lot# Expiration Date , Swab Nasopharyngeal structure / Unknown 02/05/2025 12:33 PM EDT [facility] Mejia ANP POINT OF CARE TEST ENTER/EDIT OR DERABLES Final Result * POCT Rapid Influenza B OSOM (02/05/2025 12:32 PM EDT) [facility] Rapid Influenza B Ag Negative Negative, Indeterminate QC Media Lot # [id number] Lot# Expiration Date Swab 02/05/2025 12:3 2 PM EDT [facility] ANP POINT OF CARE TEST ENTER/EDIT OR DERABLES Final Result * POCT Rapid Covid-19 BinaxNOW (02/05/2025 12:28 PM EDT) [facility] Rapid COVID Ag Negative QC Media Lot # [id number] Lot# Expiration Date ,[id number] Swab 02/05/2025 12:2 8 PM EDT [facility] ANP POINT OF CARE TEST ENTER/EDIT OR DERABLES Final Result * XR Chest 2 Views (02/05/2025 12:20 PM EDT) Anatomical Region Laterality Modality Chest Radiographic Melissa ging 02/05/2025 12:2 0 PM EDT Narrative 02/05/2025 1:23 PM EDT [address] [address] XRay Report Signed Patient: Bree Chairez MR#: [id number] : 1960 Acct:[id number] Age/Sex: 64 / F ADM Date: 02/05/25 Loc: MYLA Attending Dr: Shanelle Mejia NP Ordering Physician: SHANELLE MEJIA NP Date of Service: 02/05/25 Procedure(s): XR chest 2V Accession Number(s): [id number] cc: SHANELLE MEJIA NP EXAMINATION: XR CHEST [...] 02/05/25 1320 DD/ 1220 TD/TT: 02/05/25 1230 Cylinder Devalver: Procedure Note Donotuseinterpreter, Image - 02/05/2025 [place] [address] XRay Report Signed Patient: Heidi Chairez#: [id number] : 1960cct:[id number] Age/Sex: 64 / FADM Date: 02/05/25 Loc: MYLA Attending Dr: Shanelle Mejia METER READING CLERK Ordering Physician: SHANELLE MEJIA NP Date of Service: 02/05/25 Procedure(s): XR chest 2V Accession Number(s): [id number] cc: SHANELLE MEJIA NP EXAMINATION: XR CHEST [...] 02/05/25 1320 DD/ 1220 TD/TT: 02/05/25 1230 Cylinder Devalver: us Shanelle KRAMER IMLiliam XR PROCEDURES Final Result * Lipid Panel, Standard (09/07/2024 9:39 AM EDT) Triglycerides 94 <150 mg/dL [facility] Comment:Desirable Triglyceri de: less than 150 mg/dLBorderline High Triglyceride 150-199 mg/dLHigh Triglyceride: 200-499 mg/dLVery High Triglyceride: greater than or equal to 5OO mg/dL Cholesterol 149 <200 mg/dL [facility] Comment:Desirable Cholestero l: less than 200 mg/dLBorderline High Cholesterol: 200-239 mg/dLHigh Cholesterol: greater than 239 mg/dL LDL Cholesterol Calculated 88 <100 mg/dL [facility] Comment:Desirable LDL: less than 100 mg/dLNear Optimal/Above Optimal LDL: 110- 129 mg/dLBorderline High LDL: 130-159 mg/dLHigh LDL: 160-189 mg/dLVery High LDL: greater than or equal to 190 mg/dL HDL Cholesterol 43 >40 mg/dL [facility] Comment:Desirable HDL: great er than 40 mg/dL Note: This HDL assay may give artificially low results in patients with liver disease. Blood Venous blood specimen / Unknown 09/07/2024 9:39 AM EDT 09/07/2024 2:08 PM EDT us Gia Tenorio MD LAB BLOOD ORDERABLES Final Re sult [facility] [address] [place] [address] [phone] * BI Mammogram Screening Tomosynthesis Bilateral (07/05/2024 1:55 PM EST) Anatomical Region Laterality Modality Breast Bilateral Mammography 07/05/2024 1:55 PM EST Narrative 07/16/2024 10:03 AM EST [facility] [address] [place] [address] Mammography Report Signed Patient: Bree Chairez MR#: [id number] : 1960 Acct:[id number] Age/Sex: 63 / F ADM Date: 07/05/24 Loc: HO.MAMMO Attending Dr: Gia Tenorio MD Ordering Physician: Gia Tenorio MD Results: 1Ne gative Date of Service: 07/05/24 Follow Up: 1 Year From Orig ina Mammogram Procedure(s): MM tomosynthesis screening BI Accession Number(s): [id number] cc: Gia Tenorio MD EXAMINATION: MM SCREENING [...] 07/16/24 1000 DD/ 1355 TD/TT: 07/05/24 1410 Cylinder Devalver: Procedure Note Donotvaheinterpreter, Image - 07/16/2024 [facility] [address] [place] [address] Mammography Report Signed Patient: Heidi Chairez#: [id number] : 9Acct:[id number] Age/Sex: 63 / FADM Date: 07/05/24 Loc: HO.MAMMO Attending Dr: Gia Tenorio MD Ordering Physician: Gia Tenorio MDResults: 1Ne gative Date of Service: 07/05/24Follow Up: 1 Year From Orig inal Mammogram Procedure(s): MM tomosynthesis screening BI Accession Number(s): [id number] cc: Gia Tenorio MD EXAMINATION: MM SCREENING [...] by: Pat Bonilla DO 07/16/2024 10:00 AM [facility] Dictated By: Pat Bonilla DO Signed By: <Electronically signed by Pat Bonilla DO in OV> 07/16/24 1000 DD/ 1355 TD/TT: 07/05/24 1410 Cylinder Devalver: us Gia Tenorio MD IMG BI PROCEDURES Final Resul t * Hm Colonoscopy (03/07/2024) Colonoscopy Normal Normal us Gia Tenorio MD HEALTH MAINTENANCE Final Resu lt * ThinPrep Imaging Pap and HPV mRNA E6/E7 with Reflex to HPV 16,18/45 (12/05/2023 10:30 AM EDT) HPV 16 RNA [facility] HPV 18/45 RNA [facility] HPV nRNA E6/E7 Not Detected Not Detected [facility] Comment:Methodology: Transcr iption-Mediated AmplificationThis assay detects E6/E7 viral messenger RNA (mRNA) from 14high-risk HPV types (16,18,31,33,35,39,45,51,52,56,58,59,66,68).Cervical sources are required for HPV testing.If a vaginal source from a patient who has had atotal hysterectomy with removal of cervix wassubmitted, please contact the testing laboratoryfor alternative testing options.For additional information, please refer tohttp://education.Availigent/faq/ZZP409z6(This link if provided for information/educational purposes only.)THIS TEST WAS PERFORMED AT:[facility] [place] [phone] SOLO MD SOURCE: SEE NOTE [facility] Comment:Cervix Report Status: [facility] Clinical Information: SEE NOTE [facility] Comment:R LMP: SEE NOTE [facility] Comment:NONE GIVEN Prev. PAP: SEE NOTE [facility] Comment:2020 Prev. BX: SEE NOTE [facility] Comment:NONE GIVEN Statement Of Adequacy: SEE NOTE [facility] Comment:SATISFACTORY FOR ALINE LUATION General Categorization: [facility] Interpretation/Result: SEE NOTE [facility] Comment:Cytology Results: Ne gative for intraepitheliallesion or malignancy.Atrophic pattern; predominantly parabasal cells Cytology Comment SEE NOTE [facility] Comment:This Pap test has be en evaluated with computerassisted technology. Candy Vendor: SEE NOTE [facility] Comment:RPR, CT (ASCP) CT sc reening location: [address] [address] Review Candy Vendor: [facility] Pathologist [facility] PAP Infection [facility] See Note SEE NOTE [facility] Comment:EXPLANATORY NOTE:The Pap is a [...] AM EDT 12/06/2023 9:23 AM EDT Narrative [facility] - 12/09/2023 8:39 AM EDT [id number] Megha HARRY LAB PATHOLOGY ORDERABLES Final Result [facility] [address] [place] [phone] * HEPATITIS C AB W/REFL TO HCV RNA, QN, PCR (08/20/2020 5:01 PM EST) HEPATITIS C ANTIBODY NON-REACT [facility] NON-REACT [facility] INDEX 0.04 <1.00 [facility] Comment: HCV antibody was non-reactive. There is no laboratory evidence of HCV infection. In most cases, no further action is required. However, if recent HCV exposure is suspected, a test for HCV RNA (test code 06103) is suggested. For additional information please refer to http://education.Availigent/faq/XSY23b0 (This link is being provided for informational/ educational purposes only.) 08/20/2020 5:01 PM EST us Jenna Carballo CAN CUTTER HISTORICAL/NON ORDERABLE LABS Final Result [facility] [address] from Last 3 Months or Most Recently Relevant to Health Maintenance Insurance [facility] ONE CARE < 65 [place] [id number] Care Teams Beveling Machine Operator Relationship Specialty Start Date End Date Gia Tenorio MD [address] [place] [address] PCP - General Family Medicine 06/13/18
--- OUTSIDE RECORDS SUMMARY | 2025-02-05 13:38 | XMS_ITS | Encounter Summary ---
Author Organization [employer] Address [address] [place] [address] Care Team Providers Care Snuff Box Finisher Name Role Phone Gia Tenorio MD Primary Care Provider [phone] Reason for Visit * Reason Comments Med Refill Encounter Details Date Type Department Care Team ([facility] st Contact Info) Description 02/24/2023 Refill [facility] [address] [place] [address] Liz Contreras MD [address] [place] [address] Social History Tobacco Use Types Packs/Day Years [...] on filedocumented in this encounter Care Teams Snuff Box Finisher Relationship Specialty Start Date End Date Gia Tenorio MD [address] [place] [address] PCP - General Family Medicine 06/13/18 documented as of this encounter
== END 2025-02-05 12:55 | disposition home or self-care (01) ==
LOC: HO.HHCX 12:54
PROVIDERS: Visit Provider Nurse Practitioner Primary Care
DX: R07.81 Pleurodynia (principal)
CPT/HCPCS: 71046

== ENCOUNTER → 2025-02-05 12:55 | Outpatient (BNV) | payer OTHER, SELFPAY | PROVIDERS: Visit Provider Radiology Diagnostic Radiology | DX: J18.1 Lobar pneumonia, unspecified organism (principal) | CPT/HCPCS: 71046 ==

== ENCOUNTER 2025-02-08 10:46 | Outpatient (AMB) | payer OTHER, SELFPAY ==
--- OUTSIDE RECORDS SUMMARY | 2025-02-05 11:30 | XMS_ITS | Encounter Summary ---
Author Organization [employer] Address [address] [facility] 7t [place] [address] Care Team Providers Care Playground Aide Name Role Phone Gia Tenorio MD Primary Care Provider [phone] Reason for Visit * Reason Comments sick on site Encounter Details Date Type Department Care Team ([facility] st Contact Info) Description 02/05/2025 11:30 AM EDT Office Visit [facility] MED[facility] [address] [place] [address] Shanelle Mejia, ANP [address] [place] [address] Pleuritic pain (Primary Dx) Social History Tobacco Use Types Packs/Day Years Used Date Smoking Tobacco: Never Passive Smoke Exposure: Never Smokeless Tobacco: Never Tobacco Cessation:Counseling Given: Not Answered Alcohol Use Standard Drinks/Week Comments Never 0 (1 standard drink = 0.6 oz pur e alcohol) Housing Stability Answer Date Recorded What is your housing situation today? I have ember nova 02/05/[address] you li ve. Do you have problems with any of the following? None of the above 02/05/2025 Food Insecurity Answer Date Recorded Within the past 12 months, y ou worried that your food would run out before you got money to buy more: Never True 02/05/2025 Within the past 12 months,th e food you bought just didn't last and you didn't have enough money to get more: Never True Utilities Answer Date Recorded In the past 12 months, has t he electric, gas, oil or water company threatened to shut off services in your home? No 02/05/2025 Depression Answer Date Recorded Patient Health Questionnaire-2 Score 0 02/05/2025 Internet Access Answer Date Recorded Internet Access Q1 Yes 02/05/2025 Internet Access Q2 Not on file 02/05/2025 Comments No Sex and Gender Information Value Date Recorded Sex Assigned at Female 04/12/2022 10:19 AM EDT Legal Sex Female 10:19 AM EDT Gender Identity Female 04/12/2022 10:19 AM EDT Sexual Orientation Straight 04/12/2022 10 :19 AM EDT documented as of this encounter Last Filed Vital Signs Vital Sign Reading Time Taken Comments Blood Pressure 152/90 02/05/2025 11:52 AM EDT Pulse 90 02/05/2025 11:52 AM EDT Temperature 38.7 C (101.7 F) 02/05/2025 11:52 AM EDT Respiratory Rate 19 02/05/2025 11:52 AM EDT Oxygen Saturation - - Inhaled Oxygen Concentration - - Weight 89.4 kg (197 lb) 02/05/2025 11:52 AM EDT Height - - Body Mass Index 30.85 08/23/2024 3:11 PM EDT documented in this encounter Functional Status * Over the past 2 weeks, how often have you been bothered by any of the following problems? Question Answer Date of Assessment Author Patient Health Questionnaire -2 Score 0 02/05/2025 12:20 PM EDT Lynn Santana MA * Little interest or pleasure in doing things Answer Date of Assessment Author Not at all 02/05/2025 12:20 PM EDT Lynn Santana MA * Feeling down, depressed, or hopeless Answer Date of Assessment Author Not at all 02/05/2025 12:20 PM EDT Lynn Santana MA * Trouble falling or staying asleep, or sleeping too much Answer Date of Assessment Author Not at all 02/05/2025 12:20 PM EDT Lynn Santana MA * Feeling tired or having little energy Answer Date of Assessment Author Not at all 02/05/2025 12:20 PM EDT Lynn Santana MA * Poor appetite or overeating Answer Date of Assessment Author Not at all 02/05/2025 12:20 PM EDT Lynn Santana MA * Trouble concentrating on things, such as reading the newspaper or watching television Answer Date of Assessment Author Not at all 02/05/2025 12:20 PM EDT Lynn Santana MA * Moving or speaking so slowly that other people could have noticed? Or the opposite - being so fidgety or restless that you have been moving around a lot more than usual. Answer Date of Assessment Author Not at all 02/05/2025 12:20 PM EDT Lynn Santana MA * Thoughts that you would be better off or hurting yourself in some way Answer Date of Assessment Author Not at all 02/05/2025 12:20 PM EDT Lynn Santana MA documented as of this encounter Progress Notes * WILLIAMS Souza - 02/05/2025 11:30 AM EDT Subjective Patient ID: Bree Chairez is a 64 y.o. female who presents for sick on site. HPI PMH incl h/o right breast invasive ductal carcinoma diagnosed in June 2017 s/p lumpectomy (ER/[place] positive, HER-2 negative--on letrozole 2.5 mg), HTN, HLD, h/o mesenteric panniculitis jan 2021, osteopenia fill advisory for: Metoprolol, statin, amlodipine, venlafaxine - these have since been filled Here today for eval of pain w/ deep breath on R back. Sx started Tuesday w/ pain, fever, chills. No one else in house is sick. Denies SOB except w/ deep breath, PURDY, leg swelling. Non-smoker No allergies to meds Review of Systems Constitutional: Positive for chills and fever. Negative for diaphoresis and fatigue. HENT: Negative for congestion, postnasal drip, sinus pressure, sinus pain, sneezing and sore throat. Respiratory: Negative for chest tightness and shortness of breath. Cardiovascular: Negative for chest pain. Gastrointestinal: Negative for constipation and diarrhea. Endocrine: Negative for polydipsia, polyphagia and polyuria. Genitourinary: Negative for dysuria. Musculoskeletal: Negative for back pain and myalgias. Neurological: Negative for dizziness, weakness and light-headedness. Objective BP (!) 152/90 (BP Location: Left arm, Patient Position: Sitting, BP Cuff Size: Adult long) Pulse 90 Temp (!) 101.7 ??F (38.7 ??C) (Oral) Resp 19 Wt 197 lb (89.4 kg) BMI 30.85 kg/m?? SpO2 94%, 98%, 95% Physical Exam Vitals reviewed. Constitutional: Appearance: Normal appearance. She is not toxic-appearing. Comments: uncomfortable HENT: Head: Normocephalic and atraumatic. Nose: No congestion. Eyes: General: No scleral icterus. Extraocular Movements: Extraocular movements intact. Pupils: Pupils are equal, round, and reactive to light. Cardiovascular: Rate and Rhythm: Normal rate and regular rhythm. Pulmonary: Breath sounds: No wheezing. Comments: Lung sounds diminished on R base, pt unable to take deep breath. Lungs sounds on L clear all rob. Chest: Chest wall: No tenderness. Skin: General: Skin is warm and dry. Coloration: Skin is not pale. Neurological: Mental Status: She is alert. Assessment/Plan Diagnoses and all orders for this visit: Pleuritic pain 64yo w/ PMH breast ca, HTN, HLD with pleuritic pain and fever since Tuesday. No sick contacts. Rapidtesting here negative for COVID and flu. Suspect PNA. Check XR - she will go now - tx empirically w/ doxy Will recommend ED eval for PE r/o if chest XR negative vs stat CTA - POCT Rapid Covid-19 BinaxNOW - XR Chest 2 Views; Future - POCT Rapid Influenza A OSOM - POCT Rapid Influenza B OSOM - doxycycline (Vibra-Tabs) 100 MG tablet; Take 1 tablet (100 mg) by mouth 2 times daily for 7 days.Take with a full glass of water and do not lie down for at least 30 minutes after. documented in this encounter Plan of Treatment Not on file documented as of this encounter Procedures Procedure Name Priority Date/Time Associated Diagnosis Comments POCT INFLUENZA A Routine 02/05/2025 12:3 3 PM EDT Pleuritic pain POCT INFLUENZA B Routine 02/05/2025 12:3 2 PM EDT Pleuritic pain POCT RAPID COVID ANTIGEN Routine 02/05/2025 12:28 PM EDT Pleuritic pain XR CHEST 2 VIEWS Routine 02/05/2025 12:2 0 PM EDT Pleuritic pain documented in this encounter Results * POCT Rapid Influenza A OSOM (02/05/2025 12:33 PM EDT) [facility] Rapid Influenza A Ag Negative Negative, Indeterminate QC Media Lot # [id number] Lot# Expiration Date ,312,027 Swab Nasopharyngeal structure / Unknown 02/05/2025 12:33 PM EDT us Shanelle Mejia ANP POINT OF CARE TEST ENTER/EDIT OR DERABLES Final Result * POCT Rapid Influenza B OSOM (02/05/2025 12:32 PM EDT) [facility] Rapid Influenza B Ag Negative Negative, Indeterminate QC Media Lot # [id number] Lot# Expiration Date ,312,027 Swab 02/05/2025 12:3 2 PM EDT us Shanelle Mejia ANP POINT OF CARE TEST ENTER/EDIT OR DERABLES Final Result * POCT Rapid Covid-19 BinaxNOW (02/05/2025 12:28 PM EDT) [facility] Rapid COVID Ag Negative QC Media Lot # [id number] Lot# Expiration Date [id number] Swab 02/05/2025 12:2 8 PM EDT us Shanelle Mejia ANP POINT OF CARE TEST ENTER/EDIT OR DERABLES Final Result * XR Chest 2 Views (02/05/2025 12:20 PM EDT) Anatomical Region Laterality Modality Chest Radiographic Melissa ging 02/05/2025 12:2 0 PM EDT Narrative 02/05/2025 1:23 PM EDT [address] [address] XRay Report Signed Patient: Bree Chairez MR#: [id number] : 1960 Acct:[id number] Age/Sex: 64 / F ADM Date: 02/05/25 Loc: [facility] Attending Dr: Shanelle Mejia NP Ordering Physician: SHANELLE MEJIA NP Date of Service: 02/05/25 Procedure(s): XR chest 2V Accession Number(s): [id number] cc: SHANELLE MEJIA NP EXAMINATION: XR CHEST 2 VIEWS HISTORY: fever, pleuritic pain COMPARISON: Comparison is made with the prior examination dated 12/28/2022. FINDINGS: PA and lateral views of the chest are submitted. There is airspace opacity in the right lower lobe, consistent with pneumonia. The left lung is clear. There is no pleural effusion, pneumothorax, or pulmonary vascular congestion. The heart is normal in size. There is degenerative disc disease of the spine. XR/XR chest 2V IMPRESSION: Right lower lobe pneumonia. Follow-up is recommended to document resolution. Electronically signed by: Cali Silva MD 02/05/2025 01:20 PM EDT Dictated By: Cali Silva MD Signed By: <Electronically signed by Cali Silva MD in OV> 02/05/25 1320 DD/ 1220 TD/TT: 02/05/25 1230 Area Plant Manager: Procedure Note Donotuseinterpreter, Image - 02/05/[address] [address] XRay Report Signed Patient: Bree ChairezMR#: [id number] : 1960cct:[id number] Age/Sex: 64 / FADM Date: 02/05/25 Loc: [facility] Attending Dr: Shanelle Mejia NP Ordering Physician: SHANELLE MEJIA NP Date of Service: 02/05/25 Procedure(s): XR chest 2V Accession Number(s): [id number] cc: SHANELLE MEJIA NP EXAMINATION: XR CHEST 2 VIEWS HISTORY: fever, pleuritic pain COMPARISON: Comparison is made with the prior examination dated 12/28/2022. FINDINGS: PA and lateral views of the chest are submitted. There is airspace opacity in the right lower lobe, consistent with pneumonia. The left lung is clear. There is no pleural effusion, pneumothorax, or pulmonary vascular congestion. The heart is normal in size. There is degenerative disc disease of the spine. XR/XR chest 2V IMPRESSION: Right lower lobe pneumonia. Follow-up is recommended to document resolution. Electronically signed by: Cali Silva MD 02/05/2025 01:20 PM EDT RP Dictated By: Cali Silva MD Signed By: <Electronically signed by Cali Silva MD in OV> 02/05/25 1320 DD/ 1220 TD/TT: 02/05/25 1230 Area Plant Manager: Shanelle Mejia ANP IMG XR PROCEDURES Final Result documented in this encounter Visit Diagnoses Diagnosis Pleuritic pain- Primary Painful respiration documented in this encounter Care Teams Playground Aide Relationship Specialty Start Date End Date Gia Tenorio MD [address] [place] [address] PCP - General Family Medicine 06/13/18 documented as of this encounter
--- NOTE | 2025-02-08 11:08 | MHC.OFFVIS ---
Vital Signs 02/08/25 11:22 Height 5 ft 7 in Weight 195 lb BMI 30.5 BP 110/82 Blood Pressure Location Lt brachial Position Sitting Intake Visit Reasons: Sclerosing mesenteritis Intake Note: Patient is seen in office for evaluation of sclerosing mesenteritis, req biopsy. Pt c/o: admits to pain in the abdomen mostly after meals, diarrhea, weigh loss, reflux, onset for many yrs, nausea and vomit Stringed Instrument Repairer Required: Yes Stringed Instrument Repairer Language: Shroud Line Tier Services: Stringed Instrument Repairer Present Stringed Instrument Repairer Name: Rosario HUYNH Information Interpreted: non-clinical & clinical Accounts Receivable Administrator: Accounts Receivable Administrator Present Accompanied by: Spouse Allergies No Known Allergies Allergy (Verified 02/08/25 11:22) HPI Comments Details: 4-year-old female, former patient of Dr. Kraus, with a previous history of right breast carcinoma diagnosed in June 2017. She underwent a right breast lumpectomy with needle localization and right axillary sentinel node biopsy on 07/20/2017. Pathology revealed a 0.7 cm, grade 2, infiltrating ductal carcinoma with clear margins and 4 benign right axillary sentinel nodes. ER/FL receptors positive, HER2 Cortez negative. She underwent radiation therapy from 08/31/2017 to 09/21/2017. She was letrozole since October 2017 which she has now completed. She does report some pain in the right breast especially in the lower quadrants but denies any palpable mass, skin change or nipple discharge. Her most recent mammogram dated 07/05/2024 reveals no mammographic evidence of malignancy (BI-RADS 1). She underwent CT enterography on 09/11/2024 which revealed stable mesenteric opacities and lymph node prominence suggestive of chronic mesenteritis she continues to have abdominal pain especially in the periumbilical region. A previous mesenteric biopsy was performed on 01/12/2021 and revealed mature adipose tissue with focal fat necrosis and patchy minimal acute and chronic inflammation; otherwise within normal limits. She has been managed by Dr. Nassar for the mesenteritis. [facility] Medical History COVID-19 vaccine series completed Vertigo Chronic diarrhea Hypothyroid Fatty liver Kidney stone Asthma Cervical disc disease IBS (irritable bowel syndrome) GERD (gastroesophageal reflux disease) Migraine Hypercholesteremia HTN (hypertension) Surgical History History of esophagogastroduodenoscopy (EGD) Hx of colonoscopy H/O lumpectomy Hx of cholecystectomy Family History Father Prostate cancer Paternal Aunt Diabetes Stroke Father Heart attack Paternal Uncle Stroke Social History Household Members: Spouse Housing: Apartment Are you a primary healthcare administrator to a significant other at home: No Do you presently have visiting nurse or other home services: No Alcohol intake: current Alcohol intake frequency: does not drink Patient Tobacco Use Status: Never used Tobacco Current occupational status: disabled Current occupation: rt handed Review of Systems Const All systems reviewed & are unremarkable except as noted in HPI and below Physical Exam Vital Signs: Last Vital Signs BP 110/82 02/08/25 11:22 BMI result Body Mass Index 30.5 Const General: cooperative, comfortable, no acute distress, alert and awake HEENT Head: Yes normocephalic and Yes atraumatic Ears: hearing grossly normal bilaterally Resp Effort & Inspection: normal respiratory effort, no stridor and not tachypneic Auscultation: no wheezes GI Inspection: Yes normal to inspection Palpation (GI): Soft to palpation and Tenderness to palpation present (GI) periumbilically Skin General skin exam: no rashes or lesions noted Neuro Other: Mobility Assessment: 1. 3 meter assessment time (seconds) 5 2. Gait observations: Normal balance and gait Extrem General: Yes normal to inspection and Yes no clubbing, cyanosis or edema Assessment & Plan Assessment & Plan (1) Invasive ductal carcinoma of right breast in female: Code(s): C50.911 - Malignant neoplasm of unspecified site of right female breast Category: Medical (2) Mesenteric panniculitis: Code(s): K65.4 - Sclerosing mesenteritis Category: Medical Plan Patient stable from breast cancer standpoint. We will continue with routine screening with yearly exam and mammography. Abdominal pain continues. I will discuss with Dr. Nassar next steps. I do not think an additional biopsy is necessary given the stable nature of the mesenteritis by CT. Coding Level of Care Code Est Pt Level 3 (66948) Diagnoses Invasive ductal carcinoma of right breast in female C50.911 Mesenteric panniculitis K65.4
[2025-02-08 11:22] VITALS: BP 110/82; BMI 30.5
--- OUTSIDE RECORDS SUMMARY | 2025-02-08 11:25 | XMS_ITS | Encounter Summary ---
Author Organization [email or web address] Address [address] [facility] [address] [place] [address] Care Team Providers Care Top Cutter Name Role Phone Gia Tenorio MD Primary Care Provider [phone] Encounter Details Date Type Department Care Team [...] on filedocumented in this encounter Care Teams Top Cutter Relationship Specialty Start Date End Date Gia Tenorio MD [address] [place], [place] [address] [address] PCP - General Family Medicine 06/13/18 documented as of this encounter
--- OUTSIDE RECORDS SUMMARY | 2025-02-08 11:25 | XMS_ITS | Encounter Summary ---
Author Organization [employer] Address [address] [facility] 7t [place] [address] Care Team Providers Care Set Up Mechanic Stamping Machines Name Role Phone Gia Tenorio MD Primary Care Provider [phone] Encounter Details Date Type Department Care Team ([facility] st Contact Info) Description 02/05/2025 Results Follow-Up [facility] 230 [place] [address] Mandi Bo, ANP 230 [place] [address] XR Chest 2 Views Social History Tobacco Use Types Packs/Day Years [...] Santana [place] documented as of this encounter Miscellaneous Notes * Result Encounter Note - WILLIAMS Souza - 02/05/2025 3:57 PM EDT Hi - spoke w/ pt regarding result - started on abx, please schedule pt for f/u w/ PCP in 1 mo to ensure resolution of sx. [employer]pre[employer] utilized for Armenian interpretation #[id number] Mandi Sethi documented in this encounter Plan of Treatment Not on file documented as of this encounter Visit Diagnoses Not on filedocumented in this encounter Care Teams Set Up Mechanic Stamping Machines Relationship Specialty Start Date End Date Gia Tenorio MD [address] [place] [address] PCP - General Family Medicine 06/13/18 documented as of this encounter
--- OUTSIDE RECORDS SUMMARY | 2025-02-08 11:25 | XMS_ITS | Encounter Summary ---
Author Organization [employer] Address [address] [place] [address] Care Team Providers Care Studio Engineer Name Role Phone Gia Tenorio MD Primary Care Provider [phone] Reason for Visit * Reason Comments Med Refill Encounter Details Date Type Department Care Team ([facility] st Contact Info) Description 10/22/2022 Refill [facility] 230 [place], [place] [phone] Donna Amin MD 505 [place], [place] [phone] Neck muscle spasm Social History Tobacco Use [...] spasm documented in this encounter Care Teams Studio Engineer Relationship Specialty Start Date End Date Gia Tenorio MD 505 [place] [address] PCP - General Family Medicine 06/13/18 documented as of this encounter
--- OUTSIDE RECORDS SUMMARY | 2025-02-08 11:25 | XMS_ITS | Encounter Summary ---
Author Organization [employer] Address [address] [place] [address] Care Team Providers Care Sample Display Preparer Name Role Phone Gia Tenorio MD Primary Care Provider [phone] Encounter Details Date Type Department Care Team (Late st Contact Info) Description 11/15/2023 Orders Only [facility] 230 [place] [address] Anat Van MD 230 [place] [address] Social History Tobacco Use Types Packs/Day Years [...] on filedocumented in this encounter Care Teams Sample Display Preparer Relationship Specialty Start Date End Date Gia Tenorio MD 505 [place] [address] PCP - General Family Medicine 06/13/18 documented as of this encounter
--- OUTSIDE RECORDS SUMMARY | 2025-02-08 11:25 | XMS_ITS | Encounter Summary ---
Author Organization [employer] Address [address] [place] [address] Care Team Providers Care Pallet Rectifier Name Role Phone Gia Tenorio MD Primary Care Provider [phone] Reason for Visit * Reason Comments Med Refill Encounter Details Date Type Department Care Team ([facility] st Contact Info) Description 02/24/2023 Refill [facility] MED [facility] PEDS 505 [place] [address] Gia Tenorio MD 505 [place] [address] Benign essential hypertension; Mild persistent asthma without [...] complication documented in this encounter Care Teams Pallet Rectifier Relationship Specialty Start Date End Date Gia Tenorio MD 505 [place] [address] PCP - General Family Medicine 06/13/18 documented as of this encounter
--- OUTSIDE RECORDS SUMMARY | 2025-02-08 11:25 | XMS_ITS | Encounter Summary ---
Author Organization [employer] Address [address] [place] [address] Care Team Providers Care Cullet Trucker Name Role Phone Gia Tenorio MD Primary Care Provider [phone] Reason for Visit * Reason Comments Med Refill Encounter Details Date Type Department Care Team ([facility] st Contact Info) Description 02/24/2023 Refill [facility] MED & PEDS 505 [place] [address] Liz Contreras MD 505 [place] [address] Social History Tobacco Use Types Packs/Day Years [...] on filedocumented in this encounter Care Teams Cullet Trucker Relationship Specialty Start Date End Date Gia Tenorio MD 505 [place] [address] PCP - General Family Medicine 06/13/18 documented as of this encounter
--- OUTSIDE RECORDS SUMMARY | 2025-02-08 11:25 | XMS_ITS | Encounter Summary ---
Author Organization [employer] Address [address] [place] [address] Care Team Providers Care Returned Telephone Equipment Appraiser Name Role Phone Gia Tenorio MD Primary Care Provider [phone] Reason for Visit * Reason Comments Med Refill Encounter Details Date Type Department Care Team (Late st Contact Info) Description 02/24/2023 Refill [facility] 230 [place] [address] Mercy Jeffries MD 505 [place], [place] [phone] Acute left-sided low back pain with left-sided [...] spasm documented in this encounter Care Teams Returned Telephone Equipment Appraiser Relationship Specialty Start Date End Date Gia Tenorio MD 505 [place] [address] PCP - General Family Medicine 06/13/18 documented as of this encounter
--- OUTSIDE RECORDS SUMMARY | 2025-02-08 11:25 | XMS_ITS | Encounter Summary ---
Author Organization [employer] Address [address] [place] [address] Care Team Providers Care Ribbon Blockmaker Name Role Phone Gia Tenorio MD Primary Care Provider [phone] Reason for Visit * Reason Comments Med Refill Encounter Details Date Type Department Care Team (Late st Contact Info) Description 04/18/2023 Refill [facility] 230 [place] [address] Mercy Jeffries MD 505 [place], [place] [phone] Acute left-sided low back pain with left-sided [...] spasm documented in this encounter Care Teams Ribbon Blockmaker Relationship Specialty Start Date End Date Gia Tenorio MD 505 [place] [address] PCP - General Family Medicine 06/13/18 documented as of this encounter
--- OUTSIDE RECORDS SUMMARY | 2025-02-08 11:25 | XMS_ITS | Encounter Summary ---
Author Organization [employer] Address [address] [place] [address] [place] [address] Care Team Providers Care Pantograph Operator Name Role Phone Gia Tenorio MD Primary Care Provider [phone] Encounter Details Date Type Department Care Team (Late st Contact Info) Description 04/21/2023 Abstract [facility] MEDICINE 230 [place] [address] Ana Mahoney Social History Tobacco Use Types [...] on filedocumented in this encounter Care Teams Pantograph Operator Relationship Specialty Start Date End Date Gia Tenorio MD 505 [place] [address] PCP - General Family Medicine 06/13/18 documented as of this encounter
--- OUTSIDE RECORDS SUMMARY | 2025-02-08 11:25 | XMS_ITS | Encounter Summary ---
Author Organization [employer] Address [address] [place] [address] 7 [place] [address] Care Team Providers Care Canteen Operator Name Role Phone Gia Tenorio MD Primary Care Provider [phone] Encounter Details Date Type Department Care Team [...] on filedocumented in this encounter Care Teams Canteen Operator Relationship Specialty Start Date End Date Gia Tenorio MD 505 [place] [address] PCP - General Family Medicine 06/13/18 documented as of this encounter
--- OUTSIDE RECORDS SUMMARY | 2025-02-08 11:25 | XMS_ITS | Clinical Summary ---
Author Organization [employer] Address [address] [place] [address] 7 [place] [address] Care Team Providers Care Integrated Logistics Operations Manager Name Role Phone Gia Tenorio MD Primary Care Provider [phone] Allergies No known active allergies Medications * [...] after. 14 tablet 02/06/20 25 025 Active SUMAtriptan (Imitrex) 25 MG tablet TAKE [...] Description 02/05/2025 11:30 AM EDT Office Visit [facility] [address] [place] [address] Shanelle Mejia ANP Pleuritic pain (Primary Dx) 02/05/2025 Results Follow-Up [facility] [address] [place] [address] Shanelle Mejia ANP XR Chest 2 Views 02/05/2025 Travel 01/21/2025 Refill [facility] PED[facility] 505 [place] [address] Gia Tenorio MD 01/09/2025 Refill [facility] [address] [place] [address] Gia Tenorio MD 11/30/2024 Refill [facility] [address] [place] [address] Luigi Solomon MD Mild persistent asthma without complication 11/30/2024 Refill [facility] 505 [place] [address] Gia Tenorio MD Mild persistent asthma without complication [...] Shefali Bryanna lez Hypertension Father's Sister 3 Shefali Gonz lez Arthritis Mother Nancy quinteros Hypertension Mother Nancy [...] 02/05/2026 02/05/2025 Depression Screening 02/05/2026 02/05/2025, 02/06/20 Tobacco Screening 02/05/2026 02/05/2025 DTaP/Tdap/Td Vaccines (2 [...] Influenza A OSOM (02/05/2025 12:33 PM EDT) [facility] Rapid Influenza A Ag Negative Negative, Indeterminate QC Media Lot # [id number] Lot# Expiration Date , Swab Nasopharyngeal structure / Unknown 02/05/2025 12:33 PM EDT Shanelle Mejia ANP POINT OF CARE TEST ENTER/EDIT OR DERABLES Final Result * POCT Rapid Influenza B OSOM (02/05/2025 12:32 PM EDT) [facility] Rapid Influenza B Ag Negative Negative, Indeterminate QC Media Lot # [id number] Lot# Expiration Date , Swab 02/05/2025 12:3 2 PM EDT [facility] Mejia ANP POINT OF CARE TEST ENTER/EDIT OR DERABLES Final Result * POCT Rapid Covid-19 BinaxNOW (02/05/2025 12:28 PM EDT) [facility] Rapid COVID Ag Negative QC Media Lot # [id number] Lot# Expiration Date [id number] Swab 02/05/2025 12:2 8 PM EDT Shanelle Mejia ANP POINT OF CARE TEST ENTER/EDIT OR DERABLES Final Result * XR Chest 2 Views (02/05/2025 12:20 PM EDT) Anatomical Region Laterality Modality Chest Radiographic Melissa ging 02/05/2025 12:2 0 PM EDT Narrative 02/05/2025 1:23 PM EDT [address] [address] XRay Report Signed Patient: Bree Chairez MR#: [id number] : 1960 Acct:[id number] Age/Sex: 64 / F ADM Date: 02/05/25 Loc: MYLA Attending Dr: Shanelle Mejia NP Ordering Physician: SHANELLE MEJIA NP Date of Service: 02/05/25 Procedure(s): XR chest 2V Accession Number(s): [id number] cc: SHANELLE MEJIA NP EXAMINATION: XR CHEST [...] 02/05/25 1320 DD/ 1220 TD/TT: 02/05/25 1230 [employer] Kindergarten Teacher: Procedure Note Donotuseinterpreter, Image - 02/05/2025 [place] [address] XRay Report Signed Patient: Bree ChairzeMR#: [id number] : 1960cct:[id number] Age/Sex: 64 / FADM Date: 02/05/25 Loc: MYLA Attending Dr: Shanelle eMjia NP Ordering Physician: SHANELLE MEJIA NP Date of Service: 02/05/25 Procedure(s): XR chest 2V Accession Number(s): [id number] cc: SHANELLE MEJIA NP EXAMINATION: XR CHEST [...] 02/05/25 1320 DD/ 1220 TD/TT: 02/05/25 1230 [employer] Kindergarten Teacher: us Shanelle KRAMER IMG XR PROCEDURES Final Result * Lipid Panel, Standard (09/07/2024 9:39 AM EDT) Triglycerides 94 <150 mg/dL [facility] Comment:Desirable Triglyceri de: less than 150 mg/dLBorderline High Triglyceride 150-199 mg/dLHigh Triglyceride: 200-499 mg/dLVery High Triglyceride: greater than or equal to 5OO mg/dL Cholesterol 149 <200 mg/dL [facility] Comment:Desirable Cholestero l: less than 200 mg/dLBorderline High Cholesterol: 200-239 mg/dLHigh Cholesterol: greater than 239 mg/dL LDL Cholesterol Calculated 88 <100 mg/dL [facility] Comment:Desirable LDL: less than 100 mg/dLNear Optimal/Above Optimal LDL: 110- 129 mg/dLBorderline High LDL: 130-159 mg/dLHigh LDL: 160-189 mg/dLVery High LDL: greater than or equal to 190 mg/dL HDL Cholesterol 43 >40 mg/dL [facility] Comment:Desirable HDL: great er than 40 mg/dL Note: This HDL assay may give artificially low results in patients with liver disease. Blood Venous blood specimen / Unknown 09/07/2024 9:39 AM EDT 09/07/2024 2:08 PM EDT us Gia Tenorio MD LAB BLOOD ORDERABLES Final Re sult [facility] [address] [place], [place] [phone] * BI Mammogram Screening Tomosynthesis Bilateral (07/05/2024 1:55 PM EST) Anatomical Region Laterality Modality Breast Bilateral Mammography 07/05/2024 1:55 PM EST Narrative 07/16/2024 10:03 AM EST [facility] [address] [place] [address] Mammography Report Signed Patient: Bree Chairez MR#: [id number] : 1960 Acct:[id number] Age/Sex: 63 / F ADM Date: 07/05/24 Loc: HO.MAMMO Attending Dr: Gia Tenorio MD Ordering Physician: Gia Tenorio MD Results: 1Ne gative Date of Service: 07/05/24 Follow Up: 1 Year From Orig ina Mammogram Procedure(s): MM tomosynthesis screening BI Accession Number(s): [id number] cc: Gia Tenorio MD EXAMINATION: MM SCREENING [...] Pat Bonilla DO 07/16/2024 10:00 AM EST RP Dictated By: Pat Bonilla DO Signed By: <Electronically signed by Pat Bonilla DO in OV> 07/16/24 1000 DD/ 1355 TD/TT: 07/05/24 1410 [employer]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 [place], [place] [address] Mammography Report Signed Patient: Heidi Chairez#: [id number] : 9Acct:[id number] Age/Sex: 63 / FADM Date: 07/05/24 Loc: HO.MAMMO Attending Dr: Gia Tenorio MD Ordering Physician: Gia Tenorio MDResults: 1Ne gative Date of Service: 07/05/24Follow Up: 1 Year From Orig inal Mammogram Procedure(s): MM tomosynthesis screening BI Accession Number(s): [id number] cc: Gia Tenorio MD EXAMINATION: MM SCREENING [...] Pat Bonilla DO 07/16/2024 10:00 AM EST RP Dictated By: Pat Bonilla DO Signed By: <Electronically signed by Pat Bonilla DO in OV> 07/16/24 1000 DD/ 1355 TD/TT: 07/05/24 1410 [employer] Kindergarten Teacher: us Gia Tenorio MD IMG BI PROCEDURES Final Resul t * Hm Colonoscopy (03/07/2024) Colonoscopy Normal Normal us Gia Tenorio MD HEALTH MAINTENANCE Final Resu lt * ThinPrep Imaging Pap and HPV mRNA E6/E7 with Reflex to HPV 16,18/45 (12/05/2023 10:30 AM EDT) HPV 16 RNA [facility] HPV 18/45 RNA [facility] HPV nRNA E6/E7 Not Detected Not Detected [facility] Comment:Methodology: Transcr iption-Mediated AmplificationThis assay detects E6/E7 viral messenger RNA (mRNA) from 14high-risk HPV types (16,18,31,33,35,39,45,51,52,56,58,59,66,68).Cervical sources are required for HPV testing.If a vaginal source from a patient who has had atotal hysterectomy with removal of cervix wassubmitted, please contact the testing laboratoryfor alternative testing options.For additional information, please refer tohttp://education.Clever/faq/CDE159q7(This link if provided for information/educational purposes only.)THIS TEST WAS PERFORMED AT:[address] [place] [phone] SOLO MD SOURCE: SEE NOTE [facility] Comment:Cervix Report Status: [facility] Clinical Information: SEE NOTE [facility] Comment:R LMP: SEE NOTE [facility] Comment:NONE GIVEN Prev. PAP: SEE NOTE [facility] Comment:2020 Prev. BX: SEE NOTE [facility] Comment:NONE GIVEN Statement Of Adequacy: SEE NOTE [facility] Comment:SATISFACTORY FOR ALINE LUATION General Categorization: [facility] Interpretation/Result: SEE NOTE [facility] Comment:Cytology Results: Ne gative for intraepitheliallesion or malignancy.Atrophic pattern; predominantly parabasal cells Cytology Comment SEE NOTE [facility] Comment:This Pap test has be en evaluated with computerassisted technology. Gravity Prospecting Supervisor: SEE NOTE [facility] Comment:RPR, CT (ASCP) CT sc reening location: [address] [address] Review Gravity Prospecting Supervisor: [facility] Pathologist [facility] PAP Infection [facility] See Note SEE NOTE [facility] Comment:EXPLANATORY NOTE:The Pap is a screening test for cervical cancer. It isnot a diagnostic test and is subject to false negativeand false positive results. It is most reliable when asatisfactory sample, regularly obtained, is submittedwith relevant clinical findings and history, and whenthe Pap result is evaluated along with historic andcurrent clinical information. 12/05/2023 10:3 0 AM EDT 12/06/2023 9:23 AM EDT Narrative [facility] - 12/09/2023 8:39 AM EDT [id number] Megha Wright [facility] PATHOLOGY ORDERABLES Final Result [facility] [address] [place] [phone] [phone] * HEPATITIS C AB W/REFL TO [...] a test for HCV RNA (test code 91924) is suggested. For additional information please refer to http://education.Clever/faq/PAJ76h8 (This link is being provided for informational/ educational purposes only.) 08/20/2020 5:01 PM EST us Jenna Carballo STRUCTURAL LAYOUT WORKER HISTORICAL/NON ORDERABLE LABS Final Result [facility] [address] [place] [address], from Last 3 Months or Most Recently Relevant to Health Maintenance Insurance [facility] < 65 [place] [id number] Care Teams Integrated Logistics Operations Manager Relationship Specialty Start Date End Date Gia Tenorio MD [address] [place] [address] PCP - General Family Medicine 06/13/18
--- OUTSIDE RECORDS SUMMARY | 2025-02-08 11:25 | XMS_ITS | Encounter Summary ---
Author Organization [employer] Address [address] [place] [address] Care Team Providers Care Debone Processing Supervisor Name Role Phone Gia Tenorio MD Primary Care Provider [phone] Reason for Visit * Reason Comments Med Refill Encounter Details Date Type Department Care Team ([facility] st Contact Info) Description 04/18/2023 Refill [facility] & PEDS 505 [place], [place] [phone] Luigi Solomon MD 505 [place] [address] Acute left-sided low back pain with left-sided [...] spasm documented in this encounter Care Teams Debone Processing Supervisor Relationship Specialty Start Date End Date Gia Tenorio MD [address] [place] [address] PCP - General Family Medicine 06/13/18 documented as of this encounter
--- OUTSIDE RECORDS SUMMARY | 2025-02-08 11:25 | XMS_ITS | Encounter Summary ---
Author Organization [employer] Address [address] [place] [address] 7 [place] [address] Care Team Providers Care Furnace Process Supervisor Name Role Phone Gia Tenorio MD Primary Care Provider [phone] Encounter Details Date Type Department Care Team [...] on filedocumented in this encounter Care Teams Furnace Process Supervisor Relationship Specialty Start Date End Date Gia Tenorio MD 505 [place] [address] PCP - General Family Medicine 06/13/18 documented as of this encounter
== END 2025-02-08 11:34 | disposition home or self-care (01) ==
LOC: HO.HGS 10:47
PROVIDERS: PCP Pediatrics; Visit Provider Surgery
DX: C50.911 Malignant neoplasm of unspecified site of right female breast (principal); K65.4 Sclerosing mesenteritis
CPT/HCPCS: 99213

== ENCOUNTER → 2025-02-08 10:46 | Outpatient (BNVA) | payer OTHER, SELFPAY | PROVIDERS: PCP Pediatrics; Visit Provider Surgery | DX: K65.4 Sclerosing mesenteritis (principal); Z85.3 Personal history of malignant neoplasm of breast | CPT/HCPCS: 99212 ==

== ENCOUNTER 2025-03-01 11:44 | Outpatient (REF) | payer OTHER, SELFPAY ==
--- OUTSIDE RECORDS SUMMARY | 2025-03-01 12:13 | XMS_ITS | Encounter Summary ---
Author Organization [employer] Address [address] [place] [address] [place] [address] Care Team Providers Care Cigar Patcher Name Role Phone Gia Tenorio MD Primary Care Provider [phone] Encounter Details Date Type Department Care Team (Late st Contact Info) Description 04/21/2023 Abstract [facility] [address] [place] [address] Ana Mahoney Social History Tobacco Use Types [...] on filedocumented in this encounter Care Teams Cigar Patcher Relationship Specialty Start Date End Date Gia Tenorio MD 505 [place] [address] PCP - General Family Medicine 06/13/18 documented as of this encounter
--- OUTSIDE RECORDS SUMMARY | 2025-03-01 12:13 | XMS_ITS | Encounter Summary ---
Author Organization [employer] Address [address] [place] [address] Care Team Providers Care Nuclear Medicine Officer Name Role Phone Gia Tenorio MD Primary Care Provider [phone] Reason for Visit * Reason Comments Med Refill Encounter Details Date Type Department Care Team ([facility] st Contact Info) Description 04/18/2023 Refill [facility] PED[facility] 505 [place], [place] [phone] Luigi Solomon MD 505 [place] [address] Acute left-sided low back pain with left-sided [...] spasm documented in this encounter Care Teams Nuclear Medicine Officer Relationship Specialty Start Date End Date Gia Tenorio MD 505 [place] [address] PCP - General Family Medicine 06/13/18 documented as of this encounter
--- OUTSIDE RECORDS SUMMARY | 2025-03-01 12:13 | XMS_ITS | Encounter Summary ---
Author Organization [employer] Address [address] [place] [address] Care Team Providers Care Hand Braille Transcriber Name Role Phone Gia Tenorio MD Primary Care Provider [phone] Reason for Visit * Reason Comments Med Refill Encounter Details Date Type Department Care Team (Late st Contact Info) Description 04/18/2023 Refill [facility] [address] [place] [address] Mercy Jeffries MD 505 [place], [place] [phone] Acute left-sided low back pain with left-sided [...] spasm documented in this encounter Care Teams Hand Braille Transcriber Relationship Specialty Start Date End Date Gia Tenorio MD [address] [place] [address] PCP - General Family Medicine 06/13/18 documented as of this encounter
--- OUTSIDE RECORDS SUMMARY | 2025-03-01 12:14 | XMS_ITS | Encounter Summary ---
Author Organization [employer] Address [address] [place] [address] Care Team Providers Care Digital Research Analyst Name Role Phone Gia Tenorio MD Primary Care Provider [phone] Reason for Visit * Reason Comments Med Refill Encounter Details Date Type Department Care Team ([facility] st Contact Info) Description 10/22/2022 Refill [facility] 230 [place], [place] [phone] Donna Amin MD 505 [place], [place] [phone] Neck muscle spasm Social History Tobacco Use [...] spasm documented in this encounter Care Teams Digital Research Analyst Relationship Specialty Start Date End Date Gia Tenorio MD 505 [place] [address] PCP - General Family Medicine 06/13/18 documented as of this encounter
--- OUTSIDE RECORDS SUMMARY | 2025-03-01 12:14 | XMS_ITS | Clinical Summary ---
Author Organization [employer] Address [address] [place] [address] 7 [place] [address] Care Team Providers Care Trade Analyst Name Role Phone Gia Tenorio MD Primary Care Provider [phone] Allergies No known active allergies Medications * [...] FOOD OR WITH MEALS 12/02/19 22 Active pramoxine-calam ine (Calahist) 1-8 % lotion [...] TWICE DAILY 60 capsule 01/23/20 24 Active Hydrocortisone, Perianal, (Proctocort) 1 % cream Apply bid small amount to affected area of rectum 28.4 g 08/24/19 25 Active triamcinolone (Kenalog) 0.1 % cream APPLY A THIN LAYER TO THE AFFECTED AREA(s) TWICE DAILY 80 g 09/06/19 25 Active meclizine (Antivert) 25 MG tabletIndicatio ns:Benign essential hypertension,Mi ld persistent asthma without complication TAKE ONE TABLET BY MOUTH THREE TIMES DAILY NEEDED FOR dizziness 20 tablet 09/11/19 25 Active famotidine (Pepcid) 40 MG tablet Take 1 tab orally qhs 30 tablet 5 09/12/19 25 Active cyanocobalamin (Vitamin B-12) 1000 MCG tablet Take 1 tab orally daily 90 tablet 2 09/12/19 25 Active albuterol (2.5 MG/3ML) 0.083% nebulizer solutionIndicat ions:Mild persistent asthma without complication USE ONE AMPULE USING A NEBULIZER EVERY 4 HOURS NEEDED FOR WHEEZING OR SHORTNESS OF BREATH 75 mL 12/01/19 25 Active dicyclomine (Bentyl) 20 MG tablet TAKE ONE TABLET TWICE DAILY NEEDED 180 tablet 01/10/20 25 Active SUMAtriptan (Imitrex) 25 MG tablet TAKE 1 TABLET BY MOUTH AT ONSET OF MIGRAINE. MAY REPEAT ONCE AFTER 2 HOURS IF NEEDED. NO MORE THAN EIGHT TABLETS PER 24 HOURS 10 tablet 01/23/20 25 Active enalapril (Vasotec) 20 MG tablet TAKE ONE TABLET BY MOUTH TWICE DAILY 60 tablet 02/16/20 25 Active gabapentin (Neurontin) 100 MG capsuleIndicati ons:Osteopenia of multiple sites,Vitamin D deficiency,Neur algia TAKE ONE CAPSULE TWICE DAILY 60 capsule 02/16/20 25 Active meloxicam (Mobic) 7.5 MG tabletIndicatio ns:Acute left-sided low back pain with left-sided sciatica,Neck muscle spasm TAKE TWO TABLETS EVERY MORNING 60 tablet 02/16/20 25 Active venlafaxine XR (Effexor XR) 75 MG 24 hr capsuleIndicati ons:Major depressive disorder in remission, unspecified whether recurrent (CMS/HCC) Take 1 capsule (75 mg) by mouth Once per day. 30 capsule 02/16/20 25 Active amLODIPine (Norvasc) 5 MG tabletIndicatio ns:Benign essential hypertension,Mi ld persistent asthma without complication Take 1 tablet (5 mg) by mouth Once per day. 30 tablet 5 02/16/20 25 Active metoprolol succinate XL (Toprol-XL) 100 MG 24 hr tablet Take 1 tablet (100 mg) by mouth Once per day. 30 tablet 02/16/20 25 Active atorvastatin (Lipitor) 20 MG tabletIndicatio ns:Benign essential hypertension,Mi ld persistent asthma without complication Take 1 tablet (20 mg) by mouth Once per day. 30 tablet 5 02/16/20 25 Active levothyroxine (Synthroid, Levoxyl) 100 MCG tablet Take 1 tablet (100 mcg) by mouth Once per day. 90 tablet 1 02/16/20 25 Active albuterol 108 (90 Base) MCG/ACT inhalerIndicati ons:Benign essential hypertension,Mi ld persistent asthma without complication INHALE ONE PUFF EVERY 4 HOURS NEEDED 8.5 g 2 02/20/20 25 Active enalapril (Vasotec) 20 MG tablet TAKE ONE TABLET BY MOUTH TWICE DAILY 60 tablet 02/14/20 24 025 Discontinued venlafaxine XR (Effexor XR) 75 MG 24 hr capsuleIndicati ons:Major depressive disorder in remission, unspecified whether recurrent (CMS/HCC) TAKE ONE CAPSULE DAILY WITH FOOD 30 capsule 04/16/20 025 Discontinued(Re order (will not trigger notification to Pharmacy)) gabapentin (Neurontin) 100 MG capsuleIndicati ons:Osteopenia of multiple sites,Vitamin D deficiency,Neur algia TAKE ONE CAPSULE TWICE DAILY 60 capsule 06/26/19 025 Discontinued meloxicam (Mobic) 7.5 MG tabletIndicatio ns:Acute left-sided low back pain with left-sided sciatica,Neck muscle spasm TAKE TWO TABLETS BY MOUTH EVERY MORNING 60 tablet 3 06/26/19 25 025 Discontinued amLODIPine (Norvasc) 5 MG tabletIndicatio ns:Benign essential hypertension,Mi ld persistent asthma without complication TAKE ONE TABLET BY MOUTH EVERY DAY 30 tablet 5 09/06/19 25 025 Discontinued(Re order (will not trigger notification to Pharmacy)) metoprolol succinate XL (Toprol-XL) 100 MG 24 hr tablet TAKE ONE TABLET BY MOUTH ONCE DAILY 30 tablet 5 09/06/19 25 025 Discontinued(Re order (will not trigger notification to Pharmacy)) atorvastatin (Lipitor) 20 MG tabletIndicatio ns:Benign essential hypertension,Mi ld persistent asthma without complication TAKE ONE TABLET BY MOUTH EVERY DAY 30 tablet 5 09/06/19 25 025 Discontinued(Re order (will not trigger notification to Pharmacy)) levothyroxine (Synthroid, Levoxyl) 100 MCG tablet TAKE ONE TABLET DAILY 90 tablet 1 09/18/19 25 025 Discontinued(Re order (will not trigger notification to Pharmacy)) albuterol 108 (90 Base) MCG/ACT inhalerIndicati ons:Benign essential hypertension,Mi ld persistent asthma without complication INHALE ONE PUFF BY MOUTH EVERY FOUR HOURS NEEDED 8.5 g 2 10/20/19 25 025 Discontinued doxycycline (Vibra-Tabs) 100 MG tabletIndicatio ns:Pleuritic pain Take 1 tablet (100 mg) by mouth 2 times daily for 7 days. Take with a full glass of water and do not lie down for at least 30 minutes after. 14 tablet 02/06/20 25 025 Active Problems Problem Noted Date Diagnosed Date [...] organization. Date Type Department Care Team Description 02/18/2025 11:00 AM EDT Telemedicine [facility] [address] [place] [address] Mary Kate Munson RN Pleuritic pain 02/18/2025 Travel 02/18/[address] [facility] [address] [place] [address] Gia Tenorio MD Benign essential hypertension; Mild persistent asthma without complication 02/15/2025 Travel 02/15/[address] [facility] [address] [place] [address] Luigi Solomon MD 02/15/[address] [facility] [address] [place] [address] Gia Tenorio MD Major depressive disorder in remission, unspecified whether recurrent ([facility]); Benign essential hypertension; Mild persistent asthma without complication 02/15/[address] [facility] [address] [place] [address] Luigi Solomon MD Osteopenia of multiple sites; Vitamin D deficiency; Neuralgia; Acute left-sided low back pain with left-sided sciatica; Neck muscle spasm 02/08/[address] [facility] [address] [place] [address] Eladia Castillo RN Status Check post Pneumonia XR Result 02/05/2025 11:30 AM EDT Office Visit [facility] [address] [place] [address] Shanelle Mejia ANP Pleuritic pain (Primary Dx) 02/05/2025 Results Follow-Up [address] [address] Shanelle Mejia ANP XR Chest 2 Views 02/05/2025 Travel 01/21/[address] [facility] [address] [place] [address] Gia Tenorio MD 01/09/[address] [facility] [address] [place] [address] Gia Tenorio MD 11/30/2024 Refill [facility] [address] [place] [address] Luigi Solomon MD Mild persistent asthma without complication 11/30/[address] [facility] [address] [place] [address] Gia Tenorio MD Mild persistent asthma without [...] lez Diabetes Father's Sister 1 Patsy Bryanna celayaz Diabetes Father's Sister 2 Coradanita quinteros Hypertension Father's Sister 2 Coradanita celayaz Diabetes Father's Sister 3 Shefali quinteros Hypertension Father's Sister 3 Shefali quinteros Arthritis Mother Nancy quinteros Hypertension Mother Marlyn Gonz lez Relation Name Status Comments Father Maverick Bryanna lez Father's Sister 1 Patsy Bryanna lez Father's Sister 2 Cora Bryanna celayaz Father's Sister 3 Shefali quinteros Mother Nancy Ng Bryanna quinteros Social History Tobacco Use Types Packs/Day [...] years 1-dose series) 2018 COVID-19 Vaccine ( - season) 2025 10/30/2020, 10/02/2020 Influenza Vaccine (#1) 2025 , [...] Influenza A OSOM (02/05/2025 12:33 PM EDT) Rapid Influenza A Ag Negative Negative, Indeterminate QC Media Lot # [id number] Lot# Expiration Date [id number] Swab Nasopharyngeal structure / Unknown 02/05/2025 12:33 PM EDT [facility] POINT OF CARE TEST ENTER/EDIT OR DERABLES Final Result * POCT Rapid Influenza B OSOM (02/05/2025 12:32 PM EDT) Rapid Influenza B Ag Negative Negative, Indeterminate QC Media Lot # [id number] Lot# Expiration Date [id number] Swab 02/05/2025 12:3 2 PM EDT Shanelle Mejia ANP POINT OF CARE TEST ENTER/EDIT OR DERABLES Final Result * POCT Rapid Covid-19 BinaxNOW (02/05/2025 12:28 PM EDT) Pathologist [facility] Rapid COVID Ag Negative QC Media Lot # [id number] Lot# Expiration Date ,[id number] Swab 02/05/2025 12:2 8 PM EDT Shanelle Mejia ANP POINT OF CARE TEST ENTER/EDIT OR DERABLES Final Result * XR Chest 2 Views (02/05/2025 12:20 PM EDT) Anatomical Region Laterality Modality Chest Radiographic Melissa ging 02/05/2025 12:2 0 PM EDT Narrative 02/05/2025 1:23 [place] [address] XRay Report Signed Patient: Bree Chairez MR#: [id number] : 1960 Acct:[id number] Age/Sex: 64 / F ADM Date: 02/05/25 Loc: HO.HHCX Attending Dr: Shanelle Mejia TOOL PROCUREMENT COORDINATOR Ordering Physician: SHANELLE MEJIA NP Date of Service: 02/05/25 Procedure(s): XR chest 2V Accession Number(s): [id number] cc: SHANELLE MEJIA NP EXAMINATION: XR CHEST [...] 02/05/25 1320 DD/ 1220 TD/TT: 02/05/25 1230 Dam Operator: Procedure Note Donotuseinterpreter, Image - 02/05/[address] [address] XRay Report Signed Patient: Heidi Chairez#: [id number] : 9Acct:[id number] Age/Sex: 64 / FADM Date: 02/05/25 Loc: HO.HHCX Attending Dr: Shanelle Mejia TOOL PROCUREMENT COORDINATOR Ordering Physician: SHANELLE MEJIA NP Date of Service: 02/05/25 Procedure(s): XR chest 2V Accession Number(s): [id number] cc: SHANELLE MEJIA NP EXAMINATION: XR CHEST [...] 02/05/25 1320 DD/ 1220 TD/TT: 02/05/25 1230 Dam Operator: Shanelle Mejia ANP IMG XR PROCEDURES Final Result * Lipid Panel, Standard (09/07/2024 9:39 AM EDT) Triglycerides 94 <150 mg/dL [facility] Comment:Desirable Triglyceri de: less than 150 mg/dLBorderline High Triglyceride 150-199 mg/dLHigh Triglyceride: 200-499 mg/dLVery High Triglyceride: greater than or equal to 5OO mg/dL Cholesterol 149 <200 mg/dL [facility] Comment:Desirable Cholestero l: less than 200 mg/dLBorderline High Cholesterol: 200-239 mg/dLHigh Cholesterol: greater than 239 mg/dL LDL Cholesterol Calculated 88 <100 mg/dL [facility] Comment:Desirable LDL: less than 100 mg/dLNear Optimal/Above Optimal LDL: 110- 129 mg/dLBorderline High LDL: 130-159 mg/dLHigh LDL: 160-189 mg/dLVery High LDL: greater than or equal to 190 mg/dL HDL Cholesterol 43 >40 mg/dL [facility] Comment:Desirable HDL: great er than 40 mg/dL Note: This HDL assay may give artificially low results in patients with liver disease. Blood Venous blood specimen / Unknown 09/07/2024 9:39 AM EDT 09/07/2024 2:08 PM EDT Gia Tenorio MD LAB BLOOD ORDERABLES Final Re sult [facility] [address] [place] [phone] * BI Mammogram Screening Tomosynthesis Bilateral (07/05/2024 1:55 PM EST) Anatomical Region Laterality Modality Breast Bilateral Mammography 07/05/2024 1:55 PM EST Narrative 07/16/2024 10:03 AM EST [facility] [address] [place] [address] Mammography Report Signed Patient: Bree Chairez MR#: [id number] : 1960 Acct:[id number] Age/Sex: 63 / F ADM Date: 07/05/24 Loc: CHAZO Attending Dr: Gia Tenorio MD Ordering Physician: Gia Tenorio MD Results: 1Ne gative Date of Service: 07/05/24 Follow Up: 1 Year From Orig inal Mammogram Procedure(s): MM tomosynthesis screening BI Accession Number(s): [id number] cc: Gia Tenorio MD EXAMINATION: MM SCREENING [...] by: Pat Bonilla DO 07/16/2024 10:00 AM [facility] Dictated By: Pat Bonilla DO Signed By: <Electronically signed by Pat Bonilla DO in OV> 07/16/24 1000 DD/ 1355 TD/TT: 07/05/24 1410 Dam Operator: Procedure Note Donotuseinterpreter, Image - 07/16/2024 [facility] [address] [place], [place] [address] Mammography Report Signed Patient: Heidi Chairez#: [id number] : 9Acct:[id number] Age/Sex: 63 / FADM Date: 07/05/24 Loc: HO.MAMMO Attending Dr: Gia Tenorio MD Ordering Physician: Gia Tenorio MDResults: 1Ne gative Date of Service: 07/05/24Follow Up: 1 Year From Orig inal Mammogram Procedure(s): MM tomosynthesis screening BI Accession Number(s): [id number] cc: Gia Tenorio MD EXAMINATION: MM SCREENING [...] by: Pat Bonilla DO 07/16/2024 10:00 AM [facility] Dictated By: Pat Bonilla DO Signed By: <Electronically signed by Pat Bonilla DO in OV> 07/16/24 1000 DD/ 1355 TD/TT: 07/05/24 1410 Dam Operator: us Gia Tenorio MD IMG BI PROCEDURES Final Resul t * Hm Colonoscopy (03/07/2024) Colonoscopy Normal Normal us Gia Tenorio MD HEALTH MAINTENANCE Final Resu lt * ThinPrep Imaging Pap and HPV mRNA E6/E7 with Reflex to HPV 16,18/45 (12/05/2023 10:30 AM EDT) HPV 16 RNA TNP [facility] HPV 18/45 RNA [facility] HPV nRNA E6/E7 Not Detected Not Detected [facility] Comment:Methodology: Transcr iption-Mediated AmplificationThis assay detects E6/E7 viral messenger RNA (mRNA) from 14high-risk HPV types (16,18,31,33,35,39,45,51,52,56,58,59,66,68).Cervical sources are required for HPV testing.If a vaginal source from a patient who has had atotal hysterectomy with removal of cervix wassubmitted, please contact the testing laboratoryfor alternative testing options.For additional information, please refer tohttp://education.[employer]/faq/FAV048a7(This link if provided for information/educational purposes only.)THIS TEST WAS PERFORMED AT:[employer] [address] [phone] SOLO MD SOURCE: SEE NOTE [facility] Comment:Cervix Report Status: [facility] Clinical Information: SEE NOTE [facility] Comment:R LMP: SEE NOTE [facility] Comment:NONE GIVEN Prev. PAP: SEE NOTE [facility] Comment:2020 Prev. BX: SEE NOTE [facility] Comment:NONE GIVEN Statement Of Adequacy: SEE NOTE [facility] Comment:SATISFACTORY FOR ALINE LUATION General Categorization: [facility] Interpretation/Result: SEE NOTE [facility] Comment:Cytology Results: Ne gative for intraepitheliallesion or malignancy.Atrophic pattern; predominantly parabasal cells Cytology Comment SEE NOTE [facility] Comment:This Pap test has be en evaluated with computerassisted technology. Jammer Hooker: SEE NOTE [facility] Comment:RPR, CT (ASCP) CT sc reening location: [address] [address] Review Jammer Hooker: [facility] Pathologist [facility] PAP Infection [facility] See Note SEE [facility] Comment:EXPLANATORY NOTE:The Pap is a [...] AM EDT 12/06/2023 9:23 AM EDT Narrative [facility] - 12/09/2023 8:39 AM EDT [id number] Megha Patinolevi CN LAB PATHOLOGY ORDERABLES Final Result Performing Organization Address City/[facility] Co de Phone Number [facility] [address] [place] [address] [phone] * HEPATITIS C AB W/REFL TO HCV RNA, QN, PCR (08/20/2020 5:01 PM EST) HEPATITIS C ANTIBODY NON-REACT KARON NON-REACT KARON [facility] INDEX 0.04 <1.00 [facility] Comment: HCV antibody was non-reactive. There is no laboratory evidence of HCV infection. In most cases, no further action is required. However, if recent HCV exposure is suspected, a test for HCV RNA (test code 83317) is suggested. For additional information please refer to http://education.[employer]/faq/PUW50f6 (This link is being provided for informational/ educational purposes only.) 08/20/2020 5:01 PM EST Jenna Carballo ENGAGEMENT LEAD HISTORICAL/NON ORDERABLE LABS Final Result Performing Organization Address City/[facility] Co de Phone Number [facility] Anywhere [address] from Last 3 Months or Most Recently Relevant to Health Maintenance Insurance [facility] ONE CARE < 65 [place] [id number] Care Teams Trade Analyst Relationship Specialty Start Date End Date Gia Tenoroi MD [address] [place] [address] PCP - General Family Medicine 06/13/18
--- OUTSIDE RECORDS SUMMARY | 2025-03-01 12:14 | XMS_ITS | Encounter Summary ---
Author Organization [employer] Address [address] [place] [address] [place] [address] Care Team Providers Care Consulting Project Director Name Role Phone Gia Tenorio MD Primary Care Provider [phone] Reason for Visit * Reason Onset Date Comments Med Refill 02/15/2025 Encounter Details Date Type Department Care Team ([facility] st Contact Info) Description 02/15/2025 Refill [facility]S [address] [place] [address] Luigi Solomon MD [address] [place] [address] Social History Tobacco Use Types Packs/Day Years [...] on filedocumented in this encounter Care Teams Consulting Project Director Relationship Specialty Start Date End Date Gia Tenorio MD [address] [place] [address] PCP - General Family Medicine 06/13/18 documented as of this encounter
--- OUTSIDE RECORDS SUMMARY | 2025-03-01 12:14 | XMS_ITS | Encounter Summary ---
Author Organization [employer] Address [address] [place] [address] Care Team Providers Care Food Service Kitchen Supervisor Name Role Phone Gia Tenorio MD Primary Care Provider [phone] Reason for Visit * Reason Comments Med Refill Encounter Details Date Type Department Care Team (Late st Contact Info) Description 02/24/2023 Refill [facility] [address] [place], [place] [phone] Mercy Jeffries MD [address] [place], [place] [phone] Acute left-sided low back pain with left-sided [...] spasm documented in this encounter Care Teams Food Service Kitchen Supervisor Relationship Specialty Start Date End Date Gia Tenorio MD [address] [place] [address] PCP - General Family Medicine 06/13/18 documented as of this encounter
--- OUTSIDE RECORDS SUMMARY | 2025-03-01 12:14 | XMS_ITS | Encounter Summary ---
Author Organization [employer] Address [address] [place] [address] Care Team Providers Care Javascript Developer Name Role Phone Gia Tenorio MD Primary Care Provider [phone] Reason for Visit * Reason Comments Med Refill Encounter Details Date Type Department Care Team ([facility] st Contact Info) Description 02/24/2023 Refill [facility] [address] [place] [address] Liz Contreras MD [address] [place] [address] Social History Tobacco Use Types Packs/Day Years [...] on filedocumented in this encounter Care Teams Javascript Developer Relationship Specialty Start Date End Date Gia Tenorio MD [address] [place] [address] PCP - General Family Medicine 06/13/18 documented as of this encounter
--- OUTSIDE RECORDS SUMMARY | 2025-03-01 12:14 | XMS_ITS | Encounter Summary ---
Author Organization [employer] Address [address] [place] [address] 7 [place] [address] Care Team Providers Care Moving Consultant Name Role Phone Gia Tenorio MD Primary Care Provider [phone] Encounter Details Date Type Department Care Team [...] on filedocumented in this encounter Care Teams Moving Consultant Relationship Specialty Start Date End Date Gia Tenorio MD [address] [place] [address] PCP - General Family Medicine 06/13/18 documented as of this encounter
--- OUTSIDE RECORDS SUMMARY | 2025-03-01 12:14 | XMS_ITS | Encounter Summary ---
Author Organization [employer] Address [address] [place] [address] Care Team Providers Care Centralized Traffic Control Operator Name Role Phone Gia Tenorio MD Primary Care Provider [phone] Reason for Visit * Reason Comments Med Refill Encounter Details Date Type Department Care Team ([facility] st Contact Info) Description 02/24/2023 Refill [facility] [address] [place] [address] Gia Tenorio MD [address] [place] [address] Benign essential hypertension; Mild persistent asthma without [...] complication documented in this encounter Care Teams Centralized Traffic Control Operator Relationship Specialty Start Date End Date Gia Tenorio MD [address] [place] [address] PCP - General Family Medicine 06/13/18 documented as of this encounter
--- OUTSIDE RECORDS SUMMARY | 2025-03-01 12:14 | XMS_ITS | Encounter Summary ---
Author Organization [employer] Address [address] [place] [address] Care Team Providers Care Conference Director Name Role Phone Gia Tenorio MD Primary Care Provider [phone] Encounter Details Date Type Department Care Team (Late st Contact Info) Description 11/15/2023 Orders Only [facility] [address] [place] [address] Anat Van MD [address] [place] [address] Social History Tobacco Use Types Packs/Day Years [...] on filedocumented in this encounter Care Teams Conference Director Relationship Specialty Start Date End Date Gia Tenorio MD [address] [place] [address] PCP - General Family Medicine 06/13/18 documented as of this encounter
--- OUTSIDE RECORDS SUMMARY | 2025-03-01 12:14 | XMS_ITS | Encounter Summary ---
Author Organization [employer] Address [address] [place] [address] 7 [place] [address] Care Team Providers Care Cement Finisher Name Role Phone Gia Tenorio MD Primary Care Provider [phone] Encounter Details Date Type Department Care Team [...] on filedocumented in this encounter Care Teams Cement Finisher Relationship Specialty Start Date End Date Gia Tenorio MD [address] [place] [address] PCP - General Family Medicine 06/13/18 documented as of this encounter
== END 2025-03-01 11:45 | disposition home or self-care (01) ==
LOC: HO.LAB 11:44
PROVIDERS: PCP Pediatrics; Visit Provider Internal Medicine Gastroenterology
DX: K65.4 Sclerosing mesenteritis (principal)
CPT/HCPCS: 36415; 84433; 85652; 86140

== ENCOUNTER 2025-03-16 11:10 | Outpatient (REF) | payer OTHER, SELFPAY | END 2025-03-16 11:11 | disposition home or self-care (01) | LOC: HO.LAB 11:10 | PROVIDERS: PCP Pediatrics; Visit Provider Physician Assistant | DX: M54.6 Pain in thoracic spine (principal); R10.12 Left upper quadrant pain; Z13.89 Encounter for screening for other disorder; Z87.442 Personal history of urinary calculi | CPT/HCPCS: 81003; 87086; 99212 ==

== ENCOUNTER 2025-03-16 11:10 | Outpatient (AMB) | payer OTHER, SELFPAY ==
--- OUTSIDE RECORDS SUMMARY | 2025-03-14 11:15 | XMS_ITS | Encounter Summary ---
Author Organization [employer] Address [address] [place] [address] [address], [place] [address] Care Team Providers Care Chronometer Tester Name Role Phone Gia Tenorio MD Primary Care Provider [phone] Reason for Referral * Imaging (Routine) - Authorized Specialty Diagnoses / Procedures Referred By Contac t Referred To Contact Radiology Diagnoses Left costovertebral angle tenderness Kidney stones Procedures US RENAL BI Gia Tenorio MD [address] [place] [address] Phone: tel: fax: [address] Phone: tel: fax: Referral ID Status Reason Start Date Expiration Date V isits Requested Visits Authorized [id number] Authorized 03/14/2025 03/14/2026 1 1 Encounter Details Date Type Department Care Team (Latest Contact Info) Description 03/14/2025 11:15 AM EDT Office Visit [facility] [address] [place], [place] [phone] Gia Tenorio MD [address] [place] [address] Left costovertebral angle tenderness (Primary Dx); Encounter for immunization; Benign essential hypertension; Vitamin D deficiency; Mesenteric panniculitis (CMS/HCC) (HCC); Infiltrating ductal carcinoma of right female breast (CMS/HCC) (HCC); Kidney stones; Dyspareunia, female Social History Tobacco Use Types Packs/Day Years [...] Sign Reading Time Taken Comments Blood Pressure 146/90 03/14/2025 11:11 AM EDT Pulse 64 03/14/2025 11:11 AM EDT Temperature 36.2 C (97.2 F) 03/14/2025 11:11 AM EDT Respiratory Rate 16 03/14/2025 11:11 AM EDT Oxygen Saturation - - Inhaled Oxygen Concentration - - Weight 90.7 kg (200 lb) 03/14/2025 11:11 AM EDT Height - - Body Mass Index 31.32 08/23/2024 3:11 PM EDT documented in this encounter Progress Notes * Gia Tenorio MD - 03/14/2025 11:15 AM EDT Subjective Patient ID: Bree Chairez is a 64 y.o. female who presents for follow-up. Bree is a 64 y/o female with past history of breast CA in remission, off arimidex after 5 years. C/Odyspareunia since menopause. Patient states has used [id number]-dri-vozpdzm lubricant without helping. She is up-to-date with labs, colonoscopy, bone density and mammogram. She had a right lower lobe pneumonia last month diagnosed via chest x-ray and treated with oral antibiotics. Patient recuperated well. Agrees to get flu vaccine today as well as RSV. Patient complains of CVA pain, denies history of trauma or hematuria. She does have a history of kidney stones and has a follow-up with urologist this month. Review of Systems Constitutional: Negative for activity change, chills, fever and unexpected weight change. Respiratory: Negative for cough, shortness of breath and wheezing. Cardiovascular: Negative for chest pain, palpitations and leg swelling. Gastrointestinal: Negative for abdominal pain and blood in stool. Endocrine: Negative for polydipsia and polyuria. Genitourinary: Positive for dyspareunia and flank pain. Negative for decreased urine volume, difficulty urinating, dysuria, hematuria and pelvic pain. Musculoskeletal: Negative for arthralgias and gait problem. Skin: Negative for color change and rash. Neurological: Negative for dizziness and headaches. Hematological: Negative for adenopathy. Psychiatric/Behavioral: Negative for dysphoric mood, hallucinations, sleep disturbance and suicidalideas. The patient is not nervous/anxious. Objective BP (!) 146/90 (BP Location: Left arm, Patient Position: Sitting, BP Cuff Size: Adult) Pulse 64 Temp 97.2 ??F (36.2 ??C) (Oral) Resp 16 Wt 200 lb (90.7 kg) BMI 31.32 kg/m?? Physical Exam Constitutional: General: She is not in acute distress. Appearance: Normal appearance. She is not ill-appearing. HENT: Head: Normocephalic. Right Ear: Tympanic membrane and ear canal normal. Left Ear: Tympanic membrane and ear canal normal. Nose: Nose normal. Mouth/Throat: Mouth: Mucous membranes are moist. Pharynx: No oropharyngeal exudate or posterior oropharyngeal erythema. Eyes: Extraocular Movements: Extraocular movements intact. Conjunctiva/sclera: Conjunctivae normal. Pupils: Pupils are equal, round, and reactive to light. Cardiovascular: Rate and Rhythm: Normal rate and regular rhythm. Pulses: Normal pulses. Heart sounds: Normal heart sounds. Pulmonary: Effort: Pulmonary effort is normal. No respiratory distress. Breath sounds: Normal breath sounds. Abdominal: Palpations: Abdomen is soft. Tenderness: There is no abdominal tenderness. There is left CVA tenderness. There is no right CVA tenderness. Musculoskeletal: General: Normal range of motion. Cervical back: Normal range of motion. Right lower leg: No edema. Left lower leg: No edema. Skin: General: Skin is warm. Capillary Refill: Capillary refill takes less than 2 seconds. Findings: No rash. Neurological: General: No focal deficit present. Mental Status: She is alert and oriented to person, place, and time. Psychiatric: Mood and Affect: Mood normal. Behavior: Behavior normal. Thought Content: Thought content normal. Judgment: Judgment normal. Assessment/Plan Diagnoses and all orders for this visit: Left costovertebral angle tenderness Comments: Patient has history of kidney stones. Has follow-up with urology this month. UA negative today. Kidney ultrasound ordered. Call with results. Orders: - POCT Urinalysis - US RENAL BI; Future Encounter for immunization Comments: Flu vax recieved today.Needs RSV vaccine as well.Script sent to [facility] pharmacy. Orders: - FLU VACCINE TRIVALENT HIGH DOSE [id number] (Fluzone) 65 yrs + - RSV Bivalent (Abrysvo) Benign essential hypertension Comments: BP slightly elevated today but patient was in a bhagat. Take meds as instructed. Low-salt diet. Labs up-to-date. Vitamin D deficiency Mesenteric panniculitis (CMS/HCC) ([facility]) Comments: Patient sees GI as well as general [place] [facility] [place] this [place]. Recent CT scan revealed. Has follow-up with GI as well as Dr. Landaverde. Infiltrating ductal carcinoma of right female breast (CMS/HCC) ([facility]) Comments: In remission.mammo UTD. Follows with and . Kidney stones Comments: UA negative today. Kidney ultrasound ordered. Has had lithotripsy procedures done years ago. Keep well-hydrated. Tylenol as needed pain.F/U with urology. Orders: - US RENAL BI; Future Other orders - Estrogens Conjugated (Premarin) 0.625 MG/GM cream; Insert 1 g into the vagina 1 (one) time per week. documented in this encounter Plan of Treatment Scheduled Orders Name Type Priority Associated Diagnoses Orde r Schedule US RENAL BI Imaging Routine Left Costovertebral Angle Tenderness Kidney stones Expected: 03/14/2025, Expires: 03/14/2026 documented as of this encounter Procedures Procedure Name Priority Date/Time Associated Diagnosis Comments POCT URINALYSIS DIPSTICK Routine 03/14/2025 11:29 AM EDT Left costovertebral angle tenderness documented in this encounter Results * (ABNORMAL) POCT Urinalysis (03/14/2025 11:29 AM EDT) Color, UA Yellow Clarity, UA Clear Glucose, UA Negative Bilirubin, UA Negative Ketones, UA Negative Spec Grav, UA 1.020 Blood, UA Positive(A) Negative, None Detected Comment:trace pH, UA 6.0 Protein, UA Negative Urobilinogen, UA 0.2 Leukocytes, UA Negative Negative, Rare, Trace Nitrite, UA Negative Negative, None Detected Appearance, UA clear Urine 03/14/2025 11:2 9 AM EDT us Gia Tenorio MD POINT OF CARE TEST ENTER/EDIT ORDERABLES Final Result documented in this encounter Visit Diagnoses Diagnosis Left costovertebral angle tenderness- Primary Encounter for immunization Benign essential hypertension Essential hypertension, benign Vitamin D deficiency Mesenteric panniculitis (CMS/HCC) (HCC) Sclerosing mesenteritis Infiltrating ductal carcinoma of right female breast (CMS/HCC) (HCC) Kidney stones Calculus of kidney Dyspareunia, female documented in this encounter Care Teams Chronometer Tester Relationship Specialty Start Date End Date Gia Tenorio MD [address] [place] [address] PCP - General Family Medicine 06/13/18 documented as of this encounter
--- OUTSIDE RECORDS SUMMARY | 2025-03-16 11:12 | XMS_ITS | Encounter Summary ---
Author Organization [employer] Address [address] [place] [address] Care Team Providers Care Gluer And Wedger Name Role Phone Gia Tenorio MD Primary Care Provider [phone] Reason for Visit * Reason Comments Med Refill Encounter Details Date Type Department Care Team (Late st Contact Info) Description 04/18/2023 Refill [facility] [address] [place] [address] Mercy Jeffries MD [address] [place], [place] [phone] Acute left-sided low back pain with left-sided [...] spasm documented in this encounter Care Teams Gluer And Wedger Relationship Specialty Start Date End Date Gia Tenorio MD [address] [place] [address] PCP - General Family Medicine 06/13/18 documented as of this encounter
--- OUTSIDE RECORDS SUMMARY | 2025-03-16 11:12 | XMS_ITS | Encounter Summary ---
Author Organization [employer] Address [address] [place] [address] Care Team Providers Care Field Director Name Role Phone Gia Tenorio MD Primary Care Provider [phone] Reason for Visit * Reason Comments Med Refill Encounter Details Date Type Department Care Team ([facility] st Contact Info) Description 04/18/2023 Refill [facility] [address] [place], [place] [phone] Luigi Solomon MD [address] [place] [address] Acute left-sided low back pain with left-sided [...] spasm documented in this encounter Care Teams Field Director Relationship Specialty Start Date End Date Gia Tenorio MD [address] [place] [address] PCP - General Family Medicine 06/13/18 documented as of this encounter
--- OUTSIDE RECORDS SUMMARY | 2025-03-16 11:12 | XMS_ITS | Encounter Summary ---
Author Organization [employer] Address [address] [place] [address] [place] [address] Care Team Providers Care Interior Decorator Paperhanging Name Role Phone Gia Tenorio MD Primary Care Provider [phone] Encounter Details Date Type Department Care Team (Late st Contact Info) Description 04/21/2023 Abstract [facility] [address] [place] [address] Ana Mahoney Social History Tobacco Use Types [...] on filedocumented in this encounter Care Teams Interior Decorator Paperhanging Relationship Specialty Start Date End Date Gia Tenorio MD [address] [place] [address] PCP - General Family Medicine 06/13/18 documented as of this encounter
--- OUTSIDE RECORDS SUMMARY | 2025-03-16 11:13 | XMS_ITS | Encounter Summary ---
Author Organization [employer] Address [address] [place] [address] Care Team Providers Care Kosher Dietary Service Supervisor Name Role Phone Gia Tenorio MD Primary Care Provider [phone] Reason for Visit * Reason Comments Med Refill Encounter Details Date Type Department Care Team (Late st Contact Info) Description 02/24/2023 Refill [facility] [address] [place] [address] Mercy Jeffries MD [address] [place], [place] [phone] Acute left-sided low back pain with left-sided [...] spasm documented in this encounter Care Teams Kosher Dietary Service Supervisor Relationship Specialty Start Date End Date Gia Tenorio MD [address] [place] [address] PCP - General Family Medicine 06/13/18 documented as of this encounter
--- OUTSIDE RECORDS SUMMARY | 2025-03-16 11:13 | XMS_ITS | Encounter Summary ---
Author Organization [employer] Address [address] [facility] [address] [place] [address] Care Team Providers Care Manager Ethics Name Role Phone Gia Tenorio MD Primary Care Provider [phone] Encounter Details Date Type Department Care Team (Latest Contact Info) Description 03/14/2025 Travel Social History Tobacco Use Types Packs/Day [...] on filedocumented in this encounter Care Teams Manager Ethics Relationship Specialty Start Date End Date Gia Tenorio MD [address] [place] [address] PCP - General Family Medicine 06/13/18 documented as of this encounter
--- OUTSIDE RECORDS SUMMARY | 2025-03-16 11:13 | XMS_ITS | Encounter Summary ---
Author Organization [employer] Address [address] [place] [address] [address] [place] [address] Care Team Providers Care Treating Engineer Name Role Phone Gia Tenorio MD Primary Care Provider [phone] Encounter Details Date Type Department Care Team [...] on filedocumented in this encounter Care Teams Treating Engineer Relationship Specialty Start Date End Date Gia Tenorio MD [address] [place] [address] PCP - General Family Medicine 06/13/18 documented as of this encounter
--- OUTSIDE RECORDS SUMMARY | 2025-03-16 11:13 | XMS_ITS | Encounter Summary ---
Author Organization [employer] Address [address] [place] [address] [address] [place] [address] Care Team Providers Care Down Filler Name Role Phone Gia Tenorio MD Primary Care Provider [phone] Encounter Details Date Type Department Care Team [...] on filedocumented in this encounter Care Teams Down Filler Relationship Specialty Start Date End Date Gia Tenorio MD [address] [place] [address] PCP - General Family Medicine 06/13/18 documented as of this encounter
--- OUTSIDE RECORDS SUMMARY | 2025-03-16 11:13 | XMS_ITS | Encounter Summary ---
Author Organization [employer] Address [address] [place] [address] Care Team Providers Care Goodwill Representative Name Role Phone Gia Tenorio MD Primary Care Provider [phone] Encounter Details Date Type Department Care Team (Late st Contact Info) Description 11/15/2023 Orders Only [facility] [address] [place] [address] Anat Van MD [address] [place] [address] Social History Tobacco Use Types Packs/Day Years [...] on filedocumented in this encounter Care Teams Goodwill Representative Relationship Specialty Start Date End Date Gia Tenorio MD [address] [place] [address] PCP - General Family Medicine 06/13/18 documented as of this encounter
--- OUTSIDE RECORDS SUMMARY | 2025-03-16 11:13 | XMS_ITS | Clinical Summary ---
Author Organization [employer] Address [address] [place] [address] 7 [place] [address] Care Team Providers Care Cash Applications Representative Name Role Phone Gia Tenorio MD Primary Care Provider [phone] Allergies No known active allergies Medications * [...] TABLET BY MOUTH EVERY DAY 30 tablet 04/19/20 23 Active pantoprazole (ProtoNix) 40 MG [...] day. 30 tablet 5 02/16/20 25 Active atorvastatin (Lipitor) 20 MG [...] NEEDED 8.5 g 2 02/20/20 25 Active Estrogens Conjugated (Premarin) 0.625 MG/GM cream Insert 1 g into the vagina 1 (one) time per week. 45 g 11 03/14/20 25 026 Active enalapril (Vasotec) 20 MG tablet TAKE ONE TABLET BY MOUTH TWICE DAILY 60 tablet 5 02/14/20 24 025 Discontinued venlafaxine XR (Effexor XR) 75 MG 24 hr capsuleIndicati ons:Major depressive disorder in remission, unspecified whether recurrent (CMS/HCC) TAKE ONE CAPSULE DAILY WITH FOOD 30 capsule 04/16/20 24 025 Discontinued(Re order (will not trigger notification to Pharmacy)) gabapentin (Neurontin) 100 MG capsuleIndicati ons:Osteopenia of multiple sites,Vitamin D deficiency,Neur algia TAKE ONE CAPSULE TWICE DAILY 60 capsule 3 06/26/19 25 025 Discontinued meloxicam (Mobic) 7.5 MG tabletIndicatio [...] ONE TABLET DAILY 90 tablet 1 09/18/19 025 Discontinued(Re order (will not trigger notification to Pharmacy)) albuterol 108 (90 Base) MCG/ACT inhalerIndicati ons:Benign essential hypertension,Mi ld persistent asthma without complication INHALE ONE PUFF BY MOUTH EVERY FOUR HOURS NEEDED 8.5 g 2 10/20/19 25 025 Discontinued Active Problems Problem Noted Date Diagnosed Date Chronic diarrhea 08/26/2024 Mesenteric panniculitis ([facility]/HCC) 08/26/2024 Achalasia of esophagus 12/01/2023 Osteopenia 06/03/2022 Panniculitis 08/28/2020 Benign essential hypertension 09/01/2017 Infiltrating ductal carcinom a of right female breast (CMS/HCC) 07/13/2017 Breast lump 01/12/2017 Anxiety disorder 09/14/2016 [...] organization. Date Type Department Care Team Description 03/14/2025 11:15 AM EDT Office Visit [facility] [address] [place] [address] Gia Tenorio MD Left costovertebral angle tenderness (Primary Dx); Encounter for immunization; Benign essential hypertension; Vitamin D deficiency; Mesenteric panniculitis (CMS/HCC) (HCC); Infiltrating ductal carcinoma of right female breast (CMS/HCC) (HCC); Kidney stones; Dyspareunia, female 03/14/2025 Travel 03/11/2025 Telephone [facility] [address] [place] [address] Gia Tenorio MD Chart Prep 03/08/2025 Travel 03/01/2025 Orders Only GENERIC EXTERNAL DATA DEPARTMENT Provider, Generic External Data 02/18/2025 11:00 AM EDT Telemedicine [facility] [address] [place] [address] Mary Kate Munson, DAX Pleuritic pain 02/18/2025 Travel 02/18/2025 Refill [facility] [address] [place] [address] Gia Tenorio MD Benign essential hypertension; Mild persistent asthma without complication 02/15/2025 Travel 02/15/2025 Refill [facility] [address] [place] [address] Luigi Solomon MD 02/15/2025 Refill [facility] [address] [place] [address] Gia Tenorio MD Major depressive disorder in remission, unspecified whether recurrent (CMS/HCC); Benign essential hypertension; Mild persistent asthma without complication 02/15/2025 Refill [facility] [address] [place] [address] Luigi Solomon MD Osteopenia of multiple sites; Vitamin D deficiency; Neuralgia; Acute left-sided low back pain with left-sided sciatica; Neck muscle spasm 02/08/2025 Telephone [facility] [address] [place] [address] Eladia Castillo RN Status Check post Pneumonia XR Result 02/05/2025 11:30 AM EDT Office Visit [facility] [address] [place] [address] Shanelle Mejia ANP Pleuritic pain (Primary Dx) 02/05/2025 Results Follow-Up [facility] [address] [place] [address] Shanelle Mejia ANP XR Chest 2 Views 02/05/2025 Travel 01/21/2025 Refill [facility] [address] [place], [place] [phone] Gia Tenorio MD 01/09/2025 Refill [facility] [address] [place], [place] [phone] Gia Tenorio MD from Last 3 Months Immunizations Immunization Administration Dates Next Due Influenza injectable quadriv alent IIV4 with preservative 05/24/2017,03/15/2016,04/21/2015 Influenza injectable quadriv alent preservative free 03/17/2022,03/25/2021,03/06/2020,2018 Influenza, High Dose Seasona l, Preservative Free 03/14/2025 Influenza, IIV3, injectable 03/28/2014 Influenza, Split (incl. mariely fied surface antigen) 04/04/2013,03/06/2012 Moderna Covid-19 Vaccine 12+ 10/30/2020,10/03/19 21 Pneumococcal Conjugate PCV 20 09/14/2023 RSV Bivalent 03/14/2025(Deferred: Other) Tdap 05/27/2016 Zoster, Recombinant 10/29/2022,08/20/2022 Family History Medical History Relation Name Comments Hypertension Father Maverick Bryanna quinteros Diabetes Father's Sister 1 Patsy Bryanna quinteros Diabetes Father's Sister 2 Cora quinteros Hypertension Father's Sister 2 Coradanita quinteros Diabetes Father's Sister 3 Shefali quinteros Hypertension Father's Sister 3 Shefali quinteros Arthritis Mother Nancy quinteros Hypertension Mother Marlyn Bryanna quinteros Relation Name Status Comments Father Maverick quinteros Father's Sister 1 Patsy quinteros Father's Sister 2 Cora quinteros Father's Sister 3 Shefali quinteros Mother Nancy quinteros Social History Tobacco Use [...] 16 03/14/2025 11:11 AM EDT Oxygen Saturation 97% 12/01/2023 10:04 AM EDT Inhaled Oxygen Concentration - - Weight 90.7 kg (200 lb) 03/14/2025 11:11 AM EDT Height 170.2 cm (5' 7 ) 08/23/2024 3:11 PM EDT Body Mass Index 31.32 08/23/2024 3:11 PM EDT Plan of Treatment Health Maintenance Due Date Last Done Comments CT Colonography 1960 FIT DNA/Cologuard 1960 FIT 1960 FOBT 1960 SDOH Screening 1960 Sigmoidoscopy 1960 RSV Patients and Patients Aged 60 years or older (1 - Risk 60-74 years 1-dose series) 2018 COVID-19 Vaccine ( season) 2025 10/30/2020, 10/02/2020 Mammogram 07/05/2025 07/05/2024, 06/13, 06/22/2022, Additional history exists Alcohol/Substance Use Screening 02/05/2026 02/05/2025 Depression Screening 02/05/2026 02/05/2025, 02/06/20 Tobacco Screening 03/14/2026 03/14/2025 DTaP/Tdap/Td Vaccines (2 - Td or Tdap) 05/27/2026 05/27/2016 HPV/Cotest 12/04/2028 12/05/2023, 10/07/2020 Pap Smear 12/04/2028 12/05/2023, 10/07/2020 Lipid Panel 09/07/2029 09/07/2024, 04/0 08/2023, 03/17/2022 Colonoscopy 03/07/2034 03/07/2024 Colorectal Cancer Screening 03/07/2034 Hepatitis C Screening Completed 08/20/2020 Zoster Vaccines Completed 10/29/2022, 08/20/2022 Pneumococcal Vaccine: 50+ Years Completed 09/14/2023 Influenza Vaccine Completed 03/14/2025, , 03/25/2021, Additional history exists HIB Vaccines Aged Out No longer eligi [...] 11:29 AM EDT Left costovertebral angle tenderness THIOPURINE S-METHYLTRANSFERASE (TPMT) GENOTYPE Routine 03/01/2025 11:55 AM EDT SED RATE BY MODIFIED WESTERGREN Routine 03/01/2025 11:55 AM EDT C-REACTIVE PROTEIN Routine 03/01/2025 11:55 AM EDT POCT INFLUENZA A Routine 02/05/2025 12:33 PM [...] Recently Relevant to Health Maintenance Results * (ABNORMAL) POCT Urinalysis (03/14/2025 11:29 [...] clear Urine 03/14/2025 11:2 9 AM EDT Gia Tenorio MD POINT OF CARE TEST ENTER/EDIT ORDERABLES Final Result * Thiopurine S-Methyltransferase (TPMT) Genotype (03/01/2025 11:55 AM EDT) TPMT ACTIVITY 15 [facility] Comment:Result Units: nmol/h r/mL RBCReference Range for TPMT Activity: >12 Normal 4-12 Heterozygote or low metabolizer <4 Homozygote Deficient RangeThis test was developed and its analytical performancecharacteristics have been determined by [employer].It has not been cleared or approved by the FDA. This assayhas been validated pursuant to the CLIA regulations and isused for clinical purposes.THIS TEST WAS PERFORMED AT:[employer] [id number] KHRIS OSPINA [id number] RODRIGUEZ MD,PHD,ALICIA 03/01/2025 11:5 5 AM EDT 03/01/2025 11:55 AM EDT us Generic External Data Provider LAB BLOOD ORDERAB LES Final Result Performing Organization Address City/State/[facility] Co de Phone Number [facility] [address] [place] [phone] * (ABNORMAL) Sed Rate by Modified Demetrioergren (03/01/2025 11:55 AM EDT) Pathologist [facility] Erythrocyte Sedimentation Rate 33(H) 0 - 20 MM/HR [facility] Comment:Patients with polycy themia and many hemoglobin abnormalitiesmay have depressed sed rates whereas patients with anemiamay have elevated sed rates. 03/01/2025 11:5 5 AM EDT 03/01/2025 11:55 AM EDT us Generic External Data Provider LAB BLOOD ORDERAB LES Final Result Performing Organization Address [facility] Co de Phone Number [facility] [address] [place] [phone] * C-reactive Protein (03/01/2025 11:55 AM EDT) [facility] C Reactive Protein 0.44 < or = 0.50 mg/dL [facility] 03/01/2025 11:5 5 AM EDT 03/01/2025 11:55 AM EDT Generic External Data Provider LAB BLOOD ORDERAB LES Final Result Performing Organization Address [facility] Co de Phone Number [facility] [address] [place] [phone] * POCT Rapid Influenza A OSOM (02/05/2025 12:33 PM EDT) [facility] Rapid Influenza A Ag Negative Negative, Indeterminate QC Media Lot # [id number] Lot# Expiration Date [id number] Swab Nasopharyngeal structure / Unknown 02/05/2025 12:33 PM EDT us Shanelle Mejia ANP POINT OF CARE TEST ENTER/EDIT OR DERABLES Final Result * POCT Rapid Influenza B OSOM (02/05/2025 12:32 PM EDT) Rapid Influenza B Ag Negative Negative, Indeterminate QC Media Lot # [id number] Lot# Expiration Date ,[id number] Swab 02/05/2025 12:3 2 PM EDT us Shanelle Mejia ANP POINT OF CARE TEST ENTER/EDIT OR DERABLES Final Result * POCT Rapid Covid-19 [employer] (02/05/2025 12:28 PM EDT) Rapid COVID Ag Negative QC Media Lot # [id number] Lot# Expiration Date [id number] Swab 02/05/2025 12:2 8 PM EDT Shanelle Mejia ANP POINT OF CARE TEST ENTER/EDIT OR DERABLES Final Result * XR Chest 2 Views (02/05/2025 12:20 PM EDT) Anatomical Region Laterality Modality Chest Radiographic Melissa ging 02/05/2025 12:2 0 PM EDT Narrative 02/05/2025 1:23 [place] [address] XRay Report Signed Patient: Bree Chairez MR#: [id number] : 1960 Acct:[id number] Age/Sex: 64 / F ADM Date: 02/05/25 Loc: HO.HHCX Attending Dr: Shanelle Mejia EMBLEM MAKER Ordering Physician: SHANELLE MEJIA EMBLEM MAKER Date of Service: 02/05/25 Procedure(s): XR chest 2V Accession Number(s): [id number] cc: SHANELLE MEJIA EMBLEM MAKER EXAMINATION: XR CHEST 2 VIEWS HISTORY: fever, [...] 02/05/25 1320 DD/ 1220 TD/TT: 02/05/25 1230 Tile Grinder: Procedure Note Donotuseinterpreter, Image - 02/05/2025 [place] [address] XRay Report Signed Patient: Heidi Chairez#: [id number] : 9Acct:[id number] Age/Sex: 64 / FADM Date: 02/05/25 Loc: .HHCX Attending Dr: Shanelle Mejia NP Ordering Physician: SHANELLE MEJIA NP Date of Service: 02/05/25 Procedure(s): XR chest 2V Accession Number(s): [id number] cc: SHANELLE MEJIA NP EXAMINATION: XR CHEST [...] 02/05/25 1320 DD/ 1220 TD/TT: 02/05/25 1230 Tile Grinder: us Shanelle Mejia ANP IMG XR PROCEDURES Final Result * Lipid Panel, Standard (09/07/2024 9:39 AM EDT) Triglycerides 94 <150 mg/dL [facility] Comment:Desirable Triglyceri de: less than 150 mg/dLBorderline High Triglyceride 150-199 mg/dLHigh Triglyceride: 200-499 mg/dLVery High Triglyceride: greater than or equal to 5OO mg/dL Cholesterol 149 <200 mg/dL [facility] Comment:Desirable Cholestero l: less than 200 mg/dLBorderline High Cholesterol: 200-239 mg/dLHigh Cholesterol: greater than 239 mg/dL LDL Cholesterol Calculated 88 <100 mg/dL [facility] Comment:Desirable LDL: less than 100 mg/dLNear Optimal/Above Optimal LDL: 110- 129 mg/dLBorderline High LDL: 130-159 mg/dLHigh LDL: 160-189 mg/dLVery High LDL: greater than or equal to 190 mg/dL HDL Cholesterol 43 >40 mg/dL [facility] Comment:Desirable HDL: great er than 40 mg/dL Note: This HDL assay may give artificially low results in patients with liver disease. Blood Venous blood specimen / Unknown 09/07/2024 9:39 AM EDT 09/07/2024 2:08 PM EDT Gia Tenorio MD LAB BLOOD ORDERABLES Final Re sult [facility] [address] [place] [phone] * BI Mammogram Screening Tomosynthesis Bilateral (07/05/2024 1:55 PM EST) Anatomical Region Laterality Modality Breast Bilateral Mammography 07/05/2024 1:55 PM EST Narrative 07/16/2024 10:03 AM EST [facility] [address] [place] [address] Mammography Report Signed Patient: Bree Chairez MR#: [id number] : 1960 Acct:[id number] Age/Sex: 63 / F ADM Date: 07/05/24 Loc: MAMMO Attending Dr: Gia Tenorio MD Ordering Physician: Gia Tenorio MD Results: 1Ne gative Date of Service: 07/05/24 Follow Up: 1 Year From Orig ina Mammogram Procedure(s): MM tomosynthesis screening BI Accession Number(s): [id number] cc: Gia Tenorio MD EXAMINATION: MM SCREENING [...] by: Pat Bonilla DO 07/16/2024 10:00 AM [facility] Dictated By: Pat Bonilla DO Signed By: <Electronically signed by Pat Bonilla DO in OV> 07/16/24 1000 DD/ 1355 TD/TT: 07/05/24 1410 Tile Grinder: Procedure Note Donotuseinterpreter, Image - 07/16/2024 [facility] [address] [place] [address] Mammography Report Signed Patient: Heidi Chairez#: [id number] : 9Acct:[id number] Age/Sex: 63 / FADM Date: 07/05/24 Loc: BEN Attending Dr: Gia Tenorio MD Ordering Physician: Gia Tenorio MDResults: 1Ne gative Date of Service: 07/05/24Follow Up: 1 Year From Orig inal Mammogram Procedure(s): MM tomosynthesis screening BI Accession Number(s): [id number] cc: Gia Tenorio MD EXAMINATION: MM SCREENING [...] by: Pat Bonilla DO 07/16/2024 10:00 AM [facility] Dictated By: Pat Bonilla DO Signed By: <Electronically signed by Pat Bonilla DO in OV> 07/16/24 1000 DD/ 1355 TD/TT: 07/05/24 1410 Tile Grinder: us Gia Tenorio MD IMG BI PROCEDURES Final Resul t * Hm Colonoscopy (03/07/2024) Colonoscopy Normal Normal us Gia Tenorio MD HEALTH MAINTENANCE Final Resu lt * ThinPrep Imaging Pap and HPV mRNA E6/E7 with Reflex to HPV 16,18/45 (12/05/2023 10:30 AM EDT) HPV 16 RNA [facility] HPV 18/45 RNA [facility] HPV nRNA E6/E7 Not Detected Not Detected [facility] Comment:Methodology: Transcr iption-Mediated AmplificationThis assay detects E6/E7 viral messenger RNA (mRNA) from 14high-risk HPV types (16,18,31,33,35,39,45,51,52,56,58,59,66,68).Cervical sources are required for HPV testing.If a vaginal source from a patient who has had atotal hysterectomy with removal of cervix wassubmitted, please contact the testing laboratoryfor alternative testing options.For additional information, please refer tohttp://education.Snaps/faq/TUL504l7(This link if provided for information/educational purposes only.)THIS TEST WAS PERFORMED AT:[employer] [address] [id number] SOLO MD SOURCE: SEE NOTE [facility] Comment:Cervix Report Status: [facility] Clinical Information: SEE NOTE [facility] Comment:R LMP: SEE NOTE [facility] Comment:NONE GIVEN Prev. PAP: SEE NOTE [facility] Comment:2020 Prev. BX: SEE NOTE [facility] Comment:NONE GIVEN Statement Of Adequacy: SEE NOTE [facility] Comment:SATISFACTORY FOR ALINE LUATION General Categorization: [facility] Interpretation/Result: SEE NOTE [facility] Comment:Cytology Results: Ne gative for intraepitheliallesion or malignancy.Atrophic pattern; predominantly parabasal cells Cytology Comment SEE NOTE [facility] Comment:This Pap test has be en evaluated with computerassisted technology. Buyer Liaison: SEE NOTE [facility] Comment:RPR, CT (ASCP) CT sc reening location: [address] [address] Review Buyer Liaison: [facility] Pathologist [facility] PAP Infection [facility] See Note SEE NOTE [facility] Comment:EXPLANATORY NOTE:The Pap is a [...] AM EDT 12/06/2023 9:23 AM EDT Narrative [facility] - 12/09/2023 8:39 AM EDT [id number] us Megha Wright CN LAB PATHOLOGY ORDERABLES Final Result [facility] [address] [place] [phone] [phone] * HEPATITIS C AB W/REFL TO HCV RNA, QN, PCR (08/20/2020 5:01 PM EST) HEPATITIS C ANTIBODY NON-REACT KARON NON-REACT KARON [facility] INDEX 0.04 <1.00 [facility] Comment: HCV antibody was non-reactive. There is no laboratory evidence of HCV infection. In most cases, no further action is required. However, if recent HCV exposure is suspected, a test for HCV RNA (test code 22171) is suggested. For additional information please refer to http://education.Snaps/faq/VOJ07k8 (This link is being provided for informational/ educational purposes only.) 08/20/2020 5:01 PM EST us Jenna SUAREZ HISTORICAL/NON ORDERABLE LABS Final Result [facility] [address] from Last 3 Months or Most Recently Relevant to Health Maintenance Insurance [facility] ONE CARE < 65 [place] [id number] Care Teams Cash Applications Representative Relationship Specialty Start Date End Date Gia Tenorio MD [address] [place] [phone] PCP - General Family Medicine 06/13/18
--- OUTSIDE RECORDS SUMMARY | 2025-03-16 11:13 | XMS_ITS | Encounter Summary ---
Author Organization [employer] Address [address] [place] [address] [place] [address] Care Team Providers Care Generator Man Name Role Phone Gia Tenorio MD Primary Care Provider [phone] Reason for Visit * Reason Onset Date Comments Chart Prep 03/11/2025 Encounter Details Date Type Department Care Team ([facility] Contact Info) Description 03/11/2025 Telephone [facility] [address] [place] [address] Gia Tenorio MD [address] [place] [address] Chart Prep Social History Tobacco Use Types Packs/Day Years [...] AM EDT documented as of this encounter Miscellaneous Notes * Telephone Encounter - Kendra Guerrero [place] - 03/11/2025 4:05 PM EDT Chart Prep Labs: not applicable Images: done Referrals: not applicable Vaccines due: Covid, Flu, and RSV Screenings: not applicable Overdue care gaps: SDOH documented in this encounter Plan of Treatment Not on file documented as of this encounter Visit Diagnoses Not on filedocumented in this encounter Care Teams Generator Man Relationship Specialty Start Date End Date Gia Tenorio MD [address] [place] [address] PCP - General Family Medicine 06/13/18 documented as of this encounter
--- OUTSIDE RECORDS SUMMARY | 2025-03-16 11:13 | XMS_ITS | Encounter Summary ---
Author Organization [employer] Address [address] [place] [address] [place] [address] Care Team Providers Care Car Chaser Name Role Phone Gia Tenorio MD Primary Care Provider [phone] Reason for Visit * Reason Onset Date Comments Med Refill 02/15/2025 Encounter Details Date Type Department Care Team ([facility] st Contact Info) Description 02/15/2025 Refill [facility] [address] [place] [address] Luigi Solomon MD [address] [place] [address] Social History Tobacco Use Types Packs/Day Years [...] on filedocumented in this encounter Care Teams Car Chaser Relationship Specialty Start Date End Date Gia Tenorio MD [address] [place] [phone] PCP - General Family Medicine 06/13/18 documented as of this encounter
--- OUTSIDE RECORDS SUMMARY | 2025-03-16 11:13 | XMS_ITS | Encounter Summary ---
Author Organization [employer] Address [address] [place] [address] Care Team Providers Care Cognos Consultant Name Role Phone Gia Tenorio MD Primary Care Provider [phone] Reason for Visit * Reason Comments Med Refill Encounter Details Date Type Department Care Team ([facility] st Contact Info) Description 10/22/2022 Refill [facility] [address] [place], [place] [phone] Donna Amin MD [address] [place], [place] [phone] Neck muscle spasm Social History Tobacco Use [...] spasm documented in this encounter Care Teams Cognos Consultant Relationship Specialty Start Date End Date Gia Tenorio MD [address] [place] [address] PCP - General Family Medicine 06/13/18 documented as of this encounter
--- OUTSIDE RECORDS SUMMARY | 2025-03-16 11:13 | XMS_ITS | Encounter Summary ---
Author Organization [employer] Address [address] [place] [address] Care Team Providers Care Ceramic Engineer Name Role Phone Gia Tenorio MD Primary Care Provider [phone] Reason for Visit * Reason Comments Med Refill Encounter Details Date Type Department Care Team ([facility] st Contact Info) Description 02/24/2023 Refill [facility] [address] [place] [address] Gia Tenorio MD [address] [place] [address] Benign essential hypertension; Mild persistent asthma without [...] complication documented in this encounter Care Teams Ceramic Engineer Relationship Specialty Start Date End Date Gia Tenorio MD [address] [place] [address] PCP - General Family Medicine 06/13/18 documented as of this encounter
--- OUTSIDE RECORDS SUMMARY | 2025-03-16 11:13 | XMS_ITS | Encounter Summary ---
Author Organization [employer] Address [address] [place] [address] Care Team Providers Care Data Operations Director Name Role Phone Gia Tenorio MD Primary Care Provider [phone] Reason for Visit * Reason Comments Med Refill Encounter Details Date Type Department Care Team ([facility] st Contact Info) Description 02/24/2023 Refill [facility] [address] [place] [address] Liz Contreras MD [address] [place] [address] Social History Tobacco Use Types Packs/Day Years [...] on filedocumented in this encounter Care Teams Data Operations Director Relationship Specialty Start Date End Date Gia Tenorio MD [address] [place] [address] PCP - General Family Medicine 06/13/18 documented as of this encounter
--- NOTE | 2025-03-16 11:42 | AM.OFFWIN_ITS ---
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 Patient denies any injury or trauma preceding the onset of her symptoms. Patient states that the pain does not currently radiate into her lower extremities. [facility] Medical History COVID-19 vaccine series completed Vertigo Chronic diarrhea Hypothyroid Fatty liver Kidney stone Asthma Cervical disc disease IBS (irritable bowel syndrome) GERD (gastroesophageal reflux disease) Migraine Hypercholesteremia HTN (hypertension) Surgical History History of esophagogastroduodenoscopy (EGD) Hx of colonoscopy H/O lumpectomy Hx of cholecystectomy Family History Father Prostate cancer Paternal Aunt Diabetes Stroke Father Heart attack Paternal Uncle Stroke Social History Household Members: Spouse Housing: Apartment Are you a primary vehicle care specialist to a significant other at home: No Do you presently have visiting nurse or other home services: No Alcohol intake: current Alcohol intake frequency: does not drink Patient Tobacco Use Status: Never used Tobacco Current occupational status: disabled Current occupation: rt handed Review of Systems Const All systems reviewed & are unremarkable except as noted in HPI and below Eyes Reports no additional complaints ENT Reports no additional complaints Card Reports as per HPI and Reports no additional complaints Resp Reports no additional complaints GI Reports no additional complaints Denies hematuria, Reports dysuria ( discomfort ), Reports flank pain (left flank/back) and Denies urinary incontinence Musc Reports no additional complaints and Reports back pain Skin/Breast Reports system reviewed and no additional complaints, except as documented Neuro Reports no additional complaints Psych Reports no additional complaints Physical Exam Vital Signs: Last Vital Signs Temp 98.3 F 03/16/25 11:43 Pulse 65 03/16/25 11:43 Resp 15 03/16/25 11:43 BP 120/84 03/16/25 11:43 Pulse Ox 97 03/16/25 11:43 Oxygen Delivery Method Room Air 03/16/25 11:43 BMI result Body Mass Index 31.5 Const General: comfortable, no acute distress, well developed, alert, awake and Physically active; No acute distress, ill appearing or lethargic Nutritional Appearance: overweight Orientation/consciousness: patient oriented x3 and No lethargic Limitations: no limitations GI Inspection: No distended and Yes Abdominal panniculus present Palpation (GI): Soft to palpation, Tenderness to palpation present (GI) in the LUQ (no guarding or rebound tenderness) and no guarding Auscultation: normal bowel sounds General: Yes Bimanual renal exam normal bilaterally, Yes bladder normal to palpation and Yes no CVA tenderness Bimanual exam- vagina & uterus: bladder normal to palpation Back/Spine/Pelvis Back: no CVA tenderness Thoracic/Lumbar Spine: thoracic and lumbar spine normal to inspection, No pain with thoraco-lumbar ROM, paraspinal muscle tenderness on the left in the lower thoracic and in the upper thoracic, No thoracic spinal tenderness, No lumbar spinal tenderness and No straight leg raise positive Sacroiliac joints: bilaterally nontender Skin General skin exam: no rashes or lesions noted Neuro General: patient oriented x3 and Normal light touch and pain sensation Motor exam (neuro): 5/5 motor strength present throughout (lower extremities bilaterally) Psych Appearance: grossly normal Mental Status: mental status grossly normal Insight: Good insight present (Psych) Judgement: Good judgement present (Psych) Results AMB Urinalysis, Automated UA Leukoctes 0 Rc/uL Last Edit by Carmen Woo CMA on 03/16/25 11:49 UA Nitrite Negative Last Edit by Carmen Woo CMA on 03/16/25 11:49 UA Urobilinogen 0.2 mg/dL Last Edit by Carmen Woo CMA on 03/16/25 11:49 UA Protein 0 mg/dL Last Edit by Carmen Woo CMA on 03/16/25 11:49 UA pH 6.0 Last Edit by Carmen Woo, PRIYA on 03/16/25 11:49 UA Blood 10 Deo/uL Last Edit by Carmen Woo CMA on 03/16/25 11:49 UA Specific [place] 1.015 Last Edit by Carmen Woo, PRIYA on 03/16/25 11:49 UA Ketone Negative Last Edit by Carmen Woo CMA on 03/16/25 11:49 UA Bilirubin 0 mg/dL Last Edit by Carmen Woo CMA on 03/16/25 11:49 UA Glucose 0 mg/dL Last Edit by Carmen Woo CMA on 03/16/25 11:49 Results Reviewed Results Reviewed: Laboratory Last Values Urine pH (Auto) 6.0 03/16/25 11:42 Specific [place] (Auto) 1.015 03/16/25 11:42 Urine Protein (Auto) 0 mg/dL 03/16/25 11:42 Glucose (UA)(Auto) 0 mg/dL 03/16/25 11:42 Urine Ketones (Auto) Negative 03/16/25 11:42 Urine Blood (Auto) 10 Deo/uL 03/16/25 11:42 Urine Nitrite (Auto) Negative 03/16/25 11:42 Urine Bilirubin (Auto) 0 mg/dL 03/16/25 11:42 Urine Urobilinogen (Auto) 0.2 mg/dL 03/16/25 11:42 Leukocyte Esterase (Auto) 0 Rc/uL 03/16/25 11:42 Urinalysis is reviewed with the patient. Urine culture will be obtained. Assessment & Plan Assessment & Plan (1) Lower thoracic back pain: Comment: Patient is comfortable appearing and has lower left thoracic pain on examination. Patient's urinalysis is reviewed and a culture will be obtained. At this time the patient will be discharged with an anti-inflammatory and muscle relaxant for her muscular pain. Code(s): M54.6 - Pain in thoracic spine Plan: Enteric-coated Naprosyn 500 mg b.i.d., methocarbamol 500 mg t.i.d.. Patient will follow up with her PCP as an outpatient and has a urology appointment scheduled later this month. Orders: Orders AMB Urinalysis Automated Today Z13.9 - Encounter for screening, unspecified Urine Culture Today R10.A0 - Flank pain, unspecified side Medications: New methocarbamol 500 mg PO TID 20 tabs 0RF naproxen (EC-Naprosyn) 500 mg PO BID 20 tabs 0RF Coding Level of Care Code Est Pt Level 3 (11584) Diagnoses Lower thoracic back pain M54.6 Time Spent (min) 25
[2025-03-16 11:43] VITALS: BP 120/84; PULSE 65; RESP 15; TEMP 36.8; O2SAT 97; BMI 31.5
== END 2025-03-16 12:14 | disposition home or self-care (01) ==
PROVIDERS: PCP Pediatrics; Visit Provider Physician Assistant
DX: Z13.9 Encounter for screening, unspecified (principal); M54.6 Pain in thoracic spine

== ENCOUNTER 2025-03-27 18:50 | Outpatient (REF) | payer OTHER, SELFPAY ==
--- OUTSIDE RECORDS SUMMARY | 2025-03-27 14:30 | XMS_ITS | Encounter Summary ---
Author Organization [employer] Address [address] [facility] [address] [place] [address] Care Team Providers Care Fence Erector Name Role Phone Gia Tenorio MD Primary Care Provider [phone] Encounter Details Date Type Department Care Team ([facility] st Contact Info) Description 03/27/2025 2:30 PM EDT Office Visit [facility] [address] [place], [place] [phone] Megha Wright [facility] [address] [place] [address] Atrophic vaginitis (Primary Dx); Vulvar burning Social [...] a 64 y.o. 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 [facility] AMAB partner, no safety concerns. Menopausal at [...] SpO2 99% BMI 31.70 kg/m?? Physical Exam Marketing Professional present: declined gravity prospector. Constitutional: Appearance: Normal appearance. Genitourinary: General: Normal [...] Description 05/08/2025 2:30 PM EST Office Visit [facility] [address] [place] [address] Megha Wright CNM [address] [place] [address] Scheduled Orders Name Type Priority Associated Diagnoses Orde r Schedule Bacterial Vaginosis Panel Microbiology Routine Vulvar burning Ordered: 03/27/2025 documented as of this encounter Visit Diagnoses Diagnosis Atrophic vaginitis- Primary Postmenopausal atrophic vaginitis Vulvar burning documented in this encounter Care Teams Fence Erector Relationship Specialty Start Date End Date Gia Tenorio MD [address] [place] [id number] PCP - General Family Medicine 06/13/18 documented as of this encounter
--- OUTSIDE RECORDS SUMMARY | 2025-03-27 19:38 | XMS_ITS | Encounter Summary ---
Author Organization [employer] Address [address] [place] [id number] Care Team Providers Care Shuttle Hand Name Role Phone Gia Tenorio MD Primary Care Provider Encounter Details Date Type Department Care Team (Late st Contact Info) Description 04/21/[address] [facility] [address] [place] [phone] Ana Mahoney Social History Tobacco Use Types [...] as of this encounter Plan of Treatment Upcoming Encounters Date Type Department Care Team (Late st Contact Info) Description 05/08/2025 2:30 PM EST Office Visit [facility] [address] [place] [phone] Megha Wright CNM [address] [place] [address] documented as of this encounter Visit Diagnoses Not on filedocumented in this encounter Care Teams Shuttle Hand Relationship Specialty Start Date End Date Gia eTnorio MD [address] [place] [address] PCP - General Family Medicine 06/13/18 documented as of this encounter
--- OUTSIDE RECORDS SUMMARY | 2025-03-27 19:38 | XMS_ITS | Clinical Summary ---
Author Organization [employer] Address [address] [place] [address] 7 [place] [address] Care Team Providers Care Granite Installer Name Role Phone Gia Tenorio MD Primary Care Provider [phone] Allergies No known active allergies Medications * [...] DAILY NEEDED FOR dizziness 20 tablet 3 09/11/19 25 Active famotidine (Pepcid) 40 MG tablet Take 1 tab orally qhs 30 tablet 09/12/19 25 Active cyanocobalamin (Vitamin B-12) 1000 [...] 02/16/20 25 Active gabapentin (Neurontin) 100 MG capsuleIndicatio ns:Osteopenia of multiple sites,Vitamin D deficiency,Neura lgia TAKE ONE CAPSULE TWICE DAILY 60 capsule 02/16/20 25 Active meloxicam (Mobic) 7.5 MG tabletIndication [...] 02/16/20 25 Active amLODIPine (Norvasc) 5 MG tabletIndication s:Benign essential hypertension,Mil d persistent asthma without complication Take 1 tablet (5 mg) by mouth Once per day. 30 tablet 5 02/16/20 25 Active metoprolol succinate XL (Toprol-XL) 100 MG 24 hr tablet Take 1 tablet (100 mg) by mouth Once per day. 30 tablet 5 02/16/20 25 Active atorvastatin (Lipitor) 20 MG tabletIndication s:Benign essential hypertension,Mil d persistent asthma without complication Take 1 tablet [...] NEEDED 8.5 g 2 02/20/20 25 Active Estradiol (Estrace) 0.01 % cream Insert 0.5 g into the vagina See administration instructions. 0.5 g vaginally nightly x 14 nights, then twice weekly after that 42.5 g 1 03/27/20 25 Active Estrogens Conjugated (Premarin) 0.625 MG/GM cream Insert 1 g into the vagina 1 (one) time per week. 45 g 11 03/14/20 25 025 Discontin ued(Alter waleska therapy) Active Problems Problem Noted Date Diagnosed Date Chronic diarrhea 08/26/2024 Mesenteric panniculitis ([facility]/HCC) 08/26/2024 Achalasia of esophagus 12/01/2023 Osteopenia 06/03/2022 [...] organization. Date Type Department Care Team Description 03/27/2025 2:30 PM EDT Office Visit [facility] [address] [place] [address] Megha Wright CNM Atrophic vaginitis (Primary Dx); Vulvar burning 03/27/2025 Travel 03/26/[address] [address] Megha Wright CNM chart prep 03/20/2025 Travel 03/16/2025 Orders Only GENERIC EXTERNAL DATA DEPARTMENT Provider, Generic External Data 03/14/2025 11:15 AM EDT Office Visit [facility] [address] [place] [address] Gia Tenorio MD Left costovertebral angle tenderness (Primary Dx); Encounter for immunization; Benign essential hypertension; Vitamin D deficiency; Mesenteric panniculitis (CMS/HCC) (HCC); Infiltrating ductal carcinoma of right female breast (CMS/HCC) (HCC); Kidney stones; Dyspareunia, female 03/14/2025 Travel 03/11/2025 Telephone [facility] [address] [place] [address] Gia Tenorio MD Chart Prep 03/08/2025 Travel 03/01/2025 Orders Only GENERIC EXTERNAL DATA DEPARTMENT Provider, Generic External Data 02/18/2025 11:00 AM EDT Telemedicine [address] [address] Mary Kate Munson RN Pleuritic pain 02/18/2025 Travel 02/18/2025 Refill [facility] [address] [place] [address] Gia Tenorio MD Benign essential hypertension; Mild persistent asthma without complication 02/15/2025 Travel 02/15/2025 Refill [facility] [address] [place] [address] Luigi Solomon MD 02/15/2025 Refill [facility] [address] [place] [address] Gia Tenorio MD Major depressive disorder in remission, unspecified whether recurrent (CMS/[facility]); Benign essential hypertension; Mild persistent asthma without complication 02/15/2025 Refill [facility] [address] [place] [address] Luigi Solomon MD Osteopenia of multiple sites; Vitamin D deficiency; Neuralgia; Acute left-sided low back pain with left-sided sciatica; Neck muscle spasm 02/08/2025 Telephone [facility] [address] [place] [address] Eladia Castillo RN Status Check post Pneumonia XR Result 02/05/2025 11:30 AM EDT Office Visit [facility] [address] [place] [address] Shanelle Mejia ANP Pleuritic pain (Primary Dx) 02/05/2025 Results Follow-Up [address] [address] Shanelle Mejia ANP XR Chest 2 Views 02/05/2025 Travel 01/21/2025 Refill [facility] [address] [place] [address] Gia Tenorio MD 01/09/2025 Refill [facility] [address] [place] [address] Gia Tenorio MD from Last 3 Months [...] Bryanna lez Hypertension Father's Sister 3 Shefali Bryanna lez Arthritis Mother Nancy quinteros Hypertension Mother [...] is your housing situation today? I have embermylene nova 02/05/[address] you [...] oz) 03/27/2025 2:32 P M EDT Height 170.2 cm (5' 7 ) 08/23/2024 3:11 PM EDT Body Mass Index 31.7 08/23/2024 3:11 PM EDT Plan of Treatment Upcoming Encounters Date Type Department Care Team (Late st Contact Info) Description 05/08/2025 2:30 PM EST Office Visit [facility] [address] [place] [address] Megha Wright, MARIA D [address] [place] [address] Health Maintenance Due Date Last Done Comments [...] Depression Screening 02/05/2026 02/05/2025, 02/06/20 Tobacco Screening 03/27/2026 03/27/2025 DTaP/Tdap/Td Vaccines (2 - Td or Tdap) [...] Procedure Name Priority Date/Time Associated Diagnosis Comments CULTURE, URINE, ROUTINE Routine 03/16/2025 11:10 AM EDT POCT URINALYSIS DIPSTICK Routine 03/14/2025 11:29 AM [...] Recently Relevant to Health Maintenance Results * Culture, Urine, Routine (03/16/2025 11:10 AM EDT) Urine Urine specimen obtained by clean catch procedure / Unknown 03/16/2025 11:10 AM EDT 03/16/2025 1:51 PM EDT Comment:[facility] - 03/17/2025 11:45 AM EDT Urine Culture No growth. Specimen Source: Urine clean catch Generic External Data Provider LAB MICROBIOLOGY - GENERAL ORDERABLES Final Result Performing Organization Address City/[facility]/ZIP Co de Phone Number [facility] [address] [place] [phone] * (ABNORMAL) POCT Urinalysis (03/14/2025 11:29 AM [...] (03/01/2025 11:55 AM EDT) TPMT ACTIVITY [facility] Comment:Result Units: nmol/h r/mL RBCReference Range for TPMT Activity: >12 Normal 4-12 Heterozygote or low metabolizer <4 Homozygote Deficient RangeThis test was developed and its analytical performancecharacteristics have been determined by [employer].It has not been cleared or approved by the FDA. This assayhas been validated pursuant to the CLIA regulations and isused for clinical purposes.THIS TEST WAS PERFORMED AT:[employer] [id number] [facility] [place] [address]AKJEVQUIQUE RODRIGUEZ MD,PHD,ALICIA 03/01/2025 11:5 5 AM EDT 03/01/2025 11:55 AM EDT Generic External Data Provider LAB BLOOD ORDERAB LES Final Result [facility] [address] [place] [phone] * (ABNORMAL) Sed Rate by Modified Westergren (03/01/2025 11:55 AM EDT) [facility] Erythrocyte Sedimentation Rate 33(H) 0 - 20 MM/HR [facility] Comment:Patients with polycy themia and many hemoglobin abnormalitiesmay have depressed sed rates whereas patients with anemiamay have elevated sed rates. 03/01/2025 11:5 5 AM EDT 03/01/2025 11:55 AM EDT Generic External Data Provider LAB BLOOD ORDERAB LES Final Result Performing Organization Address City/[facility]/ZIP Co de Phone Number [facility] [address] [place] [phone] * C-reactive Protein (03/01/2025 11:55 AM EDT) [facility] C Reactive Protein 0.44 < or = 0.50 mg/dL [facility] 03/01/2025 11:5 5 AM EDT 03/01/2025 11:55 AM EDT Generic External Data Provider LAB BLOOD ORDERAB LES Final Result [facility] [address] [place] [phone] * POCT Rapid Influenza A OSOM (02/05/2025 12:33 PM EDT) [facility] Rapid Influenza A Ag Negative Negative, Indeterminate QC Media Lot # [id number] Lot# Expiration Date Swab Nasopharyngeal structure / Unknown 02/05/2025 12:33 PM EDT us Shanelle Mejia ANP POINT OF CARE TEST ENTER/EDIT OR DERABLES Final Result * POCT Rapid Influenza B OSOM (02/05/2025 12:32 PM EDT) [facility] Rapid Influenza B Ag Negative Negative, Indeterminate QC Media Lot # [id number] Lot# Expiration Date [id number] Swab 02/05/2025 12:3 2 PM EDT us Shanelle Mejia ANP POINT OF CARE TEST ENTER/EDIT OR DERABLES Final Result * POCT Rapid Covid-19 BinaxNOW (02/05/2025 12:28 PM EDT) [facility] Rapid COVID Ag Negative QC Media Lot # [id number] Lot# Expiration Date [id number] Swab 02/05/2025 12:2 8 PM EDT Shanelle Mejia ANP POINT OF CARE TEST ENTER/EDIT OR DERABLES Final Result * XR Chest 2 Views (02/05/2025 12:20 PM EDT) Anatomical Region Laterality Modality Chest Radiographic Melissa ging 02/05/2025 12:2 0 PM EDT Narrative 02/05/2025 1:23 [place] [address] XRay Report Signed Patient: Bree Chairez MR#: [id number] : 1960 Acct:[id number] Age/Sex: 64 / F ADM Date: 02/05/25 Loc: .HHCX Attending Dr: Shanelle Mejia AUTOMOBILE AND PROPERTY UNDERWRITER Ordering Physician: SHANELLE MEJIA NP Date of Service: 02/05/25 Procedure(s): XR chest 2V Accession Number(s): [id number] cc: SHANELLE MEJIA NP EXAMINATION: XR CHEST [...] 02/05/25 1320 DD/ 1220 TD/TT: 02/05/25 1230 Slate Cutter: Procedure Note Donotuseinterpreter, Image - 02/05/[address] [address] XRay Report Signed Patient: Heidi Chairez#: [id number] : 9Acct:[id number] Age/Sex: 64 / FADM Date: 02/05/25 Loc: HO.HHCX Attending Dr: Shanelle Mejia NP Ordering Physician: SHANELLE MEJIA NP Date of Service: 02/05/25 Procedure(s): XR chest 2V Accession Number(s): [id number] cc: SHANELLE MEJIA NP EXAMINATION: XR CHEST [...] 02/05/25 1320 DD/ 1220 TD/TT: 02/05/25 1230 Slate Cutter: Shanelle Mejia [facility] IMG XR PROCEDURES Final Result * Lipid Panel, Standard (09/07/2024 9:39 AM EDT) Triglycerides 94 <150 mg/dL [facility] Comment:Desirable Triglyceri de: less than 150 mg/dLBorderline High Triglyceride 150-199 mg/dLHigh Triglyceride: 200-499 mg/dLVery High Triglyceride: greater than or equal to 5OO mg/dL Cholesterol 149 <200 mg/dL [facility] Comment:Desirable Cholestero l: less than 200 mg/dLBorderline High Cholesterol: 200-239 mg/dLHigh Cholesterol: greater than 239 mg/dL LDL Cholesterol Calculated 88 <100 mg/dL [facility] Comment:Desirable LDL: less than 100 mg/dLNear Optimal/Above Optimal LDL: 110- 129 mg/dLBorderline High LDL: 130-159 mg/dLHigh LDL: 160-189 mg/dLVery High LDL: greater than or equal to 190 mg/dL HDL Cholesterol 43 >40 mg/dL [facility] Comment:Desirable HDL: great er than 40 mg/dL Note: This HDL assay may give artificially low results in patients with liver disease. Blood Venous blood specimen / Unknown 09/07/2024 9:39 AM EDT 09/07/2024 2:08 PM EDT us Gia Tenorio MD LAB BLOOD ORDERABLES Final Re sult [facility] [address] [place], [place] [phone] * BI Mammogram Screening Tomosynthesis Bilateral (07/05/2024 1:55 PM EST) Anatomical Region Laterality Modality Breast Bilateral Mammography 07/05/2024 1:55 PM EST Narrative 07/16/2024 10:03 AM EST [facility] [address] [place] [address] Mammography Report Signed Patient: Bree Chairez MR#: [id number] : 1960 Acct:[id number] Age/Sex: 63 / F ADM Date: 07/05/24 Loc: HO.MAMMO Attending Dr: Gia Tenorio MD Ordering Physician: Gia Tenorio MD Results: 1Ne gative Date of Service: 07/05/24 Follow Up: 1 Year From Orig inal Mammogram Procedure(s): MM tomosynthesis screening BI Accession Number(s): [id number] cc: Gia Tenorio MD EXAMINATION: MM SCREENING [...] 07/16/24 1000 DD/ 1355 TD/TT: 07/05/24 1410 Slate Cutter: Procedure Note Donotuseinterpreter, Image - 07/16/2024 [facility] [address] [place], [place] [address] Mammography Report Signed Patient: Heidi Chairez#: [id number] : 9Acct:[id number] Age/Sex: 63 / FADM Date: 07/05/24 Loc: BEN Attending Dr: Gia Tenorio MD Ordering Physician: Gia Tenorio MDResults: 1Ne gative Date of Service: 07/05/24Follow Up: 1 Year From Orig ina Mammogram Procedure(s): MM tomosynthesis screening BI Accession Number(s): [id number] cc: Gia Tenorio MD EXAMINATION: MM SCREENING [...] by: Pat Bonilla DO 07/16/2024 10:00 AM [facility] Dictated By: Pat Bonilla DO Signed By: <Electronically signed by Pat Bonilla DO in OV> 07/16/24 1000 DD/ 1355 TD/TT: 07/05/24 1410 Slate Cutter: Gai Tenorio MD IMG BI PROCEDURES Final Resul t * Hm Colonoscopy (03/07/2024) Colonoscopy Normal Normal us Gia Tenorio MD HEALTH MAINTENANCE Final Resu lt * ThinPrep Imaging Pap and HPV mRNA E6/E7 with Reflex to HPV 16,18/45 (12/05/2023 10:30 AM EDT) HPV 16 RNA TNP [facility] HPV 18/45 RNA TNP [facility] HPV nRNA E6/E7 Not Detected Not Detected [facility] Comment:Methodology: Transcr iption-Mediated AmplificationThis assay detects E6/E7 viral messenger RNA (mRNA) from 14high-risk HPV types (16,18,31,33,35,39,45,51,52,56,58,59,66,68).Cervical sources are required for HPV testing.If a vaginal source from a patient who has had atotal hysterectomy with removal of cervix wassubmitted, please contact the testing laboratoryfor alternative testing options.For additional information, please refer tohttp://education.[employer]/faq/LET247c0(This link if provided for information/educational purposes only.)THIS TEST WAS PERFORMED AT:[facility] [address] [address]VMKHYANNA SOLO MD SOURCE: SEE NOTE [facility] Comment:Cervix Report Status: [facility] Clinical Information: SEE NOTE [facility] Comment:R LMP: SEE NOTE [facility] Comment:NONE GIVEN Prev. PAP: SEE NOTE [facility] Comment:2020 Prev. BX: SEE NOTE [facility] Comment:NONE GIVEN Statement Of Adequacy: SEE NOTE [facility] Comment:SATISFACTORY FOR ALINE LUATION General Categorization: [facility] Interpretation/Result: SEE NOTE [facility] Comment:Cytology Results: Ne gative for intraepitheliallesion or malignancy.Atrophic pattern; predominantly parabasal cells Cytology Comment SEE NOTE [facility] Comment:This Pap test has be en evaluated with computerassisted technology. Loading Dock Hand: SEE NOTE [facility] Comment:RPR, CT (ASCP) CT sc reening location: [address] [address] Review Loading Dock Hand: [facility] Pathologist [facility] PAP Infection [facility] See Note SEE [facility] Comment:EXPLANATORY NOTE:The Pap is a [...] AM EDT 12/06/2023 9:23 AM EDT Narrative [facility] - 12/09/2023 8:39 AM EDT [id number] us Megha Wright CN LAB PATHOLOGY ORDERABLES Final Result Performing Organization Address City/[facility] Co de Phone Number [facility] [address] [place] [phone] [phone] * HEPATITIS C AB W/REFL TO HCV RNA, QN, PCR (08/20/2020 5:01 PM EST) HEPATITIS C ANTIBODY NON-REACT KARON NON-REACT K[facility] [employer] [facility] INDEX 0.04 <1.00 [facility] Comment: HCV antibody was non-reactive. There is no laboratory evidence of HCV infection. In most cases, no further action is required. However, if recent HCV exposure is suspected, a test for HCV RNA (test code 82384) is suggested. For additional information please refer to http://education.[employer]/faq/NTS96g4 (This link is being provided for informational/ educational purposes only.) 08/20/2020 5:01 PM EST us Jenna SUAREZ HISTORICAL/NON ORDERABLE LABS Final Result Performing Organization Address City/[facility]/ZIP Co de Phone Number [facility] [address] from Last 3 Months or Most Recently Relevant to Health Maintenance Insurance [facility] ONE CARE < 65 [place] [id number] Care Teams Granite Installer Relationship Specialty Start Date End Date Gia Tenorio MD [address] [place] [address] PCP - General Family Medicine 06/13/18
--- OUTSIDE RECORDS SUMMARY | 2025-03-27 19:38 | XMS_ITS | Encounter Summary ---
Author Organization [employer] Address [address] [place] [address] [address] [place] [address] Care Team Providers Care Security Solutions Engineer Name Role Phone Gia Tenorio MD Primary Care Provider [phone] Encounter Details Date Type Department Care Team (Late st Contact Info) Description 11/15/2023 Orders Only [facility] [address] [place] [address] Anat Van MD [address] [place] [address] Social History Tobacco Use Types Packs/Day Years [...] Description 05/08/2025 2:30 PM EST Office Visit [facility] [address] [place] [address] Megha Wright CNM [address] [place] [address] documented as of this encounter Visit Diagnoses Not on filedocumented in this encounter Care Teams Security Solutions Engineer Relationship Specialty Start Date End Date Gia Tenorio MD [address] [place] [address] PCP - General Family Medicine 06/13/18 documented as of this encounter
--- OUTSIDE RECORDS SUMMARY | 2025-03-27 19:38 | XMS_ITS | Encounter Summary ---
Author Organization [employer] Address [address] [place] [address] 7 [place] [address] Care Team Providers Care Calculating Machine Operator Name Role Phone Gai Tenorio MD Primary Care Provider [phone] Reason for Visit * Reason Onset Date Comments Med Refill 02/15/2025 Encounter Details Date Type Department Care Team ([facility] st Contact Info) Description 02/15/2025 Refill [facility] [address] [place] [address] Luigi Solomon MD [address] [place] [address] Social History Tobacco Use Types Packs/Day Years [...] Description 05/08/2025 2:30 PM EST Office Visit [facility] [address] [place] [address] Megha Wright CN [address] [place] [address] documented as of this encounter Visit Diagnoses Not on filedocumented in this encounter Care Teams Calculating Machine Operator Relationship Specialty Start Date End Date Gia Tenorio MD [address] [place] [address] PCP - General Family Medicine 06/13/18 documented as of this encounter
--- OUTSIDE RECORDS SUMMARY | 2025-03-27 19:38 | XMS_ITS | Encounter Summary ---
Author Organization [employer] Address [address] [place] [address] 7 [place] [address] Care Team Providers Care Organ Pipe Voicer Name Role Phone Gia Tenorio MD Primary Care Provider [phone] Reason for Visit * Reason Comments Med Refill Encounter Details Date Type Department Care Team (Late st Contact Info) Description 04/18/2023 Refill [facility] [address] [place] [address] Mercy Jeffries MD [address] [place] [address] Acute left-sided low back pain with left-sided [...] Description 05/08/2025 2:30 PM EST Office Visit [facility] [address] [place] [address] Megha Wright CNM [address] [place] [address] documented as of this encounter Visit Diagnoses Diagnosis Acute left-sided low back pain with left-sided sciatica Neck muscle spasm documented in this encounter Care Teams Organ Pipe Voicer Relationship Specialty Start Date End Date Gia Tenorio MD [address] [place] [address] PCP - General Family Medicine 06/13/18 documented as of this encounter
--- OUTSIDE RECORDS SUMMARY | 2025-03-27 19:38 | XMS_ITS | Encounter Summary ---
Author Organization [employer] Address [address] [place] [address] Care Team Providers Care Student Financial Services Counselor Name Role Phone Gia Tenorio MD Primary Care Provider [phone] Reason for Visit * Reason Comments Med Refill Encounter Details Date Type Department Care Team (Late Contact Info) Description 04/18/[address] [facility] [address] [place] [address] Luigi Solomon MD [address] [place] [address] Acute left-sided low back pain with left-sided [...] Encounters Date Type Department Care Team (Late Contact Info) Description 05/08/2025 2:30 PM EST Office Visit [facility] [address] [place] [address] Megha Wright CNM [address] [place], [place] [phone] documented as of this encounter Visit Diagnoses Diagnosis Acute left-sided low back pain with left-sided sciatica Neck muscle spasm documented in this encounter Care Teams Student Financial Services Counselor Relationship Specialty Start Date End Date Gia Tenorio MD [address] [place] [phone] PCP - General Family Medicine 06/13/18 documented as of this encounter
--- OUTSIDE RECORDS SUMMARY | 2025-03-27 19:38 | XMS_ITS | Encounter Summary ---
Author Organization [employer] Address [address] [place] [address] 7 [place] [address] Care Team Providers Care Electric Motor Tester Name Role Phone Gia Tenorio MD Primary Care Provider [phone] Reason for Visit * Reason Comments Med Refill Encounter Details Date Type Department Care Team (Late st Contact Info) Description 02/24/2023 Refill [facility] [address] [place] [phone] Mercy Jeffries MD [address] [place] [address] Acute left-sided low back pain with left-sided [...] Description 05/08/2025 2:30 PM EST Office Visit [facility] [address] [place] [address] Megha Wright CNM [address] [place] [address] documented as of this encounter Visit Diagnoses Diagnosis Acute left-sided low back pain with left-sided sciatica Neck muscle spasm documented in this encounter Care Teams Electric Motor Tester Relationship Specialty Start Date End Date Gia Tenorio MD [address] [place] [address] PCP - General Family Medicine 06/13/18 documented as of this encounter
--- OUTSIDE RECORDS SUMMARY | 2025-03-27 19:39 | XMS_ITS | Encounter Summary ---
Author Organization [employer] Address [address] [facility] [address] [place] [address] Care Team Providers Care Director Cloud Transformation Name Role Phone Gia Tenorio MD Primary Care Provider [phone] Encounter Details Date Type Department Care Team (Latest Contact Info) Description 03/27/2025 Travel Social History Tobacco Use Types Packs/Day [...] Description 05/08/2025 2:30 PM EST Office Visit [facility] [address] [place] [address] Megha Wright CN [address] [place], [place] [phone] documented as of this encounter Visit Diagnoses Not on filedocumented in this encounter Care Teams Director Cloud Transformation Relationship Specialty Start Date End Date Gia Tenorio MD [address] [place] [address] PCP - General Family Medicine 06/13/18 documented as of this encounter
--- OUTSIDE RECORDS SUMMARY | 2025-03-27 19:39 | XMS_ITS | Encounter Summary ---
Author Organization [employer] Address [address] [place] [address] 7 [place] [address] Care Team Providers Care Straightedge Man Name Role Phone Gia Tenorio MD Primary Care Provider [phone] Reason for Visit * Reason Comments Med Refill Encounter Details Date Type Department Care Team (Late st Contact Info) Description 10/22/2022 Refill [facility] [address] [place] [id number] Donna Amin MD [address] [place] [address] Neck muscle spasm Social History Tobacco Use [...] Office Visit [facility] [address] [place] [address] Megha Wright CNM [address] [place] [address] documented as of this encounter Visit Diagnoses Diagnosis Neck muscle spasm documented in this encounter Care Teams Straightedge Man Relationship Specialty Start Date End Date Gia Tenorio MD [address] [place] [address] PCP - General Family Medicine 06/13/18 documented as of this encounter
--- OUTSIDE RECORDS SUMMARY | 2025-03-27 19:39 | XMS_ITS | Encounter Summary ---
Author Organization [employer] Address [address] [place] [address] 7 [place] [address] Care Team Providers Care Electrical Products Sales Engineer Name Role Phone Gia Tenorio MD Primary Care Provider [phone] Reason for Visit * Reason Comments Med Refill Encounter Details Date Type Department Care Team (Late Contact Info) Description 02/24/2023 Refill [facility] [address] [place] [address] Liz Contreras MD [address] [place] [address] Social History Tobacco Use Types Packs/Day Years [...] Description 05/08/2025 2:30 PM EST Office Visit [facility] [address] [place], [place] [phone] Megha Wright CNM [address] [place], [place] [phone] documented as of this encounter Visit Diagnoses Not on filedocumented in this encounter Care Teams Electrical Products Sales Engineer Relationship Specialty Start Date End Date Gia Tenorio MD [address] [place] [address] PCP - General Family Medicine 06/13/18 documented as of this encounter
--- OUTSIDE RECORDS SUMMARY | 2025-03-27 19:39 | XMS_ITS | Encounter Summary ---
Author Organization [employer] Address [address] [place] [address] Care Team Providers Care Supervisor Lamp Shades Name Role Phone Gia Tenorio MD Primary Care Provider [phone] Encounter Details Date Type Department Care Team (Latest Contact Info) Description 07/24/2018 Abstract [facility] CONVERSIONS Dental, Provider, DDS Social History [...] Description 05/08/2025 2:30 PM EST Office Visit [facility] [address] [place] [address] Megha Wright CNM [address] [place] [address] documented as of this encounter Visit Diagnoses Not on filedocumented in this encounter Care Teams Supervisor Lamp Shades Relationship Specialty Start Date End Date Gia Tenorio MD [address] [place] [address] PCP - General Family Medicine 06/13/18 documented as of this encounter
--- OUTSIDE RECORDS SUMMARY | 2025-03-27 19:39 | XMS_ITS | Encounter Summary ---
Author Organization [employer] Address [address] [place] [address] Care Team Providers Care Electric Range Assembler Name Role Phone Gia Tenorio MD Primary Care Provider [phone] Reason for Visit * Reason Comments Med Refill Encounter Details Date Type Department Care Team (Late Contact Info) Description 02/24/2023 Refill [facility] & PEDS [address] [place], [place] [phone] Gia Tenorio MD [address] [place], [place] [phone] Benign essential hypertension; Mild persistent asthma without [...] Description 05/08/2025 2:30 PM EST Office Visit [facility] MED[facility]INE [address] [place], [place] [phone] Megha Wright CNM [address] [place], [place] [phone] documented as of this encounter Visit Diagnoses Diagnosis Benign essential hypertension Essential hypertension, benign Mild persistent asthma without complication documented in this encounter Care Teams Electric Range Assembler Relationship Specialty Start Date End Date Gia Tenorio MD [address] [place] [address] PCP - General Family Medicine 06/13/18 documented as of this encounter
--- OUTSIDE RECORDS SUMMARY | 2025-03-27 19:39 | XMS_ITS | Encounter Summary ---
Author Organization [employer] Address [address] [place] [address] Care Team Providers Care National Facilities Manager Name Role Phone Gia Tenorio MD Primary Care Provider [phone] Encounter Details Date Type Department Care Team (Latest Contact Info) Description 01/22/2019 Abstract [facility] CONVERSIONS Dental, Provider, DDS Social History Tobacco [...] Description 05/08/2025 2:30 PM EST Office Visit [facility] MED[facility]INE [address] [place] [address] Megha Wright CNM [address] [place] [address] documented as of this encounter Visit Diagnoses Not on filedocumented in this encounter Care Teams National Facilities Manager Relationship Specialty Start Date End Date Gia Tenorio MD [address] [place] [address] PCP - General Family Medicine 06/13/18 documented as of this encounter
--- OUTSIDE RECORDS SUMMARY | 2025-03-27 19:39 | XMS_ITS | Encounter Summary ---
Author Organization [employer] Address [address] [facility] 7 [place] [address] Care Team Providers Care Supervisor Modern Languages Name Role Phone Gia Tenorio MD Primary Care Provider [phone] Reason for Visit * Reason Onset Date Comments chart prep 03/26/2025 Encounter Details Date Type Department Care Team ([facility] st Contact Info) Description 03/26/2025 Telephone [facility] MED[facility]INE [address] [place] [address] Megha Wright CNM [address] [place] [address] chart prep Social History Tobacco Use Types Packs/Day Years [...] encounter Miscellaneous Notes * Telephone Encounter - [address] [place] - 03/26/2025 1:16 PM EDT ..Chart Prep Labs: not applicable Images: not applicable Vaccines due: Covid Due Referrals: Not Applicable Screenings: Not Applicable Overdue care gaps: SDOH, GAD7, and Oral Health documented in this encounter Plan of Treatment Upcoming Encounters Date Type Department Care Team (Late st Contact Info) Description 05/08/2025 2:30 PM EST Office Visit [facility] [address] [place] [address] Megha Wright CNM [address] [place] [address] documented as of this encounter Visit Diagnoses Not on filedocumented in this encounter Care Teams Supervisor Modern Languages Relationship Specialty Start Date End Date Gia Tenorio MD [address] [place] [address] PCP - General Family Medicine 06/13/18 documented as of this encounter
[2025-03-28 04:23] LABS: Bacterial Vaginosis PCR NEGATIVE (Negative); Candida Group PCR NOT DETECTED (Not Detect); Candida glab krusei PCR NOT DETECTED (Not Detect); Trichomonas vaginalis PCR NOT DETECTED (Not Detect)
== END 2025-03-27 18:51 | disposition home or self-care (01) ==
LOC: HO.HHCLNP 18:50
PROVIDERS: Visit Provider Advanced Practice Midwife
DX: Z20.2 Contact with and (suspected) exposure to infections with a predominantly sexual mode of transmission (principal); N94.89 Other specified conditions associated with female genital organs and menstrual cycle
CPT/HCPCS: 81515

== ENCOUNTER 2025-03-29 08:35 | Outpatient (AMB) | payer OTHER, SELFPAY ==
--- OUTSIDE RECORDS SUMMARY | 2025-03-27 14:30 | XMS_ITS | Encounter Summary ---
Author Organization [employer] Address [address] [facility] [address] [place] [address] Care Team Providers Care Bellhop Service Captain Name Role Phone Gia Tenorio MD Primary Care Provider [phone] Encounter Details Date Type Department Care Team ([facility] st Contact Info) Description 03/27/2025 2:30 PM EDT Office Visit [facility] [address], [place] [phone] Megha Wright [facility] [address] [place] [address] Atrophic vaginitis (Primary Dx); Vulvar burning Social History Tobacco Use Types Packs/Day Years [...] Sign Reading Time Taken Comments Blood Pressure 150/80 03/27/2025 2:32 PM EDT Pulse 67 03/27/2025 2:32 PM EDT Temperature 36.1 C (96.9 F) 03/27/2025 2:32 PM EDT Respiratory Rate 20 03/27/2025 2:32 PM EDT Oxygen Saturation 99% 03/27/2025 2:32 PM EDT Inhaled Oxygen Concentration - - Weight 91.8 kg (202 lb 6.4 oz) 03/27/2025 2:32 P M EDT Height - - Body Mass Index 31.7 08/23/2024 3:11 PM EDT documented in this encounter Progress Notes * Megha Wright CNM - 03/27/2025 2:30 PM EDT Subjective Patient ID: Bree Chairez is a 64 y.o. 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 Denies any other urinary, vaginal or pelvic symptoms. Rx'd Premarin cream by PCP, but it sounds like insurance doesn't cover it. Seen in urgent care for flank pain 03/16/2025. Urine culture negative. Pap NIL/HPV neg 2023. Pap NIL/HPV neg 09/2020. s/p treatment for right breast cancer 2018 with lumpectomy and radiation, completed5 years of letrozole. Mammogram BIRADs 1, cat b 06/2024. BMD from 12/2021 reviewed, showing osteopenia, no osteoporosis. No personal fracture, no parental hip fracture. Custodial AMAB partner, no safety concerns. Menopausal at 46 Female Problem The patient's pertinent negatives include no genital itching, genital lesions, genital odor, genital rash, missed menses, pelvic pain, vaginal bleeding or vaginal discharge. This is a new problem. The current episode started in the past 7 days. The problem occurs intermittently. The problem has been gradually improving. The pain is moderate. The problem affects the left side. She is not .Associated symptoms include back pain, constipation, diarrhea, frequency, joint pain, painful intercourse and urgency. Pertinent negatives include no abdominal pain, anorexia, chills, discolored urine, dysuria, fever, flank pain, headaches, hematuria, joint swelling, nausea, rash, sore throat or vomiting. The symptoms are aggravated by intercourse and urinating. She is sexually active. No, her partner does not have an STD. She uses vasectomy for contraception. She is postmenopausal. Review of Systems Constitutional: Negative for chills and fever. HENT: Negative for sore throat. Gastrointestinal: Positive for constipation and diarrhea. Negative for abdominal pain, anorexia, nausea and vomiting. Genitourinary: Positive for frequency and urgency. Negative for dysuria, flank pain, hematuria, missed menses, pelvic pain and vaginal discharge. Musculoskeletal: Positive for back pain and joint pain. Skin: Negative for rash. Neurological: Negative for headaches. Objective BP (!) 150/80 Pulse 67 Temp 96.9 ??F (36.1 ??C) (Temporal) Resp 20 Wt 202 lb 6.4 oz (91.8 kg) SpO2 99% BMI 31.70 kg/m?? 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 Constitutional: Appearance: Normal appearance. Genitourinary: General: Normal vulva. Labia: Right: No rash, tenderness, lesion or injury. Left: No rash, tenderness, lesion or injury. Vagina: No signs of injury and foreign body. Erythema present. No vaginal discharge, tenderness, bleeding, lesions or prolapsed vaginal eckert. Cervix: No discharge, friability, lesion, cervical bleeding or eversion. Comments: Tenderness of vestibule 2, 5 and 7 o'clock. Atrophic changes noted vaginally Neurological: Mental Status: She is alert. Psychiatric: Mood and Affect: Mood normal. Behavior: Behavior normal. Assessment/Plan Diagnoses and all orders for this visit: Atrophic vaginitis Will switch to estradiol cream. Use a fingertip to introitus nightly x 2 weeks, then continue twiceweekly. Return in 6 weeks for repeat exam, but followup sooner if symptoms worsen or do not improve. Reviewed very low risk for systemic absorption with vaginal estrogen. Vulvar burning - Bacterial Vaginosis Panel Likely due to atrophy but will send bacterial vaginosis swab and treat positive results. Other orders - Estradiol (Estrace) 0.01 % cream; Insert 0.5 g into the vagina See administration instructions. 0.5 g vaginally nightly x 14 nights, then twice weekly after that Answers submitted by the patient for this visit: Female Genital Questionnaire (Submitted on 03/20/2025) Chief Complaint: Female genitourinary complaint genital itching: No genital lesions: No genital odor: No genital rash: No missed menses: No pelvic pain: No vaginal bleeding: No vaginal discharge: No Chronicity: new Onset: in the past 7 days Frequency: intermittently Progression since onset: gradually improving Pain severity: moderate Affected side: left now?: No abdominal pain: No anorexia: No back pain: Yes chills: No constipation: Yes diarrhea: Yes discolored urine: No dysuria: No fever: No flank pain: No frequency: Yes headaches: No hematuria: No joint pain: Yes joint swelling: No nausea: No painful intercourse: Yes rash: No sore throat: No urgency: Yes vomiting: No Aggravated by: intercourse, urinating Sexual activity: sexually active Partner with STD symptoms: no control: vasectomy Menstrual history: postmenopausal documented in this encounter Plan of Treatment Upcoming Encounters Date Type Department Care Team (Late st Contact Info) Description 05/08/2025 2:30 PM EST Office Visit [facility] [address] [place] [address] Megha Wright CNM [address] [place] [address] documented as of this encounter Procedures Procedure Name Priority Date/Time Associated Diagnosis Comments BACTERIAL VAGINOSIS PANEL Routine 03/27/2025 3:11 PM EDT Vulvar burning documented in this encounter Results * Bacterial Vaginosis Panel (03/27/2025 3:11 PM EDT) TRICHOMONAS VAGINALIS DETECTION BY PCR NOT DETECTED Not Detect [facility] BACTERIAL VAGINOSIS DETECTION BY PCR NEGATIVE Negative [facility] Comment:The BV organism targ ets of the Xpert Xpress MVP test can becommensal in women; Xpert Xpress MVP positive results forbacterial vaginosis should be considered in conjunction withother clinical and patient information to determine thedisease status. Organisms that are not detected by the XpertXpress MVP test have also been reported to be associatedwith BV and aerobic vaginitis.The Xpert Xpress MVP test performance has not been evaluatedin patients under the age of 14. ANABEL GROUP DETECTION BY PCR NOT DETECTED Not Detect [facility] Naabel glab krusei PCR NOT DETECTED Not Detect [facility] Swab Vaginal structure / Unknown 03/27/2025 3:11 PM EDT 03/27/2025 6:52 PM EDT us Megha [facility] MICROBIOLOGY - GENERA L ORDERABLES Final Result [facility] [address] [place] [phone] [phone] documented in this encounter Visit Diagnoses Diagnosis Atrophic vaginitis- Primary Postmenopausal atrophic vaginitis Vulvar burning documented in this encounter Care Teams Bellhop Service Captain Relationship Specialty Start Date End Date Gia Tenorio MD [address] [place] [id number] PCP - General Family Medicine 06/13/18 documented as of this encounter
--- OUTSIDE RECORDS SUMMARY | 2025-03-29 08:58 | XMS_ITS | Encounter Summary ---
Author Organization [employer] Address [address] [place] [address] Care Team Providers Care Bleach Supervisor Name Role Phone Gia Tenorio MD Primary Care Provider [phone] Reason for Visit * Reason Comments Med Refill Encounter Details Date Type Department Care Team (Late Contact Info) Description 04/18/2023 Refill [facility] MED & PEDS [address] [place] [address] Luigi Solomon MD [address] [place] [address] Acute left-sided low back pain with left-sided [...] Description 05/08/2025 2:30 PM EST Office Visit [facility] [address] [place] [address] Megha Wright CNM [address] [place], [place] [phone] documented as of this encounter Visit Diagnoses Diagnosis Acute left-sided low back pain with left-sided sciatica Neck muscle spasm documented in this encounter Care Teams Bleach Supervisor Relationship Specialty Start Date End Date Gia Tenorio MD [address] [place] [address] PCP - General Family Medicine 06/13/18 documented as of this encounter
--- OUTSIDE RECORDS SUMMARY | 2025-03-29 08:59 | XMS_ITS | Encounter Summary ---
Author Organization [employer] Address [address] [place] [address] Care Team Providers Care Instructional Manager Name Role Phone Gia Tenorio MD Primary Care Provider [phone] Encounter Details Date Type Department Care Team (Latest Contact Info) Description 07/24/2018 Abstract [facility] CONVERSIONS Dental, Provider, DDS Social History Tobacco [...] Description 05/08/2025 2:30 PM EST Office Visit [facility] [address] [place] [address] Megha Wright CNM [address] [place] [address] documented as of this encounter Visit Diagnoses Not on filedocumented in this encounter Care Teams Instructional Manager Relationship Specialty Start Date End Date Gia Tenorio MD [address] [place] [address] PCP - General Family Medicine 06/13/18 documented as of this encounter
--- OUTSIDE RECORDS SUMMARY | 2025-03-29 08:59 | XMS_ITS | Encounter Summary ---
Author Organization [email or web address] Address [address] [place] [address] 7 [place] [address] Care Team Providers Care Benefits Counselor Name Role Phone Gia Tenorio MD Primary Care Provider [phone] Reason for Visit * Reason Onset Date Comments Med Refill 02/15/2025 Encounter Details Date Type Department Care Team ([facility] st Contact Info) Description 02/15/[address] [facility] MED [facility] PEDS [address] [place] [address] Luigi Solomon MD [address] [place] [address] Social History Tobacco Use Types Packs/Day Years [...] 05/08/2025 2:30 PM EST Office Visit [facility] [address] [place] [address] Megha Wright CN [address] [place] [address] documented as of this encounter Visit Diagnoses Not on filedocumented in this encounter Care Teams Benefits Counselor Relationship Specialty Start Date End Date Gia Tenorio MD [address] [place] [address] PCP - General Family Medicine 06/13/18 documented as of this encounter
--- OUTSIDE RECORDS SUMMARY | 2025-03-29 08:59 | XMS_ITS | Encounter Summary ---
Author Organization [email or web address] Address [address] [place] [address] 7 [place] [address] Care Team Providers Care Full Service Vending Driver Name Role Phone Gia Tenorio MD Primary Care Provider [phone] Reason for Visit * Reason Comments Med Refill Encounter Details Date Type Department Care Team (Late st Contact Info) Description 02/24/2023 Refill [facility] [address] [place] [address] Mercy Jeffries MD [address] [place] [address] Acute left-sided low back pain with left-sided [...] 05/08/2025 2:30 PM EST Office Visit [facility] [address] [place] [address] Megha Wright CNM [address] [place] [address] documented as of this encounter Visit Diagnoses Diagnosis Acute left-sided low back pain with left-sided sciatica Neck muscle spasm documented in this encounter Care Teams Full Service Vending Driver Relationship Specialty Start Date End Date Gia Tenorio MD [address] [place] [address] PCP - General Family Medicine 06/13/18 documented as of this encounter
--- OUTSIDE RECORDS SUMMARY | 2025-03-29 08:59 | XMS_ITS | Clinical Summary ---
Author Organization [employer] Address [address] [place] [address] 7 [place] [address] Care Team Providers Care Parasitology Teacher Name Role Phone Gia Tenorio MD Primary Care Provider [phone] Allergies No known active allergies Medications * [...] Diagnosed Date Chronic diarrhea 08/26/2024 Mesenteric panniculitis ([facility]/HCC) 08/26/2024 Achalasia of esophagus 12/01/2023 Osteopenia 06/03/2022 [...] Description 03/27/2025 2:30 PM EDT Office Visit [facility] [address] [place] [address] Megha Wright CNM Atrophic vaginitis (Primary Dx); Vulvar burning 03/27/2025 Travel 03/26/[address] [address] Megha Wright CNM chart prep 03/20/2025 Travel 03/16/2025 Orders Only GENERIC EXTERNAL DATA DEPARTMENT Provider, Generic External Data 03/14/2025 11:15 AM EDT Office Visit [facility] [address] [place] [address] Gia Tenorio MD Left costovertebral angle tenderness (Primary Dx); Encounter for immunization; Benign essential hypertension; Vitamin D deficiency; Mesenteric panniculitis (CMS/HCC) (HCC); Infiltrating ductal carcinoma of right female breast (CMS/HCC) (HCC); Kidney stones; Dyspareunia, female 03/14/2025 Travel 03/11/2025 Telephone [facility] [address] [place] [address] Gia Tenorio MD Chart Prep 03/08/2025 Travel 03/01/2025 Orders Only GENERIC EXTERNAL DATA DEPARTMENT Provider, Generic External Data 02/18/2025 11:00 AM EDT Telemedicine [address] [address] Mary Kate Munson RN Pleuritic pain 02/18/2025 Travel 02/18/2025 Refill [facility] [address] [place] [address] Gia Tenorio MD Benign essential hypertension; Mild persistent asthma without complication 02/15/2025 Travel 02/15/2025 Refill [facility] [address] [place] [address] Luigi Solomon MD 02/15/2025 Refill [facility] [address] [place] [address] Gia Tenorio MD Major depressive disorder in remission, unspecified whether recurrent (CMS/[facility], [facility]); Benign essential hypertension; Mild persistent asthma without complication 02/15/2025 Refill [facility] [address] [place] [address] Luigi Solomon MD Osteopenia of multiple sites; Vitamin D deficiency; Neuralgia; Acute left-sided low back pain with left-sided sciatica; Neck muscle spasm 02/08/2025 Telephone [facility] [address] [place] [address] Eladia Castillo RN Status Check post Pneumonia XR Result 02/05/2025 11:30 AM EDT Office Visit [facility] [address] [place] [address] Shanelle Mejia ANP Pleuritic pain (Primary Dx) 02/05/2025 Results Follow-Up [address] [address] Shanelle Mejia ANP XR Chest 2 Views 02/05/2025 Travel 01/21/2025 Refill [facility] [address] [place] [address] Gia Tenorio MD 01/09/2025 Refill [facility] [address] [place] [address] Gia Tenorio MD from Last 3 Months [...] Nancy quinteros Relation Name Status Comments Father Mavercik Bryanna lez Father's Sister 1 Patsy Bryanna [...] Description 05/08/2025 2:30 PM EST Office Visit [facility] [address] [place] [address] Megha Wright, MARIA D [address] [place] [address] Health Maintenance Due Date Last Done Comments [...] Routine 03/27/2025 3:11 PM EDT Vulvar burning CULTURE, URINE, ROUTINE Routine 03/16/2025 11:10 AM [...] Recently Relevant to Health Maintenance Results * Bacterial Vaginosis Panel (03/27/2025 3:11 PM EDT) TRICHOMONAS VAGINALIS DETECTION BY PCR NOT DETECTED Not Detect [facility] BACTERIAL VAGINOSIS DETECTION BY PCR NEGATIVE Negative [facility] Comment:The BV organism targ ets [...] DETECTION BY PCR NOT DETECTED Not Detect [facility] Anabel glab krusei PCR NOT DETECTED Not Detect [facility] Swab Vaginal structure / Unknown 03/27/2025 3:11 PM EDT 03/27/2025 6:52 PM EDT Megha HARRY LAB MICROBIOLOGY - GENERA L ORDERABLES Final Result Performing Organization Address [facility]/ZIP Co de Phone Number [facility] [address] [place] [phone] * Culture, Urine, Routine (03/16/2025 11:10 AM EDT) Urine Urine specimen obtained by clean catch procedure / Unknown 03/16/2025 11:10 AM EDT 03/16/2025 1:51 PM EDT Comment:UACC Narrative [facility] - 03/17/2025 11:45 AM EDT Urine Culture No growth. Specimen Source: Urine clean catch Generic External Data Provider LAB MICROBIOLOGY - GENERAL ORDERABLES Final Result Performing Organization Address City/[facility]/ZIP Co de Phone Number [facility] [address] [place] [phone] * (ABNORMAL) POCT Urinalysis (03/14/2025 11:29 [...] (03/01/2025 11:55 AM EDT) TPMT ACTIVITY 15 [facility] Comment:Result Units: nmol/h r/mL RBCReference Range for TPMT Activity: >12 Normal 4-12 Heterozygote or low metabolizer <4 Homozygote Deficient RangeThis test was developed and its analytical performancecharacteristics have been determined by [employer].It has not been cleared or approved by the FDA. This assayhas been validated pursuant to the CLIA regulations and isused for clinical purposes.THIS TEST WAS PERFORMED AT:[employer] [id number] [place] [address]DGJMBQUIQUE RODRIGUEZ MD,PHD,ALICIA 03/01/2025 11:5 5 AM EDT 03/01/2025 11:55 AM EDT Generic External Data Provider LAB BLOOD ORDERAB LES Final Result [facility] [address] [place] [phone] * (ABNORMAL) Sed Rate by Modified Demetrioergren (03/01/2025 11:55 AM EDT) Erythrocyte Sedimentation Rate 33(H) 0 - 20 MM/HR [facility] Comment:Patients with polycy themia and many hemoglobin abnormalitiesmay have depressed sed rates whereas patients with anemiamay have elevated sed rates. 03/01/2025 11:5 5 AM EDT 03/01/2025 11:55 AM EDT us Generic External Data Provider LAB BLOOD ORDERAB LES Final Result Performing Organization Address City/[facility]/ZIP Co de Phone Number [facility] [address] [place] [phone] * C-reactive Protein (03/01/2025 11:55 AM EDT) [facility] C Reactive Protein 0.44 < or = 0.50 mg/dL [facility] 03/01/2025 11:5 5 AM EDT 03/01/2025 11:55 AM EDT [employer] External Data Provider LAB BLOOD ORDERAB LES Final Result Performing Organization Address [facility] Co de Phone Number [facility] [address] [place] [phone] * POCT Rapid Influenza A OSOM (02/05/2025 12:33 PM EDT) [facility] Rapid Influenza A Ag Negative Negative, Indeterminate QC Media Lot # [id number] Lot# Expiration Date , Swab Nasopharyngeal structure / Unknown 02/05/2025 12:33 PM EDT Shanelle Mejia ANP POINT OF CARE TEST ENTER/EDIT OR DERABLES Final Result * POCT Rapid Influenza B OSOM (02/05/2025 12:32 PM EDT) [facility] Rapid Influenza B Ag Negative Negative, Indeterminate QC Media Lot # [id number] Lot# Expiration Date , Swab 02/05/2025 12:3 2 PM EDT Shanelle Mejia ANP POINT OF CARE TEST ENTER/EDIT OR DERABLES Final Result * POCT Rapid Covid-19 [employer] (02/05/2025 12:28 PM EDT) [facility] Rapid COVID Ag Negative QC Media Lot # [id number] Lot# Expiration Date [id number] Swab 02/05/2025 12:2 8 PM EDT Shanelle KRAMER POINT OF CARE TEST ENTER/EDIT OR DERABLES Final Result * XR Chest 2 Views (02/05/2025 12:20 PM EDT) Anatomical Region Laterality Modality Chest Radiographic Melissa ging 02/05/2025 12:2 0 PM EDT Narrative 02/05/2025 1:23 PM EDT [address] [address] XRay Report Signed Patient: Bree Chairez MR#: [id number] : 1960 Acct:[id number] Age/Sex: 64 / F ADM Date: 02/05/25 Loc: HO.HHCX Attending Dr: Shanelle Mejia [employer] Ordering Physician: SHANELLE MEJIA NP Date of Service: 02/05/25 Procedure(s): XR chest 2V Accession Number(s): [id number] cc: SHANELLE MEJIA [employer] DES[employer] EXAMINATION: XR CHEST 2 VIEWS HISTORY: fever, [...] 02/05/25 1320 DD/ 1220 TD/TT: 02/05/25 1230 Director Digital Sales: Procedure Note Donotuseinterpreter, Image - 02/05/[address] [place] [address] XRay Report Signed Patient: Heidi Chairez#: [id number] : 9Acct:[id number] Age/Sex: 64 / FADM Date: 02/05/25 Loc: HO.HHCX Attending Dr: Shanelle Mejia NP Ordering Physician: SHANELLE MEJIA NP Date of Service: 02/05/25 Procedure(s): XR chest 2V Accession Number(s): [id number] cc: SHANELLE MEJIA NP EXAMINATION: XR CHEST [...] 02/05/25 1320 DD/ 1220 TD/TT: 02/05/25 1230 Director Digital Sales: Shanelle Mejia ANP IMG XR PROCEDURES Final Result * Lipid Panel, Standard (09/07/2024 9:39 AM EDT) Triglycerides 94 <150 mg/dL [facility] Comment:Desirable Triglyceri de: less than 150 mg/dLBorderline High Triglyceride 150-199 mg/dLHigh Triglyceride: 200-499 mg/dLVery High Triglyceride: greater than or equal to 5OO mg/dL Cholesterol 149 <200 mg/dL [facility] Comment:Desirable Cholestero l: less than 200 mg/dLBorderline High Cholesterol: 200-239 mg/dLHigh Cholesterol: greater than 239 mg/dL LDL Cholesterol Calculated 88 <100 mg/dL [facility] Comment:Desirable LDL: less than 100 mg/dLNear Optimal/Above Optimal LDL: 110- 129 mg/dLBorderline High LDL: 130-159 mg/dLHigh LDL: 160-189 mg/dLVery High LDL: greater than or equal to 190 mg/dL HDL Cholesterol 43 >40 mg/dL [facility] Comment:Desirable HDL: great er than 40 mg/dL Note: This HDL assay may give artificially low results in patients with liver disease. Blood Venous blood specimen / Unknown 09/07/2024 9:39 AM EDT 09/07/2024 2:08 PM EDT us Gia Tenorio MD LAB BLOOD ORDERABLES Final Re sult [facility] [address] [place] [phone] * BI Mammogram Screening Tomosynthesis Bilateral (07/05/2024 1:55 PM EST) Anatomical Region Laterality Modality Breast Bilateral Mammography 07/05/2024 1:55 PM EST Narrative 07/16/2024 10:03 AM EST [address] [place] [address] Mammography Report Signed Patient: Bree Chairez MR#: [id number] : 1960 Acct:[id number] Age/Sex: 63 / F ADM Date: 07/05/24 Loc: HO.MAMMO Attending Dr: Gia Tenorio MD Ordering Physician: Gia Tenorio MD Results: 1Ne gative Date of Service: 07/05/24 Follow Up: 1 Year From [facility] ina Mammogram Procedure(s): MM tomosynthesis screening BI Accession Number(s): [id number] cc: Gia Tenorio MD EXAMINATION: MM SCREENING [...] 07/16/24 1000 DD/ 1355 TD/TT: 07/05/24 1410 Director Digital Sales: Procedure Note Donotuseinterpreter, Image - 07/16/2024 [facility] [address] [place] [address] Mammography Report Signed Patient: Heidi Chairez#: [id number] : 9Acct:[id number] Age/Sex: 63 / FADM Date: 07/05/24 Loc: HO.MAMMO Attending Dr: Gia Tenorio MD Ordering Physician: Gia Tenorio MDResults: 1Ne gative Date of Service: 07/05/24Follow Up: 1 Year From Orig inal Mammogram Procedure(s): MM tomosynthesis screening BI Accession Number(s): [id number] cc: Gia Tenorio MD EXAMINATION: MM SCREENING [...] 07/16/24 1000 DD/ 1355 TD/TT: 07/05/24 1410 Director Digital Sales: us Gia Tenorio MD IMG BI PROCEDURES Final Resul t * Hm Colonoscopy (03/07/2024) Colonoscopy Normal Normal us Gia Tenorio MD HEALTH MAINTENANCE Final Resu lt * ThinPrep Imaging Pap and HPV mRNA E6/E7 with Reflex to HPV 16,18/45 (12/05/2023 10:30 AM EDT) HPV 16 RNA WYP [facility] HPV 18/45 RNA [facility] HPV nRNA E6/E7 Not Detected Not Detected [facility] Comment:Methodology: Transcr iption-Mediated AmplificationThis assay detects E6/E7 viral messenger RNA (mRNA) from 14high-risk HPV types (16,18,31,33,35,39,45,51,52,56,58,59,66,68).Cervical sources are required for HPV testing.If a vaginal source from a patient who has had atotal hysterectomy with removal of cervix wassubmitted, please contact the testing laboratoryfor alternative testing options.For additional information, please refer tohttp://education.Treatful/faq/OTU608f0(This link if provided for information/educational purposes only.)THIS TEST WAS PERFORMED AT:[employer] [place], [place] [address]ANNA SOLO MD SOURCE: SEE NOTE [facility] Comment:Cervix Report Status: [facility] Clinical Information: SEE NOTE [facility] Comment:R LMP: SEE NOTE [facility] Comment:NONE GIVEN Prev. PAP: SEE NOTE [facility] Comment:2020 Prev. BX: SEE NOTE [facility] Comment:NONE GIVEN Statement Of Adequacy: SEE NOTE [facility] Comment:SATISFACTORY FOR ALINE LUATION General Categorization: [facility] Interpretation/Result: SEE NOTE [facility] Comment:Cytology Results: Ne gative for intraepitheliallesion or malignancy.Atrophic pattern; predominantly parabasal cells Cytology Comment SEE NOTE [facility] Comment:This Pap test has be en evaluated with computerassisted technology. Ripsawyer: SEE NOTE [facility] Comment:RPR, CT (ASCP) CT sc reening location: [address] [address] Review Ripsawyer: [facility] Pathologist [facility] PAP Infection [facility] See Note SEE NOTE [facility] Comment:EXPLANATORY NOTE:The Pap is a [...] AM EDT 12/06/2023 9:23 AM EDT Narrative [facility] - 12/09/2023 8:39 AM EDT [id number] us Megha Wright [facility] LAB PATHOLOGY ORDERABLES Final Result [facility] [address] [place] [phone] [phone] * HEPATITIS C AB W/REFL TO [...] a test for HCV RNA (test code 55434) is suggested. For additional information please refer to http://education.Treatful/faq/TYZ81g1 (This link is being provided for informational/ educational purposes only.) 08/20/2020 5:01 PM EST Jenna Carballo PHYSICAL MEDICINE SPECIALIST HISTORICAL/NON ORDERABLE LABS Final Result [facility] [address] from Last 3 Months or Most Recently Relevant to Health Maintenance Insurance [facility] < 63 [place] [id number] Care Teams Parasitology Teacher Relationship Specialty Start Date End Date Gia Tenorio MD [address] [place] [address] PCP - General Family Medicine 06/13/18
--- OUTSIDE RECORDS SUMMARY | 2025-03-29 08:59 | XMS_ITS | Encounter Summary ---
Author Organization [employer] Address [address] [facility] 7 [place] [address] Care Team Providers Care Inbound Sales Advisor Name Role Phone Gia Tenorio MD Primary Care Provider [phone] Reason for Visit * Reason Onset Date Comments chart prep 03/26/2025 Encounter Details Date Type Department Care Team ([facility] st Contact Info) Description 03/26/2025 Telephone [facility] [address] [place] [address] Megha Wright CNM [address] [place] [address] chart prep Social History Tobacco Use Types [...] 2:30 PM EST Office Visit [facility] [address] [place] [address] Megha Wright CNM [address] [place] [address] documented as of this encounter Visit Diagnoses Not on filedocumented in this encounter Care Teams Inbound Sales Advisor Relationship Specialty Start Date End Date Gia Tenorio MD [address] [place] [address] PCP - General Family Medicine 06/13/18 documented as of this encounter
--- OUTSIDE RECORDS SUMMARY | 2025-03-29 08:59 | XMS_ITS | Encounter Summary ---
Author Organization [employer] Address [address] [place] [address] 7 [place] [address] Care Team Providers Care Dairy Tester Name Role Phone Gia Tenorio MD Primary Care Provider [phone] Encounter Details Date Type Department Care Team (Late st Contact Info) Description 11/15/2023 Orders Only [facility] [address] [place] [address] Anat Van MD [address] [place] [address] Social History Tobacco Use Types Packs/Day Years [...] Description 05/08/2025 2:30 PM EST Office Visit [facility] [address] [place] [address] Megha Wright CNM [address] [place] [address] documented as of this encounter Visit Diagnoses Not on filedocumented in this encounter Care Teams Dairy Tester Relationship Specialty Start Date End Date Gia Tenorio MD [address] [place] [address] PCP - General Family Medicine 06/13/18 documented as of this encounter
--- OUTSIDE RECORDS SUMMARY | 2025-03-29 08:59 | XMS_ITS | Encounter Summary ---
Author Organization [employer] Address [address] [place] [address] 7 [place] [address] Care Team Providers Care Composite Science Teacher Name Role Phone Gia Tenorio MD Primary Care Provider [phone] Reason for Visit * Reason Comments Med Refill Encounter Details Date Type Department Care Team (Late Contact Info) Description 02/24/2023 Refill [facility]S [address] [place] [address] Liz Contreras MD [address] [place] [address] Social History Tobacco Use Types Packs/Day Years [...] Description 05/08/2025 2:30 PM EST Office Visit [facility] MEDICINE [address] [place], [place] [phone] Megha Wright CNM [address] [place], [place] [phone] documented as of this encounter Visit Diagnoses Not on filedocumented in this encounter Care Teams Composite Science Teacher Relationship Specialty Start Date End Date Gia Tenorio MD [address] [place] [address] PCP - General Family Medicine 06/13/18 documented as of this encounter
--- OUTSIDE RECORDS SUMMARY | 2025-03-29 08:59 | XMS_ITS | Encounter Summary ---
Author Organization [employer] Address [address] [place] [address] 7 [place] [address] Care Team Providers Care Wicker Worker Name Role Phone Gia Tenorio MD Primary Care Provider [phone] Reason for Visit * Reason Comments Med Refill Encounter Details Date Type Department Care Team (Late st Contact Info) Description 10/22/2022 Refill [facility] [address] [place] [address] Donna Amin MD [address] [place] [address] Neck muscle spasm Social History Tobacco Use [...] Description 05/08/2025 2:30 PM EST Office Visit [facility] [address] [place] [address] Megha Wright CNM [address] [place] [address] documented as of this encounter Visit Diagnoses Diagnosis Neck muscle spasm documented in this encounter Care Teams Wicker Worker Relationship Specialty Start Date End Date Gia Tenorio MD [address] [place] [address] PCP - General Family Medicine 06/13/18 documented as of this encounter
--- OUTSIDE RECORDS SUMMARY | 2025-03-29 08:59 | XMS_ITS | Encounter Summary ---
Author Organization [employer] Address [address] [facility] 7t [place] [address] Care Team Providers Care Customer Services Coordinator Name Role Phone Gia Tenorio MD Primary Care Provider [phone] Encounter Details Date Type Department Care Team [...] Description 05/08/2025 2:30 PM EST Office Visit [facility] MED[facility]INE [address] [place] [address] Megha Wright CN [address] [place], [place] [phone] documented as of this encounter Visit Diagnoses Not on filedocumented in this encounter Care Teams Customer Services Coordinator Relationship Specialty Start Date End Date Gia Tenorio MD [address] [place] [address] PCP - General Family Medicine 06/13/18 documented as of this encounter
--- OUTSIDE RECORDS SUMMARY | 2025-03-29 08:59 | XMS_ITS | Encounter Summary ---
Author Organization [employer] Address [address] [place] [address] Care Team Providers Care Orthopaedic Nurse Name Role Phone Gia Tenorio MD Primary Care Provider [phone] Reason for Visit * Reason Comments Med Refill Encounter Details Date Type Department Care Team (Late Contact Info) Description 02/24/2023 Refill [facility] MED & PEDS [address] [place], [place] [phone] Gia Tenorio MD [address] [place], [place] [phone] Benign essential hypertension; Mild persistent asthma without [...] Description 05/08/2025 2:30 PM EST Office Visit [facility] MEDICINE [address] [place], [place] [phone] Megha Wright CNM [address] [place], [place] [phone] documented as of this encounter Visit Diagnoses Diagnosis Benign essential hypertension Essential hypertension, benign Mild persistent asthma without complication documented in this encounter Care Teams Orthopaedic Nurse Relationship Specialty Start Date End Date Gia Tenorio MD [address] [place] [address] PCP - General Family Medicine 06/13/18 documented as of this encounter
--- OUTSIDE RECORDS SUMMARY | 2025-03-29 08:59 | XMS_ITS | Encounter Summary ---
Author Organization [employer] Address [address] [place] [address] [address] [place] [address] Care Team Providers Care Wind Turbine Service Technician Name Role Phone Gia Tenorio MD Primary Care Provider [phone] Reason for Visit * Reason Comments Med Refill Encounter Details Date Type Department Care Team (Late st Contact Info) Description 04/18/2023 Refill [facility] [address] [place] [address] Mercy Jeffries MD [address] [place] [address] Acute left-sided low back pain with left-sided [...] Description 05/08/2025 2:30 PM EST Office Visit [facility] [address] [place] [address] Megha Wright CNM [address] [place] [address] documented as of this encounter Visit Diagnoses Diagnosis Acute left-sided low back pain with left-sided sciatica Neck muscle spasm documented in this encounter Care Teams Wind Turbine Service Technician Relationship Specialty Start Date End Date Gia Tenorio MD [address] [place] [address] PCP - General Family Medicine 06/13/18 documented as of this encounter
--- OUTSIDE RECORDS SUMMARY | 2025-03-29 08:59 | XMS_ITS | Encounter Summary ---
Author Organization [employer] Address [address] [place] [address] Care Team Providers Care Spray Mixer Name Role Phone Gia Tenorio MD Primary Care Provider [phone] Encounter Details Date Type Department Care Team (Latest Contact Info) Description 01/22/2019 Abstract [facility] CONVERSIONS Dental, Provider, DDS Social History Tobacco [...] [facility] [address] [place] [address] Megha Wright CNM [address] [place] [address] documented as of this encounter Visit Diagnoses Not on filedocumented in this encounter Care Teams Spray Mixer Relationship Specialty Start Date End Date Gia Tenorio MD [address] [place] [address] PCP - General Family Medicine 06/13/18 documented as of this encounter
--- OUTSIDE RECORDS SUMMARY | 2025-03-29 08:59 | XMS_ITS | Encounter Summary ---
Author Organization [employer] Address [address] [place] [address] Care Team Providers Care District Administrator Name Role Phone Gia Tenorio MD Primary Care Provider [phone] Encounter Details Date Type Department Care Team (Late st Contact Info) Description 04/21/2023 Abstract [facility] [address] [place] [id number] Ana Mahoney Social History Tobacco Use Types [...] Description 05/08/2025 2:30 PM EST Office Visit [facility] [address] [place] [address] Megha Wright CNM [address] [place] [address] documented as of this encounter Visit Diagnoses Not on filedocumented in this encounter Care Teams District Administrator Relationship Specialty Start Date End Date Gia Tenorio MD [address] [place] [address] PCP - General Family Medicine 06/13/18 documented as of this encounter
--- NOTE | 2025-03-29 09:32 | MHC.OFFVIS ---
Intake Visit Reasons: assess for interstim Intake Note: New patient presents today for initial visit for assess for interstim Urology Medication:None Blood Thinner:None Antibiotic Allergies:None Assessment Expert Required: Yes Assessment Expert Services: Assessment Expert Present Assessment Expert Name: Grecia Ortiz-- Information Interpreted: non-clinical & clinical Allergies No Known Allergies Allergy (Verified 03/29/25 09:32) Medication List - Last Reconciled 03/29/25 by Ignacio Leyva MD albuterol sulfate 90 mcg/actuation 1 puff inhalation Q4H PRN amlodipine 5 mg PO DAILY atorvastatin 1 tab PO DAILY cholecalciferol (vitamin D3) 50 mcg PO DAILY dicyclomine 1 tab PO BID PRN enalapril maleate 1 tab PO BID esomeprazole magnesium 20 mg PO BID famotidine 40 mg PO BEDTIME gabapentin 100 mg PO DAILY hydrochlorothiazide 25 mg PO QAM levothyroxine 100 mcg PO DAILY loratadine 1 tab PO DAILY meclizine 1 tab PO TID PRN meloxicam 7.5 mg PO BID methocarbamol 500 mg PO TID metoprolol succinate ER 100 mg PO DAILY naproxen (EC-Naprosyn) 500 mg PO BID sumatriptan succinate 1 tab PO DAILY triamcinolone acetonide 0.1% 1 appl topical BID-TID venlafaxine ER 1 cap PO DAILY HPI Comments Details: 03/29/25-- History of Present Illness The patient is a 64-year-old female presenting with fecal incontinence and urinary symptoms. The fecal incontinence has been a significant concern, and she was referred by Dr. Nassar, a gastrointestinal specialist, for sacral neuromodulation evaluation. Muscle testing indicated some difficulties, and a test phase involving sacral nerve stimulation was discussed to assess potential improvement. The patient also reports urinary symptoms, painful urination, which have been persistent. She has experienced left flank pain, possibly related to kidney issues, and these symptoms warrant further investigation. Results - Urinalysis: Trace microscopic hematuria Plan 1. Fecal Incontinence - Plan to conduct a sacral neuromodulation test phase to evaluate improvement in symptoms. 2. Microscopic Hematuria - Recommend renal and bladder ultrasound to investigate the cause of hematuria. - Consider office cystoscopy for further evaluation if necessary. 3. Painful Urination - Evaluate for potential urinary tract infection or other underlying causes. 4. Left Flank Pain - Investigate potential renal causes, possibly related to the urinary symptoms. [facility] Medical History COVID-19 vaccine series completed Vertigo Chronic diarrhea Hypothyroid Fatty liver Kidney stone Asthma Cervical disc disease IBS (irritable bowel syndrome) GERD (gastroesophageal reflux disease) Migraine Hypercholesteremia HTN (hypertension) Surgical History History of esophagogastroduodenoscopy (EGD) Hx of colonoscopy H/O lumpectomy Hx of cholecystectomy Family History Father Prostate cancer Paternal Aunt Diabetes Stroke Father Heart attack Paternal Uncle Stroke Social History Household Members: Spouse Housing: Apartment Are you a primary career services representative to a significant other at home: No Do you presently have visiting nurse or other home services: No Alcohol intake: current Alcohol intake frequency: does not drink Patient Tobacco Use Status: Never used Tobacco Current occupational status: disabled Current occupation: rt handed Review of Systems Const All systems reviewed & are unremarkable except as noted in HPI and below Reports no additional complaints Eyes Reports no additional complaints ENT Reports no additional complaints Card Reports no additional complaints Resp Reports no additional complaints GI Reports no additional complaints Reports as per HPI Musc Reports no additional complaints Skin/Breast Reports system reviewed and no additional complaints, except as documented Neuro Reports no additional complaints Psych Reports no additional complaints Endo Reports no additional complaints Omar/Lymph Reports no additional complaints Aller/Immun Reports no additional complaints Physical Exam Const General: cooperative, healthy appearing and no acute distress Orientation/consciousness: patient oriented x3 HEENT Head: Yes normal to inspection, Yes normocephalic and Yes atraumatic Eyes Conjunctivae: conjunctivae normal Neck Neck: Yes normal visual inspection and Yes trachea midline Chest Chest palpation & inspection: normal inspection of the chest Resp Effort & Inspection: normal respiratory effort GI Inspection: Yes normal to inspection Neuro General: patient oriented x3 Psych Appearance: grossly normal Assessment & Plan Assessment & Plan (1) Fecal incontinence: Code(s): R15.9 - Full incontinence of feces Category: Medical (2) Pain with urination: Code(s): R30.9 - Painful micturition, unspecified Category: Medical (3) Microscopic hematuria: Code(s): R31.29 - Other microscopic hematuria Category: Medical (4) Left flank pain: Code(s): R10.A2 - Flank pain, left side Category: Medical Plan Plan 1. Fecal Incontinence - Plan to conduct a sacral neuromodulation test phase to evaluate improvement in symptoms. 2. Microscopic Hematuria - Recommend renal and bladder ultrasound to investigate the cause of hematuria. - Consider office cystoscopy for further evaluation if necessary. 3. Painful Urination - Evaluate for potential urinary tract infection or other underlying causes. 4. Left Flank Pain - Investigate potential renal causes, possibly related to the urinary symptoms. Orders: Orders US retroperitoneal comp Today R10.A2 - Flank pain, left side, R31.29 - Other microscopic hematuria AMB Urinalysis Automated Today R31.29 - Other microscopic hematuria Urine Cytology Today R30.9 - Painful micturition, unspecified, R31.29 - Other microscopic hematuria Patient Instructions: The patient had an opportunity to ask questions regarding treatment plan. The patient expressed understanding and agreement with the above treatment plan. The patient is aware they should contact our office by phone for worsening of their current condition or the appearance of new symptoms. Compliance is encouraged with any medications and followup testing that is ordered. It is a privilege to be allowed the opportunity to participate in the urologic care of your patient. If you have any questions or concerns regarding treatment for the above conditions please do not hesitate to contact me. The office telephone contact is [phone]. This note is constructed in part using voice recognition software. While every effort has been made to ensure accuracy rn outpatient surgery errors may have been included. Yours sincerely, Ignacio Leyva MD Scribe Plan - Not visible on output: Patient was informed and verbally consented to the use of an ambient scribe for clinic note documentation during this visit. Coding Level of Care Code New Pt Level 4 (01655) Diagnoses Fecal incontinence R15.9 Pain with urination R30.9 Microscopic hematuria R31.29 Left flank pain R10.A2
== END 2025-03-29 10:03 | disposition home or self-care (01) ==
LOC: HO.HUSH 08:36
PROVIDERS: PCP Pediatrics; Visit Provider Urology
DX: R15.9 Full incontinence of feces (principal); R30.9 Painful micturition, unspecified; R31.29 Other microscopic hematuria; R10.A2 Flank pain, left side
CPT/HCPCS: 99204

== ENCOUNTER 2025-03-29 08:35 | Outpatient (REF) | payer OTHER, SELFPAY ==
--- OUTSIDE RECORDS SUMMARY | 2025-03-27 14:30 | XMS_ITS | Encounter Summary ---
Author Organization [employer] Address [address] [facility] [address] [place] [address] Care Team Providers Care Gutter Hanger Name Role Phone Gia Tenorio MD Primary Care Provider [phone] Encounter Details Date Type Department Care Team ([facility] st Contact Info) Description 03/27/2025 2:30 PM EDT Office Visit [facility] [address] [place], [place] [phone] Megha Wright [facility] [address] [place] [address] Atrophic vaginitis (Primary Dx); Vulvar burning Social [...] a 64 y.o. 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 Shelter AMAB partner, no safety concerns. Menopausal at [...] SpO2 99% BMI 31.70 kg/m?? 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 Constitutional: Appearance: Normal appearance. Genitourinary: General: Normal [...] Description 05/08/2025 2:30 PM EST Office Visit [facility] [address] [place] [address] Megha Wright CNM [address] [place] [address] documented as of this encounter Procedures Procedure Name Priority Date/Time Associated Diagnosis Comments BACTERIAL VAGINOSIS PANEL Routine 03/27/2025 3:11 PM EDT Vulvar burning documented in this encounter Results * Bacterial Vaginosis Panel (03/27/2025 3:11 PM EDT) TRICHOMONAS VAGINALIS DETECTION BY PCR NOT DETECTED Not Detect [facility] BACTERIAL VAGINOSIS DETECTION BY PCR NEGATIVE Negative [facility] Comment:The BV organism targ ets [...] DETECTION BY PCR NOT DETECTED Not Detect [facility] Anabel glab krusei PCR NOT DETECTED Not Detect [facility] Swab Vaginal structure / Unknown 03/27/2025 3:11 PM EDT 03/27/2025 6:52 PM EDT us Megha [facility] MICROBIOLOGY - GENERA L ORDERABLES Final Result [facility] [address] [place] [address] [phone] documented in this encounter Visit Diagnoses Diagnosis Atrophic vaginitis- Primary Postmenopausal atrophic vaginitis Vulvar burning documented in this encounter Care Teams Gutter Hanger Relationship Specialty Start Date End Date Gia Tenorio MD [address] [place] [id number] PCP - General Family Medicine 06/13/18 documented as of this encounter
--- OUTSIDE RECORDS SUMMARY | 2025-03-29 18:36 | XMS_ITS | Encounter Summary ---
Author Organization [employer] Address [address] [place] [address] 7 [place] [address] Care Team Providers Care Manager Engine Name Role Phone Gia Tenorio MD Primary Care Provider Reason for Visit * Reason Comments Med Refill Encounter Details Date Type Department Care Team (Late st Contact Info) Description 04/18/2023 Refill [facility] [address] [place] [address] Mercy Jeffries MD [address] [place] [address] Acute left-sided low back pain with left-sided [...] Description 05/08/2025 2:30 PM EST Office Visit [facility] [address] [place] [address] Megha Wright CNM [address] [place] [address] documented as of this encounter Visit Diagnoses Diagnosis Acute left-sided low back pain with left-sided sciatica Neck muscle spasm documented in this encounter Care Teams Manager Engine Relationship Specialty Start Date End Date Gia Tenorio MD [address] [place] [address] PCP - General Family Medicine 06/13/18 documented as of this encounter
--- OUTSIDE RECORDS SUMMARY | 2025-03-29 18:36 | XMS_ITS | Encounter Summary ---
Author Organization [employer] Address [address] [place] [address] [address] [place] [address] Care Team Providers Care Parts Expediter Name Role Phone Gia Tenorio MD Primary Care Provider [phone] Encounter Details Date Type Department Care Team (Late st Contact Info) Description 11/15/2023 Orders Only [facility] [address] [place] [address] Anat Van MD [address] [address] Social History Tobacco Use Types Packs/Day Years [...] PM EST Office Visit [facility] [address] [place] [address] Megha Wright CNM [address] [place] [address] documented as of this encounter Visit Diagnoses Not on filedocumented in this encounter Care Teams Parts Expediter Relationship Specialty Start Date End Date Gia Tenorio MD [address] [place] [address] PCP - General Family Medicine 06/13/18 documented as of this encounter
--- OUTSIDE RECORDS SUMMARY | 2025-03-29 18:36 | XMS_ITS | Encounter Summary ---
Author Organization [employer] Address [address] [place] [address] Care Team Providers Care Tumbling Barrel Painter Name Role Phone Gia Tenorio MD Primary Care Provider [phone] Encounter Details Date Type Department Care Team (Latest Contact Info) Description 01/22/2019 Abstract [facility] CONVERSIONS Dental, Provider, DDS Social History [...] 05/08/2025 2:30 PM EST Office Visit [facility] MEDICINE [address] [place] [address] Megha Wright CNM [address] [place] [address] documented as of this encounter Visit Diagnoses Not on filedocumented in this encounter Care Teams Tumbling Barrel Painter Relationship Specialty Start Date End Date Gia Tenorio MD [address] [place] [address] PCP - General Family Medicine 06/13/18 documented as of this encounter
--- OUTSIDE RECORDS SUMMARY | 2025-03-29 18:36 | XMS_ITS | Encounter Summary ---
Author Organization [employer] Address [address] [place] [address] Care Team Providers Care Pattern Changer And Repairer Name Role Phone Gia Tenorio MD Primary Care Provider [phone] Reason for Visit * Reason Comments Med Refill Encounter Details Date Type Department Care Team (Late Contact Info) Description 02/24/2023 Refill [facility] PEDS [address] [place], [place] [phone] Gia Tenroio MD [address] [place], [place] [phone] Benign essential hypertension; Mild persistent asthma without [...] Description 05/08/2025 2:30 PM EST Office Visit [facility] MEDICINE [address] [place], [place] [phone] Megha Wright CNM [address] [place], [place] [phone] documented as of this encounter Visit Diagnoses Diagnosis Benign essential hypertension Essential hypertension, benign Mild persistent asthma without complication documented in this encounter Care Teams Pattern Changer And Repairer Relationship Specialty Start Date End Date Gia Tenorio MD [address] [place] [address] PCP - General Family Medicine 06/13/18 documented as of this encounter
--- OUTSIDE RECORDS SUMMARY | 2025-03-29 18:36 | XMS_ITS | Encounter Summary ---
Author Organization [employer] Address [address] [place] [address] Care Team Providers Care Financial Management Consultant Name Role Phone Gia Tenorio MD Primary Care Provider [phone] Encounter Details Date Type Department Care Team (Late st Contact Info) Description 04/21/2023 Abstract [facility] [address] [place] [address] Ana Mahoney Social History Tobacco Use Types [...] Description 05/08/2025 2:30 PM EST Office Visit [facility] [address] [place] [address] Megha Wright CNM [address] [place] [address] documented as of this encounter Visit Diagnoses Not on filedocumented in this encounter Care Teams Financial Management Consultant Relationship Specialty Start Date End Date Gia Tenorio MD [address] [place] [address] PCP - General Family Medicine 06/13/18 documented as of this encounter
--- OUTSIDE RECORDS SUMMARY | 2025-03-29 18:36 | XMS_ITS | Encounter Summary ---
Author Organization [employer] Address [address] [facility] [address] [place] [address] Care Team Providers Care Photoengraving Apprentice Name Role Phone Gia Tenorio MD Primary [...] Description 05/08/2025 2:30 PM EST Office Visit [facility] MED[facility]INE [address] [place] [address] Megha Wright CN [address] [place], [place] [phone] documented as of this encounter Visit Diagnoses Not on filedocumented in this encounter Care Teams Photoengraving Apprentice Relationship Specialty Start Date End Date Gia Tenorio MD [address] [place] [address] PCP - General Family Medicine 06/13/18 documented as of this encounter
--- OUTSIDE RECORDS SUMMARY | 2025-03-29 18:36 | XMS_ITS | Encounter Summary ---
Author Organization [employer] Address [address] [place] [address] 7 [place] [address] Care Team Providers Care At Home Independent Call Center Agent Name Role Phone Gia Tenorio MD Primary Care Provider [phone] Reason for Visit * Reason Comments Med Refill Encounter Details Date Type Department Care Team (Late Contact Info) Description 02/24/2023 Refill [facility] CH[facility] MED & PEDS [address] [place] [address] Liz Contreras MD [address] [place] [address] Social History Tobacco Use Types Packs/Day Years [...] Description 05/08/2025 2:30 PM EST Office Visit [facility] MEDICINE [address] [place], [place] [phone] Megha Wright CNM [address] [place], [place] [phone] documented as of this encounter Visit Diagnoses Not on filedocumented in this encounter Care Teams At Home Independent Call Center Agent Relationship Specialty Start Date End Date Gia Tenorio MD [address] [place] [address] PCP - General Family Medicine 06/13/18 documented as of this encounter
--- OUTSIDE RECORDS SUMMARY | 2025-03-29 18:36 | XMS_ITS | Encounter Summary ---
Author Organization [employer] Address [address] [place] [address] [address] [place] [address] Care Team Providers Care Digital Media Director Name Role Phone Gia Tenorio MD Primary Care Provider [phone] Reason for Visit * Reason Comments Med Refill Encounter Details Date Type Department Care Team (Late st Contact Info) Description 10/22/2022 Refill [facility] [address] [place] [address] Donna Amin MD [address] [place] [address] Neck muscle spasm Social History Tobacco Use [...] Description 05/08/2025 2:30 PM EST Office Visit [facility] MED[facility] [address] [place] [address] Megha Wright CNM [address] [place] [address] documented as of this encounter Visit Diagnoses Diagnosis Neck muscle spasm documented in this encounter Care Teams Digital Media Director Relationship Specialty Start Date End Date Gia Tenorio MD [address] [place] [address] PCP - General Family Medicine 06/13/18 documented as of this encounter
--- OUTSIDE RECORDS SUMMARY | 2025-03-29 18:36 | XMS_ITS | Encounter Summary ---
Author Organization [employer] Address [address] [place] [address] Care Team Providers Care Programmer Business Name Role Phone Gia Tenorio MD Primary Care Provider [phone] Reason for Visit * Reason Comments Med Refill Encounter Details Date Type Department Care Team (Late Contact Info) Description 04/18/2023 Refill [facility] MED & PEDS [address] [place] [address] Luigi Solomon MD [address] [place] [address] Acute left-sided low back pain with left-sided [...] Description 05/08/2025 2:30 PM EST Office Visit [facility] [address] [place] [address] Megha Wright CNM [address] [place], [place] [phone] documented as of this encounter Visit Diagnoses Diagnosis Acute left-sided low back pain with left-sided sciatica Neck muscle spasm documented in this encounter Care Teams Programmer Business Relationship Specialty Start Date End Date Gia Tenorio MD [address] [place] [address] PCP - General Family Medicine 06/13/18 documented as of this encounter
--- OUTSIDE RECORDS SUMMARY | 2025-03-29 18:36 | XMS_ITS | Encounter Summary ---
Author Organization [employer] Address [address] [place] [address] 7 [place] [address] Care Team Providers Care Maternal Fetal Physician Name Role Phone Gia Tenorio MD Primary Care Provider [phone] Reason for Visit * Reason Onset Date Comments Med Refill 02/15/2025 Encounter Details Date Type Department Care Team ([facility] st Contact Info) Description 02/15/2025 Refill [facility] CHC MED & PEDS [address] [place] [address] Luigi Solomon MD [address] [place] [address] Social History Tobacco Use Types Packs/Day Years [...] 2:30 PM EST Office Visit [facility] MEDICINE [address] [place] [address] Megha Wright CN [address] [place] [address] documented as of this encounter Visit Diagnoses Not on filedocumented in this encounter Care Teams Maternal Fetal Physician Relationship Specialty Start Date End Date Gia Tenorio MD [address] [place] [address] PCP - General Family Medicine 06/13/18 documented as of this encounter
--- OUTSIDE RECORDS SUMMARY | 2025-03-29 18:36 | XMS_ITS | Encounter Summary ---
Author Organization [employer] Address [address] [place] [address] Care Team Providers Care Move Coordinator Name Role Phone Gia Tenorio MD Primary Care Provider [phone] Encounter Details Date Type Department Care Team (Latest Contact Info) Description 07/24/2018 Abstract [facility] CONVERSIONS [...] [facility] MEDICINE [address] [place] [address] Megha Wright CNM [address] [place] [address] documented as of this encounter Visit Diagnoses Not on filedocumented in this encounter Care Teams Move Coordinator Relationship Specialty Start Date End Date Gia Tenorio MD [address] [place] [address] PCP - General Family Medicine 06/13/18 documented as of this encounter
--- OUTSIDE RECORDS SUMMARY | 2025-03-29 18:36 | XMS_ITS | Clinical Summary ---
Author Organization [employer] Address [address] [place] [address] 7 [place] [address] Care Team Providers Care Legal Service Specialist Name Role Phone Gia Tenorio MD Primary Care Provider [phone] Allergies No known active allergies Medications * [...] Diagnosed Date Chronic diarrhea 08/26/2024 Mesenteric panniculitis ([facility]/HCC) 08/26/2024 Achalasia of esophagus 12/01/2023 Osteopenia [...] Description 03/27/2025 2:30 PM EDT Office Visit [facility] [address] [place] [address] Megha Wright CNM Atrophic vaginitis (Primary Dx); Vulvar burning 03/27/2025 Travel 03/26/[address] [address] Megha Wright CNM chart prep 03/20/2025 Travel 03/16/2025 Orders Only GENERIC EXTERNAL DATA DEPARTMENT Provider, Generic External Data 03/14/2025 11:15 AM EDT Office Visit [facility] [address] [place] [address] Gia Tenorio MD Left costovertebral angle tenderness (Primary Dx); Encounter for immunization; Benign essential hypertension; Vitamin D deficiency; Mesenteric panniculitis (CMS/HCC) (HCC); Infiltrating ductal carcinoma of right female breast (CMS/HCC) (HCC); Kidney stones; Dyspareunia, female 03/14/2025 Travel 03/11/2025 Telephone [facility] [address] [place] [address] Gia Tenorio MD Chart Prep 03/08/2025 Travel 03/01/2025 Orders Only GENERIC EXTERNAL DATA DEPARTMENT Provider, Generic External Data 02/18/2025 11:00 AM EDT Telemedicine [address] [address] Mary Kate Munson RN Pleuritic pain 02/18/2025 Travel 02/18/2025 Refill [facility] [address] [place] [address] Gia Tenorio MD Benign essential hypertension; Mild persistent asthma without complication 02/15/2025 Travel 02/15/2025 Refill [facility] [address] [place] [address] Luigi Solomon MD 02/15/2025 Refill [facility] [address] [place] [address] Gia Tenorio MD Major depressive disorder in remission, unspecified whether recurrent (CMS/[facility]); Benign essential hypertension; Mild persistent asthma without complication 02/15/2025 Refill [facility] [address] [place] [address] Luigi Solomon MD Osteopenia of multiple sites; Vitamin D deficiency; Neuralgia; Acute left-sided low back pain with left-sided sciatica; Neck muscle spasm 02/08/2025 Telephone [facility] [address] [place] [address] Eladia Castillo RN Status Check post Pneumonia XR Result 02/05/2025 11:30 AM EDT Office Visit [facility] [address] [place] [address] Shanelle Mejia ANP Pleuritic pain (Primary Dx) 02/05/2025 Results Follow-Up [address] [address] Shanelle Mejia ANP XR Chest 2 Views 02/05/2025 Travel 01/21/2025 Refill [facility] [address] [place] [address] Gia Tenorio MD 01/09/2025 Refill [facility] [address] [place] [address] Gia Tenorio MD from Last 3 Months [...] 2:30 PM EST Office Visit [facility] [address] [place] [address] Megha Wright, MARIA D [address] [place] [address] Health Maintenance Due Date Last Done Comments [...] DETECTION BY PCR NOT DETECTED Not Detect [facility] BACTERIAL VAGINOSIS DETECTION BY PCR NEGATIVE Negative [facility] Comment:The BV organism targ ets [...] DETECTION BY PCR NOT DETECTED Not Detect [facility] Anabel glab krusei PCR NOT DETECTED Not Detect [facility] Swab Vaginal structure / Unknown 03/27/2025 3:11 PM EDT 03/27/2025 6:52 PM EDT Megha HARRY LAB MICROBIOLOGY - GENERA L ORDERABLES Final Result Performing Organization Address [facility]/ZIP Co de Phone Number [facility] [address] [place] [phone] * Culture, Urine, Routine (03/16/2025 11:10 AM EDT) Urine Urine specimen obtained by clean catch procedure / Unknown 03/16/2025 11:10 AM EDT 03/16/2025 1:51 PM EDT Comment:UACC Narrative [facility] - 03/17/2025 11:45 AM EDT Urine Culture No growth. Specimen Source: Urine clean catch Generic External Data Provider LAB MICROBIOLOGY - GENERAL ORDERABLES Final Result Performing Organization Address City/[facility]/ZIP Co de Phone Number [facility] [address] [place] [phone] * (ABNORMAL) POCT Urinalysis (03/14/2025 11:29 [...] (03/01/2025 11:55 AM EDT) TPMT ACTIVITY 15 [facility] Comment:Result Units: nmol/h r/mL RBCReference Range for TPMT Activity: >12 Normal 4-12 Heterozygote or low metabolizer <4 Homozygote Deficient RangeThis test was developed and its analytical performancecharacteristics have been determined by [employer].It has not been cleared or approved by the FDA. This assayhas been validated pursuant to the CLIA regulations and isused for clinical purposes.THIS TEST WAS PERFORMED AT:[employer] [id number] [place] [address]EAETWQUIQUE RODRIGUEZ MD,PHD,ALICIA 03/01/2025 11:5 5 AM EDT 03/01/2025 11:55 AM EDT Generic External Data Provider LAB BLOOD ORDERAB LES Final Result [facility] [address] [place] [phone] * (ABNORMAL) Sed Rate by Modified Demetrioergren (03/01/2025 11:55 AM EDT) Erythrocyte Sedimentation Rate 33(H) 0 - 20 MM/HR [facility] Comment:Patients with polycy themia and many hemoglobin abnormalitiesmay have depressed sed rates whereas patients with anemiamay have elevated sed rates. 03/01/2025 11:5 5 AM EDT 03/01/2025 11:55 AM EDT us Generic External Data Provider LAB BLOOD ORDERAB LES Final Result Performing Organization Address City/[facility]/ZIP Co de Phone Number [facility] [address] [place] [phone] * C-reactive Protein (03/01/2025 11:55 AM EDT) [facility] C Reactive Protein 0.44 < or = 0.50 mg/dL [facility] 03/01/2025 11:5 5 AM EDT 03/01/2025 11:55 AM EDT [employer] External Data Provider LAB BLOOD ORDERAB LES Final Result Performing Organization Address [facility] Co de Phone Number [facility] [address] [place] [phone] * POCT Rapid Influenza A OSOM (02/05/2025 12:33 PM EDT) [facility] Rapid Influenza A Ag Negative Negative, Indeterminate QC Media Lot # [id number] Lot# Expiration Date , Swab Nasopharyngeal structure / Unknown 02/05/2025 12:33 PM EDT Shanelle Mejia ANP POINT OF CARE TEST ENTER/EDIT OR DERABLES Final Result * POCT Rapid Influenza B OSOM (02/05/2025 12:32 PM EDT) [facility] Rapid Influenza B Ag Negative Negative, Indeterminate QC Media Lot # [id number] Lot# Expiration Date , Swab 02/05/2025 12:3 2 PM EDT Shanelle Mejia ANP POINT OF CARE TEST ENTER/EDIT OR DERABLES Final Result * POCT Rapid Covid-19 [employer] (02/05/2025 12:28 PM EDT) [facility] Rapid COVID Ag Negative QC Media Lot # [id number] Lot# Expiration Date [id number] Swab 02/05/2025 12:2 8 PM EDT Shanelle KRAMER POINT OF CARE TEST ENTER/EDIT OR DERABLES Final Result * XR Chest 2 Views (02/05/2025 12:20 PM EDT) Anatomical Region Laterality Modality Chest Radiographic Melissa ging 02/05/2025 12:2 0 PM EDT Narrative 02/05/2025 1:23 PM EDT [address] [address] XRay Report Signed Patient: Bree Chairez MR#: [id number] : 1960 Acct:[id number] Age/Sex: 64 / F ADM Date: 02/05/25 Loc: HO.HHCX Attending Dr: Shanelle Mejia SAP BUSINESS INTELLIGENCE CONSULTANT Ordering Physician: SHANELLE MEJIA NP Date of Service: 02/05/25 Procedure(s): XR chest 2V Accession Number(s): [id number] cc: SHANELLE MEJIA [employer] BUSINESS INTELLIGENCE CONSULTANT EXAMINATION: XR CHEST 2 VIEWS HISTORY: fever, [...] 02/05/25 1320 DD/ 1220 TD/TT: 02/05/25 1230 Food Beverage Attendant: Procedure Note Donotuseinterpreter, Image - 02/05/[address] [place] [address] XRay Report Signed Patient: Heidi Chairez#: [id number] : 9Acct:[id number] Age/Sex: 64 / FADM Date: 02/05/25 Loc: HO.HHCX Attending Dr: Shanelle Mejia NP Ordering Physician: SHANELLE MEJIA NP Date of Service: 02/05/25 Procedure(s): XR chest 2V Accession Number(s): [id number] cc: SHANELLE MEJIA NP EXAMINATION: XR CHEST [...] 02/05/25 1320 DD/ 1220 TD/TT: 02/05/25 1230 Food Beverage Attendant: Shanelle Mejia ANP IMG XR PROCEDURES Final Result * Lipid Panel, Standard (09/07/2024 9:39 AM EDT) Triglycerides 94 <150 mg/dL [facility] Comment:Desirable Triglyceri de: less than 150 mg/dLBorderline High Triglyceride 150-199 mg/dLHigh Triglyceride: 200-499 mg/dLVery High Triglyceride: greater than or equal to 5OO mg/dL Cholesterol 149 <200 mg/dL [facility] Comment:Desirable Cholestero l: less than 200 mg/dLBorderline High Cholesterol: 200-239 mg/dLHigh Cholesterol: greater than 239 mg/dL LDL Cholesterol Calculated 88 <100 mg/dL [facility] Comment:Desirable LDL: less than 100 mg/dLNear Optimal/Above Optimal LDL: 110- 129 mg/dLBorderline High LDL: 130-159 mg/dLHigh LDL: 160-189 mg/dLVery High LDL: greater than or equal to 190 mg/dL HDL Cholesterol 43 >40 mg/dL [facility] Comment:Desirable HDL: great er than 40 mg/dL Note: This HDL assay may give artificially low results in patients with liver disease. Blood Venous blood specimen / Unknown 09/07/2024 9:39 AM EDT 09/07/2024 2:08 PM EDT us Gia Tenorio MD LAB BLOOD ORDERABLES Final Re sult [facility] [address] [place] [phone] * BI Mammogram Screening Tomosynthesis Bilateral (07/05/2024 1:55 PM EST) Anatomical Region Laterality Modality Breast Bilateral Mammography 07/05/2024 1:55 PM EST Narrative 07/16/2024 10:03 AM EST [address] [place] [address] Mammography Report Signed Patient: Bree Chairez MR#: [id number] : 1960 Acct:[id number] Age/Sex: 63 / F ADM Date: 07/05/24 Loc: HO.MAMMO Attending Dr: Gia Tenorio MD Ordering Physician: Gia Tenorio MD Results: 1Ne gative Date of Service: 07/05/24 Follow Up: 1 Year From [facility] ina Mammogram Procedure(s): MM tomosynthesis screening BI Accession Number(s): [id number] cc: Gia Tenorio MD EXAMINATION: MM SCREENING [...] 07/16/24 1000 DD/ 1355 TD/TT: 07/05/24 1410 Food Beverage Attendant: Procedure Note Donotuseinterpreter, Image - 07/16/2024 [facility] [address] [place] [address] Mammography Report Signed Patient: Heidi Chairez#: [id number] : 9Acct:[id number] Age/Sex: 63 / FADM Date: 07/05/24 Loc: HO.MAMMO Attending Dr: Gia Tenorio MD Ordering Physician: Gia Tenorio MDResults: 1Ne gative Date of Service: 07/05/24Follow Up: 1 Year From Orig inal Mammogram Procedure(s): MM tomosynthesis screening BI Accession Number(s): [id number] cc: Gia Tenorio MD EXAMINATION: MM SCREENING [...] 07/16/24 1000 DD/ 1355 TD/TT: 07/05/24 1410 Food Beverage Attendant: us Gia Tenorio MD IMG BI PROCEDURES Final Resul t * Hm Colonoscopy (03/07/2024) Colonoscopy Normal Normal us Gia Tenorio MD HEALTH MAINTENANCE Final Resu lt * ThinPrep Imaging Pap and HPV mRNA E6/E7 with Reflex to HPV 16,18/45 (12/05/2023 10:30 AM EDT) HPV 16 RNA WIP [facility] HPV 18/45 RNA [facility] HPV nRNA E6/E7 Not Detected Not Detected [facility] Comment:Methodology: Transcr iption-Mediated AmplificationThis assay detects E6/E7 viral messenger RNA (mRNA) from 14high-risk HPV types (16,18,31,33,35,39,45,51,52,56,58,59,66,68).Cervical sources are required for HPV testing.If a vaginal source from a patient who has had atotal hysterectomy with removal of cervix wassubmitted, please contact the testing laboratoryfor alternative testing options.For additional information, please refer tohttp://education.[facility]/faq/LKJ122o0(This link if provided for information/educational purposes only.)THIS TEST WAS PERFORMED AT:[employer] [place], [place] [id number] SOLO MD SOURCE: SEE NOTE [facility] Comment:Cervix Report Status: [facility] Clinical Information: SEE NOTE [facility] Comment:R LMP: SEE NOTE [facility] Comment:NONE GIVEN Prev. PAP: SEE NOTE [facility] Comment:2020 Prev. BX: SEE NOTE [facility] Comment:NONE GIVEN Statement Of Adequacy: SEE NOTE [facility] Comment:SATISFACTORY FOR ALINE LUATION General Categorization: [facility] Interpretation/Result: SEE NOTE [facility] Comment:Cytology Results: Ne gative for intraepitheliallesion or malignancy.Atrophic pattern; predominantly parabasal cells Cytology Comment SEE NOTE [facility] Comment:This Pap test has be en evaluated with computerassisted technology. Manager Equipment: SEE NOTE [facility] Comment:RPR, CT (ASCP) CT sc reening location: [address] [address] Review Manager Equipment: [facility] Pathologist [facility] PAP Infection [facility] See Note SEE NOTE [facility] Comment:EXPLANATORY NOTE:The Pap is a [...] AM EDT 12/06/2023 9:23 AM EDT Narrative [facility] - 12/09/2023 8:39 AM EDT [id number] us Megha Wright [facility] PATHOLOGY ORDERABLES Final Result [facility] [address] [place] [address] [phone] * HEPATITIS C AB W/REFL TO HCV RNA, QN, PCR (08/20/2020 5:01 PM EST) HEPATITIS C ANTIBODY NON-REACT KARON NON-REACT KARON [facility] INDEX 0.04 <1.00 [facility] Comment: HCV antibody was non-reactive. There is no laboratory evidence of HCV infection. In most cases, no further action is required. However, if recent HCV exposure is suspected, a test for HCV RNA (test code 04616) is suggested. For additional information please refer to http://education.[facility]/faq/LYU93o7 (This link is being provided for informational/ educational purposes only.) 08/20/2020 5:01 PM EST Jenna Carballo ONCOLOGY REP SPECIALIST HISTORICAL/NON ORDERABLE LABS Final Result [facility] Anywhere [address] from Last 3 Months or Most Recently Relevant to Health Maintenance Insurance [facility] < 63 [place] [id number] Care Teams Legal Service Specialist Relationship Specialty Start Date End Date Gia Tenorio MD [address] [place] [address] PCP - General Family Medicine 06/13/18
--- OUTSIDE RECORDS SUMMARY | 2025-03-29 18:36 | XMS_ITS | Encounter Summary ---
Author Organization [employer] Address [address] [facility] 7 [place] [address] Care Team Providers Care Residential Housekeeper Name Role Phone Gia Tenorio MD Primary Care Provider [phone] Reason for Visit * Reason Onset Date Comments chart prep 03/26/2025 Encounter Details Date Type Department Care Team ([facility] st Contact Info) Description 03/26/2025 Telephone [facility] [address] [place] [address] Megha Wright CNM [address] [place] [address] chart prep Social History Tobacco Use Types [...] 2:30 PM EST Office Visit [facility] [address] [place] [address] Megha Wright CNM [address] [place] [address] documented as of this encounter Visit Diagnoses Not on filedocumented in this encounter Care Teams Residential Housekeeper Relationship Specialty Start Date End Date Gia Tenorio MD [address] [place] [address] PCP - General Family Medicine 06/13/18 documented as of this encounter
--- OUTSIDE RECORDS SUMMARY | 2025-03-29 18:36 | XMS_ITS | Encounter Summary ---
Author Organization [employer] Address [address] [place] [address] [address] [place] [address] Care Team Providers Care Log Feeder Name Role Phone Gia Tenorio MD Primary Care Provider [phone] Reason for Visit * Reason Comments Med Refill Encounter Details Date Type Department Care Team (Late st Contact Info) Description 02/24/2023 Refill [facility] [address] [place] [phone] Mercy Jeffries MD [address] [place] [address] Acute left-sided low back pain with left-sided [...] Office Visit [facility] [address] [place] [address] Megha Wright CNM [address] [place] [address] documented as of this encounter Visit Diagnoses Diagnosis Acute left-sided low back pain with left-sided sciatica Neck muscle spasm documented in this encounter Care Teams Log Feeder Relationship Specialty Start Date End Date Gia Tenorio MD [address] [place] [address] PCP - General Family Medicine 06/13/18 documented as of this encounter
== END 2025-03-29 08:36 | disposition home or self-care (01) ==
LOC: HO.LNP 08:35
PROVIDERS: PCP Pediatrics; Visit Provider Urology
DX: R31.29 Other microscopic hematuria (principal); R30.9 Painful micturition, unspecified; R15.9 Full incontinence of feces; R10.A2 Flank pain, left side
CPT/HCPCS: 81003; 88112; 99202

== ENCOUNTER 2025-05-14 14:40 | Outpatient (REF) | payer OTHER, SELFPAY ==
--- NOTE | ~2025-05-14 | US_ITS ---
EXAMINATION: US RETROPERITONEAL LIMITED (RENAL ONLY) CLINICAL INFORMATION: Microscopic hematuria. R31.29. COMPARISON: Correlated to CT dated September 11, 2024. Renal ultrasound dated July 19, 2012 is not available on PACS. TECHNIQUE: Real-time ultrasound kidneys using grayscale technique. FINDINGS: RIGHT KIDNEY: 11 x 5 x 5 cm (SAG x AP x TRV). Volume: 146 cc. Normal echotexture. Renal cortical thickness is normal. No hydronephrosis. There is a 0.9 cm anechoic lesion at the corticomedullary junction of the midportion without septations or nodular components. There are a few, less than 4 mm nonobstructing calculus. LEFT KIDNEY: 10 x 6 x 4 cm (SAG x AP x TRV). Volume: 138 cc. Normal echotexture. Renal cortical thickness is normal. No hydronephrosis. There is a 3.2 cm exophytic anechoic lesion without septations or nodular components in the midportion/upper pole junction. US/US renal BI IMPRESSION: Bilateral renal cysts. No hydronephrosis. Nonobstructing nephrolithiasis, right kidney. Electronically signed by: Austin Sherman MD 05/14/2025 03:34 PM EST
--- OUTSIDE RECORDS SUMMARY | 2025-05-14 16:35 | XMS_ITS | Encounter Summary ---
Author Organization [employer] Address [address] [place] [address] Care Team Providers Care Hot Packer Name Role Phone Gia Tenorio MD Primary Care Provider [phone] Encounter Details Date Type Department Care Team (Late st Contact Info) Description 11/15/2023 Orders Only [facility] [address] [place] [address] Anat Van MD [address] [place] [address] Social History Tobacco Use Types Packs/Day Years [...] on filedocumented in this encounter Care Teams Hot Packer Relationship Specialty Start Date End Date Gia Tenorio MD [address] [place] [address] PCP - General Family Medicine 06/13/18 documented as of this encounter
--- OUTSIDE RECORDS SUMMARY | 2025-05-14 16:35 | XMS_ITS | Encounter Summary ---
Author Organization [employer] Address [address] [place] [address] Care Team Providers Care Specimen Accessioner Name Role Phone Gia Tenorio MD Primary Care Provider [phone] Reason for Visit * Reason Comments Med Refill Encounter Details Date Type Department Care Team (Late st Contact Info) Description 04/18/2023 Refill [facility] [address] [place] [address] Mercy Jeffries MD [address] [place], [place] [phone] Acute left-sided low back pain with left-sided [...] spasm documented in this encounter Care Teams Specimen Accessioner Relationship Specialty Start Date End Date Gia Tenorio MD [address] [place] [address] PCP - General Family Medicine 06/13/18 documented as of this encounter
--- OUTSIDE RECORDS SUMMARY | 2025-05-14 16:35 | XMS_ITS | Encounter Summary ---
Author Organization [employer] Address [address] [place] [address] Care Team Providers Care Applications Instructor Name Role Phone Gia Tenorio MD Primary Care Provider [phone] Reason for Visit * Reason Comments Med Refill Encounter Details Date Type Department Care Team ([facility] st Contact Info) Description 02/24/2023 Refill [facility] [address] [place] [address] Liz Contreras MD [address] [place] [address] Social History Tobacco Use Types Packs/Day Years [...] on filedocumented in this encounter Care Teams Applications Instructor Relationship Specialty Start Date End Date Gia Tenorio MD [address] [place] [address] PCP - General Family Medicine 06/13/18 documented as of this encounter
--- OUTSIDE RECORDS SUMMARY | 2025-05-14 16:35 | XMS_ITS | Encounter Summary ---
Author Organization [email or web address] Address [address] [facility] 7t [place] [address] Care Team Providers Care Lye Treater Name Role Phone Gia Tenorio MD Primary Care Provider [phone] Encounter Details Date Type Department Care Team (Late st Contact Info) Description 05/14/2025 Orders Only [facility] External Provider, [facility] Social History Tobacco Use Types Packs/Day Years [...] enough money to get more: Never True Transportation Answer Date Recorded In the past 12 months, has l ack of transportation kept you from medical appts, meetings, work or from getting things needed for daily living? No 05/08/2025 Utilities Answer Date Recorded In the past [...] Procedure Name Priority Date/Time Associated Diagnosis Comments US RENAL COMPLETE Routine 05/14/2025 3:0 5 PM EST documented in this encounter Results * US Renal Complete (05/14/2025 3:05 PM EST) Anatomical Region Laterality Modality Kidney Ultrasound 05/14/2025 3:05 PM EST Narrative 05/14/2025 3:36 PM EST [place] [address] Ultrasound Report Signed Patient: Bree Chairez MR#: [id number] : 1960 Acct:[id number] Age/Sex: 64 / F ADM Date: 05/14/25 Loc: .US Attending Dr: Gia Tenorio MD Ordering Physician: Ignacio Leyva MD Date of Service: 05/14/25 Procedure(s): US renal BI Accession Number(s): [id number] cc: Ignacio Leyva MD; Gia Tenorio MD Reason for Exam: R31.29 - Other microscopic hematuria EXAMINATION: US RETROPERITONEAL LIMITED (RENAL ONLY) CLINICAL INFORMATION: Microscopic hematuria. R31.29. COMPARISON: Correlated to CT dated September 11, 2024. Renal ultrasound dated July 19, 2012 is not available on PACS. TECHNIQUE: Real-time ultrasound kidneys using grayscale technique. FINDINGS: RIGHT KIDNEY: 11 x 5 x 5 cm (SAG x AP x TRV). Volume: 146 cc. Normal echotexture. Renal cortical thickness is normal. No hydronephrosis. There is a 0.9 cm anechoic lesion at the corticomedullary junction of the midportion without septations or nodular components. There are a few, less than 4 mm nonobstructing calculus. LEFT KIDNEY: 10 x 6 x 4 cm (SAG x AP x TRV). Volume: 138 cc. Normal echotexture. Renal cortical thickness is normal. No hydronephrosis. There is a 3.2 cm exophytic anechoic lesion without septations or nodular components in the midportion/upper pole junction. US/US renal BI IMPRESSION: Bilateral renal cysts. No hydronephrosis. Nonobstructing nephrolithiasis, right kidney. Electronically signed by: Austin Sherman MD 05/14/2025 03:34 PM EST Dictated By: Austin Jurado MD Signed By: <Electronically signed by Austin Munson MD in OV> 05/14/25 1534 DD/ 1505 TD/TT: 05/14/25 1516 Admissions [address] Attendant: Procedure Note Donotuseinterpreter, Image - 05/14/2025 [place] [address] Ultrasound Report Signed Patient: Heidi Chairez#: [id number] : 9Acct:[id number] Age/Sex: 64 / FADM Date: 05/14/25 Loc: .US Attending Dr: Gia Tenorio MD Ordering Physician: Ignacio Leyva MD Date of Service: 05/14/25 Procedure(s): US renal BI Accession Number(s): [id number] cc: Ignacio Leyva MD; Gia Tenorio MD Reason for Exam: R31.29 - Other microscopic hematuria EXAMINATION: US RETROPERITONEAL LIMITED (RENAL ONLY) CLINICAL INFORMATION: Microscopic hematuria. R31.29. COMPARISON: Correlated to CT dated September 11, 2024. Renal ultrasound dated July 19, 2012 is not available on PACS. TECHNIQUE: Real-time ultrasound kidneys using grayscale technique. FINDINGS: RIGHT KIDNEY: 11 x 5 x 5 cm (SAG x AP x TRV). Volume: 146 cc. Normal echotexture. Renal cortical thickness is normal. No hydronephrosis. There is a 0.9 cm anechoic lesion at the corticomedullary junction of the midportion without septations or nodular components. There are a few, less than 4 mm nonobstructing calculus. LEFT KIDNEY: 10 x 6 x 4 cm (SAG x AP x TRV). Volume: 138 cc. Normal echotexture. Renal cortical thickness is normal. No hydronephrosis. There is a 3.2 cm exophytic anechoic lesion without septations or nodular components in the midportion/upper pole junction. US/US renal BI IMPRESSION: Bilateral renal cysts. No hydronephrosis. Nonobstructing nephrolithiasis, right kidney. Electronically signed by: Austin Sherman MD 05/14/2025 03:34 PM EST RP Dictated By: Austin Jurado MD Signed By: <Electronically signed by Austin Munson MDin OV> 05/14/25 1534 DD/ 1505 TD/TT: 05/14/25 1516 [address] Attendant: [facility] External Provider IMG US PROCEDURES Final Result documented in this encounter Visit Diagnoses Not on filedocumented in this encounter Care Teams Lye Treater Relationship Specialty Start Date End Date Gia Tenorio MD [address] [place] [address] PCP - General Family Medicine 06/13/18 documented as of this encounter
--- OUTSIDE RECORDS SUMMARY | 2025-05-14 16:35 | XMS_ITS | Encounter Summary ---
Author Organization [employer] Address [address] [place] [address] [place] [address] Care Team Providers Care Silver Service Waiter Name Role Phone Gia Tenorio MD Primary Care Provider [phone] Encounter Details Date Type Department Care Team (Late st Contact Info) Description 04/21/2023 Abstract [facility] [address] [place] [address] Ana Mahoney Social History Tobacco Use Types [...] on filedocumented in this encounter Care Teams Silver Service Waiter Relationship Specialty Start Date End Date Gia Tenorio MD [address] [place] [address] PCP - General Family Medicine 06/13/18 documented as of this encounter
--- OUTSIDE RECORDS SUMMARY | 2025-05-14 16:35 | XMS_ITS | Encounter Summary ---
Author Organization [employer] Address [address] [place] [id number] Care Team Providers Care Logging Tractor Operator Name Role Phone Gia Tenorio MD Primary Care Provider [phone] Reason for Visit * Reason Comments Med Refill Encounter Details Date Type Department Care Team ([facility] st Contact Info) Description 10/22/2022 Refill [facility] [address] [place], [place] [id number] Donna Amin MD [address] [place], [place] [id number] Neck muscle spasm Social History Tobacco Use [...] spasm documented in this encounter Care Teams Logging Tractor Operator Relationship Specialty Start Date End Date Gia Tenorio MD [address] [place] [address] PCP - General Family Medicine 06/13/18 documented as of this encounter
--- OUTSIDE RECORDS SUMMARY | 2025-05-14 16:35 | XMS_ITS | Encounter Summary ---
Author Organization [employer] Address [address] [place] [address] [address] [place] [address] Care Team Providers Care Supervisor Incising Name Role Phone Gia Tenorio MD Primary [...] filedocumented in this encounter Care Teams Supervisor Incising Relationship Specialty Start Date End Date Gia Tenorio MD [address] [place] [address] PCP - General Family Medicine 06/13/18 documented as of this encounter
--- OUTSIDE RECORDS SUMMARY | 2025-05-14 16:35 | XMS_ITS | Clinical Summary ---
Author Organization [employer] Address [address] [place] [address] [address] [place] [address] Care Team Providers Care Office Secretary Name Role Phone Gia Tenorio MD Primary Care Provider [phone] Allergies No known active allergies Medications * This document contains information received from the source organization and may not represent a complete record from that organization. lansoprazole (Prevacid) [address] capsule Take 1 capsule by mouth 1 (one) time each day. Active loratadine (Claritin) 10 MG tablet Take [...] BY MOUTH EVERY DAY 30 tablet 11 023 Active pantoprazole (ProtoNix) 40 MG EC tablet TAKE ONE TABLET DAILY 90 tablet 1 024 Active calcium carbonate 1500 (600 Ca) MG tablet TAKE ONE TABLET BY MOUTH TWICE DAILY 180 tablet 1 024 Active Hydrocortisone, Perianal, (Proctocort) 1 % cream Apply bid small amount to affected area of rectum 28.4 g 11 025 Active triamcinolone (Kenalog) 0.1 % cream APPLY A THIN LAYER TO THE AFFECTED AREA(s) TWICE DAILY 80 g Active famotidine (Pepcid) 40 MG tablet Take 1 tab orally qhs 30 tablet 5 Active cyanocobalamin (Vitamin B-12) 1000 MCG tablet Take 1 tab orally daily 90 tablet 2 Active albuterol (2.5 MG/3ML) 0.083% nebulizer solutionIndicat ions:Mild persistent asthma without complication USE ONE AMPULE USING A NEBULIZER EVERY 4 HOURS NEEDED FOR WHEEZING OR SHORTNESS OF BREATH 75 mL 3 Active enalapril (Vasotec) 20 MG tablet TAKE ONE TABLET BY MOUTH TWICE DAILY 60 tablet Active gabapentin (Neurontin) 100 MG capsuleIndicati ons:Osteopenia of multiple sites,Vitamin D deficiency,Neur algia TAKE ONE CAPSULE TWICE DAILY 60 capsule 3 Active meloxicam (Mobic) 7.5 MG tabletIndicatio ns:Acute left-sided low back pain with left-sided sciatica,Neck muscle spasm TAKE TWO TABLETS EVERY MORNING 60 tablet 3 Active venlafaxine XR (Effexor XR) 75 MG 24 hr capsuleIndicati ons:Major depressive disorder in remission, unspecified whether recurrent (CMS/HCC) Take 1 capsule (75 mg) by mouth Once per day. 30 capsule 5 Active amLODIPine (Norvasc) 5 MG tabletIndicatio ns:Benign essential hypertension,Mi ld persistent asthma without complication Take 1 tablet (5 mg) by mouth Once per day. 30 tablet Active metoprolol succinate XL (Toprol-XL) 100 MG 24 hr tablet Take 1 tablet (100 mg) by mouth Once per day. 30 tablet Active atorvastatin (Lipitor) 20 MG tabletIndicatio ns:Benign essential hypertension,Mi ld persistent asthma without complication Take 1 tablet (20 mg) by mouth Once per day. 30 tablet 5 Active levothyroxine (Synthroid, Levoxyl) 100 MCG tablet Take 1 tablet (100 mcg) by mouth Once per day. 90 tablet 1 Active albuterol 108 (90 Base) MCG/ACT inhalerIndicati ons:Benign essential hypertension,Mi ld persistent asthma without complication INHALE ONE PUFF EVERY 4 HOURS NEEDED 8.5 g 2 Active Estradiol (Estrace) 0.01 % cream Insert 0.5 g into the vagina See administration instructions. 0.5 g vaginally nightly x 14 nights, then twice weekly after that 42.5 g 1 Active cholecalciferol VITAMIN D (Vitamin D-3) 50 MCG (1999 UT) capsule TAKE ONE CAPSULE TWICE DAILY 60 capsule 11 Active SUMAtriptan (Imitrex) 25 MG tablet TAKE 1 TABLET BY MOUTH AT ONSET OF MIGRAINE. MAY REPEAT ONCE AFTER 2 HOURS IF NEEDED. NO MORE THAN EIGHT TABLETS PER 24 HOURS 10 tablet Active dicyclomine (Bentyl) 20 MG tablet TAKE ONE TABLET TWICE DAILY NEEDED 180 tablet Active meclizine (Antivert) 25 MG tabletIndicatio ns:Benign essential hypertension,Mi ld persistent asthma without complication TAKE ONE TABLET THREE TIMES DAILY NEEDED FOR DIZZINESS 20 tablet 3 Active terconazole (Terazol 7) 0.4 % vaginal cream Insert 1 applicator into the vagina at bedtime for 7 days. 45 g 05/13/20 25 3:19 PM EST 025 2025 Active meclizine (Antivert) 25 MG tabletIndicatio ns:Benign essential hypertension,Mi ld persistent asthma without complication TAKE ONE TABLET BY MOUTH THREE TIMES DAILY NEEDED FOR dizziness 20 tablet 3 025 2024 Discontinued Active Problems Problem Noted Date Diagnosed Date Chronic diarrhea 08/26/2024 Mesenteric panniculitis ([facility]/HCC) 08/26/2024 Achalasia of esophagus 12/01/2023 Osteopenia 06/03/2022 Panniculitis 08/28/2020 Benign essential hypertension 09/01/2017 Infiltrating ductal carcinom a of right female breast ([facility]/HCC) 07/13/2017 Breast lump 01/12/2017 Anxiety disorder 09/14/2016 [...] 09/07/2011 Palpitations 09/07/2011 Pure hypercholesterolemia 09/07/2011 Encounters Date Type Department Care Team Description 05/14/2025 Orders Only [facility] External Provider, [facility] 05/08/2025 2:30 PM EST Office Visit [address] [address] Megha Wright CNM Candidiasis of vulva and vagina (Primary Dx); Atrophic vaginitis 05/08/2025 Travel 05/07/2025 Travel 05/07/[address] [address] Megha Wright CNM CHART PREP 05/06/2025 Travel 05/01/2025 Travel 04/13/2025 Refill [facility] [address] [place] [address] Gia Tenorio MD Benign essential hypertension; Mild persistent asthma without complication 04/11/2025 Refill [facility] [address] [place] [address] Liz Contreras MD 04/11/2025 Refill [facility] [address] [place] [address] Gia Tenorio MD 04/04/2025 Refill [facility] [address] [place] [address] Liz Contreras MD 03/29/2025 Orders Only GENERIC EXTERNAL DATA DEPARTMENT Provider, Generic External Data 03/27/2025 2:30 PM EDT Office Visit [address] [address] Megha Wright CNM Atrophic vaginitis (Primary Dx); Vulvar burning 03/27/2025 Travel 03/26/2025 Telephone [facility] [address] [place] [phone] Megha Wright CNM chart prep 03/20/2025 Travel 03/16/2025 Orders Only GENERIC EXTERNAL DATA DEPARTMENT Provider, Generic External Data 03/14/2025 11:15 AM EDT Office Visit [facility] [address] [place] [address] Gia Tenorio MD Left costovertebral angle tenderness (Primary Dx); Encounter for immunization; Benign essential hypertension; Vitamin D deficiency; Mesenteric panniculitis (CMS/HCC) (HCC); Infiltrating ductal carcinoma of right female breast (CMS/HCC) (HCC); Kidney stones; Dyspareunia, female 03/14/2025 Travel 03/11/2025 Telephone [facility] [address] [place] [address] Gia Tenorio MD Chart Prep 03/08/2025 Travel 03/01/2025 Orders Only GENERIC EXTERNAL DATA DEPARTMENT Provider, Generic External Data 02/18/2025 11:00 AM EDT Telemedicine [facility] [address] [place] [phone] Mary Kate Munson, DAX Pleuritic pain 02/18/2025 Travel 02/18/2025 Refill [facility] [address] [place] [address] Gia Tenorio MD Benign essential hypertension; Mild persistent asthma without complication 02/15/2025 Travel 02/15/2025 Refill [facility] [address] [place] [address] Luigi Solomon MD 02/15/2025 Refill [facility] [address] [place] [address] Gia Tenorio MD Major depressive disorder in remission, unspecified whether recurrent (CMS/HCC); Benign essential hypertension; Mild persistent asthma without complication 02/15/2025 Refill [facility] [address] [place] [address] Luigi Solomon MD Osteopenia of multiple sites; Vitamin D deficiency; Neuralgia; Acute left-sided low back pain with left-sided sciatica; Neck muscle spasm from Last 3 Months Immunizations Immunization Administration [...] lez Hypertension Father's Sister 3 Shefali Bryanna beliaz Arthritis Mother Nancy Gould beliaz Hypertension Mother Nancy Gould neli Relation Name Status Comments Father Maverick Bryanna [...] Sign Reading Time Taken Comments Blood Pressure 144/80 05/08/2025 2:12 PM EST Pulse 62 05/08/2025 2:12 PM EST Temperature 36.8 C (98.2 F) 05/08/2025 2:12 PM EST Respiratory Rate 14 05/08/2025 2:12 PM EST Oxygen Saturation 98% 05/08/2025 2:12 PM EST Inhaled Oxygen Concentration - - Weight 92.2 kg (203 lb 3.2 oz) 05/08/2025 2:12 P M EST Height 170.2 cm (5' 7 ) 08/23/2024 3:11 PM EDT Body Mass Index 31.83 08/23/2024 3:11 PM EDT Plan of Treatment Health Maintenance Due Date Last Done Comments CT Colonography 1960 FIT DNA/Cologuard 1960 FIT 1960 FOBT 1960 Sigmoidoscopy 1960 RSV Patients and Patients Aged 60 years or older (1 - Risk 50-74 years 1-dose series) 2008 COVID-19 Vaccine ( season) 2025 10/30/2020, 10/02/2020 Mammogram 07/05/2025 07/05/2024, 06/13, 06/22/2022, Additional history exists Alcohol/Substance Use Screening 02/05/2026 02/05/2025 Depression Screening 02/05/2026 02/05/2025, 02/06/20 SDOH Screening 05/08/2026 05/08/2025 Tobacco Screening 05/08/2026 05/08/2025 DTaP/Tdap/Td Vaccines (2 - Td or Tdap) [...] COMPLETE Routine 05/14/2025 3:0 5 PM EST POCT WET MOUNT/MABEL Routine 05/08/2025 2: 31 PM EST Candidiasis of vulva and vagina US RENAL BI Routine 05/08/2025 2:31 PM EST Left costovertebral angle tenderness Kidney stones CYTOPATH-CELL ENHANCED Routine 03/29/2025 9:00 AM EDT BACTERIAL VAGINOSIS PANEL Routine 03/27/2025 3:11 PM EDT Vulvar burning CULTURE, URINE, ROUTINE Routine 03/16/2025 11:10 AM EDT POCT URINALYSIS DIPSTICK Routine 03/14/2025 11:29 AM EDT Left costovertebral angle tenderness THIOPURINE S-METHYLTRANSFERASE (TPMT) GENOTYPE Routine 03/01/2025 11:55 AM EDT SED RATE BY MODIFIED WESTERGREN Routine 03/01/2025 11:55 AM EDT C-REACTIVE PROTEIN Routine 03/01/2025 11:55 AM EDT LIPID PANEL, STANDARD Routine 09/07/2024 9:39 AM [...] Recently Relevant to Health Maintenance Results * US Renal Complete (05/14/2025 3:05 PM EST) Anatomical Region Laterality Modality Kidney Ultrasound 05/14/2025 3:05 PM EST Narrative 05/14/2025 3:36 PM EST [place] [address] Ultrasound Report Signed Patient: Bree Chairez MR#: [id number] : 1960 Acct:[id number] Age/Sex: 64 / F ADM Date: 05/14/25 Loc: HO.US Attending Dr: Gia Tenorio MD Ordering Physician: Ignacio Leyva MD Date of Service: 05/14/25 Procedure(s): US renal BI Accession Number(s): [id number] cc: Ignacio Leyva MD; Gia Tenorio MD [...] nephrolithiasis, right kidney. Electronically signed by: Austin Shemran MD 05/14/2025 03:34 PM EST Dictated By: Austin Jurado MD Signed By: <Electronically signed by Austin Munson MD in OV> 05/14/25 1534 DD/ 1505 TD/TT: 05/14/25 1516 C D Stripper: Procedure Note Donotuseinterpreter, Image - 05/14/2025 [place] [address] Ultrasound Report Signed Patient: Heidi Chairez#: [id number] : 9Acct:[id number] Age/Sex: 64 / FADM Date: 05/14/25 Loc: HO.US Attending Dr: Gia Tenorio MD Ordering Physician: Ignacio Leyva MD Date of Service: 05/14/25 Procedure(s): US renal BI Accession Number(s): [id number] cc: Ignacio Leyva MD; Gia Tenorio MD [...] 05/14/25 1534 DD/ 1505 TD/TT: 05/14/25 1516 C D Stripper: [facility] External Provider IMG US PROCEDURES Final Result * US RENAL BI (05/08/2025 2:31 PM EST) Anatomical Region Laterality Modality Abdomen Ultrasound 05/08/2025 2:31 PM EST Gia Tenorio MD IMG US PROCEDURES Final Resul t * POCT fern test, vaginal fluid manually resulted (05/08/2025 2:31 PM EST) MABEL Prep Positive Comment:pH 5, neg whiff, neg clue, neg trich, few wbc, pos hyphae Vaginal Fluid Vaginal structure / Unknown 05/08/2025 2:31 PM EST Impressions Megha Wright CNM - 05/08/2025 2:31 PM EST Vulvovaginal candidiasis Megha Wright [facility] POINT OF CARE TEST ENTER/ EDIT ORDERABLES Final Result * Cytopath-cell enhanced (03/29/2025 9:00 AM EDT) 03/29/2025 9:00 AM EDT 04/01/2025 10:45 AM EDT Narrative [facility] - 04/02/2025 11:16 AM EDT ----- ------- Name: Bree Chairez Age/Sex: 64/F : 1960 Unit#: [id number] Attend Dr: Ignacio Leyva MD Re03/29/25 Status: [facility] REF Location: [facility] Disch: ----- ------- SPEC : [id number] RECD: 04/01/25 STATUS: NICHELLEAysha LAVELL NUM: [id number] CARLOS: 03/29/[address] [facility] [address]: Ignacio Leyva MD ENTERED: 04/01/25 SP TYPE: Cytology OTHR DR: Gia Tenorio MD ORDERED: Cyto-enhanced Diagnosis Urine: Negative for high-grade urothelial carcinoma. See comment. COMMENT: Low specimen cellularity. Few single urothelial cells, squamous cells, macrophages, red blood cells and mixed inflammatory cells. Clinical History Microscopic hematuria Material Received Urine Gross Description Received is 55 cc of very cloudy yellow fluid from which a ThinPrep slide is prepared. IHC S/NG Disclaimer NOTE: Unless otherwise stated, all tissue is formalin-fixed and paraffin-embedded. Some or all of the immunohistochemical tests reported herein may have been developed and their performance characteristics determined by [facility]. They have not been cleared or approved by the U.S. Food and Drug Administration (FDA). However, the FDA has determined that such clearance or approval is not necessary. This laboratory is certified under the Clinical Laboratory Improvement Amendments of 1988 (CLIA) as qualified to perform high complexity clinical laboratory testing. Copies To: Ignacio Leyva MD [facility] [address] [place] [address] Dr. Winter [facility] [place] [address] [email or web address] Gia Tenorio MD [address] [address] CONTINUED ON NEXT PAGE ----- ------- Name: ContrerasBree Age/Sex: 64/F : 1960 Unit#: [id number] Attend Dr: Ignacio Leyva MD Re03/29/25 Status: DEP REF Location: HO.LNP Disch: ----- ------- SPEC : [id number] RECD: 04/01/25 STATUS: MILTON MONTE NUM: [id number] CARLOS: 03/29/[address] [facility] [address]: Ignacio Leyva MD ENTERED: 04/01/25 SP TYPE: Cytology OTHR DR: Gia Tenorio MD ORDERED: Cyto-enhanced ----- ------- Signed (signature on file) Damir Estevez MD 04/02/25 1116 ----- ------- END OF REPORT us Generic External Data Provider LAB CYTOLOGY HIMA RABAIDA Final Result Performing Organization Address [facility] Co de Phone Number [facility] [address] [place] [phone] * Bacterial Vaginosis Panel (03/27/2025 3:11 PM EDT) TRICHOMONAS VAGINALIS DETECTION BY PCR NOT DETECTED Not Detect [facility] BACTERIAL VAGINOSIS DETECTION BY PCR NEGATIVE Negative [facility] Comment:The BV organism targ ets of [...] DETECTION BY PCR NOT DETECTED Not Detect [facility] Anabel glab krusei PCR NOT DETECTED Not Detect [facility] Swab Vaginal structure / Unknown 03/27/2025 3:11 PM EDT 03/27/2025 6:52 PM EDT Megha HARRY LAB MICROBIOLOGY - GENERA L ORDERABLES Final Result Performing Organization Address [facility] Co de Phone Number [facility] [address] [place] [address] [phone] * Culture, Urine, Routine (03/16/2025 11:10 AM EDT) Urine Urine specimen obtained by clean catch procedure / Unknown 03/16/2025 11:10 AM EDT 03/16/2025 1:51 PM EDT Comment:UACC Narrative [facility] - 03/17/2025 11:45 AM EDT Urine Culture No growth. Specimen Source: Urine clean catch us Generic External Data Provider LAB MICROBIOLOGY - GENERAL ORDERABLES Final Result [facility] [address] [place] [address] [phone] * (ABNORMAL) POCT Urinalysis (03/14/2025 11:29 [...] (03/01/2025 11:55 AM EDT) TPMT ACTIVITY [facility] Comment:Result Units: nmol/h r/mL RBCReference Range for TPMT Activity: >12 Normal 4-12 Heterozygote or low metabolizer <4 Homozygote Deficient RangeThis test was developed and its analytical performancecharacteristics have been determined by [employer].It has not been cleared or approved by the FDA. This assayhas been validated pursuant to the CLIA regulations and isused for clinical purposes.THIS TEST WAS PERFORMED AT:[facility] [id number] [place] [address]XVDOOQUIQUE RODRIGUEZ MD,PHD,ALICIA 03/01/2025 11:5 5 AM EDT 03/01/2025 11:55 AM EDT us Generic External Data Provider LAB BLOOD ORDERAB LES Final Result Performing Organization Address City/[facility]/ZIP Co de Phone Number [facility] [address] [place] [phone] * (ABNORMAL) Sed Rate by Modified Giselleren (03/01/2025 11:55 AM EDT) Erythrocyte Sedimentation Rate 33(H) 0 - 20 MM/HR [facility] Comment:Patients with polycy themia and many hemoglobin abnormalitiesmay have depressed sed rates whereas patients with anemiamay have elevated sed rates. 03/01/2025 11:5 5 AM EDT 03/01/2025 11:55 AM EDT Generic External Data Provider LAB BLOOD ORDERAB LES Final Result Performing Organization Address [facility] Co de Phone Number [facility] [address] [place] [phone] * C-reactive Protein (03/01/2025 11:55 AM EDT) C Reactive Protein 0.44 < or = 0.50 mg/dL [facility] 03/01/2025 11:5 5 AM EDT 03/01/2025 11:55 AM EDT Generic External Data Provider LAB BLOOD ORDERAB LES Final Result Performing Organization Address City/[facility] Co de Phone Number [facility] [address] [place] [phone] * Lipid Panel, Standard (09/07/2024 9:39 AM EDT) Triglycerides 94 <150 mg/dL [facility] Comment:Desirable Triglyceri de: less than 150 mg/dLBorderline High Triglyceride 150-199 mg/dLHigh Triglyceride: 200-499 mg/dLVery High Triglyceride: greater than or equal to 5OO mg/dL Cholesterol 149 <200 mg/dL [facility] Comment:Desirable Cholestero l: less than 200 mg/dLBorderline High Cholesterol: 200-239 mg/dLHigh Cholesterol: greater than 239 mg/dL LDL Cholesterol Calculated 88 <100 mg/dL [facility] Comment:Desirable LDL: less than 100 mg/dLNear Optimal/Above Optimal LDL: 110- 129 mg/dLBorderline High LDL: 130-159 mg/dLHigh LDL: 160-189 mg/dLVery High LDL: greater than or equal to 190 mg/dL HDL Cholesterol 43 >40 mg/dL [facility] Comment:Desirable HDL: great er than 40 mg/dL Note: This HDL assay may give artificially low results in patients with liver disease. Blood Venous blood specimen / Unknown 09/07/2024 9:39 AM EDT 09/07/2024 2:08 PM EDT us Gia Tenorio MD LAB BLOOD ORDERABLES Final Re sult [facility] [address] [place] [address] [phone] * BI Mammogram Screening Tomosynthesis Bilateral (07/05/2024 1:55 PM EST) Anatomical Region Laterality Modality Breast Bilateral Mammography 07/05/2024 1:55 PM EST Narrative 07/16/2024 10:03 AM EST [facility] [address] [place] [address] Mammography Report Signed Patient: Bree Chairez MR#: [id number] : 1960 Acct:[id number] Age/Sex: 63 / F ADM Date: 07/05/24 Loc: HO.MAMMO Attending Dr: Gia Tenorio MD Ordering Physician: Gia Tenorio MD Results: 1Ne gative Date of Service: 07/05/24 Follow Up: 1 Year From Orig inal Mammogram Procedure(s): MM tomosynthesis screening BI Accession Number(s): [id number] cc: Gia Tenorio MD EXAMINATION: MM SCREENING [...] by: Pat Bonilla DO 07/16/2024 10:00 AM [facility] Dictated By: Pat Bonilla DO Signed By: <Electronically signed by Pat Bonilla DO in OV> 07/16/24 1000 DD/ 1355 TD/TT: 07/05/24 1410 C D Stripper: Procedure Note Donotuseinterpreter, Image - 07/16/2024 [facility] [address] [place] [address] Dr. [place], [place] [address] Mammography Report Signed Patient: Heidi Chairez#: [id number] : 9Acct:[id number] Age/Sex: 63 / FADM Date: 07/05/24 Loc: HO.MAMMO Attending Dr: Gia Tenorio MD Ordering Physician: Gia Tenorio MDResults: 1Ne gative Date of Service: 07/05/24Follow Up: 1 Year From Orig inal Mammogram Procedure(s): MM tomosynthesis screening BI Accession Number(s): [id number] cc: Gia Tenorio MD EXAMINATION: MM SCREENING [...] 07/16/24 1000 DD/ 1355 TD/TT: 07/05/24 1410 C D Stripper: Gia Tenorio MD IMG BI PROCEDURES Final Resul t * Hm Colonoscopy (03/07/2024) Colonoscopy Normal Normal us Gia Tenorio MD HEALTH MAINTENANCE Final Resu lt * ThinPrep Imaging Pap and HPV mRNA E6/E7 with Reflex to HPV 16,18/45 (12/05/2023 10:30 AM EDT) HPV 16 RNA [facility] HPV 18/45 RNA [facility] HPV nRNA E6/E7 Not Detected Not Detected [facility] Comment:Methodology: Transcr iption-Mediated AmplificationThis assay detects E6/E7 viral messenger RNA (mRNA) from 14high-risk HPV types (16,18,31,33,35,39,45,51,52,56,58,59,66,68).Cervical sources are required for HPV testing.If a vaginal source from a patient who has had atotal hysterectomy with removal of cervix wassubmitted, please contact the testing laboratoryfor alternative testing options.For additional information, please refer tohttp://education.Pick a Student/faq/GHC671k1(This link if provided for information/educational purposes only.)THIS TEST WAS PERFORMED AT:[employer] [address] [phone] SOLO MD SOURCE: SEE NOTE [facility] Comment:Cervix Report Status: [facility] Clinical Information: SEE NOTE [facility] Comment:R LMP: SEE NOTE [facility] Comment:NONE GIVEN Prev. PAP: SEE NOTE [facility] Comment:2020 Prev. BX: SEE NOTE [facility] Comment:NONE GIVEN Statement Of Adequacy: SEE NOTE [facility] Comment:SATISFACTORY FOR ALINE LUATION General Categorization: [facility] Interpretation/Result: SEE NOTE [facility] Comment:Cytology Results: Ne gative for intraepitheliallesion or malignancy.Atrophic pattern; predominantly parabasal cells Cytology Comment SEE NOTE [facility] Comment:This Pap test has be en evaluated with computerassisted technology. Electrostatic Paint Operator: SEE NOTE [facility] Comment:RPR, CT (ASCP) CT sc reening location: [address] [address] Review Electrostatic Paint Operator: [facility] Pathologist [facility] PAP Infection [facility] See Note SEE NOTE [facility] Comment:EXPLANATORY NOTE:The Pap is a screening test for cervical cancer. It isnot a diagnostic test and is subject to false negativeand false positive results. It is most reliable when asatisfactory sample, regularly obtained, is submittedwith relevant clinical findings and history, and whenthe Pap result is evaluated along with historic andcurrent clinical information. 12/05/2023 10:3 0 AM EDT 12/06/2023 9:23 AM EDT Narrative [facility] - 12/09/2023 8:39 AM EDT [id number] us Megha Adriana CNM LAB PATHOLOGY ORDERABLES Final Result [facility] [address] [place] [phone] * HEPATITIS C AB W/REFL TO HCV RNA, QN, PCR (08/20/2020 5:01 PM EST) HEPATITIS C ANTIBODY NON-REACT KARON NON-REACT KARON [facility] INDEX 0.04 <1.00 [facility] Comment: HCV antibody was non-reactive. There is no laboratory evidence of HCV infection. In most cases, no further action is required. However, if recent HCV exposure is suspected, a test for HCV RNA (test code 41459) is suggested. For additional information please refer to http://education.Pick a Student/faq/OTM34p7 (This link is being provided for informational/ educational purposes only.) 08/20/2020 5:01 PM EST us Jenna Carballo BILLING SERVICES MANAGER HISTORICAL/NON ORDERABLE LABS Final Result [facility] [address] from Last 3 Months or Most Recently Relevant to Health Maintenance Insurance [facility] ONE CARE < 63 Care Teams Office Secretary Relationship Specialty Start Date End Date Gia Tenorio MD [address] [place] [address] PCP - General Family Medicine 06/13/18
--- OUTSIDE RECORDS SUMMARY | 2025-05-14 16:35 | XMS_ITS | Encounter Summary ---
Author Organization [employer] Address [address] [facility] 7t [place] [address] Care Team Providers Care Slot Floor Attendant Name Role Phone Gia Tenorio MD Primary Care Provider [phone] Reason for Visit * Reason Comments Med Refill Encounter Details Date Type Department Care Team ([facility] Contact Info) Description 04/04/2025 Refill [facility] MED & PEDS [address] [place] [address] Liz Contreras MD 505 [place] [address] Social History Tobacco Use Types Packs/Day Years [...] on filedocumented in this encounter Care Teams Slot Floor Attendant Relationship Specialty Start Date End Date Gia Tenorio MD [address] [place] [address] PCP - General Family Medicine 06/13/18 documented as of this encounter
--- OUTSIDE RECORDS SUMMARY | 2025-05-14 16:35 | XMS_ITS | Encounter Summary ---
Author Organization [employer] Address [address] [place] [address] Care Team Providers Care Manager User Interface Name Role Phone Gia Tenorio MD Primary Care Provider [phone] Reason for Visit * Reason Comments Med Refill Encounter Details Date Type Department Care Team ([facility] st Contact Info) Description 02/24/2023 Refill [facility] MED & PEDS [address] [place] [address] Gia Tenorio MD 505 [place] [address] Benign essential hypertension; Mild persistent asthma without [...] complication documented in this encounter Care Teams Manager User Interface Relationship Specialty Start Date End Date Gia Tenorio MD 505 [place] [address] PCP - General Family Medicine 06/13/18 documented as of this encounter
--- OUTSIDE RECORDS SUMMARY | 2025-05-14 16:35 | XMS_ITS | Encounter Summary ---
Author Organization [employer] Address [address] [place] [address] 7 [place] [address] Care Team Providers Care Cardiac Rn Name Role Phone Gia Tenorio MD Primary Care Provider [phone] Encounter Details Date Type Department Care Team [...] on filedocumented in this encounter Care Teams Cardiac Rn Relationship Specialty Start Date End Date Gia Tenorio MD 505 [place] [address] PCP - General Family Medicine 06/13/18 documented as of this encounter
--- OUTSIDE RECORDS SUMMARY | 2025-05-14 16:35 | XMS_ITS | Encounter Summary ---
Author Organization [employer] Address [address] [place] [address] Care Team Providers Care Global Process Owner Name Role Phone Gia Tenorio MD Primary Care Provider [phone] Reason for Visit * Reason Comments Med Refill Encounter Details Date Type Department Care Team ([facility] st Contact Info) Description 04/18/2023 Refill [facility] MED & PEDS [address] [place], [place] [phone] Luigi Solomon MD 505 [place] [address] Acute left-sided low back pain with left-sided [...] spasm documented in this encounter Care Teams Global Process Owner Relationship Specialty Start Date End Date Gia Tenorio MD 505 [place] [address] PCP - General Family Medicine 06/13/18 documented as of this encounter
--- OUTSIDE RECORDS SUMMARY | 2025-05-14 16:35 | XMS_ITS | Encounter Summary ---
Author Organization [employer] Address [address] [place] [address] [place] [address] Care Team Providers Care Associate Professor Of Archaeology Name Role Phone Gia Tenorio MD Primary Care Provider [phone] Reason for Visit * Reason Onset Date Comments Med Refill 02/15/2025 Encounter Details Date Type Department Care Team ([facility] st Contact Info) Description 02/15/2025 Refill [facility] CHC MED & PEDS [address] [place] [address] Luigi Solomon MD 505 [place] [address] Social History Tobacco Use Types Packs/Day Years [...] on filedocumented in this encounter Care Teams Associate Professor Of Archaeology Relationship Specialty Start Date End Date Gia Tenorio MD [address] [place] [address] PCP - General Family Medicine 06/13/18 documented as of this encounter
--- OUTSIDE RECORDS SUMMARY | 2025-05-14 16:35 | XMS_ITS | Encounter Summary ---
Author Organization [employer] Address [address] [place] [address] Care Team Providers Care Aircraft Structural Design Engineer Name Role Phone Gia Tenorio MD Primary Care Provider [phone] Reason for Visit * Reason Comments Med Refill Encounter Details Date Type Department Care Team (Late st Contact Info) Description 02/24/2023 Refill [facility] [address] [place] [address] Mercy Jeffries MD [address] [place], [place] [phone] Acute left-sided low back pain with left-sided [...] spasm documented in this encounter Care Teams Aircraft Structural Design Engineer Relationship Specialty Start Date End Date Gia Tenorio MD 505 [place] [address] PCP - General Family Medicine 06/13/18 documented as of this encounter
== END 2025-05-14 14:41 | disposition home or self-care (01) ==
LOC: HO.US 14:40
PROVIDERS: PCP Pediatrics; Referring Provider Urology; Visit Provider Pediatrics
DX: N20.0 Calculus of kidney (principal); R10.A2 Flank pain, left side; R31.29 Other microscopic hematuria; R39.852 Costovertebral (angle) tenderness, left side
CPT/HCPCS: 76775

== ENCOUNTER → 2025-05-14 14:42 | Outpatient (BNV) | payer OTHER, SELFPAY | PROVIDERS: PCP Pediatrics; Referring Provider Urology; Visit Provider Radiology Diagnostic Radiology | DX: N20.0 Calculus of kidney (principal); N28.1 Cyst of kidney, acquired | CPT/HCPCS: 76775 ==

== ENCOUNTER 2025-05-16 09:06 | Outpatient (AMB) | payer OTHER, SELFPAY ==
--- NOTE | 2025-05-16 09:43 | MHC.OFFVIS ---
Intake Visit Reasons: Cysto/US (set)UA) Intake Note: Patient presents today for a cystoscopy/US follow up 05/14 Renal US Urology Medication:None Blood Thinner:None Antibiotic Allergies:None Lot#: [id number] EXP:11/20/27 Allergies No Known Allergies Allergy (Verified 06/27/25 08:34) HPI Comments Details: 05/16/25--Bree is here for office cystoscopy, Cystoscopy findings: Bladder wall thickening, no suspicious bladder lesions visualized History of Present Illness The patient is a 64 year old female presenting for an office cystoscopy and to review recent renal ultrasound results. Regarding urinary symptoms, the patient reports having days where she experiences urinary urgency approximately every hour and a half with little output. She denies any current burning with urination, urgency, frequency, or nocturia, and is able to sleep through the night. She is also being evaluated for an InterStim procedure for fecal leakage. Results - Renal Ultrasound (05/14/25): Revealed bilateral renal cysts and a 4 mm non-obstructing calculus in the right kidney. - Office Cystoscopy: Findings include thickening of the bladder wall, pelvic exam - vaginal atrophy Plan 1. Nephrolithiasis - A recent renal ultrasound showed a very small, 4 mm non-obstructing stone in the right kidney. The plan is to monitor the stone. 2. Fecal Incontinence And Urinary Urgency - The patient is scheduled for the first stage of an InterStim trial on June 14 at the hospital to address fecal leakage; its effect on urinary urgency will also be assessed. 3. Atrophic Vaginitis - On examination, the vaginal tissues appeared atrophic. - A low-dose estrogen cream was recommended. 03/29/25-- History of Present Illness The patient is a 64-year-old female presenting with fecal incontinence and urinary symptoms. The fecal incontinence has been a significant concern, and she was referred by Dr. Nassar, a gastrointestinal specialist, for sacral neuromodulation evaluation. Muscle testing indicated some difficulties, and a test phase involving sacral nerve stimulation was discussed to assess potential improvement. The patient also reports urinary symptoms, painful urination, which have been persistent. She has experienced left flank pain, possibly related to kidney issues, and these symptoms warrant further investigation. Results - Urinalysis: Trace microscopic hematuria Plan 1. Fecal Incontinence - Plan to conduct a sacral neuromodulation test phase to evaluate improvement in symptoms. 2. Microscopic Hematuria - Recommend renal and bladder ultrasound to investigate the cause of hematuria. - Consider office cystoscopy for further evaluation if necessary. 3. Painful Urination - Evaluate for potential urinary tract infection or other underlying causes. 4. Left Flank Pain - Investigate potential renal causes, possibly related to the urinary symptoms. [facility] Medical History COVID-19 vaccine series completed Vertigo Chronic diarrhea Hypothyroid Fatty liver Kidney stone Asthma Cervical disc disease IBS (irritable bowel syndrome) GERD (gastroesophageal reflux disease) Migraine Hypercholesteremia HTN (hypertension) Surgical History History of esophagogastroduodenoscopy (EGD) Hx of colonoscopy H/O lumpectomy Hx of cholecystectomy Family History Father Prostate cancer Paternal Aunt Diabetes Stroke Father Heart attack Paternal Uncle Stroke Social History Household Members: Spouse Housing: Apartment Are you a primary adult care manager to a significant other at home: No Do you presently have visiting nurse or other home services: No Alcohol intake: current Alcohol intake frequency: does not drink Patient Tobacco Use Status: Never used Tobacco Current occupational status: disabled Current occupation: rt handed Review of Systems Const All systems reviewed & are unremarkable except as noted in HPI and below Reports no additional complaints Eyes Reports no additional complaints ENT Reports no additional complaints Card Reports no additional complaints Resp Reports no additional complaints GI Reports no additional complaints Reports as per HPI Musc Reports no additional complaints Skin/Breast Reports system reviewed and no additional complaints, except as documented Neuro Reports no additional complaints Psych Reports no additional complaints Endo Reports no additional complaints Omar/Lymph Reports no additional complaints Aller/Immun Reports no additional complaints Office Procedures Cystoscopy Consent Discussed risk and benefit or proposed procedure with the patient. Information consent for procedure given to the patient. Discussed technical aspects, risks, benefits and alternatives in full. Addressed all of the patient's questions and concerns regarding the procedure. The patient demonstrated knowledge and understanding. They wish to proceed with this procedure. Preparation The patient was prepped in the usual manner. A kitchen runner was present and in the room. Genitalia was prepped with betadine solution in a sterile manner. Lidocaine Jelly 2% was placed into the urethra and 16Fr flexible Olympus cystoscope was inserted into the meatus after adequate lubrication. Procedure Time out per protocol performed. Speculum used as indicated for adequate visualization of urethra, the flexible cystoscope is passed transurethrally: The bladder was inspected in its entirety with utilization retroflexion displaying: Tumor(s): no suspicious bladder lesions visualized Trabeculation: Mild to Moderate with, cellulle changes Mucosal NA Orifices: normal shape and position Urethra: normal Cystoscopy findings: Bladder wall thickening, no suspicious bladder lesions visualized [id number] DISPOSABLE SCOPE URO-G FLEXIBLE SCOPE Procedure code (CPT) selection complete Office Meds lidocaine HCl 2 % mucosal jelly in applicator Performing Provider: Ignacio Leyva MD [facility] Administered by: Domitila Varela RN on 05/16/25 10:01 Dose Route Admin Location Dispensed Lot Number Expiration Date [employer]DC Analytics Manager 20 mL intra-urethral 20 mL ciprofloxacin HCl 500 mg tablet Performing Provider: Ignacio Leyva MD Performing Location: [facility] Administered by: Domitila Varela RN on 05/16/25 10:01 Dose Route Admin Location Dispensed Lot Number Expiration Date [employer]DC Analytics Manager 500 mg PO 1 tab phenazopyridine 200 mg tablet Performing Provider: Ignacio Leyva MD Performing Location: [facility] Administered by: Domitila Varela RN on 05/16/25 10:01 Dose Route Admin Location Dispensed Lot Number Expiration Date [employer]DC Analytics Manager 200 mg PO 1 tab Results AMB Urinalysis, Automated UA Leukoctes 0 Rc/uL Last Edit by Hina Woo on 05/16/25 15:26 UA Nitrite Negative Last Edit by Hina Woo on 05/16/25 15: UA Urobilinogen 0.2 mg/dL Last Edit by Hina Woo on 05/16/25 15:26 UA Protein 0 mg/dL Last Edit by Hina Woo on 05/16/25 15:26 UA pH 6.0 Last Edit by Hina Woo on 05/16/25 15:26 UA Blood 0 Deo/uL Last Edit by Hina Woo on 05/16/25 15:26 UA Specific [place] 1.015 Last Edit by Hina Woo on 05/16/25 15:26 UA Ketone Negative Last Edit by Hina Woo on 05/16/25 15:26 UA Bilirubin 0 mg/dL Last Edit by Hina Woo on 05/16/25 15:26 UA Glucose 0 mg/dL Last Edit by Hina Woo on 05/16/25 15:26 Results Reviewed Results Reviewed: Laboratory Last Values Urine pH (Auto) 6.0 05/16/25 11:34 Specific [place] (Auto) 1.015 05/16/25 11:34 Urine Protein (Auto) 0 mg/dL 05/16/25 11:34 Glucose (UA)(Auto) 0 mg/dL 05/16/25 11:34 Urine Ketones (Auto) Negative 05/16/25 11:34 Urine Blood (Auto) 0 Deo/uL 05/16/25 11:34 Urine Nitrite (Auto) Negative 05/16/25 11:34 Urine Bilirubin (Auto) 0 mg/dL 05/16/25 11:34 Urine Urobilinogen (Auto) 0.2 mg/dL 05/16/25 11:34 Leukocyte Esterase (Auto) 0 Rc/uL 05/16/25 11:34 Date of Service: 05/14/25 EXAMINATION: US RETROPERITONEAL LIMITED (RENAL ONLY) CLINICAL INFORMATION: Microscopic hematuria. R31.29. COMPARISON: Correlated to CT dated September 11, 2024. Renal ultrasound dated July 19, 2012 is not available on PACS. TECHNIQUE: Real-time ultrasound kidneys using grayscale technique. FINDINGS: RIGHT KIDNEY: 11 x 5 x 5 cm (SAG x AP x TRV). Volume: 146 cc. Normal echotexture. Renal cortical thickness is normal. No hydronephrosis. There is a 0.9 cm anechoic lesion at the corticomedullary junction of the midportion without septations or nodular components. There are a few, less than 4 mm nonobstructing calculus. LEFT KIDNEY: 10 x 6 x 4 cm (SAG x AP x TRV). Volume: 138 cc. Normal echotexture. Renal cortical thickness is normal. No hydronephrosis. There is a 3.2 cm exophytic anechoic lesion without septations or nodular components in the midportion/upper pole junction. IMPRESSION: Bilateral renal cysts. No hydronephrosis. Nonobstructing nephrolithiasis, right kidney. Assessment & Plan Assessment & Plan (1) Fecal incontinence: Code(s): R15.9 - Full incontinence of feces Category: Medical (2) Vaginal atrophy: Code(s): N95.2 - Postmenopausal atrophic vaginitis Category: Medical (3) Urinary urgency: Code(s): R39.15 - Urgency of urination Category: Medical Plan Plan 1. Nephrolithiasis - A recent renal ultrasound showed a very small, 4 mm non-obstructing stone in the right kidney. The plan is to monitor the stone. 2. Fecal Incontinence And Urinary Urgency - The patient is scheduled for the first stage of an InterStim trial on June 14 at the hospital to address fecal leakage; its effect on urinary urgency will also be assessed. 3. Atrophic Vaginitis - On examination, the vaginal tissues appeared atrophic. - A low-dose estrogen cream was recommended. Orders: Orders AMB Cystoscopy 05/16/25 R31.29 - Other microscopic hematuria AMB Urinalysis Automated 05/16/25 R31.29 - Other microscopic hematuria, R30.9 - Painful micturition, unspecified Patient Instructions: The patient had an opportunity to ask questions regarding treatment plan. The patient expressed understanding and agreement with the above treatment plan. The patient is aware they should contact our office by phone for worsening of their current condition or the appearance of new symptoms. Compliance is encouraged with any medications and followup testing that is ordered. It is a privilege to be allowed the opportunity to participate in the urologic care of your patient. If you have any questions or concerns regarding treatment for the above conditions please do not hesitate to contact me. The office telephone contact is [phone]. This note is constructed in part using voice recognition software. While every effort has been made to ensure accuracy protection mgr errors may have been included. Yours sincerely, Ignacio Leyva MD Scribe Plan - Not visible on output: Patient was informed and verbally consented to the use of an ambient scribe for clinic note documentation during this visit. Coding Level of Care Code Est Pt Level 4 (47069) Diagnoses Fecal incontinence R15.9 Vaginal atrophy N95.2 Urinary urgency R39.15 CPT Codes Cystoscopy - CPT: 68086-[id number] ([id number])
--- OUTSIDE RECORDS SUMMARY | 2025-05-16 09:55 | XMS_ITS | Encounter Summary ---
Author Organization [employer] Address [address] [place] [address] 7 [place] [address] Care Team Providers Care Intermediate Teacher Name Role Phone Gia Tenorio MD Primary Care Provider [phone] Reason for Visit * Reason Onset Date Comments Med Refill 02/15/2025 Encounter Details Date Type Department Care Team ([facility] st Contact Info) Description 02/15/2025 Refill [facility] CHC MED & PEDS [address] [place] [address] Luigi Solomon MD [address] [place] [address] Social History Tobacco Use Types Packs/Day Years [...] on filedocumented in this encounter Care Teams Intermediate Teacher Relationship Specialty Start Date End Date Gia Tenorio MD [address] [place] [address] PCP - General Family Medicine 06/13/18 documented as of this encounter
--- OUTSIDE RECORDS SUMMARY | 2025-05-16 09:55 | XMS_ITS | Encounter Summary ---
Author Organization [employer] Address [address] [place] [address] Care Team Providers Care Software Test Engineer Name Role Phone Gia Tenorio MD Primary Care Provider [phone] Reason for Visit * Reason Comments Med Refill Encounter Details Date Type Department Care Team ([facility] st Contact Info) Description 10/22/2022 Refill [facility] [address] [place], [place] [phone] Donna Amin MD [address] [place], [place] [phone] Neck muscle spasm Social History Tobacco Use [...] spasm documented in this encounter Care Teams Software Test Engineer Relationship Specialty Start Date End Date Gia Tenorio MD [address] [place] [address] PCP - General Family Medicine 06/13/18 documented as of this encounter
--- OUTSIDE RECORDS SUMMARY | 2025-05-16 09:55 | XMS_ITS | Encounter Summary ---
Author Organization [employer] Address [address] [place] [address] Care Team Providers Care Wing Commander Name Role Phone Gia Tenorio MD Primary Care Provider [phone] Reason for Visit * Reason Comments Med Refill Encounter Details Date Type Department Care Team (Late st Contact Info) Description 02/24/2023 Refill [facility] [address] [place] [address] Mercy Jeffries MD [address] [place], [place] [phone] Acute left-sided low back pain with left-sided [...] spasm documented in this encounter Care Teams Wing Commander Relationship Specialty Start Date End Date Gia Tenorio MD [address] [place] [address] PCP - General Family Medicine 06/13/18 documented as of this encounter
--- OUTSIDE RECORDS SUMMARY | 2025-05-16 09:55 | XMS_ITS | Encounter Summary ---
Author Organization [employer] Address [address] [facility] 7t [place] [address] Care Team Providers Care Satellite Technician Name Role Phone Gia Tenorio MD Primary Care Provider [phone] Reason for Visit * Reason Comments Med Refill Encounter Details Date Type Department Care Team ([facility] Contact Info) Description 04/04/2025 Refill [facility] MED & PEDS [address] [place] [address] Liz Contreras MD [address] [place] [address] Social History Tobacco Use Types Packs/Day Years [...] on filedocumented in this encounter Care Teams Satellite Technician Relationship Specialty Start Date End Date Gia Tenorio MD [address] [place] [address] PCP - General Family Medicine 06/13/18 documented as of this encounter
--- OUTSIDE RECORDS SUMMARY | 2025-05-16 09:55 | XMS_ITS | Clinical Summary ---
Author Organization [employer] Address [address] [place] [address] 7[address] [place] [address] Care Team Providers Care Track Repair Worker Name Role Phone Gia Tenorio MD Primary Care Provider [phone] Allergies No known active allergies Medications * [...] TAKE ONE TABLET DAILY 90 tablet 1 11/10/19 24 Active calcium carbonate 1500 (600 Ca) MG tablet TAKE ONE TABLET BY MOUTH TWICE DAILY 180 tablet 1 11/14/19 24 Active Hydrocortisone, Perianal, (Proctocort) 1 % cream Apply bid small amount to affected area of rectum 28.4 g 11 08/24/19 25 Active triamcinolone (Kenalog) 0.1 % cream APPLY A THIN LAYER TO THE AFFECTED AREA(s) TWICE DAILY 80 g 09/06/19 25 Active famotidine (Pepcid) 40 MG tablet [...] BREATH 75 mL 3 12/01/19 25 Active enalapril (Vasotec) 20 MG tablet TAKE ONE TABLET BY MOUTH TWICE DAILY 60 tablet 02/16/20 25 Active gabapentin (Neurontin) 100 MG capsuleIndicatio ns:Osteopenia of multiple sites,Vitamin D deficiency,Neura lgia TAKE ONE CAPSULE TWICE DAILY 60 capsule 3 02/16/20 25 Active meloxicam (Mobic) 7.5 MG tabletIndication s:Acute left-sided low back pain with left-sided sciatica,Neck muscle spasm TAKE TWO TABLETS EVERY MORNING 60 tablet 3 02/16/20 25 Active venlafaxine XR (Effexor XR) 75 MG 24 hr capsuleIndicatio ns:Major depressive disorder in remission, unspecified whether recurrent (CMS/HCC) Take 1 capsule (75 mg) by mouth Once per day. 30 capsule 5 02/16/20 25 Active amLODIPine (Norvasc) 5 MG tabletIndication s:Benign essential hypertension,Mil d persistent asthma without complication Take 1 tablet (5 mg) by mouth Once per day. 30 tablet 02/16/20 25 Active metoprolol succinate XL (Toprol-XL) [...] that 42.5 g 1 03/27/20 25 Active cholecalciferol VITAMIN D (Vitamin D-3) 50 MCG (2000 UT) capsule TAKE ONE CAPSULE TWICE DAILY 60 capsule 11 04/12/20 25 Active SUMAtriptan (Imitrex) 25 MG tablet TAKE 1 TABLET BY MOUTH AT ONSET OF MIGRAINE. MAY REPEAT ONCE AFTER 2 HOURS IF NEEDED. NO MORE THAN EIGHT TABLETS PER 24 HOURS 10 tablet 04/12/20 25 Active dicyclomine (Bentyl) 20 MG tablet TAKE ONE TABLET TWICE DAILY NEEDED 180 tablet 04/12/20 25 Active meclizine (Antivert) 25 MG tabletIndication s:Benign essential hypertension,Mil d persistent asthma without complication TAKE ONE TABLET THREE TIMES DAILY NEEDED FOR DIZZINESS 20 tablet 3 04/15/20 25 Active terconazole (Terazol 7) 0.4 % vaginal cream Insert 1 applicator into the vagina at bedtime for 7 days. 45 g 5 3:19 PM EST 05/08/20 25 026 Active Active Problems Problem Noted Date Diagnosed Date Chronic diarrhea 08/26/2024 Mesenteric panniculitis ([facility]/HCC) 08/26/2024 Achalasia of esophagus 12/01/2023 Osteopenia [...] Department Care Team Description 05/14/2025 Orders Only [facility] External Provider, [facility] 05/08/2025 2:30 PM EST Office Visit [address] [address] Megha Wright CNM Candidiasis of vulva and vagina (Primary Dx); Atrophic vaginitis 05/08/2025 Travel 05/07/2025 Travel 05/07/[address] [address] Megha Wright CNM CHART PREP 05/06/2025 Travel 05/01/2025 Travel 04/13/2025 Refill [facility] [address] [place] [address] Gia Tenorio MD Benign essential hypertension; Mild persistent asthma without complication 04/11/2025 Refill [facility] [address] [place] [address] Liz Contreras MD 04/11/2025 Refill [facility] [address] [place] [address] Gia Tenorio MD 04/04/2025 Refill [facility] [address] [place] [address] Liz Contreras MD 03/29/2025 Orders Only GENERIC EXTERNAL DATA DEPARTMENT Provider, Generic External Data 03/27/2025 2:30 PM EDT Office Visit [address] [address] Megha Wright CNM Atrophic vaginitis (Primary Dx); Vulvar burning 03/27/2025 Travel 03/26/[address] [address] Megha Wright CNM chart prep 03/20/2025 Travel 03/16/2025 Orders Only GENERIC EXTERNAL DATA DEPARTMENT Provider, Generic External Data 03/14/2025 11:15 AM EDT Office Visit [facility] [address] [place] [address] Gia Tenorio MD Left costovertebral angle tenderness (Primary Dx); Encounter for immunization; Benign essential hypertension; Vitamin D deficiency; Mesenteric panniculitis (CMS/HCC) (HCC); Infiltrating ductal carcinoma of right female breast (CMS/HCC) (HCC); Kidney stones; Dyspareunia, female 03/14/2025 Travel 03/11/2025 Telephone [facility] [address] [place] [address] Gia Tenorio MD Chart Prep 03/08/2025 Travel 03/01/2025 Orders Only GENERIC EXTERNAL DATA DEPARTMENT Provider, Generic External Data 02/18/2025 11:00 AM EDT Telemedicine [facility] [address] [place] [address] Mary Kate Munson, DAX Pleuritic pain 02/18/2025 Travel 02/18/2025 Refill [facility] [address] [place] [address] Gia Tenorio MD Benign essential hypertension; Mild persistent asthma without complication 02/15/2025 Travel 02/15/2025 Refill [facility] [address] [place] [address] Luigi Solomon MD 02/15/2025 Refill [facility] [address] [place] [address] Gia Tenorio MD Major depressive disorder in remission, unspecified whether recurrent (CMS/HCC); Benign essential hypertension; Mild persistent asthma without complication 02/15/2025 Refill [facility] [address] [place] [address] Luigi Solomon MD Osteopenia of multiple sites; [...] Sister 3 Shefali Bryanna lez Arthritis Mother Marlyn Gonz lez Hypertension Mother MarlynBerenice quinteros Relation Name Status Comments Father Maverick [...] PM EST Narrative 05/14/2025 3:36 PM EST [place] [address] Ultrasound Report Signed Patient: Bree Chairez MR#: [id number] : 1960 Acct:[id number] Age/Sex: 64 / F ADM Date: 05/14/25 Loc: HO.US Attending Dr: Gia Tenorio MD Ordering Physician: Ignacio Leyva MD Date of Service: 05/14/25 Procedure(s): US renal BI Accession Number(s): [id number] cc: Ignacio Leyva MD; Gia Tenorio MD [...] 05/14/25 1534 DD/ 1505 TD/TT: 05/14/25 1516 Rod Cup Filler: Procedure Note Donotuseinterpreter, Image - 05/14/[address] [address] Ultrasound Report Signed Patient: Heidi Chairez#: [id number] : 9Acct:[id number] Age/Sex: 64 / FADM Date: 05/14/25 Loc: HO.US Attending Dr: Gia Tenorio MD Ordering Physician: Ignacio Leyva MD Date of Service: 05/14/25 Procedure(s): US renal BI Accession Number(s): [id number] cc: Ignacio Leyva MD; Gia Tenorio MD [...] by: Austin Sherman MD 05/14/2025 03:34 PM [facility] Dictated By: Austin Jurado MD Signed By: <Electronically signed by Austin Munson MDin OV> 05/14/25 1534 DD/ 1505 TD/TT: 05/14/25 1516 Rod Cup Filler: [facility] External Provider IMG US PROCEDURES Final [...] - 05/08/2025 2:31 PM EST Vulvovaginal candidiasis Result [facility] Megha Wright CNM POINT OF CARE TEST ENTER/ EDIT ORDERABLES Final Result * Cytopath-cell enhanced (03/29/2025 9:00 AM EDT) 03/29/2025 9:00 AM EDT 04/01/2025 10:45 AM EDT Narrative [facility] - 04/02/2025 11:16 AM EDT ----- ------- Name: Bree Chairez Age/Sex: 64/F : 1960 Unit#: [id number] Attend Dr: Ignacio Leyva MD Re03/29/25 Status: [facility] REF Location: [facility] Disch: ----- ------- SPEC : [id number] RECD: 04/01/25 STATUS: [place] [facility] NUM: [id number] CARLOS: 03/29/[address] [facility] [address]: Ignacio Leyva MD ENTERED: 04/01/25 [...] developed and their performance characteristics determined by [facility]. They have not been cleared or approved by the U.S. Food and Drug Administration (FDA). However, the FDA has determined that such clearance or approval is not necessary. This laboratory is certified under the Clinical Laboratory Improvement Amendments of 1988 (CLIA) as qualified to perform high complexity clinical laboratory testing. Copies To: Ignacio Leyva MD [facility] [address] [place] [address] [address] [place] [address] [email or web address] Gia Tenorio MD [address] [phone] CONTINUED ON NEXT PAGE ----- ------- Name: Bree Chairez Age/Sex: 64/F : 1960 Unit#: [id number] Attend Dr: Ignacio Leyva MD Re03/29/25 Status: DEP REF Location: HO.LNP Disch: ----- ------- SPEC : [id number] RECD: 04/01/25 STATUS: [place] NUM: [id number] CARLOS: 03/29/[address] [facility] [address]: Ignacio Leyva MD ENTERED: 04/01/[address] SP TYPE: Cytology OTHR DR: Gia Tenorio MD ORDERED: Cyto-enhanced ----- ------- Signed (signature on file) Damir Estevez MD 04/02/25 1116 ----- ------- END OF REPORT Generic External Data Provider LAB CYTOLOGY HIMA ORDONEZ Final Result Performing Organization Address [facility]/ZIP Co de Phone Number [facility] [address] [place] [address] [phone] * Bacterial Vaginosis Panel (03/27/2025 3:11 PM EDT) TRICHOMONAS VAGINALIS DETECTION BY PCR NOT DETECTED Not Detect [facility] BACTERIAL VAGINOSIS DETECTION BY PCR NEGATIVE Negative [facility] Comment:The BV organism targ ets [...] DETECTION BY PCR NOT DETECTED Not Detect [facility] Anabel glab krusei PCR NOT DETECTED Not Detect [facility] Swab Vaginal structure / Unknown 03/27/2025 3:11 PM EDT 03/27/2025 6:52 PM EDT Megha HARRY LAB MICROBIOLOGY - GENERA L ORDERABLES Final Result Performing Organization Address [facility]/ZIP Co de Phone Number [facility] [address] [place] [address] [phone] * Culture, Urine, Routine (03/16/2025 11:10 AM EDT) Urine Urine specimen obtained by clean catch procedure / Unknown 03/16/2025 11:10 AM EDT 03/16/2025 1:51 PM EDT Comment:UACC Narrative [facility] - 03/17/2025 11:45 AM EDT Urine Culture No growth. Specimen Source: Urine clean catch us Generic External Data Provider LAB MICROBIOLOGY - GENERAL ORDERABLES Final Result [facility] [address] [place] [address] [phone] * (ABNORMAL) POCT Urinalysis (03/14/2025 11:29 [...] (03/01/2025 11:55 AM EDT) TPMT ACTIVITY [facility] Comment:Result Units: nmol/h r/mL RBCReference Range for TPMT Activity: >12 Normal 4-12 Heterozygote or low metabolizer <4 Homozygote Deficient RangeThis test was developed and its analytical performancecharacteristics have been determined by [facility].It has not been cleared or approved by the FDA. This assayhas been validated pursuant to the CLIA regulations and isused for clinical purposes.THIS TEST WAS PERFORMED AT:[employer]/[place] [id number] KHRIS OSPINA [id number] RODRIGUEZ MD,PHD,ALICIA 03/01/2025 11:5 5 AM EDT 03/01/2025 11:55 AM EDT Generic External Data Provider LAB BLOOD ORDERAB LES Final Result Performing Organization Address [facility] Co de Phone Number [facility] [address] [place] [phone] * (ABNORMAL) Sed Rate by Modified Demetrioergren (03/01/2025 11:55 AM EDT) Erythrocyte Sedimentation Rate 33(H) 0 - 20 MM/HR [facility] Comment:Patients with polycy themia and many hemoglobin abnormalitiesmay have depressed sed rates whereas patients with anemiamay have elevated sed rates. 03/01/2025 11:5 5 AM EDT 03/01/2025 11:55 AM EDT Generic External Data Provider LAB BLOOD ORDERAB LES Final Result Performing Organization Address [facility] Co de Phone Number [facility] [address] [place] [phone] * C-reactive Protein (03/01/2025 11:55 AM EDT) Pathologist [facility] C Reactive Protein 0.44 < or = 0.50 mg/dL [facility] 03/01/2025 11:5 5 AM EDT 03/01/2025 11:55 AM EDT Generic External Data Provider LAB BLOOD ORDERAB LES Final Result Performing Organization Address City/[facility]/ZIP Co de Phone Number [facility] [address] [place] [phone] * Lipid Panel, Standard (09/07/2024 9:39 AM EDT) Triglycerides 94 <150 mg/dL [facility] Comment:Desirable Triglyceri de: less than 150 mg/dLBorderline High Triglyceride 150-199 mg/dLHigh Triglyceride: 200-499 mg/dLVery High Triglyceride: greater than or equal to 5OO mg/dL Cholesterol 149 <200 mg/dL [facility] Comment:Desirable Cholestero l: less than 200 mg/dLBorderline High Cholesterol: 200-239 mg/dLHigh Cholesterol: greater than 239 mg/dL LDL Cholesterol Calculated 88 <100 mg/dL [facility] Comment:Desirable LDL: less than 100 mg/dLNear Optimal/Above Optimal LDL: 110- 129 mg/dLBorderline High LDL: 130-159 mg/dLHigh LDL: 160-189 mg/dLVery High LDL: greater than or equal to 190 mg/dL HDL Cholesterol 43 >40 mg/dL [facility] Comment:Desirable HDL: great er than 40 mg/dL Note: This HDL assay may give artificially low results in patients with liver disease. Blood Venous blood specimen / Unknown 09/07/2024 9:39 AM EDT 09/07/2024 2:08 PM EDT Gia Tenorio MD LAB BLOOD ORDERABLES Final Re sult [facility] [address] [place] [phone] * BI Mammogram Screening Tomosynthesis Bilateral (07/05/2024 1:55 PM EST) Anatomical Region Laterality Modality Breast Bilateral Mammography 07/05/2024 1:55 PM EST Narrative 07/16/2024 10:03 AM EST [facility] [address] [place] [address] Mammography Report Signed Patient: Bree Chairez MR#: [id number] : 1960 Acct:[id number] Age/Sex: 63 / F ADM Date: 07/05/24 Loc: BEN Attending Dr: Gia Tenorio MD Ordering Physician: Gia Tenorio MD Results: 1Ne gative Date of Service: 07/05/24 Follow Up: 1 Year From Orig inal Mammogram Procedure(s): MM tomosynthesis screening BI Accession Number(s): [id number] cc: Gia Tenorio MD EXAMINATION: MM SCREENING [...] by: Pat Bonilla DO 07/16/2024 10:00 AM [facility] Dictated By: Pat Bonilla DO Signed By: <Electronically signed by Pat Bonilla DO in OV> 07/16/24 1000 DD/ 1355 TD/TT: 07/05/24 1410 Rod Cup Filler: Procedure Note Donotuseinterpreter, Image - 07/16/2024 [facility] [address] [place], [place] [address] Mammography Report Signed Patient: Heidi Chairez#: [id number] : 9Acct:[id number] Age/Sex: 63 / FADM Date: 07/05/24 Loc: HO.MAMMO Attending Dr: Gia Tenorio MD Ordering Physician: Gia Tenorio MDResults: 1Ne gative Date of Service: 07/05/24Follow Up: 1 Year From Orig inal Mammogram Procedure(s): MM tomosynthesis screening BI Accession Number(s): [id number] cc: Gia Tenorio MD EXAMINATION: MM SCREENING [...] 07/16/24 1000 DD/ 1355 TD/TT: 07/05/24 1410 Rod Cup Filler: Gia Tenorio MD IMG BI PROCEDURES Final Resul t * Hm Colonoscopy (03/07/2024) Colonoscopy Normal Normal us Gia Tenorio MD HEALTH MAINTENANCE Final Resu lt * ThinPrep Imaging Pap and HPV mRNA E6/E7 with Reflex to HPV 16,18/45 (12/05/2023 10:30 AM EDT) HPV 16 RNA TNP [facility] HPV 18/45 RNA [facility] HPV nRNA E6/E7 Not Detected Not Detected [facility] Comment:Methodology: Transcr iption-Mediated AmplificationThis assay detects E6/E7 viral messenger RNA (mRNA) from 14high-risk HPV types (16,18,31,33,35,39,45,51,52,56,58,59,66,68).Cervical sources are required for HPV testing.If a vaginal source from a patient who has had atotal hysterectomy with removal of cervix wassubmitted, please contact the testing laboratoryfor alternative testing options.For additional information, please refer tohttp://education.[employer]/faq/GIP105i5(This link if provided for information/educational purposes only.)THIS TEST WAS PERFORMED AT:[employer] [address] [id number] SOLO MD SOURCE: SEE NOTE [facility] Comment:Cervix Report Status: [facility] Clinical Information: SEE NOTE [facility] Comment:R LMP: SEE NOTE [facility] Comment:NONE GIVEN Prev. PAP: SEE NOTE [facility] Comment:2020 Prev. BX: SEE NOTE [facility] Comment:NONE GIVEN Statement Of Adequacy: SEE NOTE [facility] Comment:SATISFACTORY FOR ALINE LUATION General Categorization: [facility] Interpretation/Result: SEE NOTE [facility] Comment:Cytology Results: Ne gative for intraepitheliallesion or malignancy.Atrophic pattern; predominantly parabasal cells Cytology Comment SEE NOTE [facility] Comment:This Pap test has be en evaluated with computerassisted technology. Sticker Machine Operator: SEE NOTE [facility] Comment:RPR, CT (ASCP) CT sc reening location: [address] [address] Review Sticker Machine Operator: [facility] Pathologist [facility] PAP Infection [facility] See Note SEE [facility] Comment:EXPLANATORY NOTE:The Pap is a [...] AM EDT 12/06/2023 9:23 AM EDT Narrative [facility] - 12/09/2023 8:39 AM EDT [id number] us Megharegina Wright CN LAB PATHOLOGY ORDERABLES Final Result [facility] [address] [place] [phone] * HEPATITIS C AB W/REFL TO HCV RNA, QN, PCR (08/20/2020 5:01 PM EST) HEPATITIS C ANTIBODY NON-REACT [facility] NON-REACT [facility] INDEX 0.04 <1.00 [facility] Comment: HCV antibody was non-reactive. There is no laboratory evidence of HCV infection. In most cases, no further action is required. However, if recent HCV exposure is suspected, a test for HCV RNA (test code 36255) is suggested. For additional information please refer to http://education.[employer]/faq/EYC61l0 (This link is being provided for informational/ educational purposes only.) 08/20/2020 5:01 PM EST us Jenna Carballo PATIENT SERVICE ASSOCIATE HISTORICAL/NON ORDERABLE LABS Final Result [facility] [address] from Last 3 Months or Most Recently Relevant to Health Maintenance Insurance [facility] ONE CARE < 65 [place] [id number] Care Teams Track Repair Worker Relationship Specialty Start Date End Date Gia Tenorio MD [address] [place] [phone] PCP - General Family Medicine 06/13/18
--- OUTSIDE RECORDS SUMMARY | 2025-05-16 09:55 | XMS_ITS | Encounter Summary ---
Author Organization [employer] Address [address] [facility] [address] [place] [address] Care Team Providers Care Multicut Line Operator Name Role Phone Gia Tenorio MD Primary Care Provider [phone] Encounter Details Date Type Department Care Team (Late st Contact Info) Description 05/14/2025 Orders Only [facility] External Provider, [facility] Social History Tobacco Use Types Packs/Day Years [...] PM EST Narrative 05/14/2025 3:36 PM EST [place] [address] Ultrasound Report Signed Patient: Bree Chairez MR#: [id number] : 1960 Acct:[id number] Age/Sex: 64 / F ADM Date: 05/14/25 Loc: .US Attending Dr: Gia Tenorio MD Ordering Physician: Ignacio Leyva MD Date of Service: 05/14/25 Procedure(s): US renal BI Accession Number(s): [id number] cc: Ignacio Leyva MD; Gia Tenorio MD [...] 05/14/25 1534 DD/ 1505 TD/TT: 05/14/25 1516 Product Support Manager: Procedure Note Donotuseinterpreter, Image - 05/14/2025 [place] [address] Ultrasound Report Signed Patient: Heidi Chairez#: [id number] : 9Acct:[id number] Age/Sex: 64 / FADM Date: 05/14/25 Loc: .US Attending Dr: Gia Tenorio MD Ordering Physician: Ignacio Leyva MD Date of Service: 05/14/25 Procedure(s): US renal BI Accession Number(s): [id number] cc: Ignacio Leyva MD; Gia Tenorio MD [...] 05/14/25 1534 DD/ 1505 TD/TT: 05/14/25 1516 Product Support Manager: [facility] External Provider IMG US PROCEDURES Final Result documented in this encounter Visit Diagnoses Not on filedocumented in this encounter Care Teams Multicut Line Operator Relationship Specialty Start Date End Date Gia Tenorio MD [address] [place] [address] PCP - General Family Medicine 06/13/18 documented as of this encounter
--- OUTSIDE RECORDS SUMMARY | 2025-05-16 09:55 | XMS_ITS | Encounter Summary ---
Author Organization [employer] Address [address] [place] [address] Care Team Providers Care Wood Barker Name Role Phone Gia Tenorio MD Primary Care Provider [phone] Reason for Visit * Reason Comments Med Refill Encounter Details Date Type Department Care Team (Late st Contact Info) Description 04/18/2023 Refill [facility] [address] [place] [address] Mercy Jeffries MD [address] [place], [place] [phone] Acute left-sided low back pain with left-sided [...] spasm documented in this encounter Care Teams Wood Barker Relationship Specialty Start Date End Date Gia Tenorio MD [address] [place] [address] PCP - General Family Medicine 06/13/18 documented as of this encounter
--- OUTSIDE RECORDS SUMMARY | 2025-05-16 09:55 | XMS_ITS | Encounter Summary ---
Author Organization [employer] Address [address] [place] [address] [address] [place] [address] Care Team Providers Care Shoe Caser Name Role Phone Gia Tenorio MD Primary Care Provider [phone] Encounter Details Date Type Department Care Team [...] on filedocumented in this encounter Care Teams Shoe Caser Relationship Specialty Start Date End Date Gia Tenorio MD [address] [place] [address] PCP - General Family Medicine 06/13/18 documented as of this encounter
--- OUTSIDE RECORDS SUMMARY | 2025-05-16 09:55 | XMS_ITS | Encounter Summary ---
Author Organization [employer] Address [address] [place] [address] Care Team Providers Care Manager Social Services Name Role Phone Gia Tenorio MD Primary Care Provider [phone] Reason for Visit * Reason Comments Med Refill Encounter Details Date Type Department Care Team ([facility] st Contact Info) Description 04/18/2023 Refill [facility] [address] [place], [place] [phone] Luigi Solomon MD [address] [place] [address] Acute left-sided low back pain with left-sided [...] documented in this encounter Care Teams Manager Social Services Relationship Specialty Start Date End Date Gia Tenorio MD [address] [place] [address] PCP - General Family Medicine 06/13/18 documented as of this encounter
--- OUTSIDE RECORDS SUMMARY | 2025-05-16 09:55 | XMS_ITS | Encounter Summary ---
Author Organization [employer] Address [address] [place] [address] [place] [address] Care Team Providers Care In Service Coordinator Name Role Phone Gia Tenorio MD Primary Care Provider [phone] Encounter Details Date Type Department Care Team (Late st Contact Info) Description 04/21/[address] [facility] [address] [place] [address] Ana Mahoney Social History Tobacco Use Types [...] on filedocumented in this encounter Care Teams In Service Coordinator Relationship Specialty Start Date End Date Gia Tenorio MD [address] [place] [address] PCP - General Family Medicine 06/13/18 documented as of this encounter
--- OUTSIDE RECORDS SUMMARY | 2025-05-16 09:55 | XMS_ITS | Encounter Summary ---
Author Organization [employer] Address [address] [place] [address] [address] [place] [address] Care Team Providers Care Senior Electronics Design Engineer Name Role Phone Gia Tenorio MD Primary Care Provider [phone] Encounter Details Date Type Department Care Team [...] on filedocumented in this encounter Care Teams Senior Electronics Design Engineer Relationship Specialty Start Date End Date Gia Tenorio MD [address] [place] [address] PCP - General Family Medicine 06/13/18 documented as of this encounter
--- OUTSIDE RECORDS SUMMARY | 2025-05-16 09:55 | XMS_ITS | Encounter Summary ---
Author Organization [email or web address] Address [address] [place] [address] Care Team Providers Care Department Chairperson Name Role Phone Gia Tenorio MD Primary Care Provider [phone] Reason for Visit * Reason Comments Med Refill Encounter Details Date Type Department Care Team ([facility] st Contact Info) Description 02/24/2023 Refill [facility] PEDS [address] [place] [address] Liz Contreras MD [address] [place] [address] Social History Tobacco Use Types Packs/Day Years [...] on filedocumented in this encounter Care Teams Department Chairperson Relationship Specialty Start Date End Date Gia Tenorio MD [address] [place] [address] PCP - General Family Medicine 06/13/18 documented as of this encounter
--- OUTSIDE RECORDS SUMMARY | 2025-05-16 09:55 | XMS_ITS | Encounter Summary ---
Author Organization [employer] Address [address] [place] [id number] Care Team Providers Care Soil Science Teacher Name Role Phone Gia Tenorio MD Primary Care Provider [phone] Encounter Details Date Type Department Care Team (Late st Contact Info) Description 11/15/2023 Orders Only [facility] [address] [place] [address] Anat Van MD [address] [place] [address] Social History Tobacco Use Types Packs/Day Years [...] on filedocumented in this encounter Care Teams Soil Science Teacher Relationship Specialty Start Date End Date Gia Tenorio MD [address] [place] [address] PCP - General Family Medicine 06/13/18 documented as of this encounter
--- OUTSIDE RECORDS SUMMARY | 2025-05-16 09:55 | XMS_ITS | Encounter Summary ---
Author Organization [employer] Address [address] [place] [address] Care Team Providers Care Scrap Worker Name Role Phone Gia Tenorio MD Primary Care Provider [phone] Reason for Visit * Reason Comments Med Refill Encounter Details Date Type Department Care Team ([facility] st Contact Info) Description 02/24/2023 Refill [facility] MED & PEDS [address] [place] [address] Gia Tenorio MD [address] [place] [address] Benign essential hypertension; Mild persistent asthma without [...] complication documented in this encounter Care Teams Scrap Worker Relationship Specialty Start Date End Date Gia Tenorio MD [address] [place] [address] PCP - General Family Medicine 06/13/18 documented as of this encounter
== END 2025-05-16 10:32 | disposition home or self-care (01) ==
PROVIDERS: PCP Pediatrics; Visit Provider Urology
DX: R15.9 Full incontinence of feces (principal); N95.2 Postmenopausal atrophic vaginitis; R39.15 Urgency of urination
CPT/HCPCS: 52000; 99214